=== PATIENT | female | born 1950 | race Caucasian/White ===

== ENCOUNTER → 2017-06-05 09:09 | Outpatient (CLI) | payer MEDICARE, SELFPAY ==
[2017-06-05 12:12] LABS: Absolute Lymphocyte Count 2.23 X10^3/ul (0.83-4.51); Absolute Neutrophil Count 5.3 X10^3/uL (2.0-7.7); Basophil# 0.11 X10^3/uL; Basophil% 1.2 % (0-1); Eosinophil# 0.23 X10^3/uL; Eosinophils% 2.6 % (0-5); Hematocrit 44.4 % (37-47); Hemoglobin 14.7 g/dl (12.0-15.0); Lymphocyte # 2.23 X10^3/ul (4.0); Lymphocyte % 25.1 % (19-41); Mean Corp Hgb Conc 33.1 g/gl (32-36); Mean Corpuscular Hgb 29.9 pg (27.0-32.0); Mean Corpuscular Volume 90.2 fL (81-99); Mean Platelet Vol. 10.7 fl (6.2-12.0); Monocyte# 1.03 X10^3/uL; Monocyte% 11.6 % (0-10); Neutrophil # 5.26 X10^3/uL (2.7-7.7); Neutrophil % 59.3 % (47-70); Platelet Count 255 K/mm3 (150-450); RBC Distribution Width CV 13.2 % (11.6-14.6); RBC Distribution Width SD 42.9 fl (35.1-43.9); Red Blood Count 4.92 M/mm3 (4.2-5.4); White Blood Count 8.9 K/mm3 (4.4-11.0)
[2017-06-05 12:13] LABS: POSITIVE COUNT NO; POSITIVE DIFFERENTIAL NO; POSITIVE MORPHOLOGY NO
[2017-06-05 12:19] LABS: Microalbumin,Random Urine 29.9 mg/L (NO RANGE EST.); Microalbumin:Creatinine Ratio 16.2 mg/g CRE (<30 mg/g CRE)
[2017-06-05 12:32] LABS: ALB/GLOB Ratio 0.9 RATIO (0.9-2.4); AST(SGOT) 40 U/L (15-37); Alanine Aminotransfer ALT/SGPT 49 U/L (13-56); Albumin, Serum 3.8 g/dL (3.2-5.0); Alkaline Phosphatase 53 U/L (45-117); Anion Gap 10 (5-15); BUN 18 mg/dL (7-18); BUN/Creat Ratio 21.9 RATIO (10-20); Calcium,Total 8.9 mg/dL (8.5-10.1); Chloride 100 mmol/L (98-107); Cholesterol 174 mg/dL (200); Creatinine, Serum 0.82 mg/dL (0.55-1.02); EST Glomerular Filtration Rate 73 mL/min (>60); Est Glom Filt Rate - Afr Amer 89 mL/min (>60); Globulin 4.2 g/dL (2.2-4.2); Glucose 205 mg/dL (74-106); High Density Lipoprotein 48 mg/dL; Potassium 3.8 mmol/L (3.5-5.1); Sodium Level 135 mmol/L (136-145); Thyroid Stim Hormone (TSH) 2.26 uIU/mL (0.358-3.74); Triglycerides 168 mg/dL; Very Low Density Lipoprotein 34 mg/dL (5-40)
[2017-06-05 12:35] LABS: Hemoglobin A1c 8.2 % (4.2-6.3)
== END ==
PROVIDERS: Family Provider Family Medicine; PCP Family Medicine; Visit Provider Family Medicine
DX: E11.9 Type 2 diabetes mellitus without complications (principal); I25.10 Atherosclerotic heart disease of native coronary artery without angina pectoris; I10 Essential (primary) hypertension; E03.9 Hypothyroidism, unspecified
CPT/HCPCS: 36415; 80053; 80061; 82043; 82570; 83036; 84443; 85025

== ENCOUNTER → 2017-11-08 06:46 | Outpatient (CLI) | payer MEDICARE, SELFPAY ==
--- NOTE | 2017-11-08 10:42 | STRESSREP ---
Stress Test Report Exercise myocardial perfusion stress test. 67-year-old lady with a history of coronary artery disease. Medications: Plavix Synthroid Zestril metoprolol Pepcid hydrochlorothiazide rosuvastatin. Stress protocol: Resting EKG demonstrates normal sinus rhythm with rate of 78 bpm normal intervals and noted resting blood pressure 730/78 mmHg. The patient exercised according to the regular [place] protocol for total duration of 4 minutes and 30 seconds. The maximum heart rate attained was 150 bpm which was 99% of maximum predicted heart rate the maximum workload was 6.4 metabolic equivalents. At rest there were no ST or T-wave changes noticed ischemia at peak exercise upsloping ST changes were noted we did not do note ischemia no clinical angina was noted the test was terminated due to shortness of breath and leg fatigue and occasional PVC was noted. The resting blood pressure is 130/78 peak blood pressure is 174/78. Rate pressure product was 25,500. Myocardial perfusion protocol. 12.0 mCi of technetium 99m sestamibi was injected at rest. The patient exercised according to regular Tunde protocol for 4-1/2 minutes. At peak exercise 34.4 mCi of technetium 99m sestamibi was injected stress images were obtained stress and rest images were reconstructed and compared in the short axis vertical long horizontal long axis. Gated images were also obtained pre- Perfusion SPECT analysis: Review of the stress images demonstrate normal uptake of tracer noted in all areas of the myocardium. The resting images similarly demonstrate normal uptake of tracer noted in all areas of myocardium. No areas of reversibility are noted suggest ischemia. Gated SPECT analysis: The gated ejection fraction is noted to be 77%. Conclusion: Normal exercise stress test at a moderate workload. Preserved ejection fraction.
== END ==
PROVIDERS: Family Provider Family Medicine; PCP Family Medicine; Visit Provider Internal Medicine Cardiovascular Disease
DX: I25.10 Atherosclerotic heart disease of native coronary artery without angina pectoris (principal)
CPT/HCPCS: 78452; 93017; A9500; A4216

== ENCOUNTER → 2018-05-28 08:42 | Outpatient (CLI) | payer MEDICARE, SELFPAY ==
[2017-10-17 11:06] VITALS: BMI 28.6
[2018-05-28 10:01] LABS: Absolute Lymphocyte Count 2.48 X10^3/ul (0.83-4.51); Absolute Neutrophil Count 5.2 X10^3/uL (2.0-7.7); Basophil# 0.06 X10^3/uL; Basophil% 0.7 % (0-1); Eosinophil# 0.23 X10^3/uL; Eosinophils% 2.5 % (0-5); Hemoglobin 14.1 g/dl (12.0-15.0); Lymphocyte # 2.48 X10^3/ul (4.0); Lymphocyte % 27.4 % (19-41); Mean Corp Hgb Conc 32.8 g/gl (32-36); Mean Corpuscular Hgb 29.7 pg (27.0-32.0); Mean Corpuscular Volume 90.7 fL (81-99); Mean Platelet Vol. 9.9 fl (6.2-12.0); Monocyte# 1.06 X10^3/uL; Monocyte% 11.7 % (0-10); Neutrophil # 5.21 X10^3/uL (2.7-7.7); Neutrophil % 57.6 % (47-70); Platelet Count 269 K/mm3 (150-450); RBC Distribution Width CV 13.3 % (11.6-14.6); RBC Distribution Width SD 43.8 fl (35.1-43.9); Red Blood Count 4.74 M/mm3 (4.2-5.4); White Blood Count 9.1 K/mm3 (4.4-11.0)
[2018-05-28 10:04] LABS: POSITIVE COUNT NO; POSITIVE DIFFERENTIAL NO; POSITIVE MORPHOLOGY NO
[2018-05-28 10:17] LABS: Microalbumin,Random Urine 41.3 mg/L (NO RANGE EST.)
[2018-05-28 10:36] LABS: ALB/GLOB Ratio 0.9 RATIO (0.9-2.4); AST(SGOT) 48 U/L (15-37); Alanine Aminotransfer ALT/SGPT 47 U/L (13-56); Albumin, Serum 3.9 g/dL (3.2-5.0); Alkaline Phosphatase 49 U/L (45-117); Anion Gap 11 (5-15); BUN 19 mg/dL (7-18); BUN/Creat Ratio 21.9 RATIO (10-20); Calcium,Total 9.4 mg/dL (8.5-10.1); Chloride 100 mmol/L (98-107); Cholesterol 180 mg/dL (200); Creatinine, Serum 0.87 mg/dL (0.55-1.02); EST Glomerular Filtration Rate 69 mL/min (>60); Est Glom Filt Rate - Afr Amer 83 mL/min (>60); Globulin 4.5 g/dL (2.2-4.2); Glucose 152 mg/dL (74-106); High Density Lipoprotein 55 mg/dL; Potassium 4.1 mmol/L (3.5-5.1); Protein, Total 8.4 g/dL (6.4-8.2); Sodium Level 136 mmol/L (136-145); T4 Free Direct 1.05 ng/dL (0.76-1.46); Triglycerides 164 mg/dL; Very Low Density Lipoprotein 33 mg/dL (5-40)
[2018-05-28 14:58] LABS: Hemoglobin A1c 6.9 % (4.2-6.3)
== END ==
PROVIDERS: Family Provider Family Medicine; PCP Family Medicine; Referring Provider Family Medicine; Visit Provider Family Medicine
DX: E11.9 Type 2 diabetes mellitus without complications (principal); I25.10 Atherosclerotic heart disease of native coronary artery without angina pectoris; I10 Essential (primary) hypertension; E03.9 Hypothyroidism, unspecified
CPT/HCPCS: 36415; 80053; 80061; 82043; 82570; 83036; 84439; 84443; 85025

== ENCOUNTER → 2019-02-05 11:18 | Outpatient (CLI) | payer MEDICARE, SELFPAY ==
[2018-10-23 10:16] VITALS: BMI 26.4
--- NOTE | 2019-02-05 11:25 | BI_ITS ---
MAMMOGRAPHY - BILATERAL SCREENING REASON FOR EXAM: Female, 68 years old. Routine annual screening examination. PERTINENT HISTORY: Non-contributory. TECHNIQUE: Digital bilateral breast ludy (3D mammographic acquisition) in the CC and MLO projections. 2-D mediolateral oblique (MLO) and craniocaudad (CC) views of both breasts were obtained. CAD: Full Field Digital Mammography with Computer Added Detection was performed. COMPARISON: Comparison is made with prior study dated February 08, 2016 and January 14, 2015. FINDINGS: Breast Composition: There are scattered areas of fibroglandular density. There are no dominant masses or suspicious calcifications. Stable small benign-appearing bilateral lymph nodes.. Stable scattered microcalcifications bilaterally. No focal cluster is seen. No other significant abnormalities are identified. There has been no significant change since the prior study. BI/SCREEN MAMM (CAD) W/LUDY BILAT IMPRESSION: Stable bilateral screening mammogram. Yearly follow-up mammogram recommended. (A) ASSESSMENT CATEGORY: BIRADS Category 2: Benign. A letter regarding these results will be sent to the patient by the facility within 30 days. Approximately 10% of breast cancers are not detected by mammography. A normal mammogram should not delay biopsy of a clinically suspicious abnormality. [id number] Electronically Signed: Jose Luis Schneider, at 12:53 EST , Service support ,
== END ==
PROVIDERS: Family Provider Family Medicine; PCP Family Medicine; Referring Provider Family Medicine; Visit Provider Family Medicine
DX: Z12.31 Encounter for screening mammogram for malignant neoplasm of breast (principal)
CPT/HCPCS: 77063; 77067

== ENCOUNTER → 2019-10-16 09:41 | Outpatient (CLI) | payer MEDICARE, SELFPAY ==
[2018-10-23 10:16] VITALS: BMI 26.4
[2019-10-16 11:25] LABS: Absolute Lymphocyte Count 2.23 X10^3/uL (0.83-4.51); Absolute Neutrophil Count 3.1 X10^3/uL (2.0-7.7); Basophil# 0.09 X10^3/uL; Basophil% 1.4 % (0-1); Eosinophil# 0.14 X10^3/uL; Eosinophils% 2.2 % (0-5); Hematocrit 41.6 % (37-47); Hemoglobin 13.7 g/dL (12.0-15.0); Lymphocyte # 2.23 X10^3/ul (4.0); Lymphocyte % 35.7 % (19-41); Mean Corp Hgb Conc 32.9 g/dL (32-36); Mean Corpuscular Hgb 30.4 pg (27.0-32.0); Mean Corpuscular Volume 92.2 fL (81-99); Mean Platelet Vol. 9.9 fl (6.2-12.0); Monocyte# 0.72 X10^3/uL; Monocyte% 11.5 % (0-10); NRBC Flagged by Analyzer 0 % (0-5); Neutrophil # 3.05 X10^3/uL (2.7-7.7); Neutrophil % 48.9 % (47-70); Platelet Count 225 K/mm3 (150-450); RBC Distribution Width CV 12.9 % (11.6-14.6); RBC Distribution Width SD 42.7 fl (35.1-43.9); Red Blood Count 4.51 M/mm3 (4.2-5.4); White Blood Count 6.3 K/mm3 (4.4-11.0)
[2019-10-16 11:44] LABS: ALB/GLOB Ratio 0.9 RATIO (0.9-2.4); AST(SGOT) 57 U/L (15-37); Alanine Aminotransfer ALT/SGPT 52 U/L (13-56); Albumin, Serum 3.7 g/dL (3.2-5.0); Alkaline Phosphatase 50 U/L (45-117); Anion Gap 9 (5-15); BUN 13 mg/dL (7-18); BUN/Creat Ratio 17.5 RATIO (10-20); Calcium,Total 8.9 mg/dL (8.5-10.1); Chloride 102 mmol/L (98-107); Creatinine, Serum 0.74 mg/dL (0.55-1.02); EST Glomerular Filtration Rate 82 mL/min (>60); Est Glom Filt Rate - Afr Amer 99 mL/min (>60); Globulin 4.2 g/dL (2.2-4.2); Glucose 145 mg/dL (74-106); Potassium 3.8 mmol/L (3.5-5.1); Protein, Total 7.9 g/dL (6.4-8.2); Sodium Level 133 mmol/L (136-145); T4 Free Direct 1.14 ng/dL (0.76-1.46); Thyroid Stim Hormone (TSH) 1.43 uIU/mL (0.358-3.74)
[2019-10-16 13:16] LABS: Hemoglobin A1c 6.5 % (3.8-5.6)
[2019-10-17 11:03] LABS: Carcinoembryonic Antigen 1.6 ng/mL (0.0-4.7)
== END ==
PROVIDERS: PCP Family Medicine; Visit Provider Colon & Rectal Surgery
DX: E11.9 Type 2 diabetes mellitus without complications (principal); E03.9 Hypothyroidism, unspecified; Z85.038 Personal history of other malignant neoplasm of large intestine
CPT/HCPCS: 36415; 80053; 82378; 83036; 84439; 84443; 85025

== ENCOUNTER → 2019-10-22 10:28 | Outpatient (CLI) | payer MEDICARE, SELFPAY ==
[2019-10-22 10:01] VITALS: BMI 27.6
[2019-10-22 11:31] LABS: Cholesterol 159 mg/dL (200); High Density Lipoprotein 54 mg/dL; Triglycerides 181 mg/dL; Very Low Density Lipoprotein 36 mg/dL (5-40)
== END ==
PROVIDERS: PCP Family Medicine; Referring Provider Internal Medicine Cardiovascular Disease; Visit Provider Internal Medicine Cardiovascular Disease
DX: I25.10 Atherosclerotic heart disease of native coronary artery without angina pectoris (principal)
CPT/HCPCS: 36415; 80061

== ENCOUNTER 2020-01-02 09:14 | Observation (INO) | payer MEDICARE, SELFPAY ==
[2019-10-22 10:01] VITALS: BMI 27.6
[2020-01-02] VITALS (20 sets, daily range): BP systolic 121–180; BP diastolic 60–81; PULSE 77–115; RESP 15–24; TEMP 36.2–36.6; O2SAT 94–99; BMI 29.1; BMI 29.0
--- NOTE | 2020-01-02 09:26 | ED.DCSUM_ITS ---
History of Present Illness Chief Complaint: Chest Pain Narrative: Patient presents with intermittent chest pain for about a week however it started in the middle the night and has been constant since. This feels like a prior IN however it does not feel as bad. She has no fever or chills or cough or congestion. She has no radiation of the pain. She has no back pain or tearing sensation. She has no pleuritic component. She has no lower extremity edema or calf pain. No DVT or PE risk factors. Past Medical History - Allergies and Home Meds Allergies/Adverse Reactions: Allergies atorvastatin calcium [From Lipitor] Allergy (Verified 10/23/18 10:16) Other MUSCLE SORENESS iodine Allergy (Verified 10/23/18 10:16) Rash Primary Care Physician: Hiram Osborne DO [Primary Care Provider] - Past Medical History: - - Hypertension hypercholesterolemia diabetes prior IN with 4 stents Smoking Status: Never smoker Review of Systems All systems negative except as indicated General: Denies: Fever Eyes: Denies: Visual changes - bilaterally ENT: Denies: Sore throat Cardiovascular: Reports: Chest pain. Denies: Palpitations, Heart racing Respiratory: Denies: Dyspnea, Cough Gastrointestinal: Denies: Abdominal pain, Nausea, Vomiting Genitourinary: Denies: Dysuria Musculoskeletal: Denies: Myalgias Skin: Denies: Rash Neurological: Denies: Headache, Weakness Endocrine: Denies: Polyuria Hematologic: Denies: Easy bruising, Easy bleeding Allergy: Denies: Swelling of the mouth Physical Exam Vital Signs/Narrative: Vital Signs Temp Pulse Resp BP Pulse Ox 01/02/20 09:15 97.1 F L 89 16 161/76 H 99 General: Well nourished, Well developed Head: Normocephalic, Atraumatic ENT: Moist mucous membranes, No rhinorrhea Cardiovascular: Regular rate, Regular rhythm, No murmurs Respiratory: No distress, CTA bilaterally Abdomen: Soft, Nontender, Nondistended Back: Nontender. Negative for: Normal Inspection Extremities: Nontender, No edema Skin: Normal color Neurological: Alert, Oriented x3, Normal Strength, Normal Sensation Psychological: Normal affect Diagnostic/Tx/Re-eval - Rhythm Strip Rhythm Strip: Sinus Rhythm Rate: 84 Ectopy: None - EKG Initial EKG Interpretation: - - Normal sinus rhythm with a rate of 84. Normal NM and QTc intervals. ST and T wave abnormalities in the inferior leads. No ST elevation. I do not have a prior EKG to compare with. Interpreted by emergency doctor - Medical Decision Making Patient has an unremarkable work-up however she has quite a few risk factors for her chest pain including prior PTCA. I will admit her for further cardiac work- up. ED Disposition - Plan for ED Patient: Disposition: Home or Assisted Living Diagnosis: Chest pain Referrals: Hiram Osborne DO [Primary Care Provider] -
--- NOTE | 2020-01-02 09:26 | EKG12_ITS ---
Test Reason : CP Blood Pressure : / mmHG Vent. Rate : 084 BPM Atrial Rate : 084 BPM P-R Int : 166 ms QRS Dur : 104 ms QT Int : 382 ms P-R-T Axes : 056 035 045 degrees QTc Int : 451 ms Normal sinus rhythm Nonspecific ST & T Wave Abnormality Abnormal ECG Confirmed by ANGEL LUIS SALTER, YANI ([id number]), recreation assistant CHU HUSAIN ([id number]) on 01/06/2020 2:25:56 PM Referred By: VALENTIN Confirmed By:YANI HEIN MD
[2020-01-02 09:41] LABS: Absolute Lymphocyte Count 2.21 X10^3/uL (0.83-4.51); Basophil% 1.4 % (0-1); Eosinophil# 0.21 X10^3/uL; Eosinophils% 2.9 % (0-5); Lymphocyte # 2.21 X10^3/ul (4.0); Mean Corp Hgb Conc 32.6 g/dL (32-36); Mean Corpuscular Volume 92.3 fL (81-99); Mean Platelet Vol. 9.7 fl (6.2-12.0); Monocyte# 0.81 X10^3/uL; NRBC Flagged by Analyzer 0 % (0-5); Neutrophil # 4.01 X10^3/uL (2.7-7.7); Neutrophil % 54.4 % (47-70); Platelet Count 267 K/mm3 (150-450); RBC Distribution Width CV 12.8 % (11.6-14.6); RBC Distribution Width SD 42.7 fl (35.1-43.9); Red Blood Count 4.66 M/mm3 (4.2-5.4); White Blood Count 7.4 K/mm3 (4.4-11.0)
[2020-01-02] MEDS: Aspirin 81 MG TAB.CHEW 324 MG PO (09:44)
--- NOTE | 2020-01-02 09:55 | RAD_ITS ---
STUDY: X-RAY CHEST REASON FOR EXAM: Female, 69 years old. CHEST PAIN X 1 WK, HX OF COLORECTAL CANCER, HX ID TECHNIQUE: Single AP portable view of the chest. COMPARISON: Comparison is made with prior study from 04/28/2014. FINDINGS: EKG electrodes are seen. The lungs are clear and expanded. There is no demonstrated pleural abnormality. Normal size heart. Normal mediastinum and yara. Normal visualized pulmonary arteries. Normal visualized aortic arch and descending thoracic aorta. Normal visualized thoracic spine. Normal visualized ribs, clavicles, and shoulders. There is no demonstrated abnormality of the visualized soft tissue structures of the upper abdomen. RAD/Chest 1 View (Portable) IMPRESSION: Normal x-ray examination of the chest. Electronically Signed: Jose Luis Schneider, at 10:45 EST , Service support ,
[2020-01-02 09:57] LABS: Anion Gap 7 (5-15); BUN 17 mg/dL (7-18); BUN/Creat Ratio 20.1 RATIO (10-20); Calcium,Total 9.6 mg/dL (8.5-10.1); Chloride 100 mmol/L (98-107); Creatinine, Serum 0.85 mg/dL (0.55-1.02); EST Glomerular Filtration Rate 70 mL/min (>60); Est Glom Filt Rate - Afr Amer 85 mL/min (>60); Estimated Creatinine Clearance 54.62 ml/min; Glucose 212 mg/dL (74-106); Potassium 3.7 mmol/L (3.5-5.1); Sodium Level 134 mmol/L (136-145)
--- NOTE | 2020-01-02 11:53 | CON.PCM_ITS ---
Reason for Consult Date of Consultation: 01/02/20 Reason for Consultation: Chest pain History of Present Illness: The patient is a 69 year old F who presented to the emergency room complaining of intermittent chest discomfort. She woke up in the middle of the night with this chest discomfort described as a heaviness. She was seen in the emergency room was evaluated by the ER physician EKG did not demonstrate any significant abnormality. Cardiac troponin enzymes were minimally abnormal I was called by the hospitalist to notify me of the admission and her ongoing chest pain. She does have a history of coronary artery disease status post angioplasty and stenting of the right coronary artery in 2009, subsequent stenting of her circumflex artery in 2010 and coronary intervention of the same circumflex artery in 2011. Since then she has done well was last seen in the office in September of this year without any problems other than occasional reflux for which she was on famotidine. At this time she says that she continues to have minimal chest discomfort. [] Past Medical History Allergies/Adverse Reactions: Allergies atorvastatin calcium [From Lipitor] Allergy (Verified 01/02/20 11:48) Other MUSCLE SORENESS iodine Allergy (Verified 01/02/20 11:48) Rash Home Medications: Ambulatory Orders Medication Instructions Recorded Levothyroxine [Synthroid] 75 mcg PO DAILY 05/18/13 metformin 500 mg tablet 500 mg PO BID 10/17/17 nitroglycerin 0.4 mg sublingual 0.4 mg SUBLINGUAL Q5M PRN #30 tab 10/17/17 tablet amlodipine 5 mg tablet 5 mg PO BID #180 tab 10/22/19 aspirin 81 mg tablet,delayed 81 mg PO DAILY 10/22/19 release clopidogrel 75 mg tablet 75 mg PO DAILY #90 tab 10/22/19 hydrochlorothiazide 25 mg tablet 25 mg PO QDAY #90 tab 10/22/19 lisinopril 20 mg tablet 20 mg PO BID #180 tab 10/22/19 metoprolol tartrate 50 mg tablet 50 mg PO BID #180 tab 10/22/19 pantoprazole 40 mg tablet,delayed 40 mg PO DAILY tab 10/22/19 release rosuvastatin 20 mg tablet 20 mg PO QDAY #90 tab 10/22/19 Famotidine [Acid-Pep] 20 mg PO DAILY 01/02/20 Glimepiride 4 mg PO DAILY 01/02/20 Past Medical History (Chronic Problems): Chronic Problems (Last Reviewed 10/22/19 @ 10:01 by Suzy Bach) Atherosclerotic heart disease of [place] coronary artery without angina pectoris (Chronic) Essential (primary) hypertension (Chronic) Hyperlipidemia (Chronic) Rectal cancer (Chronic) Smoking Status: Former smoker Alcohol: None Drugs: None Review of Systems - Review of Systems General: Denies: Fever, Night Sweats, Fatigue HEENT: Denies: Vision Change Cardiovascular: Reports: Chest Discomfort, Chest Discomfort at Rest. Denies: Shortness of Breath, Orthopnea, PND, Peripheral Edema, Palpitations, Lightheadedness, Dizziness, Near Syncope, Syncope Respiratory: Denies: Cough, Sputum Production, Hemoptysis Gastrointestinal: Reports: Indigestion. Denies: Hematemesis, Hematochezia, Melena Genitourinary: Denies: Dysuria, Hematuria Skin: Denies: Rash Neurological: Denies: Dizziness Psychiatric: Reports: Anxiety Subjectve: Pleasant lady appears to be mildly anxious Objective: Vital Signs Temp Pulse Resp BP Pulse Ox 97.2 F L 82 16 131/60 H 98 01/02/20 11:17 01/02/20 11:19 01/02/20 11:19 01/02/20 11:19 01/02/20 11:19 Oxygen Delivery Method Room Air Weight: 175 lb Body Mass Index (BMI) 29.1 General: Awake, Alert, Oriented x 3 HEENT: PERRL, EOMI, Sclera Non Icteric Neck: Supple, Good ROM, No Lymph Node Enlargement Lungs: Clear to auscultation Cardiovascular: Regular Rhythm, Normal S1, Normal S2, No Murmurs, No Rubs, No Gallops Vascular: No Carotid Bruits, Normal Femoral Pulses, Normal Radial Pulses, Normal Dorsalis Pedal Pulse, Normal Posterior Tibial Pulses Abdomen: Bowel Sounds Present, Soft, Non Tender, No HSM, No Organomegaly Extremities: No Cyanosis, No Clubbing, No edema Musculoskeletal: No Erythema Skin: No Rashes Lymphatic: No Lymph Node Enlargement Neurological: No Focal Motor or Sensory Deficit Psych/Mental Status: Appropriate 01/02/20 09:30: WBC 7.4, RBC 4.66, Hgb 14.0, Hct 43.0, MCV 92.3, MCH 30.0, MCHC 32.6, Plt Count 267, MPV 9.7, Immature Gran % (Auto) 0.300, Neut % (Auto) 54.4, Lymph % (Auto) 30.0, [place] % (Auto) 11.0 H, Eos % (Auto) 2.9, Baso % (Auto) 1.4 H , Absolute Neuts (auto) 4.0, Nucleated RBC % 0 01/02/20 09:30: Sodium 134 L, Potassium 3.7, Chloride 100, Carbon Dioxide 27.0, Anion Gap 7, BUN 17, Creatinine 0.85, Est GFR (MDRD) Af Amer 85, Est GFR (MDRD) Non-Af 70, BUN/Creatinine Ratio 20.1 H, Glucose 212 H, Calcium 9.6, Troponin I 0.018 Rhythm: EKG: Normal sinus rhythm with no acute changes ECHO: Stress Test: Cardiac Cath: PCI: CT Surgery: Holter monitor: EPS: PPM: CXR: Chest CT Scan: Assessment/Plan 1. Chest pain. Unstable angina. * Patient presents with chest discomfort which appears to be unrelenting and suggestive of an stable or new onset angina. She does not have any EKG changes but her cardiac enzymes are minimally abnormal. I would suggest that on the basis of her ongoing chest discomfort that we proceed with a cardiac catheterization. The risk benefits alternatives have been explained to her she understands and agrees to proceed. She did undergo a stress test 2 years ago and at that time no evidence of ischemia was noted. * 2. Hypertension * Her blood pressure appears to be under good control on the current medical therapy I would not recommend that we make any other changes. * * Thank you for allowing me to participate in the care of your patient. Please don't hesitate to call if any issues arise.
--- NOTE | 2020-01-02 12:39 | CL.D_ITS ---
Patient Name: CHARLA KOROMA Study Date: 01/02/2020 Performing: Pk Casey MD Ht: 64.96 inches 165 cm : 1950 Wt: 174.17 lbs 79 kg Age: 69 Gender: female BSA: 1.86 PROCEDURE(S) PERFORMED JS61-XEF/COR/LV CLINICAL PROFILE AND INDICATIONS Indications: ACS <= 24 hrs Heart Failure: None Stress/Imaging Stress/Image Study Performed: No CAD Presentations: Unstable angina. CONCLUSIONS Previously placed stent in the circumflex artery which is patent: Previously placed stent in the righ t coronary artery with high-grade 95% mid in-stent stenosis. AV groove branch with 60% ostial stenos is. Preserved left ventricular ejection fraction RECOMMENDATIONS Referred for immediate PCI DESCRIPTION OF PROCEDURE The patient arrived to the procedure lab. The risks and benefits of the procedure as well as a full d escription of our services here and current unavailability of surgical backup were fully explained to the patient and/or their significant other prior to the catheterization. The Timeout was completed, verifying the correct patient and procedure. The patient's procedural site was prepped and draped in the usual fashion. Local anesthetic was given subcutaneously to right radial region with Lidocaine 2% . Using a modified Seldinger technique, arterial access was obtained via the right radial artery, a 6 Fr sheath was inserted. Right Coronary Artery selective angiography was then performed in multiple v iews using a 5 Fr. 4.0 [place] catheter. Left Coronary Artery selective angiography was performed in mu ltiple views using a 5 Fr. 4.0 [place] catheter. Left Ventriculography was performed in ARMIJO projection using a 5 Fr. Pigtail catheter. LV to AO pullback pressures were then recorded. CORONARY ANGIOGRAPHY DOMINANCE: Right Dominant LEFT HEART ASSESSMENT Left Ventricular Ejection Fraction: by LV Gram 65 % Normal LV wall motion Normal Left Ventricular systolic function LEFT MAIN: Angiographically normal LEFT ANTERIOR DESCENDING ARTERY: Mild luminal irregularities CIRCUMFLEX ARTERY: MID CIRC: Previously placed stent is patent RIGHT CORONARY ARTERY: MID RCA: Previously placed stent has an instent 95 % restenosis COMPLICATIONS PROCEDURE MEDICATIONS Versed 1 mg IV Fentanyl 50 mcg IV Versed 1 mg IV Versed 1 mg IV Oxygen: 2 L/min via nasal cannula Benadryl 50 mg IV @ 01/02/2020 12:06:42 Heparin diluted in 23cc Heparinized saline. Patient given 10cc IA of this solution. 01/02/2020 12:14: 43 Heparin 6000 unit(s) IV 01/02/2020 12:37:09 Plavix 75 mg PO 01/02/2020 12:03:27 Solu-medrol 125 mg IV 01/02/2020 12:06:52 SUMMARY OF HEMODYNAMIC DATA Time AIR REST ECG 11:57:09 AO 130/67 (94) SA 12:20:55 LV 136/1, 5 12:26:35 LV 133/2, 8 12:26:46 LV 136/6, 13 12:27:17 LV 132/5, 13 12:27:24 LVp 131/8, 13 12:27:30 AOp 131/60 (90) 12:27:35 Signed By Pk Casey MD On 01/02/2020 12:38:33 Pk Casey MD
--- NOTE | 2020-01-02 14:00 | EKG12_ITS ---
Test Reason : CP Blood Pressure : / mmHG Vent. Rate : 080 BPM Atrial Rate : 080 BPM P-R Int : 168 ms QRS Dur : 098 ms QT Int : 398 ms P-R-T Axes : 055 008 037 degrees QTc Int : 459 ms Normal sinus rhythm Normal ECG Confirmed by ANGEL LUIS SALTER, YANI ([id number]), fashion editor CHU HUSAIN ([id number]) on 01/06/2020 2:35:42 PM Referred By: ALISA Confirmed By:YANI HEIN MD
--- NOTE | 2020-01-02 14:25 | CL.I_ITS ---
Patient Name: CHARLA KOROMA Study Date: 01/02/2020 Performing: Dustin Zuniga MD Ht: 65 inches 165 cm : 1950 Wt: 174.4 lbs 79 kg Age: 69 Gender: female BSA: 1.86 PROCEDURE(S) PERFORMED XV36-XEL W OR WO PTCA, SINGLE CORONARY ARTERY CLINICAL PROFILE AND CO-MORBIDITIES Indications: ACS <= 24 hrs Heart Failure: None Stress/Imaging Stress/Image Study Performed: No CAD Presentations: Unstable angina. CONCLUSIONS Successful PCI with LEVI to ostial and mid RCA with LEVI RECOMMENDATIONS ASA Indefinitley Plavix for at least 12 months Follow up with Dr. Casey DESCRIPTION OF PROCEDURE The patient arrived to the procedure lab. The risks and benefits of the procedure as well as a full d escription of our services here and current unavailability of surgical backup were fully explained to the patient and/or their significant other prior to the catheterization. The Timeout was completed, verifying the correct patient and procedure. The patient's procedural site was prepped and draped in the usual fashion. Local anesthetic was given subcutaneously to right radial region with Lidocaine 2% Using a modified Seldinger technique,arterial access was obtained via the right radial artery, a 6Fr sheath was inserted. Right Coronary Artery selective angiography was then performed in multiple view s using a 5 Fr. 4.0 Raymond catheter. Left Coronary Artery selective angiography was performed in multi ple views using a 5 Fr. 4.0 Raymond catheter. Left Ventriculography was performed in ARMIJO projection usi ng a 5 Fr. Pigtail catheter. LV to AO pullback pressures were then recorded.The images were reviewed and options discussed. A decision was then made to proceed with an Intervention, IVUS o r other adjunct procedure. JR4 Guide catheter was inserted and engaged into the RCA. HSI SH Guide catheter was inserted and engaged into the RCA. [employer] [place] Guide wire was advanced to the RCA. Emerge 2.[address] x [address] was inserted. Balloon catheter was advanced across lesion in the right coronary, mid. PTCA balloo n inflated at 6 atms for 7 secs. PTCA balloon inflated at 6 atms for 5 secs. PTCA balloon inflated at 10 atms for 12 secs. PTCA balloon inflated at 6 atms for 9 secs. Angiogram performed post balloon di latation. Synergy 3.0 x 28 Drug Eluting stent was inserted. Drug Eluting stent was advanced across th e lesion in the right coronary, mid. Angiogram performed pre stent deployment. Angiogram performed po st stent deployment. Synergy 3.0x 12 Drug Eluting stent was inserted. Drug Eluting stent was advanced across the lesion in the right coronary, ostial. Angiogram performed pre stent deployment. JR4 Guide catheter was inserted and engaged into the RCA. NC Emerge 3.25 x 12 Balloon catheter was inserted. Balloon catheter was advanced across lesion in the right coronary, ostial. [employer] [place] Gu tal wire was advanced to the RCA. Angiogram performed post balloon dilatation. The arterial sheath was pulled and a TR Band was applied for hemostasis INTERVENTION INFORMATION LESION SITE: RCA (Mid) Lesion Complexity: High/C, chronic total occlusion: No, lesion at bifurcation: No, thrombus present: No, lesion length: 27 mm, culprit lesion: Yes, Previously treated lesion: Yes, In-stent restenosis: Y es, Timeframe of previous treatment: >2 years, Previously treated with a stent: Yes Stent Type: with stent type unknown, In-stent Thrombosis: No Pre Stenosis: 95 % Pre intervention CASSY flow: 3 PROCEDURE: Drug Eluting Stent with pre dilatation. Post Stenosis: 0 % Post intervention CASSY flow: 3 Lesion Devices: Loving .014 [place] Straight 190cm Medtronic 6 Fr JR4.0 100cm Guide Catheter Medtronic 6 Fr HSI SH 100cm Guide Catheter Rivera Sci EMERGE MR 2.50x12 BALLOON Rivera Sci Synergy MR LEVI 3.00x28 LESION SITE: RCA (Ostial) Lesion Complexity: High/C, chronic total occlusion: No, lesion at bifurcation: No, thrombus present: No, lesion length: 4 mm, culprit lesion: Yes, Previously treated lesion: No Pre Stenosis: 60 % Pre intervention CASSY flow: 3 PROCEDURE: Drug Eluting Stent with post dilatation There was significant dampening of the arterial waveform with catheter engagement. We administered in tracoronary NTG and patient went into V fib. CPR was started and one 200J shock delivered which broug ht the patient back to NSR. Post Stenosis: 0 % Post intervention CASSY flow: 3 Lesion Devices: Loving .014 [place] Straight 190cm Medtronic 6 Fr HSI SH 100cm Guide Catheter Rivera Sci Synergy MR LEVI 3.00x12 Rivera Sci NC EMERGE MR 3.25x12 BALLOON COMPLICATIONS PROCEDURE MEDICATIONS Versed 1 mg IV Fentanyl 50 mcg IV Versed 1 mg IV Versed 1 mg IV Oxygen: 2 L/min via nasal cannula Benadryl 50 mg IV @ 01/02/2020 12:06:42 Heparin diluted in 23cc Heparinized saline. Patient given 10cc IA of this solution. 01/02/2020 12:14: 43 Heparin 6000 unit(s) IV 01/02/2020 12:37:09 Nitro 200 mcg IC 01/02/2020 12:40:34 Plavix 75 mg PO 01/02/2020 12:03:27 Solu-medrol 125 mg IV 01/02/2020 12:06:52 IV Bolus: .9 NaCl 250ml total 01/02/2020 12:54:47 SUMMARY OF HEMODYNAMIC DATA Time AIR REST ECG 11:57:09 AO 130/67 (94) SA 12:20:55 LV 136/1, 5 12:26:35 LV 133/2, 8 12:26:46 LV 136/6, 13 12:27:17 LV 132/5, 13 12:27:24 LVp 131/8, 13 12:27:30 AOp 131/60 (90) 12:27:35 Signed By Dustin Zuniga MD On 01/02/2020 14:24:06 Dustin Zuniga MD
[2020-01-02] MEDS: 0.9% Normal Saline 1,000 ML 100 ML IV (14:51)
--- NOTE | 2020-01-02 15:19 | PCM.HP.STD ---
Problem List (1) Chest pain Status: Acute (2) Atherosclerotic heart disease of [place] coronary artery without angina pectoris Status: Chronic (3) History of non-ST elevation myocardial infarction (NSTEMI) Status: Resolved (4) History of coronary artery stent placement Status: Chronic Comment: BIN-FLN-Biy-Distal RCA 12/04/2009; RWJ-ZLM-Clre-Mid LCx 12/15/2009; VLS-SXG-JCD-Mid LCx w/ 3.0 x 16 mm Promus Element Stent 02/12/11 (5) Essential (primary) hypertension Status: Chronic (6) Hyperlipidemia Status: Chronic Qualifiers: Hyperlipidemia type: pure hypercholesterolemia Qualified Code(s): E78.00 - Pure hypercholesterolemia, unspecified; E78.0 - Pure hypercholesterolemia (7) Rectal cancer Status: Chronic History of Present Illness Date of Admission: 01/02/20 Chief Complaint: Chest pain. The patient is a 69 year old F who presents to the emergency room due to chest pain. Patient states she has had intermittent chest pain for the past week. She states it is occurred both at rest and with exertion. Patient states chest pain woke her up from her sleep this morning and was a pressure in the center of her chest which radiated to her back. She states she took a nitro and went back to sleep. When she woke up, she states she did not feel right and the pressure was still there and at that time decided to come to the emergency room. She denies shortness of breath, diaphoresis, nausea or other associated symptoms. She has a past medical history of CAD with history of stents, hypertension, hyperlipidemia, type 2 diabetes mellitus, hypothyroidism, GERD. Past Medical History Past Medical History (Chronic Problems): Chronic Problems (Last Reviewed 10/22/19 @ 10:01 by Suzy Bach) Atherosclerotic heart disease of [place] coronary artery without angina pectoris (Chronic) History of coronary artery stent placement (Chronic 02/12/11) ZWX-PJY-Ijh-Distal RCA 12/04/2009; VLD-LFW-Bweg-Mid LCx 12/15/2009; YNF-EYL-YKB-Mid LCx w/ 3.0 x 16 mm Promus Element Stent 02/12/11 Essential (primary) hypertension (Chronic) Hyperlipidemia (Chronic) Rectal cancer (Chronic) Medical History: Medical History (Last Reviewed 10/22/19 @ 10:01 by Suzy Bach) Atherosclerotic heart disease of [place] coronary artery without angina pectoris (Chronic) I25.10 History of non-ST elevation myocardial infarction (NSTEMI) (Resolved) Onset Date: 02/12/11 I25.2 Essential (primary) hypertension (Chronic) I10 Hyperlipidemia (Chronic) E78.5 Rectal cancer (Chronic) C20 Hypothyroidism, iatrogenic E03.2 Type 2 diabetes mellitus E11.9 Allergies atorvastatin calcium [From Lipitor] Allergy (Verified 01/02/20 11:48) Other MUSCLE SORENESS iodine Allergy (Verified 01/02/20 11:48) Rash Home Medications: Ambulatory Orders Medication Instructions Recorded Levothyroxine [Synthroid] 75 mcg PO DAILY 05/18/13 metformin 500 mg tablet 500 mg PO BID 10/17/17 nitroglycerin 0.4 mg sublingual 0.4 mg SUBLINGUAL Q5M PRN #30 tab 10/17/17 tablet amlodipine 5 mg tablet 5 mg PO BID #180 tab 10/22/19 aspirin 81 mg tablet,delayed 81 mg PO DAILY 10/22/19 release clopidogrel 75 mg tablet 75 mg PO DAILY #90 tab 10/22/19 hydrochlorothiazide 25 mg tablet 25 mg PO QDAY #90 tab 10/22/19 lisinopril 20 mg tablet 20 mg PO BID #180 tab 10/22/19 metoprolol tartrate 50 mg tablet 50 mg PO BID #180 tab 10/22/19 pantoprazole 40 mg tablet,delayed 40 mg PO DAILY tab 10/22/19 release rosuvastatin 20 mg tablet 20 mg PO QDAY #90 tab 10/22/19 Famotidine [Acid-Pep] 20 mg PO DAILY 01/02/20 Glimepiride 4 mg PO DAILY 01/02/20 Surgical History: Surgical History (Last Reviewed 10/22/19 @ 10:01 by Suzy Bach) History of coronary artery stent placement (Chronic) Onset Date: 02/12/11 Z95.5 YQJ-ASO-Zul-Distal RCA 12/04/2009; UIE-ANQ-Augu-Mid LCx 12/15/2009; SSW-YNG-MRH-Mid LCx w/ 3.0 x 16 mm Promus Element Stent 02/12/11 H/O colectomy Onset Date: 09/2018 Z90.49 History of hysterectomy Onset Date: 09/2018 Z90.710 History of left heart catheterization Onset Date: 05/13/11 Z98.890 Surgical History: - - Partial colectomy, hysterectomy, cardiac stent placement, tonsillectomy. 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 Lives: Spouse/ Significant Other Smoking Status: Never smoker Alcohol: Occasional Drugs: None - *Family History Maternal Family History: Family History (Last Reviewed 10/22/19 @ 10:01 by Suzy Bach) Father Heart disease Myocardial infarction Mother CAD (coronary artery disease) CVA (cerebral vascular accident) HLD (hyperlipidemia) Hypertension Brother CAD (coronary artery disease) History Items: Heart Disease, - - Colon cancer, dementia Paternal Family History: Family History (Last Reviewed 10/22/19 @ 10:01 by Suzy Bach) Father Heart disease Myocardial infarction Mother CAD (coronary artery disease) CVA (cerebral vascular accident) HLD (hyperlipidemia) Hypertension Brother CAD (coronary artery disease) History Items: Heart Disease Review of Systems Constitutional: Denies: Chills, Fever, Weight Change HEENT: Denies: Head Aches, Sinus Congestion, Sinus Drainage Cardiovascular: Reports: Chest Pain, Heaviness. Denies: Light Headedness, Palpitations, Syncope Respiratory: Denies: Cough, Shortness of breath at rest, Sputum production Gastrointestinal: Denies: Abdominal Pain, Nausea, Vomiting Genitourinary: Denies: Dysuria Musculoskeletal: Denies: Joint Pain, Joint Tenderness Skin: Denies: Rash, Wounds Neurological: Denies: Numbness, Tingling, Focal weakness Psychiatric: Denies: Anxiety, Depression, Homicidal Ideations, Suicidal Ideations Hematologic/ Lymphatic: Denies: Easy Bruising, Easy Bleeding VTE Information - Inpt Only VTE Present on Admission: No VTE Mechan Device Prophylaxis: SCD's VTE Pharm Prophylaxis ordered?: No Reason prophylaxis not ordered:: Treatment Not Indicated Patient Problems: Active and Suspected Problems (Last Reviewed 10/22/19 @ 10:01 by Suzy Bach) Chest pain (Acute) - Physical Exam Vitals/I&O's: Vital Signs Temp Pulse Resp BP Pulse Ox 97.2 F L 82 16 131/60 H 98 01/02/20 11:17 01/02/20 11:19 01/02/20 11:19 01/02/20 11:19 01/02/20 11:19 Oxygen Delivery Method Room Air Weight: 174 lb 13.225 oz Body Mass Index (BMI) 29.0 General: Alert, Oriented x3, Cooperative HEENT: Atraumatic, PERRLA, EOMI, Normocephalic Neck: Supple, No JVD, Negative Carotid Bruits Lungs: Clear to auscultation, Normal air movement Cardiovascular: Regular rate, No murmurs Abdomen: Bowel Sounds Present, Soft, Non Tender, Non-Distended Extremities: No clubbing, No cyanosis, No edema, Capillary Refill Less than 3 Seconds Skin: No rashes, No breakdown Musculoskeletal: No Tenderness to Palpation of Joints or Extremities Neurological: Cranial nerves II-XII grossly intact, Neuro grossly intact Psych/Mental Status: Normal Affect, Appropriate Laboratory Results 01/02/20 09:30: WBC 7.4, RBC 4.66, Hgb 14.0, Hct 43.0, MCV 92.3, MCH 30.0, MCHC 32.6, RDW Std Deviation 42.7, RDW Coeff of [place] 12.8, Plt Count 267, MPV 9.7, Immature Gran % (Auto) 0.300, Neut % (Auto) 54.4, Lymph % (Auto) 30.0, [place] % (Auto) 11.0 H, Eos % (Auto) 2.9, Baso % (Auto) 1.4 H, Absolute Neuts (auto) 4.0, Absolute Lymphs (auto) 2.21, Nucleated RBC % 0 01/02/20 09:30: Sodium 134 L, Potassium 3.7, Chloride 100, Carbon Dioxide 27.0, Anion Gap 7, BUN 17, Creatinine 0.85, Estim Creat Clear Calc 54.62, Est GFR (MDRD) Af Amer 85, Est GFR (MDRD) Non-Af 70, BUN/Creatinine Ratio 20.1 H, Glucose 212 H, Calcium 9.6, Troponin I 0.018 01/02/20 10:04: COVID-19 (SIGIFREDO) Not Detected Current Medications Acetaminophen (Acetaminophen 325 Mg Tablet) 650 mg PO Q6H PRN PRN PRN Reason: Pain Score 1-10/Temp > 100.7 F Amlodipine Besylate (Amlodipine 5 Mg Tablet) 5 mg PO BID [facility] Aspirin (Aspirin E.C. 81 Mg Tablet) 81 mg PO DAILYCM [facility] Atropine Sulfate (Atropine Sulfate 1 Mg/10 Ml Syringe) 0.5 mg IV UD PRN PRN Reason: HR <50 bpm Clopidogrel Bisulfate (Clopidogrel Bisulfate 75 Mg Tablet) 75 mg PO DAILY [facility] Famotidine (Famotidine 20 Mg Tablet) 20 mg PO DAILY [facility] Glimepiride ([facility] 4 Mg Tablet) [facility] Heparin Sodium (Beef Lung) (Heparin Lock 500 Unit/5 Ml In 10 Ml Syringe) 500 unit IV UD PRN PRN Reason: HEPARIN FLUSH Hydrochlorothiazide (Hydrochlorothiazide 25 Mg Tablet) 25 mg PO DAILY [facility] Sodium Chloride () 1,000 mls @ 100 mls/hr IV .Q10H IZA Stop: 01/02/20 19:59 Last Admin: 01/02/20 14:51 Dose: 100 mls/hr Documented by: Labetalol HCl (Labetalol (Prefilled) 20 Mg/4 Ml) 5 mg IV X1 PRN PRN Reason: SBP >160 when pulling sheath Stop: 01/04/20 13:59 Levothyroxine Sodium (Levothyroxine 75 Mcg Tablet) 75 mcg PO DAILY@0600 [facility] Lisinopril (Lisinopril 20 Mg Tablet) 20 mg PO BID [facility] Metoprolol Tartrate (Metoprolol Tartrate 50 Mg Tablet) 50 mg PO BID [facility] Morphine Sulfate (Morphine 4 Mg/Ml Syringe) 4 mg IV Q3H PRN PRN PRN Reason: Pain Score 6-10 Nitroglycerin (Nitroglycerin (Inpatient Use) 0.4 Mg Tab.Subl) 0.4 mg SUBLINGUAL Q5M PRN PRN Reason: CHEST Ondansetron HCl (Ondansetron 4 Mg/2 Ml Vial) 4 mg IV Q8H PRN PRN PRN Reason: NAUSEA/VOMITING Pantoprazole Sodium (Pantoprazole Sodium 40 Mg Tablet) 40 mg PO DAILY [facility] Rosuvastatin Calcium (Rosuvastatin 20 Mg Tablet) 20 mg PO QHS [facility] Sodium Chloride (0.9% Normal Saline 500 Ml Iv.Soln.) 500 ml IV BOLUS PRN PRN Reason: VASO-VAGAL PROTOCOL Sodium Chloride (0.9% Saline Lock 10 Ml Syringe) 10 - 40 ml IV UD PRN PRN Reason: SALINE FLUSH Assessment/Plan All Active Problems (Last Reviewed 10/22/19 @ 10:01 by Suzy Be Chest pain (Acute) History of non-ST elevation myocardial infarction (NSTEMI) (Resolved 02/12/11) Family history of hyperlipidemia (Resolved) 1. Unstable angina, CAD status post PCI with LEVI to ostial and mid RCA 01/02/2020-cardiology following. Continue aspirin, Plavix, statin, metoprolol, lisinopril. 2. Hypertension-stable, continue HCTZ, lisinopril, metoprolol, amlodipine. 3. Hyperlipidemia-continue statin. 4. Hypothyroidism-continue Synthroid. 5. GERD-continue PPI. On famotidine as well? 6. Type 2 diabetes [id number] with sliding scale insulin. Continue home glimepiride regimen. DVT prophylaxis-SCDs This patient was seen by MODESTO Fry under the supervision of Dr. Storm.
[2020-01-02 16:18] LABS: Hemoglobin A1c 6.8 % (3.8-5.6)
[2020-01-02 16:40] LABS: Bedside Glucose 362 mg/dL (70-110)
[2020-01-02] MEDS: Insulin Lispro 100 UNIT/ML INSULN.PEN SC ×2 (16:45→21:15)
[2020-01-02] MEDS: amLODIPine 5 MG Tablet PO (21:14)
[2020-01-02] MEDS: Lisinopril 20 MG Tablet PO (21:14)
[2020-01-02] MEDS: Metoprolol Tartrate 50 MG Tablet PO (21:14)
[2020-01-02] MEDS: Rosuvastatin 20 MG Tablet PO (21:15)
[2020-01-02 21:25] LABS: Bedside Glucose 375 mg/dL (70-110)
[2020-01-03] VITALS (7 sets, daily range): BP systolic 123–142; BP diastolic 48–69; PULSE 74–90; RESP 14–16; TEMP 36.5–36.6; O2SAT 94–96
[2020-01-03] MEDS: Insulin Lispro 100 UNIT/ML INSULN.PEN SC (06:39)
[2020-01-03] MEDS: Levothyroxine 75 MCG Tablet PO (06:39)
[2020-01-03 06:45] LABS: Bedside Glucose 254 mg/dL (70-110)
[2020-01-03 06:52] LABS: Hematocrit 43.3 % (37-47); Hemoglobin 14.2 g/dL (12.0-15.0); Mean Corp Hgb Conc 32.8 g/dL (32-36); Mean Corpuscular Hgb 29.6 pg (27.0-32.0); Mean Corpuscular Volume 90.2 fL (81-99); Mean Platelet Vol. 9.9 fl (6.2-12.0); Platelet Count 321 K/mm3 (150-450); RBC Distribution Width CV 12.5 % (11.6-14.6); RBC Distribution Width SD 41.2 fl (35.1-43.9); White Blood Count 17.8 K/mm3 (4.4-11.0)
[2020-01-03 07:31] LABS: ALB/GLOB Ratio 0.9 RATIO (0.9-2.4); AST(SGOT) 26 U/L (15-37); Alanine Aminotransfer ALT/SGPT 42 U/L (13-56); Albumin, Serum 3.8 g/dL (3.2-5.0); Alkaline Phosphatase 52 U/L (45-117); Anion Gap 9 (5-15); BUN 22 mg/dL (7-18); BUN/Creat Ratio 24.9 RATIO (10-20); Calcium,Total 9.9 mg/dL (8.5-10.1); Chloride 101 mmol/L (98-107); Creatinine, Serum 0.88 mg/dL (0.55-1.02); EST Glomerular Filtration Rate 67 mL/min (>60); Est Glom Filt Rate - Afr Amer 81 mL/min (>60); Estimated Creatinine Clearance 52.76 ml/min; Globulin 4.3 g/dL (2.2-4.2); Glucose 233 mg/dL (74-106); Potassium 3.8 mmol/L (3.5-5.1); Protein, Total 8.1 g/dL (6.4-8.2); Sodium Level 132 mmol/L (136-145)
[2020-01-03] MEDS: Aspirin E.C. 81 MG Tablet PO (08:30)
[2020-01-03] MEDS: Glimepiride 4 MG Tablet PO (08:30)
--- NOTE | 2020-01-03 08:40 | PN.CARD_ITS ---
Subjectve: Patient seen and evaluated. Appears to be doing well. Objective: Vital Signs Temp Pulse Resp BP Pulse Ox 97.9 F 84 16 123/48 H 94 01/03/20 03:15 01/03/20 07:54 01/03/20 03:15 01/03/20 03:15 01/03/20 07:10 Oxygen Delivery Method Room Air Weight: 174 lb 13.225 oz Body Mass Index (BMI) 29.0 Intake and Output for Last 24 Hours 01/01/20 01/02/20 01/03/20 23:59 23:59 23:59 Intake Total 640 / 640 240 / 240 Balance 640 / 640 240 / 240 General: Awake, Alert, Oriented x 3 HEENT: PERRL, EOMI, Sclera Non Icteric Neck: Supple, Good ROM, No Lymph Node Enlargement Lungs: Clear to auscultation Cardiovascular: Regular Rhythm, Normal S1, Normal S2, No Murmurs, No Rubs, No Gallops 01/02/20 09:30: WBC 7.4, RBC 4.66, Hgb 14.0, Hct 43.0, MCV 92.3, MCH 30.0, MCHC 32.6, Plt Count 267, MPV 9.7, Immature Gran % (Auto) 0.300, Neut % (Auto) 54.4, Lymph % (Auto) 30.0, [place] % (Auto) 11.0 H, Eos % (Auto) 2.9, Baso % (Auto) 1.4 H , Absolute Neuts (auto) 4.0, Nucleated RBC % 0 01/02/20 09:30: Sodium 134 L, Potassium 3.7, Chloride 100, Carbon Dioxide 27.0, Anion Gap 7, BUN 17, Creatinine 0.85, Est GFR (MDRD) Af Amer 85, Est GFR (MDRD) Non-Af 70, BUN/Creatinine Ratio 20.1 H, Glucose 212 H, Calcium 9.6, Troponin I 0.018 01/02/20 09:30: Hemoglobin A1c 6.8 H 01/03/20 05:57: WBC 17.8 H, RBC 4.80, Hgb 14.2, Hct 43.3, MCV 90.2, MCH 29.6, MCHC 32.8, Plt Count 321, MPV 9.9 01/03/20 05:57: Sodium 132 L, Potassium 3.8, Chloride 101, Carbon Dioxide 22.0, Anion Gap 9, BUN 22 H, Creatinine 0.88, Est GFR (MDRD) Af Amer 81, Est GFR (MDRD) Non-Af 67, BUN/Creatinine Ratio 24.9 H, Glucose 233 H, Calcium 9.9, Total Bilirubin 0.30 Rhythm: EKG: ECHO: Stress Test: Cardiac Cath: PCI: CT Surgery: Holter monitor: EPS: PPM: CXR: Chest CT Scan: Medical Necessity - Tobacco Use Smoking Status: Never smoker Assessment/Plan 1. Chest pain. Unstable angina. * Patient presented with chest discomfort and underwent a cardiac catheterization which demonstrated a patent stent in the left circumflex artery and a high-grade stenosis in the right coronary artery. This was in the previously placed stent. She underwent angioplasty and stenting of this vessel and did well otherwise. * 2. Hypertension * Her blood pressure appears to be under good control on the current medical therapy I would not recommend that we make any other changes. * * Thank you for allowing me to participate in the care of your patient. Please don't hesitate to call if any issues arise.
--- NOTE | 2020-01-03 09:26 | CRPHASE1_ITS ---
Patient Communication Former Patient:: Phase I PHII Cardiac Rehab Discussed with Patient:: Yes Guide to Cardiac Rehab Given to Patient:: Yes Cardiac Rehab Facility Choice List Given to Patient:: Yes Choice Program [facility] PHII:: Communication Given to CR Igniter Capper:: Greg Zuniga Phase II Cardiac Rehab:: Yes Sessions:: 36 sessions - 3 days/wk, 12 weeks Risk Factors/Lifestyle Smoking Status: Never smoker Second-Hand Smoke:: No Hx Hypertension: Yes Hx Diabetes Mellitus Type 1: No Hx Diabetes Mellitus Type 2: Yes Hx Dyslipidemia: Yes Hx Obesity: No Post-Menopausal: Yes ETOH: No Caffeine: No Substance Abuse: No Risk Factor for Sedentary Lifestyle: Moderate Risk Family History: Family History (Last Reviewed 10/22/19 @ 10:01 by Suzy Bach) Father Heart disease Myocardial infarction Mother CAD (coronary artery disease) CVA (cerebral vascular accident) HLD (hyperlipidemia) Hypertension Brother CAD (coronary artery disease) Family History: Heart Disease, Hypertension Past Cardiac Illness: Coronary Artery Disease, Myocardial Infarction, Previous P CI w/Stent Laboratory Values: Cardiac Rehab Phase I Labs Hemoglobin A1c 6.8 % (3.8-5.6) H 01/02/20 09:30 Phase I Education Given On:: [place], Nutrition, Antiplatelet medication, CHF, Diabetes - Type II Issues Affecting Care:: None Knowledge of Condition:: Yes Learning Preferences: Verbal Cardiac Rehabilitation Info Cardiac Rehabilitation Program Information: Cardiac Rehabilitation is important for patients like you who are recovering from a heart problem. Cardiac rehabilitation programs are recognized as integral to the continued care of the patient with coronary heart disease. The cardiac rehabilitation program is designed to optimize a patient's physical, psychological, and social functioning. Health home care specialist work in cardiac rehabilitation programs and assist you with getting the tr eatments you need to get stronger and healthier - like exercise, healthy eating habits, and medications. Cardiac rehabilitation has been show to help people with heart problems live longer and have better life enjoyment than people who do not go to cardiac rehabilitation. Please contact the Cardiac Rehabilitation Program at [facility] at in two weeks if you have not heard from them.
--- NOTE | 2020-01-03 09:29 | CRPH1.INSTRU ---
General Education CAD and cardiac anatomy and function:: Patient communicates acknowledgment Explanation of diagnoses and procedures:: Patient communicates acknowledgment Sign/Symptoms of NH:: Patient communicates acknowledgment Antiplatelet therapy: Patient communicates acknowledgment Proper use of NTG-SL: Patient communicates acknowledgment Emergency procedures and activation of EMS: Patient communicates acknowledgment Compliance of all prescribed medications: Patient communicates acknowledgment Dyslipidemia Patient Dyslipidemia Risk Factors Are:: Total Cholesterol, Triglycerides, HDL, LDL Recommendations Include:: Lipid profile provided Dyslipidemia Response Code:: Patient communicates acknowledgment Overweight/Obesity Patient Overweight/Obesity Risk Factors Are:: BMI Normal [24-29 & > 65 years old] Recommendations Include:: Weight loss of 5-10%, Exercise 5-7 times/week Overweight/Obesity:: Patient communicates acknowledgment Hypertension Patient Hypertension Risk Factors Are:: No documented hx of HTN Recommendations Include:: Maintain BP <130/85, DASH dietary guidelines, Decrease/maintain normal body weight, Moderation of ETOH Hypertension:: Patient communicates acknowledgment Heart Disease Patient Heart Disease Risk Factors Are:: Family history of heart disease < 65 years old Recommendations Include:: Educated family members of their risk Heart Disease Response Code:: Patient communicates acknowledgment Diabetes Patient Diabetes Risk Factors Are:: Elevated blood sugars Recommendations Include:: Maintain fasting blood sugars 70-110 md/dL, Maintain HgbA1c of 6% or less, Monitor blood sugar as prescribed, Diabetic dietary guidelines, Decrease/maintain body weight Diabetes:: Patient communicates acknowledgment Sedentary Patient Sedentary Risk Factors Are:: Lack of regular exercise Recommendations Include:: Aerobic exercise 5-7 times/week for 20-30 minutes continuously, Benefits of regular exercise, Discussed home walking program, Monitored Outpatient Cardiac Rehab Sedentary Response Code:: Patient communicates acknowledgment
--- NOTE | 2020-01-03 10:00 | EKG12_ITS ---
Test Reason : AM EKG Blood Pressure : / mmHG Vent. Rate : 074 BPM Atrial Rate : 074 BPM P-R Int : 182 ms QRS Dur : 102 ms QT Int : 416 ms P-R-T Axes : 050 002 007 degrees QTc Int : 461 ms Normal sinus rhythm Normal ECG Confirmed by ANGEL LUIS SALTER, YANI ([id number]), digital editor CHU HUSAIN ([id number]) on 01/06/2020 2:44:47 PM Referred By: ALICE Confirmed By:YANI HEIN MD
--- NOTE | 2020-01-03 10:18 | PCM.DC ---
- Discharge Diagnoses Current Active Problems: Current Active and Chronic Problems (Last Reviewed 10/22/19 @ 10:01 by Suzy Bach) Chest pain (Acute) Atherosclerotic heart disease of [place] coronary artery without angina pectoris (Chronic) History of coronary artery stent placement (Chronic 02/12/11) OKE-HEL-Fdu-Distal RCA 12/04/2009; CJW-BKZ-Txur-Mid LCx 12/15/2009; BKT-VPJ-DEQ-Mid LCx w/ 3.0 x 16 mm Promus Element Stent 02/12/11 Essential (primary) hypertension (Chronic) Hyperlipidemia (Chronic) Rectal cancer (Chronic) You will use the following diet at home:: Cardiac Discharge Activity: Return to Normal Activity Call your doctor if you observe: Shortness of breath, Dizziness, Fainting spells, Chest pain Allergies/Adverse Reactions: Allergies atorvastatin calcium [From Lipitor] Allergy (Verified 01/02/20 11:48) Other MUSCLE SORENESS iodine Allergy (Verified 01/02/20 11:48) Rash Medications to take at Discharge Levothyroxine [Synthroid] 75 mcg PO DAILY 05/18/13 metformin 500 mg tablet 500 mg PO BID 10/17/17 nitroglycerin 0.4 mg sublingual tablet 0.4 mg SUBLINGUAL Q5M PRN #30 tab 10/17/17 amlodipine 5 mg tablet 5 mg PO BID #180 tab 10/22/19 aspirin 81 mg tablet,delayed release 81 mg PO DAILY 10/22/19 clopidogrel 75 mg tablet 75 mg PO DAILY #90 tab 10/22/19 hydrochlorothiazide 25 mg tablet 25 mg PO QDAY #90 tab 10/22/19 lisinopril 20 mg tablet 20 mg PO BID #180 tab 10/22/19 metoprolol tartrate 50 mg tablet 50 mg PO BID #180 tab 10/22/19 pantoprazole 40 mg tablet,delayed release 40 mg PO DAILY tab 10/22/19 rosuvastatin 20 mg tablet 20 mg PO QDAY #90 tab 10/22/19 Famotidine [Acid-Pep] 20 mg PO DAILY 01/02/20 Glimepiride 4 mg PO DAILY 01/02/20 Primary Care Physician: Hiram Osborne DO [Primary Care Provider] - Please follow up with your Primary Care Physician in: 1 Week Test Results: Test results from this visit will be discussed in further detail at your follow-up appointment, if applicable. Please Follow Up With: Ina Limon, PA When: 2 Weeks Proposed Discharge Date: 01/03/20
--- NOTE | 2020-01-03 10:22 | PCM.DC.SUM ---
Discharge Date and Diagnosis - Problem List Patient Problems: Active and Suspected Problems (Last Reviewed 10/22/19 @ 10:01 by Suzy Bach) Chest pain (Acute) Date of Admission: 01/02/20 Date of Discharge: 01/03/20 - Primary Discharge Diagnosis Acute Problems: Active Problems (Last Reviewed 10/22/19 @ 10:01 by Suzy Bach) 1. Unstable angina, CAD status post PCI with LEVI to ostial and mid RCA 01/02/2020 2. Hypertension 3. Hyperlipidemia 4. Hypothyroidism 5. GERD 6. Type 2 diabetes mellitus - Secondary Discharge Diagnosis Chronic Problems: Chronic Problems (Last Reviewed 10/22/19 @ 10:01 by Suzy Bach) Atherosclerotic heart disease of [place] coronary artery without angina pectoris (Chronic) History of coronary artery stent placement (Chronic 02/12/11) [id number]-[id number]-Distal RCA 12/04/2009; [id number]-PJE-Uqml-Mid LCx 12/15/2009; [id number]-[id number]-GWD-Mid LCx w/ 3.0 x 16 mm Promus Element Stent 02/12/11 Essential (primary) hypertension (Chronic) Hyperlipidemia (Chronic) Rectal cancer (Chronic) Hospital Course and Treatment Imaging Results: Diagnostic Data Chest X-Ray 01/02/20 09:55 IMPRESSION: Normal x-ray examination of the chest. Electronically Signed: Jose Luis Schneider, at 10:45 EST , Service support , Dr. Casey-Cardiology Operations: None Procedures: Cardiac catheterization Summary of Care Provided: The patient is a 69 year old F admitted 01/02/2020 due to chest pain. 1. Unstable angina, CAD status post PCI with LEVI to ostial and mid RCA 01/02/2020-cardiology consulted during admission. Continue aspirin, Plavix, statin, metoprolol, lisinopril. Follow-up with cardiology in 2 weeks. 2. Hypertension-stable, continue HCTZ, lisinopril, metoprolol, amlodipine. 3. Hyperlipidemia-continue statin. 4. Hypothyroidism-continue Synthroid. 5. GERD-continue PPI. On famotidine as well? 6. Type 2 diabetes mellitus-Continue home glimepiride regimen. Hemoglobin A1c 6.8%. General: Alert, Oriented x3, Cooperative HEENT: Atraumatic, PERRLA, EOMI, Normocephalic Neck: Supple, No JVD, Negative Carotid Bruits Lungs: Clear to auscultation, Normal air movement Cardiovascular: Regular rate, No murmurs Abdomen: Bowel Sounds Present, Soft, Non Tender, Non-Distended Extremities: No clubbing, No cyanosis, No edema, Capillary Refill Less than 3 Seconds Skin: No rashes, No breakdown Musculoskeletal: No Tenderness to Palpation of Joints or Extremities Neurological: Cranial nerves II-XII grossly intact, Neuro grossly intact Psych/Mental Status: Normal Affect, Appropriate Patient seen and examined prior to discharge. Physical assessment as noted above. Patient is stable for discharge with follow up recommendations as noted above. This patient was seen by MODESTO Fry under the supervision of Dr. Storm. Patient Problems: Active and Suspected Problems (Last Reviewed 10/22/19 @ 10:01 by Suzy Bach) Chest pain (Acute) - Physical Exam Vitals/I&O's: Vital Signs Temp Pulse Resp BP Pulse Ox 97.9 F 84 16 123/48 H 94 01/03/20 03:15 01/03/20 07:54 01/03/20 03:15 01/03/20 03:15 01/03/20 07:10 Oxygen Delivery Method Room Air Weight: 174 lb 13.225 oz Body Mass Index (BMI) 29.0 Intake and Output for Last 24 Hours 01/01/20 01/02/20 01/03/20 23:59 23:59 23:59 Intake Total 640 / 640 600 / 600 Balance 640 / 640 600 / 600 Laboratory Results 01/02/20 09:30: Hemoglobin A1c 6.8 H 01/02/20 10:04: COVID-19 (SIGIFREDO) Not Detected 01/02/20 16:38: POC Glucose 362 H 01/02/20 21:14: POC Glucose 375 H 01/03/20 05:57: WBC 17.8 H, RBC 4.80, Hgb 14.2, Hct 43.3, MCV 90.2, MCH 29.6, MCHC 32.8, RDW Std Deviation 41.2, RDW Coeff of [place] 12.5, Plt Count 321, MPV 9.9 01/03/20 05:57: Sodium 132 L, Potassium 3.8, Chloride 101, Carbon Dioxide 22.0, Anion Gap 9, BUN 22 H, Creatinine 0.88, Estim Creat Clear Calc 52.76, Est GFR (MDRD) Af Amer 81, Est GFR (MDRD) Non-Af 67, BUN/Creatinine Ratio 24.9 H, Glucose 233 H, Calcium 9.9, Total Bilirubin 0.30, AST 26, ALT 42, Alkaline Phosphatase 52, Total Protein 8.1, Albumin 3.8, Globulin 4.3 H, Albumin/Globulin Ratio 0.9 01/03/20 06:35: POC Glucose 254 H Current Medications Acetaminophen (Acetaminophen 325 Mg Tablet) 650 mg PO Q6H PRN PRN PRN Reason: Pain Score 1-10/Temp > 100.7 F Amlodipine Besylate (Amlodipine 5 Mg Tablet) 5 mg PO BID [facility] Last Admin: 01/02/20 21:14 Dose: 5 mg Documented by: Aspirin (Aspirin E.C. 81 Mg Tablet) [facility] Last Admin: 01/03/20 08:30 Dose: 81 mg Documented by: Atropine Sulfate (Atropine Sulfate 1 Mg/10 Ml Syringe) 0.5 mg IV UD PRN PRN Reason: HR <50 bpm Clopidogrel Bisulfate (Clopidogrel Bisulfate 75 Mg Tablet) 75 mg PO DAILY [facility] Famotidine (Famotidine 20 Mg Tablet) 20 mg PO DAILY [facility] Glimepiride (Glimepiride 4 Mg Tablet) [facility] Last Admin: 01/03/20 08:30 Dose: 4 mg Documented by: Heparin Sodium (Beef Lung) (Heparin Lock 500 Unit/5 Ml In 10 Ml Syringe) 500 unit IV UD PRN PRN Reason: HEPARIN FLUSH Hydrochlorothiazide (Hydrochlorothiazide 25 Mg Tablet) 25 mg PO DAILY [facility] Insulin Human Lispro (Insulin Lispro 100 Unit/Ml Insuln.Pen) 0 unit SC [facility]; Protocol Last Admin: 01/03/20 06:39 Dose: 2 u Documented by: Labetalol HCl (Labetalol (Prefilled) 20 Mg/4 Ml) 5 mg IV X1 PRN PRN Reason: SBP >160 when pulling sheath Stop: 01/04/20 13:59 Levothyroxine Sodium (Levothyroxine 75 Mcg Tablet) 75 mcg PO DAILY@0600 [facility] Last Admin: 01/03/20 06:39 Dose: 75 mcg Documented by: Lisinopril (Lisinopril 20 Mg Tablet) 20 mg PO BID [facility] Last Admin: 01/02/20 21:14 Dose: 20 mg Documented by: Metoprolol Tartrate (Metoprolol Tartrate 50 Mg Tablet) 50 mg PO BID [facility] Last Admin: 01/02/20 21:14 Dose: 50 mg Documented by: Morphine Sulfate (Morphine 4 Mg/Ml Syringe) 4 mg IV Q3H PRN PRN PRN Reason: Pain Score 6-10 Nitroglycerin (Nitroglycerin (Inpatient Use) 0.4 Mg Tab.Subl) 0.4 mg SUBLINGUAL Q5M PRN PRN Reason: CHEST Ondansetron HCl (Ondansetron 4 Mg/2 Ml Vial) 4 mg IV Q8H PRN PRN PRN Reason: NAUSEA/VOMITING Pantoprazole Sodium (Pantoprazole Sodium 40 Mg Tablet) 40 mg PO DAILY [facility] Rosuvastatin Calcium (Rosuvastatin 20 Mg Tablet) 20 mg PO QHS [facility] Last Admin: 01/02/20 21:15 Dose: 20 mg Documented by: Sodium Chloride (0.9% Normal Saline 500 Ml Iv.Soln.) 500 ml IV BOLUS PRN PRN Reason: VASO-VAGAL PROTOCOL Sodium Chloride (0.9% Saline Lock 10 Ml Syringe) 10 - 40 ml IV UD PRN PRN Reason: SALINE FLUSH Discharge Diet: Low fat/ Low Cholesterol Discharge Activity: Return to Normal Activity Call your doctor if you observe: Shortness of breath, Dizziness, Fainting spells, Chest pain Home Medications: Medications to take at Discharge Levothyroxine [Synthroid] 75 mcg PO DAILY 05/18/13 metformin 500 mg tablet 500 mg PO BID 10/17/17 nitroglycerin 0.4 mg sublingual tablet 0.4 mg SUBLINGUAL Q5M PRN #30 tab 10/17/17 amlodipine 5 mg tablet 5 mg PO BID #180 tab 10/22/19 aspirin 81 mg tablet,delayed release 81 mg PO DAILY 10/22/19 clopidogrel 75 mg tablet 75 mg PO DAILY #90 tab 10/22/19 hydrochlorothiazide 25 mg tablet 25 mg PO QDAY #90 tab 10/22/19 lisinopril 20 mg tablet 20 mg PO BID #180 tab 10/22/19 metoprolol tartrate 50 mg tablet 50 mg PO BID #180 tab 10/22/19 pantoprazole 40 mg tablet,delayed release 40 mg PO DAILY tab 10/22/19 rosuvastatin 20 mg tablet 20 mg PO QDAY #90 tab 10/22/19 Famotidine [Acid-Pep] 20 mg PO DAILY 01/02/20 Glimepiride 4 mg PO DAILY 01/02/20 Primary Care Physician: Hiram Osborne DO [Primary Care Provider] - Please follow up with your Primary Care Physician in: 1 Week Please Follow Up With: Ina Limon, PA When: 2 Weeks Disposition: Home Minutes spent on discharge:: 35 Patient Condition:: Stable Medical Necessity - Tobacco Use Smoking Status: Never smoker Meaningful Use Info Meaningful Use Diagnoses (Choose all that apply): None applicable
[2020-01-03] MEDS: amLODIPine 5 MG Tablet PO (10:39)
[2020-01-03] MEDS: Pantoprazole Sodium 40 MG Tablet PO (10:39)
[2020-01-03] MEDS: Clopidogrel Bisulfate 75 MG Tablet PO (10:39)
[2020-01-03] MEDS: Famotidine 20 MG Tablet PO (10:39)
[2020-01-03] MEDS: hydroCHLOROthiazide 25 MG Tablet PO (10:40)
[2020-01-03] MEDS: Lisinopril 20 MG Tablet PO (10:40)
[2020-01-03] MEDS: Metoprolol Tartrate 50 MG Tablet PO (10:40)
--- NOTE | 2020-01-03 14:06 | NURSING ---
Read and reviewed SN documentation
== END 2020-01-03 10:19 | disposition home or self-care (01) ==
LOC: ED 10:17 → PCU 11:35
PROVIDERS: Nurse Practitioner Family; Specialist; Admitting Provider Internal Medicine; Emergency Provider Emergency Medicine; PCP Family Medicine; Visit Provider Internal Medicine
DX: I25.110 Atherosclerotic heart disease of native coronary artery with unstable angina pectoris (principal); I25.2 Old myocardial infarction; I10 Essential (primary) hypertension; E11.9 Type 2 diabetes mellitus without complications; K21.9 Gastro-esophageal reflux disease without esophagitis; E78.5 Hyperlipidemia, unspecified; Z85.048 Personal history of other malignant neoplasm of rectum, rectosigmoid junction, and anus; Z95.5 Presence of coronary angioplasty implant and graft; Z79.899 Other long term (current) drug therapy; Z79.84 Long term (current) use of oral hypoglycemic drugs; Z79.02 Long term (current) use of antithrombotics/antiplatelets; Z79.82 Long term (current) use of aspirin; E03.9 Hypothyroidism, unspecified
CPT/HCPCS: 36415; 71045; 80048; 80053; 82962; 83036; 84484; 85025; 85027; 87635; 92928; 93005; 93458; 96360; 96361; 99152; 99153; 99218; 99285; J7030; J7040; Q9967; A4216; C1725; C1769; C1874; C1887; C1894; C9600; G0378; J2405; U0002

== ENCOUNTER → 2020-04-22 09:36 | Outpatient (CLI) | payer MEDICARE, SELFPAY ==
[2019-10-22 10:01] VITALS: BMI 27.6
[2020-01-21 08:48] VITALS: BMI 29.7
[2020-04-22 12:15] LABS: Hemoglobin 14.2 g/dL (12.0-15.0); Mean Corpuscular Hgb 30.1 pg (27.0-32.0); Mean Corpuscular Volume 91.3 fL (81-99); Mean Platelet Vol. 9.9 fl (6.2-12.0); Platelet Count 257 K/mm3 (150-450); RBC Distribution Width CV 12.6 % (11.6-14.6); RBC Distribution Width SD 41.8 fl (35.1-43.9); Red Blood Count 4.71 M/mm3 (4.2-5.4); White Blood Count 7.2 K/mm3 (4.4-11.0)
[2020-04-22 12:53] LABS: Hemoglobin A1c 6.7 % (3.8-5.6)
[2020-04-22 12:53] LABS: AST(SGOT) 43 U/L (15-37); Alanine Aminotransfer ALT/SGPT 40 U/L (13-56); Alkaline Phosphatase 51 U/L (45-117); Anion Gap 9 (5-15); BUN 15 mg/dL (7-18); BUN/Creat Ratio 19.6 RATIO (10-20); Bilirubin, Direct 0.13 mg/dL (0.00-0.30); Calcium,Total 9.6 mg/dL (8.5-10.1); Chloride 96 mmol/L (98-107); Cholesterol 166 mg/dL (200); Creatinine, Serum 0.77 mg/dL (0.55-1.02); EST Glomerular Filtration Rate 79 mL/min (>60); Est Glom Filt Rate - Afr Amer 95 mL/min (>60); Globulin 3.9 g/dL (2.2-4.2); Glucose 139 mg/dL (74-106); High Density Lipoprotein 51 mg/dL; Potassium 3.5 mmol/L (3.5-5.1); Protein, Total 7.9 g/dL (6.4-8.2); Sodium Level 131 mmol/L (136-145); Triglycerides 139 mg/dL; Very Low Density Lipoprotein 28 mg/dL (5-40)
[2020-04-23 08:21] LABS: Carcinoembryonic Antigen 1.4 ng/mL (0.0-4.7)
== END ==
PROVIDERS: Internal Medicine Cardiovascular Disease; PCP Family Medicine; Referring Provider Family Medicine; Visit Provider Family Medicine
DX: E11.9 Type 2 diabetes mellitus without complications (principal); E78.00 Pure hypercholesterolemia, unspecified; Z85.038 Personal history of other malignant neoplasm of large intestine
CPT/HCPCS: 36415; 80053; 80061; 82248; 82378; 83036; 85027

== ENCOUNTER → 2020-11-09 12:52 | Outpatient (CLI) | payer MEDICARE, SELFPAY ==
--- NOTE | 2020-11-09 12:57 | ECHOCS_ITS ---
Reason For Study: CAD/ASHD Procedure This was a 2D Doppler, Color Flow transthoracic echocardiogram. Contrast injection was performed. Exam performed in department. Left Ventricle Normal LV size. Left ventricular systolic function is normal. Stage 1 diastolic dysfunction. The estimated ejection fraction is 60 %. No regional wall motion abnormalities noted. Right Ventricle Normal RV size. Normal systolic function. Atria Normal left atrium. Normal right atrium. Mitral Valve Normal mitral valve. Tricuspid Valve Normal tricuspid valve. Mild (1+) tricuspid valve insufficiency. Pulmonary artery systolic pressure is 28 mmHg. Aortic Valve Trisinus/trileaflet aortic valve. Pulmonic Valve Normal pulmonic valve. Great Vessels Normal aortic root. The pulmonary artery is normal size. Normal inferior vena cava. Pericardium/Pleural No pericardial effusion. Medication Diluted definity 3ml given slow IV push to enhance endocardial definition. MMode/2D Measurements & Calculations LVIDd: 4.7 cm IVSd: 0.90 cm Ao root diam: 2.3 cm LVIDs: 3.3 cm LVPWd: 1.2 cm RVDd: 2.9 cm FS: 30.6 % LAV(MOD-bp): 35.6 ml LVAd ap4: 23.8 cm2 SV(MOD-sp4): 37.2 ml LAV(MOD-bp) Indexed: 19.1 ml/m2 LVLd ap4: 6.8 cm LAV(MOD-sp2): 36.3 ml EDV(MOD-sp4): 68.0 ml LAV(MOD-sp4): 33.8 ml EDV(sp4-el): 71.4 ml LVAs ap4: 14.7 cm2 LVLs ap4: 6.3 cm ESV(MOD-sp4): 30.8 ml ESV(sp4-el): 29.4 ml EF(MOD-sp4): 54.7 % EF(sp4-el): 58.8 % SV(sp4-el): 42.0 ml LA A4 area: 14.7 cm2 LA dimension(2D): 3.4 cm RA A4 area: 10.7 cm2 Doppler Measurements & Calculations MV E max romel: 87.6 cm/sec Lat Peak E' Romel: 7.2 cm/sec Med Peak E' Romel: 5.3 cm/sec MV A max romel: 104.9 cm/sec E/E' lat: 12.2 E/E' med: 16.5 MV E/A: 0.83 Ao V2 max: 132.1 cm/sec LV V1 max: 101.9 cm/sec PA V2 max: 88.0 cm/sec Ao max P.0 mmHg LV V1 max P.2 mmHg Ao V2 mean: 98.5 cm/sec Ao mean P.1 mmHg Ao V2 VTI: 29.7 cm TR max romel: 245.2 cm/sec TR max P.1 mmHg ECHO/Echo Complete W/ Contrast Interpretation Summary Normal LV size. Left ventricular systolic function is normal. Stage 1 diastolic dysfunction. The estimated ejection fraction is 60 %. Contrast injection was performed. Ordering Physician: Pk Casey Referring Physician: Hiram Osborne Performed By: Ros Reyna, RDJUAN, RVT
== END ==
PROVIDERS: PCP Family Medicine; Referring Provider Internal Medicine Cardiovascular Disease; Visit Provider Internal Medicine Cardiovascular Disease
DX: I25.10 Atherosclerotic heart disease of native coronary artery without angina pectoris (principal)
CPT/HCPCS: 93306; Q9957; A4216; C8929

== ENCOUNTER → 2020-12-15 08:20 | Outpatient (CLI) | payer MEDICARE, SELFPAY ==
[2020-12-15 09:56] LABS: Absolute Lymphocyte Count 2.35 X10^3/uL (0.83-4.51); Absolute Neutrophil Count 3.1 X10^3/uL (2.0-7.7); Basophil% 1.5 % (0-1); Eosinophil# 0.16 X10^3/uL; Eosinophils% 2.4 % (0-5); Hematocrit 42.3 % (37-47); Lymphocyte # 2.35 X10^3/ul (0.83-4.51); Lymphocyte % 35.8 % (19-41); Mean Corp Hgb Conc 33.1 g/dL (32-36); Mean Corpuscular Hgb 30.3 pg (27.0-32.0); Mean Corpuscular Volume 91.6 fL (81-99); Mean Platelet Vol. 10.1 fl (6.2-12.0); Monocyte# 0.86 X10^3/uL; Monocyte% 13.1 % (0-10); NRBC Flagged by Analyzer 0 % (0-5); Neutrophil # 3.08 X10^3/uL (2.7-7.7); Neutrophil % 46.9 % (47-70); Platelet Count 271 K/mm3 (150-450); RBC Distribution Width CV 12.5 % (11.6-14.6); RBC Distribution Width SD 41.5 fl (35.1-43.9); Red Blood Count 4.62 M/mm3 (4.2-5.4); White Blood Count 6.6 K/mm3 (4.4-11.0)
[2020-12-15 10:46] LABS: ALB/GLOB Ratio 0.8 RATIO (0.9-2.4); AST(SGOT) 50 U/L (15-37); Alanine Aminotransfer ALT/SGPT 46 U/L (13-56); Albumin, Serum 3.7 g/dL (3.2-5.0); Alkaline Phosphatase 51 U/L (45-117); Anion Gap 8 (5-15); BUN 14 mg/dL (7-18); BUN/Creat Ratio 19.2 RATIO (10-20); Calcium,Total 9.5 mg/dL (8.5-10.1); Chloride 95 mmol/L (98-107); Cholesterol 169 mg/dL (200); Creatinine, Serum 0.73 mg/dL (0.55-1.02); EST Glomerular Filtration Rate 83 mL/min (>60); Est Glom Filt Rate - Afr Amer 101 mL/min (>60); Globulin 4.6 g/dL (2.2-4.2); Glucose 153 mg/dL (74-106); High Density Lipoprotein 50 mg/dL; Potassium 3.8 mmol/L (3.5-5.1); Protein, Total 8.3 g/dL (6.4-8.2); Sodium Level 133 mmol/L (136-145); Thyroid Stim Hormone (TSH) 4.25 uIU/mL (0.358-3.74); Triglycerides 148 mg/dL; Very Low Density Lipoprotein 30 mg/dL (5-40)
[2020-12-15 10:54] LABS: Microalbumin,Random Urine 13.2 mg/L (NO RANGE EST.); Microalbumin:Creatinine Ratio 12.7 mg/g CRE (<30 mg/g CRE)
[2020-12-16 13:22] LABS: Carcinoembryonic Antigen 1.6 ng/mL (0.0-4.7)
== END ==
LOC: LAB 12-01 09:40 → MTLAB 08:23
PROVIDERS: PCP Family Medicine; Referring Provider Family Medicine; Visit Provider Family Medicine
DX: I25.10 Atherosclerotic heart disease of native coronary artery without angina pectoris (principal); I10 Essential (primary) hypertension; E11.9 Type 2 diabetes mellitus without complications; E03.9 Hypothyroidism, unspecified; Z85.038 Personal history of other malignant neoplasm of large intestine
CPT/HCPCS: 36415; 80053; 80061; 82043; 82378; 82570; 83036; 84443; 85025

== ENCOUNTER → 2021-10-26 | Outpatient (CLI) | payer MEDICARE, SELFPAY ==
--- NOTE | 2021-10-26 12:32 | BI_ITS ---
MAMMOGRAPHY - BILATERAL SCREENING REASON FOR EXAM: Female, 71 years old. Routine annual screening examination. PERTINENT HISTORY: Non-contributory. TECHNIQUE: Digital bilateral breast ludy (3D mammographic acquisition) in the CC and MLO projections. 2-D mediolateral oblique (MLO) and craniocaudad (CC) views of both breasts were obtained. CAD: Full Field Digital Mammography with Computer Added Detection was performed. COMPARISON: Comparison is made with prior study 02/05/2019 and 02/08/2016. FINDINGS: Breast Composition: There are scattered areas of fibroglandular density. There are no dominant masses or suspicious calcifications. Stable small benign-appearing bilateral axillary lymph nodes. No other significant abnormalities are identified. There has been no significant change since the prior study. BI/SCRN MAMM (CAD)W/LUDY BILAT IMPRESSION: Stable bilateral screening mammogram. Yearly follow-up mammogram recommended. (A) ASSESSMENT CATEGORY: BIRADS Category 2: Benign. A letter regarding these results will be sent to the patient by the facility within 30 days. Approximately 10% of breast cancers are not detected by mammography. A normal mammogram should not delay biopsy of a clinically suspicious abnormality. [id number] Electronically Signed: Jose Luis Schneider MD at 13:38 EDT ,
--- NOTE | 2021-10-26 12:37 | BD_ITS ---
STUDY: DUAL ENERGY X-RAY ABSORPTIOMETRY / DXA REASON FOR EXAM: Female, 71 years old. [id number]. The patient is postmenopausal. TECHNIQUE: Bone Mineral Density (BMD) measurements of lumbar spine and bilateral hips were obtained. COMPARISON: None. FINDINGS: Lumbar Spine (L1-L4): g/cm2 (1.065) / T-score (0.2) / Z-score (2.5) Findings are suggestive of normal bone density with a low fracture risk. Left Femur Total: g/cm2 (0.837) / T-score (-0.9) / Z-score (0.8) Left Femoral Neck: g/cm2 (0.694) / T-score (-1.4) / Z-score (0.6) Right Femur Total: g/cm2 (0.840) / T-score (-0.8) / Z-score (0.9) Right Femoral Neck: g/cm2 (0.680) / T-score (-1.5) / Z-score (0.5) BD/Dexa Bone Density Study IMPRESSION: The patient is considered osteopenic as outlined below according to World Jin Organization (WHO) criteria with a low fracture risk. Reference Information: The T-score is the number of standard deviations above or below the standard which is normal for young adults at their peak bone mineral density. The World Health Organization (WHO) interprets the T-scores as follows: Above -1 Normal bone density Between -1 and -2.5 Osteopenia Equal to / or below -2.5 Osteoporosis As a practical clinical guideline, osteopenia may be graded as follows: Mild -1 through -1.5 Moderate -1.6 through -2.0 Severe -2.1 through -2.4 The Z-score is the number of standard deviations above or below age-matched controls. A Z-score of less than -1.5 would be considered abnormal. References: 1. NIH Osteoporosis and Related Bone Diseases www osteo.org 2. International Society for Clinical Densitometry www iscd.org 3. National Osteoporosis Foundation www nof.org Electronically Signed: Jose Luis Schneider MD at 12:54 EDT ,
== END | disposition home or self-care (01) ==
LOC: OPBD 12:27
PROVIDERS: PCP Family Medicine; Referring Provider Family Medicine; Visit Provider Family Medicine
DX: Z12.31 Encounter for screening mammogram for malignant neoplasm of breast (principal); Z78.0 Asymptomatic menopausal state
CPT/HCPCS: 77063; 77067; 77080

== ENCOUNTER → 2021-11-17 | Outpatient (CLI) | payer MEDICARE, SELFPAY ==
--- NOTE | 2021-11-17 17:10 | STRESSREP_ITS ---
Stress Test Report His myocardial perfusion stress test. 71-year-old lady with a history of dyspnea on exertion. Stress protocol: Resting KG demonstrates normal sinus rhythm with a rate of 78 bpm normal intervals are noted resting blood pressure is 142/72 mmHg. The patient exercised according to the regular Tunde protocol for total duration of 4 minutes completing 1 minute into stage II of the Tunde protocol the maximum heart rate attained was 153 bpm which was 104% of max impacted heart rate the maximum workload was 7 metabolic equivalents. At rest there were no ST or T wave changes noted suggest ischemia. At peak exercise there was upsloping ST changes noted in the inferior leads. During recovery downsloping ST depression was noted in V3 which was not diagnostic of ischemia. Occasional premature ventricular complexes were noted. The peak blood pressure was 150/64 mmHg. Myocardial perfusion protocol. 11.6 mCi of technetium 99m sestamibi was injected at rest. The patient exercised according to regular Tunde protocol for 4 minutes and at peak exercise 33.3 mCi of technetium 99m sestamibi was injected stress images were obtained stress and rest images were reconstructed in comparing the short axis vertical long and horizontal long axis. Gated images were also obtained to Perfusion SPECT analysis: Review of the images demonstrate normal uptake of tracer noted in all areas of the myocardium. The resting images similar demonstrate normal uptake of tracer noted in all areas of the myocardium. No reversibility is noted suggest isc hemia no previous infarct is noted. Gated SPECT analysis: The gated ejection fraction is 60%. Conclusion: Normal exercise myocardial perfusion stress test at a moderate workload. Preserved ejection fraction.
== END | disposition home or self-care (01) ==
PROVIDERS: PCP Family Medicine; Referring Provider Nurse Practitioner Gerontology; Visit Provider Nurse Practitioner Gerontology
DX: I25.10 Atherosclerotic heart disease of native coronary artery without angina pectoris (principal); R06.09 Other forms of dyspnea; Z95.5 Presence of coronary angioplasty implant and graft
CPT/HCPCS: 78452; 93017; A9500; A4216

== ENCOUNTER → 2021-12-01 | Outpatient (CLI) | payer MEDICARE, SELFPAY ==
--- NOTE | 2021-12-01 08:58 | CDU_ITS ---
Reason For Study: DIZZINESS Rt. Velocities/BP Lt. Velocities/BP Prox CCA 60.2/8.3 cm/sec. Prox CCA 94.4/13.4 cm/sec. Mid CCA 67.7/12.7 cm/sec. Mid CCA 93.2/18.3 cm/sec. Dist CCA 62.5/10.1 cm/sec. Dist CCA 89.5/14.6 cm/sec. Prox ICA 101.4/20.1 cm/sec. Prox ICA 133.7/26.1 cm/sec. Mid ICA 88.6/13.8 cm/sec. Mid ICA 122.7/21.7 cm/sec. Dist ICA 78.7/19.3 cm/sec. Dist ICA 142.5/32.7 cm/sec. Rt. ICA/CCA = 101.4/67.7=1.50. Lt. ICA/CCA = 142.5/93.2=1.53. Prox ECA 72.9/4.9 cm/sec. Prox ECA 122.7/4.2 cm/sec. Rt. Vert. 47.9/10.4 cm/sec. Lt. Vert. 52.1/12.5 cm/sec. Right Extracranial There is intimal thickening but no significant atherosclerotic plaque noted in the right common carotid artery. There is heterogeneous, irregular atherosclerotic plaque noted in the right internal carotid artery. There is no significant atherosclerotic plaque noted in the right external carotid artery. Antegrade flow is noted in the right vertebral artery. Left Extracranial There is intimal thickening but no significant atherosclerotic plaque noted in the left common carotid artery. There is heterogeneous, irregular atherosclerotic plaque noted in the left internal carotid artery. The atherosclerotic plaque causes acoustic shadowing. The distal left internal carotid artery is not well visualized. There is no significant atherosclerotic plaque noted in the left external carotid artery. Antegrade flow is noted in the left vertebral artery. VL/Carotid Duplex Ultrasound Interpretation Summary Mild (<50%) stenosis right extracranial internal carotid. Moderate (50-69%) stenosis left extracranial internal carotid. Patent and antegrade vertebrals bilaterally. Ordering Physician: Trixie Champagne Referring Physician: Hiram Osborne Performed By: Chelly Saldana RDCS, RVT
== END | disposition home or self-care (01) ==
LOC: CVS 08:56
PROVIDERS: PCP Family Medicine; Referring Provider Nurse Practitioner Gerontology; Visit Provider Nurse Practitioner Gerontology
DX: R42 Dizziness and giddiness (principal); I25.10 Atherosclerotic heart disease of native coronary artery without angina pectoris
CPT/HCPCS: 93880

== ENCOUNTER → 2022-06-07 | Outpatient (CLI) | payer MEDICARE, SELFPAY ==
[2022-06-07 12:35] LABS: Absolute Lymphocyte Count 2.43 X10^3/uL (0.83-4.51); Absolute Neutrophil Count 4.2 X10^3/uL (2.0-7.7); Basophil# 0.12 X10^3/uL; Basophil% 1.5 % (0-1); Eosinophil# 0.22 X10^3/uL; Eosinophils% 2.8 % (0-5); Hematocrit 43.1 % (37-47); Hemoglobin 14.5 g/dL (12.0-15.0); Lymphocyte # 2.43 X10^3/ul (0.83-4.51); Lymphocyte % 30.7 % (19-41); Mean Corp Hgb Conc 33.6 g/dL (32-36); Mean Corpuscular Hgb 31.2 pg (27.0-32.0); Mean Corpuscular Volume 92.7 fL (81-99); Mean Platelet Vol. 10.3 fl (6.2-12.0); Monocyte# 0.96 X10^3/uL; Monocyte% 12.1 % (0-10); NRBC Flagged by Analyzer 0 % (0-5); Neutrophil # 4.16 X10^3/uL (2.7-7.7); Neutrophil % 52.5 % (47-70); Platelet Count 296 K/mm3 (150-450); RBC Distribution Width CV 12.7 % (11.6-14.6); RBC Distribution Width SD 43.4 fl (35.1-43.9); Red Blood Count 4.65 M/mm3 (4.2-5.4); White Blood Count 7.9 K/mm3 (4.4-11.0)
[2022-06-07 13:00] LABS: Microalbumin,Random Urine 41.8 mg/L (NO RANGE EST.); Microalbumin:Creatinine Ratio 22.5 mg/g CRE (<30 mg/g CRE)
[2022-06-07 13:27] LABS: AST(SGOT) 32 U/L (15-37); Alanine Aminotransfer ALT/SGPT 47 U/L (13-56); Alkaline Phosphatase 66 U/L (45-117); Anion Gap 8 (5-15); BUN 12 mg/dL (7-18); BUN/Creat Ratio 16.9 RATIO (10-20); Bilirubin, Direct 0.16 mg/dL (0.00-0.30); Calcium,Total 9.6 mg/dL (8.5-10.1); Chloride 100 mmol/L (98-107); Cholesterol 167 mg/dL (200); Creatinine, Serum 0.71 mg/dL (0.55-1.02); EST Glomerular Filtration Rate 86 mL/min (>60); Est Glom Filt Rate - Afr Amer 104 mL/min (>60); Globulin 4.1 g/dL (2.2-4.2); Glucose 167 mg/dL (74-106); High Density Lipoprotein 54 mg/dL; Potassium 3.9 mmol/L (3.5-5.1); Protein, Total 8.1 g/dL (6.4-8.2); Sodium Level 133 mmol/L (136-145); Thyroid Stim Hormone (TSH) 1.97 uIU/mL (0.358-3.74); Triglycerides 134 mg/dL; Very Low Density Lipoprotein 27 mg/dL (5-40)
[2022-06-07 13:59] LABS: Hemoglobin A1c 6.4 % (3.8-5.6)
[2022-06-08 11:18] LABS: Carcinoembryonic Antigen 1.8 ng/mL (0.0-4.7)
== END | disposition home or self-care (01) ==
LOC: MTLAB 09:36
PROVIDERS: PCP Family Medicine; Referring Provider Family Medicine; Visit Provider Family Medicine
DX: E78.00 Pure hypercholesterolemia, unspecified (principal); E11.9 Type 2 diabetes mellitus without complications; I10 Essential (primary) hypertension; E03.9 Hypothyroidism, unspecified; Z85.038 Personal history of other malignant neoplasm of large intestine
CPT/HCPCS: 36415; 80053; 80061; 82043; 82248; 82378; 82570; 83036; 84443; 85025

== ENCOUNTER → 2022-12-01 | Outpatient (CLI) | payer MEDICARE, SELFPAY ==
[2022-12-01 10:13] LABS: Absolute Lymphocyte Count 2.62 X10^3/uL (0.83-4.51); Absolute Neutrophil Count 3.9 X10^3/uL (2.0-7.7); Basophil# 0.13 X10^3/uL; Basophil% 1.6 % (0-1); Eosinophil# 0.29 X10^3/uL; Eosinophils% 3.6 % (0-5); Hematocrit 42.9 % (37-47); Hemoglobin 14.1 g/dL (12.0-15.0); Lymphocyte # 2.62 X10^3/ul (0.83-4.51); Mean Corp Hgb Conc 32.9 g/dL (32-36); Mean Corpuscular Hgb 30.1 pg (27.0-32.0); Mean Corpuscular Volume 91.5 fL (81-99); Mean Platelet Vol. 9.7 fl (6.2-12.0); Monocyte# 0.94 X10^3/uL; Monocyte% 11.8 % (0-10); NRBC Flagged by Analyzer 0 % (0-5); Neutrophil # 3.94 X10^3/uL (2.7-7.7); Neutrophil % 49.6 % (47-70); Platelet Count 320 K/mm3 (150-450); RBC Distribution Width CV 12.5 % (11.6-14.6); RBC Distribution Width SD 41.1 fl (35.1-43.9); Red Blood Count 4.69 M/mm3 (4.2-5.4)
[2022-12-01 10:33] LABS: Hemoglobin A1c 7.2 % (3.8-5.6)
[2022-12-01 10:43] LABS: ALB/GLOB Ratio 0.8 RATIO (0.9-2.4); AST(SGOT) 43 U/L (15-37); Alanine Aminotransfer ALT/SGPT 58 U/L (13-56); Albumin, Serum 3.7 g/dL (3.2-5.0); Alkaline Phosphatase 55 U/L (45-117); Anion Gap 9 (5-15); BUN 10 mg/dL (7-18); BUN/Creat Ratio 13.6 RATIO (10-20); Bilirubin, Direct 0.15 mg/dL (0.00-0.30); Calcium,Total 9.4 mg/dL (8.5-10.1); Chloride 99 mmol/L (98-107); Cholesterol 157 mg/dL (200); Creatinine, Serum 0.73 mg/dL (0.55-1.02); EST Glomerular Filtration Rate 82 mL/min (>60); Est Glom Filt Rate - Afr Amer 100 mL/min (>60); Globulin 4.4 g/dL (2.2-4.2); Glucose 202 mg/dL (74-106); High Density Lipoprotein 50 mg/dL; Potassium 3.5 mmol/L (3.5-5.1); Protein, Total 8.1 g/dL (6.4-8.2); Sodium Level 134 mmol/L (136-145); Triglycerides 143 mg/dL; Very Low Density Lipoprotein 29 mg/dL (5-40)
[2022-12-01 10:52] LABS: Microalbumin,Random Urine 21.8 mg/L (NO RANGE EST.); Microalbumin:Creatinine Ratio 24.1 mg/g CRE (<30 mg/g CRE)
[2022-12-02 05:07] LABS: Carcinoembryonic Antigen 1.4 ng/mL (0.0-4.7)
== END | disposition home or self-care (01) ==
LOC: LAB 09:44
PROVIDERS: Nurse Practitioner Gerontology; PCP Family Medicine; Referring Provider Family Medicine; Visit Provider Family Medicine
DX: E78.00 Pure hypercholesterolemia, unspecified (principal); E11.9 Type 2 diabetes mellitus without complications; Z85.038 Personal history of other malignant neoplasm of large intestine
CPT/HCPCS: 36415; 80053; 80061; 82043; 82248; 82378; 82570; 83036; 84443; 85025

== ENCOUNTER → 2023-06-13 | Outpatient (CLI) | payer MEDICARE, SELFPAY ==
[2023-06-13 10:26] LABS: Hemoglobin A1c 7.4 % (3.8-5.6)
[2023-06-13 10:38] LABS: AST(SGOT) 49 U/L (15-37); Alanine Aminotransfer ALT/SGPT 44 U/L (13-56); Albumin, Serum 3.8 g/dL (3.2-5.0); Alkaline Phosphatase 60 U/L (45-117); Bilirubin, Direct 0.15 mg/dL (0.00-0.30); Cholesterol 180 mg/dL (200); Globulin 4.3 g/dL (2.2-4.2); High Density Lipoprotein 53 mg/dL; Protein, Total 8.1 g/dL (6.4-8.2); Triglycerides 157 mg/dL; Very Low Density Lipoprotein 31 mg/dL (5-40)
[2023-06-15 12:10] LABS: Carcinoembryonic Antigen 1.5 ng/mL (0.0-4.7)
== END | disposition home or self-care (01) ==
LOC: MTLAB 08:52
PROVIDERS: Nurse Practitioner Gerontology; PCP Family Medicine; Referring Provider Family Medicine; Visit Provider Family Medicine
DX: I25.10 Atherosclerotic heart disease of native coronary artery without angina pectoris (principal); E11.65 Type 2 diabetes mellitus with hyperglycemia; E78.00 Pure hypercholesterolemia, unspecified; Z85.038 Personal history of other malignant neoplasm of large intestine
CPT/HCPCS: 36415; 80061; 80076; 82378; 83036

== ENCOUNTER → 2023-07-12 | Outpatient (CLI) | payer MEDICARE, SELFPAY ==
--- NOTE | 2023-07-12 13:25 | RAD_ITS ---
INDICATION: PAIN AND SWELLING/R/O ARTHRITIS AND FRACTURE EXAMINATION/TECHNIQUE: X-RAY - LEFT XR Hand Min 3 Views COMPARISON: None. FINDINGS: No acute fracture or malalignment. No blastic or lytic lesions. Minimal scattered degenerative changes. The soft tissues are unremarkable. RAD/Hand Min 3 Views IMPRESSION: No acute radiographic abnormalities. Minimal degenerative osteoarthritis. Electronically Signed: Nithin Bocanegra MD at 21:40 EDT ,
== END | disposition home or self-care (01) ==
LOC: MTRAD 13:24
PROVIDERS: PCP Family Medicine; Referring Provider Nurse Practitioner Family; Visit Provider Nurse Practitioner Family
DX: M79.642 Pain in left hand (principal); M79.89 Other specified soft tissue disorders
CPT/HCPCS: 73130

== ENCOUNTER → 2023-12-11 | Outpatient (CLI) | payer MEDICARE, SELFPAY ==
[2023-12-11 08:59] LABS: Absolute Lymphocyte Count 2.97 X10^3/uL (0.83-4.51); Absolute Neutrophil Count 4.2 X10^3/uL (2.0-7.7); Basophil# 0.12 X10^3/uL; Basophil% 1.4 % (0-1); Eosinophil# 0.22 X10^3/uL; Eosinophils% 2.6 % (0-5); Hematocrit 43.3 % (37-47); Hemoglobin 14.3 g/dL (12.0-15.0); Lymphocyte # 2.97 X10^3/ul (0.83-4.51); Lymphocyte % 34.7 % (19-41); Mean Corpuscular Hgb 29.9 pg (27.0-32.0); Mean Corpuscular Volume 90.4 fL (81-99); Mean Platelet Vol. 10.1 fl (6.2-12.0); Monocyte# 1.02 X10^3/uL; Monocyte% 11.9 % (0-10); NRBC Flagged by Analyzer 0 % (0-5); Neutrophil # 4.22 X10^3/uL (2.7-7.7); Neutrophil % 49.2 % (47-70); Platelet Count 293 K/mm3 (150-450); RBC Distribution Width CV 12.2 % (11.6-14.6); RBC Distribution Width SD 40.6 fl (35.1-43.9); Red Blood Count 4.79 M/mm3 (4.2-5.4); White Blood Count 8.6 K/mm3 (4.4-11.0)
[2023-12-11 10:05] LABS: ALB/GLOB Ratio 0.9 RATIO (0.9-2.4); AST(SGOT) 48 U/L (15-37); Alanine Aminotransfer ALT/SGPT 51 U/L (13-56); Albumin, Serum 3.8 g/dL (3.2-5.0); Alkaline Phosphatase 54 U/L (45-117); Anion Gap 10 (5-15); BUN 14 mg/dL (7-18); BUN/Creat Ratio 19.2 RATIO (10-20); Bilirubin, Direct 0.15 mg/dL (0.00-0.30); Chloride 94 mmol/L (98-107); Cholesterol 149 mg/dL (200); Creatinine, Serum 0.73 mg/dL (0.55-1.02); EST Glomerular Filtration Rate 82 mL/min (>60); Est Glom Filt Rate - Afr Amer 100 mL/min (>60); Globulin 4.3 g/dL (2.2-4.2); Glucose 200 mg/dL (74-106); High Density Lipoprotein 51 mg/dL; Potassium 4.1 mmol/L (3.5-5.1); Protein, Total 8.1 g/dL (6.4-8.2); Sodium Level 130 mmol/L (136-145); Triglycerides 156 mg/dL; Very Low Density Lipoprotein 31 mg/dL (5-40)
[2023-12-12 12:09] LABS: Carcinoembryonic Antigen 1.5 ng/mL (0.0-4.7)
== END | disposition home or self-care (01) ==
LOC: LAB 07:52
PROVIDERS: Nurse Practitioner Gerontology; PCP Family Medicine; Referring Provider Family Medicine; Visit Provider Family Medicine
DX: E11.9 Type 2 diabetes mellitus without complications (principal); I10 Essential (primary) hypertension; I25.10 Atherosclerotic heart disease of native coronary artery without angina pectoris; Z85.038 Personal history of other malignant neoplasm of large intestine
CPT/HCPCS: 36415; 80053; 80061; 82043; 82248; 82378; 82570; 83036; 85025

== ENCOUNTER 2024-05-18 11:14 | Emergency (ER) | payer MEDICARE, SELFPAY ==
[2024-05-18 11:14] VITALS: BP 143/76; PULSE 64; RESP 18; TEMP 37.2; O2SAT 98; BMI 28.8
[2024-05-18 11:25] VITALS: BP 140/89; PULSE 78; RESP 16; O2SAT 98
--- NOTE | 2024-05-18 11:33 | CT_ITS ---
PROCEDURE: ABDOMEN/PELVIS W IV CONT ONLY 05/18/2024 REASON FOR EXAM: 74-year-old female, abdominal pain, constipation, back pain. History of rectal cancer status post resection. TECHNIQUE: Abdomen CT without and with intravenous contrast. Coronal and Sagittal reconstruction series were provided. PATIENT PREPARATION: Per protocol ORAL CONTRAST TYPE: None. CONTRAST: Isovue-300 VOLUME: 100mL One or more dose reduction techniques were used (e.g., Automated exposure control, adjustment of the mA and/or kV according to patient size, use of iterative reconstruction technique. RADIATION DOSE SUMMARY: CTDlvol: 37 mGy DLP: 1070 mGycm COMPARISON: None. FINDINGS: Lung bases: The heart is normal in size with coronary artery calcifications. Bibasilar atelectasis/scarring. Liver: The liver is normal size without focal hepatic mass. The major portal veins are patent. No biliary ductal dilation. Gallbladder: No radiopaque stones within the gallbladder. Spleen: Unremarkable. Pancreas: Unremarkable. Adrenals: Unremarkable. Kidneys: No hydronephrosis or nephrolithiasis. Bladder: Distended and unremarkable. Reproductive Organs: Prior hysterectomy. Bowel: Prior LAR, compatible with reported history of rectal cancer. Small, hyperdensity within a central small bowel loop, measuring 0.8 x 0.8 cm (series 2, image 74). The bowel loops are normal in caliber. Moderate retained fecal material throughout the colon. No ascites or pneumoperitoneum. No inflammatory mass in the expected region of the appendix. Lymph nodes: Scattered retroperitoneal and central mesenteric lymphadenopathy. Vasculature: Marked calcific plaque of the aortoiliac vessels. Bones/soft tissues: Nodule along the posterior lower subcutaneous tissues, likely a sebaceous cyst. Thoracolumbar spondylosis. CT/Abdomen/Pelvis W IV Cont ONLY IMPRESSION: 1. No acute abdominopelvic finding. 2. Prior LAR, with scattered retroperitoneal and central mesenteric lymphadenop athy. Findings are nonspecific, however may represent infectious/inflammatory etiology or neoplastic process such as metast atic colon cancer or leukemia/lymphoma. Follow-up with oncology recommended for further evaluation. 3. Small hyperdensity within a central small bowel loop, indeterminate in etiol ogy. This can also be followed up with oncology for further evaluation. Reading Location: [facility]
--- NOTE | 2024-05-18 11:36 | EX.ED.DYSGE1 ---
HPI <CHRISTINA Wick - Last Filed: 05/18/24 15:41> History of Present Illness Chief Complaint: Back Narrative Narrative: 74-year-old female with PMH of HTN, HLD, DM2, CAD, hypothyroidism, rectal cancer s/p resection about 5 years ago presents with a few days of pain in her bilateral lower abdomen and bilateral low back. She was having small pellet-like BMs and has not had any bowel movement in 4-5 days. She thought the pain may be from constipation so she tried Dulcolax and a suppository with no relief but she states these medications are old and might be . She has occasional nausea but no vomiting. She reports mild abdominal distention. She is passing gas. She reports having her colon cancer resected and a hysterectomy at the same time 5 years ago at [facility] in [place] and at some point had follow-up testing which was normal. She never needed chemo or radiation. PFS <CHRISTINA Wick - Last Filed: 05/18/24 15:41> [facility] Medical History (Updated 05/18/24 @ 14:06 by CHRISTINA Wick) Rectal cancer Type 2 diabetes mellitus Essential (primary) hypertension History of non-ST elevation myocardial infarction (NSTEMI) (02/12/11) Hypothyroidism, iatrogenic Hyperlipidemia Atherosclerotic heart disease of alutiiq coronary artery without angina pectoris Home Medications ?Medication ?Instructions ?Recorded ?Last Taken ?Type levothyroxine 75 mcg tablet 75 mcg PO DAILY 05/18/13 04/27/14 History aspirin 81 mg tablet,delayed 81 mg PO DAILY 10/22/19 Unknown History release (Adult Low Dose Aspirin) glimepiride 4 mg tablet 4 mg PO DAILY 01/02/20 Unknown History meclizine 25 mg tablet 25 mg PO DAILY PRN 01/21/20 Unknown History rosuvastatin 20 mg tablet 20 mg PO QDAY #90 tabs 10/10/22 Unknown Rx famotidine 20 mg tablet 20 mg PO BID 11/15/22 Unknown History amlodipine 5 mg tablet See Rx Instructions .Route 10/02/23 Unknown Rx .COMPLEX #180 tabs lisinopril 20 mg tablet See Rx Instructions .Route 10/02/23 Unknown Rx .COMPLEX #180 tabs metoprolol tartrate 50 mg tablet See Rx Instructions .Route 08/05/24 Unknown Rx .COMPLEX #180 tabs hydrochlorothiazide 25 mg tablet 25 mg PO DAILY #90 TABLETS 10/04/23 Unknown Rx clopidogrel 75 mg tablet 75 mg PO DAILY #90 TABLETS 10/09/23 Unknown Rx metformin 500 mg tablet See Rx Instructions PO QPM 10/17/23 Unknown History Allergy/AdvReac Type Severity Reaction Status Date / Time atorvastatin calcium (From Allergy Other Verified 11/15/22 10:39 Lipitor) iodine Allergy Rash Verified 11/15/22 10:39 Family History Father Heart disease Myocardial infarction Mother CAD (coronary artery disease) CVA (cerebral vascular accident) HLD (hyperlipidemia) Hypertension Brother CAD (coronary artery disease) Surgical History History of left heart catheterization (05/13/11) H/O colectomy (09/2018) History of hysterectomy (09/2018) History of coronary artery stent placement (01/02/20) Social History (Updated 05/18/24 @ 11:40 by Mahsa Mays) household members: spouse housing: house Smoking Status: Never smoker alcohol intake: current alcohol intake frequency: a few times a week Alcohol type: beer and wine substance use type: does not use caffeine: Yes Type: coffee what type of physical activity do you participate in: walking and bicycling frequency: 3-4 times per week duration: < 15 minutes/day seatbelt use: always do you feel safe at home: Yes ROS <CHRISTINA Wick - Last Filed: 05/18/24 15:41> ROS ED ROS Narrative Constitutional: Negative for fever, chills, malaise. CVS: Negative for chest pain. Respiratory: Negative for shortness of breath. GI: Positive for abdominal pain, nausea, constipation. Negative for vomiting, diarrhea, melena, hematochezia. : Negative for dysuria, hematuria or frequency. EXAM <CHRISTINA Wick - Last Filed: 05/18/24 15:41> Physical Exam Narrative Exam Narrative: CONST: Patient sitting in no acute distress. EYES: Normal inspection. NECK: Normal inspection. RESP: No respiratory distress, CTAB. CVS: Regular rate and rhythm, no murmur, no gallop. ABD: Soft with mild distention and tenderness bilateral lower quadrants, no guarding or rebound. LIVE: Nonthrombosed nonbleeding external hemorrhoids, rectal vault empty. Back: Normal inspection, no flank or midline spinal tenderness. SKIN: Color normal, no rash, warm, dry, intact. EXTREMITIES: Normal appearance, no pedal edema. NEURO: Alert and answering questions appropriately. PSYCH: Normal affect. Const Vital Signs: 05/18/24 11:14 05/18/24 11:25 05/18/24 13:14 Temperature 98.9 F Temperature Source Oral Pulse Rate 64 78 89 Respiratory Rate 18 16 18 Blood Pressure 143/76 H 140/89 H 130/78 H Blood Pressure Mean 98 106 95 Pulse Ox 98 98 98 Oxygen Delivery Method Room Air <Dr. Kevin Garibay MD - Last Filed: 05/18/24 14:27> Physical Exam Const Vital Signs: 05/18/24 11:14 05/18/24 11:05/18/24 13:14 Temperature 98.9 F Temperature Source Oral Pulse Rate 64 78 89 Respiratory Rate 18 16 18 Blood Pressure 143/76 H 140/89 H 130/78 H Blood Pressure Mean 98 106 95 Pulse Ox 98 98 98 Oxygen Delivery Method Room Air MDM <CHRISTINA Wick - Last Filed: 05/18/24 15:41> [facility] MDM Narrative Medical decision making narrative: History gathered from: Patient and spouse 74-year-old female with PMH of rectal cancer s/p resection presents with several days of constipation and bilateral lower abdominal pain and bilateral low back pain. She appears well and nontoxic. Vital signs stable. She has mild tenderness to left lower quadrant. Rectum is empty. There is no reproducible back tenderness. Lower extremity MSPs are intact and she has no red flag signs concerning for cauda equina syndrome or epidural abscess. CBC WNL. BMP shows sodium of 128?it looks like her baseline is between 1 30-1 34. BUN 9, creatinine 0.61. Glucose 176. Urinalysis negative. CT scan shows moderate stool throughout the colon but no obstruction. There is a small hyperdensity in the central small bowel loop and mesenteric lymphadenopathy which is nonspecific but should be evaluated for underlying neoplastic process with her history. The patient was traveling to [place] in the past but did not want to go that far for testing and request someone local. I placed an [facility] fast pass consult and she should be contacted on the next business day. Regarding her constipation, she was ordered a soapsuds enema and was able to hold the fluids in but did not have a bowel movement. She is comfortable going home and taking MiraLAX as instructed and following up with her primary care doctor. She was given return precautions and discharged in stable condition Lab Data Attestation: I reviewed the patient's lab results. Labs: Laboratory Results - last 24 hr 05/18/24 05/18/24 11:38 12:39 WBC 10.5 RBC 4.64 Hgb 14.2 Hct 40.5 MCV 87.3 MCH 30.6 MCHC 35.1 RDW Std Deviation 38.9 RDW Coeff of [place] 12.3 Plt Count 318 MPV 9.5 Immature Gran % (Auto) 0.500 Neut % (Auto) 59.5 Lymph % (Auto) 25.4 [place] % (Auto) 12.0 H Eos % (Auto) 1.2 Baso % (Auto) 1.4 H Absolute Neuts (auto) 6.3 Absolute Lymphs (auto) 2.67 Nucleated RBC % 0 Sodium 128 L Potassium 3.9 Chloride 90 L Carbon Dioxide 21.2 Anion Gap 16 H BUN 9 Creatinine 0.61 L Estim Creat Clear Calc 61.94 Est GFR (MDRD) Non-Af 92 BUN/Creatinine Ratio 15.3 Glucose 176 H Calcium 9.8 Urine Color Yellow Urine Clarity Clear Urine pH 7.0 Ur Specific [place] 1.005 Urine Protein 15 H Urine Glucose (UA) Normal Urine Ketones Negative Urine Occult Blood Negative Urine Nitrite Negative Urine Bilirubin Negative Urine Urobilinogen Normal Ur Leukocyte Esterase 25 H Urine RBC 0-5 SEEN Urine WBC 5-10 SEEN Ur Squamous Epith Cells 0-5 SEEN Urine Bacteria 1+ Urine Mucus 0 SEEN Radiography Diagnostic Testing: Clinical Impression(s) from Imaging Studies Abdomen/Pelvis CT 05/18/24 11:33 IMPRESSION: 1. No acute abdominopelvic finding. 2. Prior LAR, with scattered retroperitoneal and central mesenteric lymphadenopathy. Findings are nonspecific, however may represent infectious/inflammatory etiology or neoplastic process such as metastatic colon cancer or leukemia/lymphoma. Follow-up with oncology recommended for further evaluation. 3. Small hyperdensity within a central small bowel loop, indeterminate in etiology. This can also be followed up with oncology for further evaluation. Reading Location: [facility] <Dr. Kevin Garibay MD - Last Filed: 05/18/24 14:27> [facility] Lab Data Labs: Laboratory Results - last 24 hr 05/18/24 05/18/24 11:38 12:39 WBC 10.5 RBC 4.64 Hgb 14.2 Hct 40.5 MCV 87.3 MCH 30.6 MCHC 35.1 RDW Std Deviation 38.9 RDW Coeff of [place] 12.3 Plt Count 318 MPV 9.5 Immature Gran % (Auto) 0.500 Neut % (Auto) 59.5 Lymph % (Auto) 25.4 [place] % (Auto) 12.0 H Eos % (Auto) 1.2 Baso % (Auto) 1.4 H Absolute Neuts (auto) 6.3 Absolute Lymphs (auto) 2.67 Nucleated RBC % 0 Sodium 128 L Potassium 3.9 Chloride 90 L Carbon Dioxide 21.2 Anion Gap 16 H BUN 9 Creatinine 0.61 L Estim Creat Clear Calc 61.94 Est GFR (MDRD) Non-Af 92 BUN/Creatinine Ratio 15.3 Glucose 176 H Calcium 9.8 Urine Color Yellow Urine Clarity Clear Urine pH 7.0 Ur Specific [place] 1.005 Urine Protein 15 H Urine Glucose (UA) Normal Urine Ketones Negative Urine Occult Blood Negative Urine Nitrite Negative Urine Bilirubin Negative Urine Urobilinogen Normal Ur Leukocyte Esterase 25 H Urine RBC 0-5 SEEN Urine WBC 5-10 SEEN Ur Squamous Epith Cells 0-5 SEEN Urine Bacteria 1+ Urine Mucus 0 SEEN Radiography Diagnostic Testing: Clinical Impression(s) from Imaging Studies Abdomen/Pelvis CT 05/18/24 11:33 IMPRESSION: 1. No acute abdominopelvic finding. 2. Prior LAR, with scattered retroperitoneal and central mesenteric lymphadenopathy. Findings are nonspecific, however may represent infectious/inflammatory etiology or neoplastic process such as metastatic colon cancer or leukemia/lymphoma. Follow-up with oncology recommended for further evaluation. 3. Small hyperdensity within a central small bowel loop, indeterminate in etiology. This can also be followed up with oncology for further evaluation. Reading Location: [facility] Treatment and Re-Evaluation Comments:: I have personally performed a face to face assessment of the patient and have reviewed the MONICA Note. I performed a substantive portion of the visit including all aspects of the following. My cotto findings include: History is low back pain for a week or 2, now lower abdominal pain for several days, has not had a bowel movement in maybe 5 or 6 days but does not feel the need to go. Some nausea in the last couple days but no vomiting. No fevers or chills. Urinating normally. History of a partial bowel resection Due to rectal cancer. Exam is NAD. Tender mostly in the left lower quadrant without guarding or rebound. Bowel sounds are present. A little distended but soft. Heart regular no tachycardia. Lungs clear to speak in full sentences. Medical Decison Making labs and a CT with IV contrast obtained, differential includes partial bowel obstruction, diverticulitis, AAA, other possible GI related etiologies. I reviewed the CT images and the report which I agree with, there is nothing acute but she does have quite a bit of stool retention in the colon, and there is a lot of lymphadenopathy, which is concerning. Patient okay following up locally with oncology given her history of cancer to have a follow-up exam and possibly further testing, which can be done as an outpatient. Will offer her an enema here if she wants to see if that helps her discomfort which may be related to the constipation. Other additions or changes: [None] Discharge Plan Triage Chief Complaint: Back ED Midlevel Provider: Karin Carvalho ED Provider: Kevin Garibay Dx/Rx/DC Orders Clinical Impression: Abdominal pain, Constipation, Mesenteric lymphadenopathy, History of rectal cancer Instructions: ED Constipation (Adult) Prescriptions: No Action aspirin [Adult Low Dose Aspirin] 81 mg tablet,delayed release (DR/EC) 81 mg PO DAILY meclizine 25 mg tablet 25 mg PO DAILY PRN famotidine 20 mg tablet 20 mg PO BID Patient Comments: TAKE 1 TABLET BY MOUTH TWICE A DAY metformin 500 mg tablet See Rx Instructions PO QPM Rx Instructions: orally every evening; 1000 AM, 500 PM levothyroxine 75 MCG tablet 75 mcg PO DAILY Patient Comments: thyroid glimepiride 4 MG tablet 4 mg PO DAILY rosuvastatin 20 mg tablet 20 mg PO QDAY Qty: 90 3RF lisinopril 20 mg tablet See Rx Instructions .ROUTE .COMPLEX Qty: 180 3RF Dose Instruction: TAKE 1 TABLET BY MOUTH TWICE A DAY Rx Instructions: TAKE 1 TABLET BY MOUTH TWICE A DAY amlodipine 5 mg tablet See Rx Instructions .ROUTE .COMPLEX Qty: 180 3RF Dose Instruction: TAKE 1 TABLET BY MOUTH TWICE A DAY Rx Instructions: TAKE 1 TABLET BY MOUTH TWICE A DAY metoprolol tartrate 50 mg tablet See Rx Instructions .ROUTE .COMPLEX Qty: 180 3RF Dose Instruction: TAKE 1 TABLET BY MOUTH TWICE A DAY Rx Instructions: TAKE 1 TABLET BY MOUTH TWICE A DAY hydrochlorothiazide 25 mg tablet 25 mg PO DAILY Qty: 90 3RF clopidogrel 75 mg tablet 75 mg PO DAILY Qty: 90 3RF Other Ambulatory Orders: Fast Pass: Oncology Referral [facility] (Routine) Facility: [facility] - Location: [facility] Ordered By: Karin Carvalho Primary Care Provider: Hiram Osborne Referrals: Hiram Osborne DO [Primary Care Provider] - Activity Restrictions/Additional Instructions: Take 1 cap of MiraLAX twice a day to treat constipation. Your CT scan showed enlarged lymph nodes in your abdomen which needs follow-up with an oncologist. I sent a oncology referral to [facility] which should contact you on the next business day. Print Language: Maori Disposition Disposition: Home, Self Care
[2024-05-18] MEDS: 0.9% Normal Saline (1000mL) 1,000 ML 999 ML IV (11:38)
[2024-05-18] MEDS: Ondansetron 4 MG/2 ML Vial IV (11:39)
[2024-05-18] MEDS: Morphine 4 MG/ML Syringe IV (11:39)
[2024-05-18 11:51] LABS: Absolute Lymphocyte Count 2.67 X10^3/uL (0.83-4.51); Absolute Neutrophil Count 6.3 X10^3/uL (2.0-7.7); Basophil# 0.15 X10^3/uL; Basophil% 1.4 % (0-1); Eosinophil# 0.13 X10^3/uL; Eosinophils% 1.2 % (0-5); Hematocrit 40.5 % (37-47); Hemoglobin 14.2 g/dL (12.0-15.0); Lymphocyte # 2.67 X10^3/ul (0.83-4.51); Lymphocyte % 25.4 % (19-41); Mean Corp Hgb Conc 35.1 g/dL (32-36); Mean Corpuscular Hgb 30.6 pg (27.0-32.0); Mean Corpuscular Volume 87.3 fL (81-99); Mean Platelet Vol. 9.5 fl (6.2-12.0); Monocyte# 1.26 X10^3/uL; NRBC Flagged by Analyzer 0 % (0-5); Neutrophil # 6.27 X10^3/uL (2.7-7.7); Neutrophil % 59.5 % (47-70); Platelet Count 318 K/mm3 (150-450); RBC Distribution Width CV 12.3 % (11.6-14.6); RBC Distribution Width SD 38.9 fl (35.1-43.9); Red Blood Count 4.64 M/mm3 (4.2-5.4); White Blood Count 10.5 K/mm3 (4.4-11.0)
[2024-05-18] MEDS: DiphenhydrAMINE 50 MG/ML Syringe IV (11:54)
[2024-05-18] MEDS: MethylPREDNISolone 125 MG/2 ML Vial 40 MG IV (11:55)
[2024-05-18 12:21] LABS: Anion Gap 16 (5-15); BUN 9 mg/dL (4-19); BUN/Creat Ratio 15.3 RATIO (10-20); Calcium,Total 9.8 mg/dL (7.6-11.0); Carbon Dioxide 21.2 mmol/L (21.0-32.0); Chloride 90 mmol/L (98-108); Creatinine, Serum 0.61 mg/dL (0.70-1.20); EST Glomerular Filtration Rate 92 (>60); Estimated Creatinine Clearance 61.94 ml/min (50-250); Glucose 176 mg/dL (70-99); Potassium 3.9 mmol/L (3.3-5.1); Sodium Level 128 mmol/L (133-145)
[2024-05-18 12:43] LABS: Mucous, Urine 0 SEEN /hpf (<or=2+)
[2024-05-18 12:45] LABS: Color, Urine Yellow (Yellow); Glucose, Dipstick Normal (Normal); Ketone-Dipstick Negative (Negative); Leukocyte Esterase-Dipstick 25 /ul (Negative); Nitrite-Dipstick Negative (Negative); Occult Blood-Urine Negative /ul (Negative); Protein-Dipstick 15 mg/dl (Negative); Specific Gravity, Urine 1.005 (1.002-1.030); Urine Bilirubin Dipstick Negative (Negative); Urine Clarity Clear (Clear); Urine Urobilinogen Normal (Normal)
[2024-05-18 13:02] LABS: Bacteria 1+ /hpf (None Seen); Red Blood Cells-Urine 0-5 SEEN /hpf (0-5); Squamous Epithelial Cells - UA 0-5 SEEN /hpf (5-10); White Blood Cells 5-10 SEEN /hpf (0-5)
[2024-05-18 13:14] VITALS: BP 130/78; PULSE 89; RESP 18; O2SAT 98
[2024-05-18 15:56] VITALS: BP 130/78; PULSE 89; RESP 18; TEMP 36.8; O2SAT 98
== END 2024-05-18 16:02 | disposition home or self-care (01) ==
PROVIDERS: Physician Assistant; Emergency Provider Emergency Medicine; PCP Family Medicine; Visit Provider Emergency Medicine
DX: R10.31 Right lower quadrant pain (principal); E11.9 Type 2 diabetes mellitus without complications; R10.32 Left lower quadrant pain; I25.10 Atherosclerotic heart disease of native coronary artery without angina pectoris; R59.0 Localized enlarged lymph nodes; I25.2 Old myocardial infarction; Z95.5 Presence of coronary angioplasty implant and graft
CPT/HCPCS: 74177; 80048; 81001; 85025; 96361; 96374; 96375; 96376; 99285; Q9967; J2405

== ENCOUNTER → 2024-05-21 | Outpatient (CLI) | payer MEDICARE, SELFPAY ==
[2024-05-21 15:54] LABS: Hemoglobin A1c 8.2 % (<=5.6)
[2024-05-22 11:08] LABS: Carcinoembryonic Antigen 1.4 ng/mL (0.0-4.7)
== END | disposition home or self-care (01) ==
LOC: BFHLAB 10:17
PROVIDERS: PCP Family Medicine; Visit Provider Family Medicine
DX: E03.9 Hypothyroidism, unspecified (principal); E11.9 Type 2 diabetes mellitus without complications; Z85.048 Personal history of other malignant neoplasm of rectum, rectosigmoid junction, and anus
CPT/HCPCS: 36415; 82378; 83036; 84443

== ENCOUNTER → 2024-12-17 | Outpatient (CLI) | payer MEDICARE, SELFPAY ==
--- NOTE | 2024-12-17 07:17 | ECHOCS_ITS ---
Reason For Study Reason For Study: CAD/ASHD Procedure This was a 2D Doppler, Color Flow transthoracic echocardiogram. The study was technically difficult. Contrast injection was performed. Exam performed in department. Left Ventricle Normal LV size. The left ventricular ejection fraction is 55 %. Stage 1 diastolic dysfunction. Segmental dysfunction with preserved ejection fraction (see wall motion). Basal inferoseptal: Severely Hypokinetic. Infero-Basal: Severely Hypokinetic. The rest of the wall segments are normal. Right Ventricle Normal RV size. Normal systolic function. Atria Normal left atrium. Normal right atrium. Mitral Valve There is mild mitral annular calcification. Tricuspid Valve Normal tricuspid valve. Mild (1+) tricuspid valve insufficiency. Pulmonary artery systolic pressure is 23 mmHg. Aortic Valve Normal aortic valve. Pulmonic Valve Normal pulmonic valve. Great Vessels Normal aortic root. The pulmonary artery is normal size. Inferior vena cava collapse with respiration. Pericardium/Pleural No pericardial effusion. Medication 22 gauge I.V. with prn adaptor inserted into right arm. Diluted definity 1.5ml given slow IV push to enhance endocardial definition. MMode/2D Measurements & Calculations LVIDd: 4.7 cm IVSd: 1.2 cm Ao root diam: 2.6 cm LVIDs: 3.6 cm LVPWd: 1.0 cm RVDd: 3.4 cm FS: 24.3 % LAV(MOD-bp): 41.1 ml LVAd ap4: 26.6 cm2 SV(MOD-sp4): 39.7 ml LAV(MOD-bp) Indexed: 22.0 ml/m2 LVLd ap4: 7.5 cm SI(MOD-sp4): 21.2 ml/m2 LAV(MOD-sp2): 35.1 ml EDV(MOD-sp4): 77.3 ml LAV(MOD-sp4): 45.5 ml EDV(sp4-el): 79.6 ml LVAs ap4: 16.5 cm2 LVLs ap4: 6.3 cm ESV(MOD-sp4): 37.6 ml ESV(sp4-el): 37.2 ml EF(MOD-sp4): 51.3 % EF(sp4-el): 53.3 % SV(sp4-el): 42.4 ml LA A4 area: 16.8 cm2 LA dimension(2D): 3.8 cm RA A4 area: 11.8 cm2 TAPSE: 2.2 cm Time Measurements MV dec time: 0.27 sec Doppler Measurements & Calculations MV E max romel: 69.8 cm/sec Lat Peak E' Romel: 8.7 cm/sec Med Peak E' Romel: 3.2 cm/sec MV A max romel: 110.2 cm/sec E/E' lat: 8.0 E/E' med: 21.6 MV E/A: 0.63 MV V2 max: 119.9 cm/sec MV P1/2t max romel: 80.2 cm/sec Ao V2 max: 129.7 cm/sec MV max P.8 mmHg MV P1/2t: 90.6 msec Ao max P.7 mmHg MV V2 mean: 60.7 cm/sec MV dec slope: 259.4 cm/sec2 Ao V2 mean: 96.1 cm/sec MV mean P.8 mmHg MVA(P1/2t): 2.4 cm2 Ao mean P.1 mmHg MV V2 VTI: 26.6 cm Ao V2 VTI: 28.2 cm AV (velocity ratio): 0.71 LV V1 max: 94.4 cm/sec PA V2 max: 94.7 cm/sec TR max romel: 220.4 cm/sec LV V1 max P.6 mmHg PA V2 mean: 68.0 cm/sec TR max P.4 mmHg LV V1 mean P.0 mmHg LV V1 mean: 66.3 cm/sec LV V1 VTI: 19.9 cm ECHO/Echo Complete W/ Contrast Interpretation Summary Normal LV size. The left ventricular ejection fraction is 55 %. Stage 1 diastolic dysfunction. Pulmonary artery systolic pressure is 23 mmHg. Segmental dysfunction with preserved ejection fraction (see wall motion). Contrast injection was performed. Ordering Physician: Pk Casey Referring Physician: Pk Casey Performed By: Enrrique Brush RCS
--- OUTSIDE RECORDS SUMMARY | 2024-12-17 07:29 | XMS RPT_ITS | CCD ---
Author Organization [facility] [employer] Care Team Providers Care [employer] Consultant Name Role Phone Valeria Rocha Unavailable Darlin CARRERA, Krisyt Sainz Unavailable Unavailable Magalys Doherty Unavailable Valeria Rocha Unavailable Unavailable Primary Care Provider Dr. Modesta Ellsworth Primary Care Provider [phone] Dr. 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 Pk Casey Attending Provider Dr. Rashard Love Attending Provider DR YONG MONROY MD Attending DR MODESTA Ellsworth DO Primary Care Unavailab le Unavailable Primary Care Provider Dr. Modesta Ellsworth DO Primary Care Provider [phone] Dr. Kevin Garibay MD Emergency Provider Dr. Kevin Garibay MD Attending Provider Dr. Modesta Osborne DO Attending Provider Barbie Henriquez Attending Provider Unavailable Dr. Modesta Osborne DO Primary Care Physician Dr. Modesta Osborne DO Referring Provider Dr. Pk Casey MD Attending Physician Modesta Osborne Primary Care Unavailable Barbie Henriquez Attending Unavailable Modesta Osborne Attending Unavailable Modesta Osborne Primary Care Unavailable Modesta Osborne Attending Unavailable Modesta Osborne Primary Care Unavailable JacintoAlex hopkinsril Attending Unavailable Jacinto, [place] Referring Unavailable Isaac Modesta Primary Care Unavailable Modesta Osborne Primary Care Unavailable Modesta Osborne Attending Unavailable Modesta Osborne Referring Unavailable Ihsan H[employer] SCHOOL SCIENCE TEACHER, [place] Consulting Unavailable Kevin Garibay Attending Unavailable Modesta Osborne Primary Care Unavailable Ismael Larose Attending Unavailable Modesta Osborne Referring Unavailable IsaacModesta gonzalez Primary Care Unavailable Jacinto, [place] Attending Unavailable Modesta Osborne Referring Unavailable Modesta Osborne Primary Care Unavailable Allergies Allergy Classification Reported Allergen(s) Allergy Type Date of Onset Reaction(s) Facility (4 sources) atorvastatin drug allergy 03-13-2013 Myalgias [place] [facility] Work Phone: (8 sources) clopidogrel drug allergy 10-01-2010 Severe rash [facility] Work Phone: (12 sources) iodine; Translations: [iodine] drug allergy 10-01-2010 [facility] Work Phone: (8 sources) atorvastatin; Translations: [atorvastatin calcium] Drug Allergy 10-14-2021 Other [facility] Comment on above: MUSCLE SORENESS Medications Current Medications Medication Drug Class(es) Dates Sig (Normalized) Sig (Original) amLODIPine 5 mg oral tablet (20 sources) Dihydropyridine Calcium Channel Deven Start: 05-09-2011 End: 10-02-2024 take 1 tablet by mouth twice daily Start: 2011 End: 2011 take 1 tablet by mouth once daily NORVASC 5 MG TABS one tablet by mouth a AMLODIPINE BESYLATE [id number] Hermes Brenner MD Start: 10-01-2010 End: 2011 take 1 tablet by mouth twice daily NORVASC 5 MG TABS One tablet by mouth twice daily AMLODIPINE BESYLATE [id number] Hermes Brenner MD aspirin 81 mg delayed release oral tablet (20 sources) Nonsteroidal Anti-inflammatory Drug Start: 10-22-2019 Start: 04-07-2017 End: 10-22-2019 Aspirin 325 MG tablet Discon tinued 162 mg PO DAILY April 07, 2017 12:28pm October 22, 2019 10:06am Start: 04-07-2017 End: 10-22-2019 take 162 mg by mouth once daily Aspirin Discontinued 1 62 MG PO DAILY April 07, 2017 12:28pm October 22, 2019 10:06am Start: 10-01-2010 End: 04-07-2017 take 1 tablet by mouth once daily Aspirin 325 MG tablet Discontinued 325 mg PO DAILY April 28, 2014 1:00am April 07, 2017 12:28pm Start: 10-01-2010 take 1 tablet by tylor th once daily ASPIRIN 81 MG TABS One tablet by mouth daily ASPIRIN [id number] Pk Casey MD Start: 10-01-2010 take 1 tablet by tylor th once daily ASPIRIN 81 MG TABS One tablet by mouth daily ASPIRIN [id number] Pk Casey MD clopidogrel 75 mg oral tablet (20 sources) P2Y12 Platelet Inhibitor Start: 10-01-2010 End: 10-02-2024 take 1 tablet by mouth once daily famotidine 20 mg oral tablet (20 sources) Histamine-2 Receptor Antagonist Start: 11-15-2022 take 1 tablet by mouth twice daily Start: 01-02-2020 End: 10-14-2021 take 1 tablet by mouth once daily Famotidine 20 MG tablet Discontinued 20 mg PO DAILY January 02, 2020 1:00am October 14, 2021 10:22am Start: 09-30-2014 take 1 tablet by tylor th twice daily PEPCID 20 MG TABS One tablet by mouth twice daily FAMOTIDINE [id number] Pk Casey MD Start: 04-28-2014 End: 10-22-2019 take 1 tablet by mouth twice daily Famotidine 10 MG tablet Discontinued 10 mg PO TWICE A DAY April 28, 2014 1:00am October 22, 2019 10:13am Start: 10-05-2012 End: 10-02-2014 take 1 tablet by mouth once daily PEPCID 20 MG TABS One tablet by mouth daily FAMOTIDINE [id number] Pk Casey MD glimepiride 4 mg oral tablet (20 sources) Sulfonylurea Start: 06-05-2024 take 1 tablet by tylor th twice daily Start: 01-02-2020 End: 06-05-2024 take 1 tablet by mouth once daily Glimepiride 4 MG tablet Discontinued 4 mg PO DAILY January 02, 2020 1:00am June 05, 2024 9:30am Start: 10-23-2018 End: 10-22-2019 take 1 tablet by mouth once daily Glimepiride 4 mg tablet Discontinued 4 mg PO DAILY 90 0 October 23, 2018 12:00am October 22, 2019 10:05am Start: 10-17-2017 End: 10-23-2018 take 4 mg by mouth once daily Glimepiride Discontinued 4 MG PO daily October 17, 2017 10:52am October 23, 2018 10:21am Start: 03-22-2017 End: 10-23-2018 take 2 tablets by mouth once daily Glimepiride 2 mg tablet Discontinued 4 mg PO daily October 17, 2017 10:52am October 23, 2018 10:21am Start: 10-02-2014 take 1 tablet by tylor once daily GLIMEPIRIDE 2 MG TABS One tablet by mouth daily GLIMEPIRIDE [id number] Pk Casey MD hydroCHLOROthiazide 25 mg or al tablet (20 sources) Thiazide Diuretic Start: 03-22-2017 End: 10-02-2024 take 1 tablet by mouth once daily Start: 10-05-2012 End: 09-30-2014 take 1 tablet by mouth once daily HYDROCHLOROTHIAZIDE 25 MG TABS One tablet by mouth daily HYDROCHLOROTHIAZIDE [id number] Pk Casey MD lisinopril 20 mg oral tablet (20 sources) Angiotensin Converting Enzyme Inhibitor Start: 2011 End: 10-02-2024 take 1 tablet by mouth twice daily Start: 10-01-2010 take 1 tablet by tylor th once daily LISINOPRIL 20 MG TABS One tablet by mouth daily LISINOPRIL [id number] Tatiana Mancilla loratadine 10 mg oral capsul e (2 sources) Start: 05-23-2024 take 1 capsule by [facility] once daily Start: 05-23-2024 take 1 capsule by [facility] once daily Loratadine (Allergy Relief (Loratadine)) 10 mg capsule Active 10 mg PO daily May 23, 2024 12:00am meclizine hydrochloride 25 m g oral tablet (20 sources) Antiemetic Start: 01-21-2020 take 1 tablet by tylor th once daily as needed Start: 03-22-2017 End: 04-07-2017 take 1 tablet by mouth three times daily as needed Meclizine 25 mg tablet Discontinued 25 mg PO THREE TIMES A DAY as needed March 22, 2017 1:00am April 07, 2017 12:28pm Start: 09-12-2013 take 1 tablet by tylor th three times daily as needed MECLIZINE HCL 25 MG TABS One tablet by mouth three times daily As needed MECLIZINE HCL [id number] Pk Casey MD Start: 05-18-2013 End: 03-22-2017 take 1 tablet by mouth four times daily as needed Meclizine 25 MG tablet Discontinued 25 mg PO 4 TIMES DAILY NEEDED as needed for Vertigo 25 0 May 18, 2013 12:00am March 22, 2017 11:33am metFORMIN hydrochloride 500 mg oral tablet (20 sources) Biguanide Start: 11-19-2024 take 1 tablet by tylor th twice daily Start: 06-05-2024 End: 11-19-2024 Metformin 500 mg tablet Disc ontinued 0 PO TWICE A DAY June 05, 2024 9:29am November 19, 2024 11:07am orally twice a day; 1000 AM, 500 PM Start: 10-17-2023 End: 06-05-2024 Metformin 500 mg tablet Disc ontinued 0 PO EVERY EVENING October 17, 2023 11:12am June 05, 2024 9:30am orally every evening; 1000 AM, 500 PM Start: 11-15-2022 End: 10-17-2023 take 2 tablets by mouth once daily in the morning Metformin 500 mg tablet Discontinued 1000 mg PO EVERY MORNING November 15, 2022 10:40am October 17, 2023 11:14am Start: 11-15-2022 take 1000 mg by mout h once daily in the morning Metformin Active 1000 MG PO EVERY MORNING November 15, 2022 10:40am Start: 11-15-2022 End: 10-17-2023 take 1 tablet by mouth once daily in the evening Metformin 500 mg tablet Discontinued 500 mg PO EVERY EVENING November 15, 2022 12:00am October 17, 2023 11:14am Start: 10-17-2017 End: 11-15-2022 take 1 tablet by mouth twice daily Metformin 500 mg tablet Discontinued 500 mg PO TWICE A DAY October 17, 2017 12:00am November 15, 2022 10:42am metoprolol tartrate 50 mg oral tablet (20 sources) beta-Adrenergic Deven Start: 06-13-2011 take 1 tablet by mouth twice daily METOPROLOL TARTRATE 100 MG TABS One tablet by mouth twice daily METOPROLOL TARTRATE [id number] Pk Casey MD Start: 05-09-2011 End: 10-02-2024 take 1 tablet by mouth twice daily Start: 10-01-2010 take 1 tablet by tylor th twice daily METOPROLOL TARTRATE 25 MG TABS One tablet by mouth twice daily METOPROLOL TARTRATE [id number] Tatiana Mancilla nitroglycerin 0.4 mg subling ual tablet (20 sources) Nitrate Vasodilator Start: 05-23-2024 Start: 05-18-2013 End: 11-15-2022 Nitroglycerin 0.4 mg tablet, sublingual Discontinued 0.4 mg SL Q5M as needed for Chest Pain 30 October 17, 2017 11:05am November 15, 2022 10:42am Start: 05-18-2013 End: 11-15-2022 Nitroglycerin Discontinued 0 .4 MG SL Q5M October 17, 2017 11:05am November 15, 2022 10:42am Start: 10-01-2010 NITROGLYCERIN 0.4 MG/HR PT24 1 tablet under tongue every 5 min up to 3 X NITROGLYCERIN [id number] Hermes Brenner MD Start: 10-01-2010 NITROGLYCERIN 0.4 MG SUBL 1 tablet under the tongue every 5 minutes times 3 as needed for chest pain. NITROGLYCERIN [id number] Pk Casey MD SITagliptin 100 mg oral tabl et (2 sources) Dipeptidyl Peptidase 4 Inhibitor Start: 11-19-2024 Start: 06-05-2024 End: 11-19-2024 take 1 tablet by mouth once daily Sitagliptin Phosphate (Januvia) 100 mg tablet Discontinued 100 mg PO daily June 05, 2024 12:00am November 19, 2024 11:07am levothyroxine sodium 0.075 m g oral tablet (17 sources) l-Thyroxine Start: 10-01-2010 take 1 tablet by tylor th once daily Start: 10-01-2010 take 0.5 tablet by m outh once daily SYNTHROID 150 MCG TABS 1/2 tablet by mouth daily LEVOTHYROXINE SODIUM [id number] Tatiana Mancilla Start: 10-01-2010 take 1 tablet by tylor th once daily SYNTHROID 75 MCG TABS One tablet by mouth daily LEVOTHYROXINE SODIUM [id number] Pk Casey MD Start: 10-01-2010 take 1 tablet by tylor th once daily SYNTHROID 75 MCG TABS One tablet by mouth daily LEVOTHYROXINE SODIUM [id number] Pk Casey MD Start: 10-01-2010 take 0.5 tablet by m outh once daily SYNTHROID 150 MCG TABS 1/2 tablet by mouth daily LEVOTHYROXINE SODIUM [id number] Tatiana Mancilla Completed/Discontinued Medications Medication Drug Class(es) Dates Sig (Normalized) Sig (Original) Antiarthritic Combination No.2 (4 sources) Start: 04-28-2014 End: 04-07-2017 take 900 mg by mouth once daily Antiarthritic Combination No.2 Discontinued 900 MG PO DAILY April 28, 2014 1:00am April 07, 2017 12:27pm Antiarthritic Combination No.2 900 MG tablet (3 sources) Start: 04-28-2014 End: 04-07-2017 take 1 tablet by mouth once daily Antiarthritic Combination No.2 900 MG tablet Discontinued 900 mg PO DAILY April 28, 2014 1:00am April 07, 2017 12:27pm GLUCOSAMINE-CHONDROI TIN CAPS (4 sources) Start: 09-30-2014 take 1 tablet by mouth once daily GLUCOSAMINE-CHONDRO ITIN CAPS One tablet by mouth daily GLUCOSAMINE-CHONDRO ITIN CAPS [id number] Suzy Bach RN glucosamine sulfate 500 mg oral tablet (11 sources) Start: 03-22-2017 End: 10-17-2017 take 1 tablet by mouth twice daily Glucosamine Sulfate (Glucosamine) 500 mg tablet Discontinued 500 mg PO TWICE A DAY March 22, 2017 1:00am October 17, 2017 10:52am Start: 09-30-2014 GLUCOSAMINE HC L TABS 1000mg daily GLUCOSAMINE HCL TABS Pk Casey MD isosorbide mononitrate 10 mg oral tablet (20 sources) Start: 04-09-2013 End: 09-12-2013 take 1 tablet by mouth twice daily ISOSORBIDE MONONITRATE 10 MG TABS One tablet by mouth twice daily ISOSORBIDE MONONITRATE [id number] Ina Limon PA-C Start: 2011 End: 10-05-2012 take 1 tablet by mouth twice daily ISOSORBIDE MONONITRATE 20 MG TABS One tablet by mouth twice daily ISOSORBIDE MONONITRATE [id number] Pk Casey MD isosorbide dinitrate 20 mg oral tablet (8 sources) Nitrate Vasodilator Start: 10-01-2010 End: 2011 ISOSORBIDE DINITRATE 20 MG TABS (ISMO) 1 tablet 2 X daily ISOSORBIDE DINITRATE [id number] Hermes Brenner MD magnesium oxide 500 mg oral tablet (11 sources) Start: 03-22-2017 End: 04-07-2017 take 1 tablet by mouth once daily Magnesium Oxide 500 mg tablet Discontinued 500 mg PO daily March 22, 2017 1:00am April 07, 2017 12:28pm Start: 10-02-2014 take 1 tablet by tylor th once daily MAGNESIUM OXIDE 500 MG TABS One tablet by mouth daily MAGNESIUM OXIDE [id number] Ina Limon PA-C MULTIPLE VITAMIN (8 sources) Start: 09-30-2014 take 1 tablet by mouth once daily MULTIVITAMINS TABS One half tablet by mouth daily MULTIPLE VITAMIN Pk Casey MD Start: 09-30-2014 take 1 tablet by tylor th once daily MULTIVITAMINS TABS One tablet by mouth daily MULTIPLE VITAMIN Suzy Bach RN Multivitamin tablet (2 sources) Start: 05-23-2024 End: 11-19-2024 Multivitamin tablet Disconti nued 1 {tbl} PO EVERY MORNING May 23, 2024 12:00am November 19, 2024 11:06am Start: 05-23-2024 Multivitamin t ablet Active 1 {tbl} PO EVERY MORNING May 23, 2024 12:00am Multivitamin,Jz-Jxaw-Stipxnr s (4 sources) Start: 04-28-2014 End: 04-07-2017 take 1 tablet by mouth once daily Multivitamin,Uz-Aoxe-Xuileyhf Discontinued 1 TABLET PO DAILY April 28, 2014 1:00am April 07, 2017 12:28pm Multivitamin,Hg-Neoz-Fomrcmf s 1 TABLET tablet (3 sources) Start: 04-28-2014 End: 04-07-2017 take 1 tablet by mouth once daily Multivitamin,Mi-Kals-Lepairkr 1 TABLET tablet Discontinued 1 {tbl} PO DAILY April 28, 2014 1:00am April 07, 2017 12:28pm [place]-3 Fatty Acids (4 sources) Start: 04-28-2014 End: 10-17-2017 take 300 mg by mouth once daily [place]-3 Fatty Acids Discontinued 300 MG PO DAILY April 28, 2014 1:00am October 17, 2017 10:53am [place]-3 Fatty Acids 300 MG capsule (3 sources) Start: 04-28-2014 End: 10-17-2017 take 1 capsule by mouth once daily [place]-3 Fatty Acids 300 MG capsule Discontinued 300 mg PO DAILY April 28, 2014 1:00am October 17, 2017 10:53am OME[place]-3 FATTY ACIDS CPDR (3 sources) Start: 09-30-2014 OMEGA 3 CPDR 300mg daily OMEGA-3 FATTY ACIDS CPDR [id number] Suzy Bach RN OMEGA-3 FATTY ACIDS CPDR (1 source) Start: 09-30-2014 OMEGA 3 CPDR 300mg daily [place]MEGA-3 FATTY ACIDS CPDR [id number] Suzy Bach RN pantoprazole 40 mg delayed release oral tablet (7 sources) Proton Pump Inhibi tor Start: 10-22-2019 End: 11-15-2022 take 1 tablet by mouth once daily Pantoprazole 40 mg tablet,delayed release (DR/EC) Discontinued 40 mg PO DAILY October 22, 2019 12:00am November 15, 2022 10:42am potassium gluconate 2.5 meq oral tablet (4 sources) Start: 10-02-2014 take 1 tablet by mouth once daily POTASSIUM GLUCONATE 595 (99 K) MG TABS One tablet by mouth daily POTASSIUM GLUCONATE [id number] Pk Casey MD pravastatin sodium 40 mg ora l tablet (20 sources) HMG-Co A Reduct ase Inhibi tor Start: 03-13-2013 End: 04-17-2013 take 1 tablet by mouth at bedtime PRAVASTATIN SODIUM 40 MG TABS One tablet by mouth at bedtime. PRAVASTATIN SODIUM [id number] Pk Casey MD Start: 02-03-2011 End: 04-15-2011 take 1 tablet by mouth once daily PRAVACHOL 80 MG TABS One tablet by mouth daily PRAVASTATIN SODIUM [id number] Kristy Saeed RN rosuvastatin calcium 20 mg oral tablet (20 sources) HMG-CoA Reductase Inhibitor Start: 04-07-2017 End: 10-10-2022 take 1 tablet by mouth once daily Rosuvastatin 20 mg tablet Discontinued 20 mg PO daily 90 3 October 15, 2021 8:33am October 10, 2022 10:41am Start: 04-07-2017 End: 04-07-2017 Rosuvastatin 20 mg tablet Discontinued PO 30 30 0 April 07, 2017 1:00am April 07, 2017 12:31pm Start: 04-17-2013 End: 04-07-2017 take 1 tablet by mouth at bedtime Rosuvastatin 10 MG tablet Discontinued 10 mg PO AT BEDTIME April 28, 2014 1:00am April 07, 2017 12:24pm Start: 04-17-2013 take 1 tablet by tylor th once daily CRESTOR 20 MG TABS One tablet by mouth daily ROSUVASTATIN CALCIUM [id number] Pancho Reyna NP Start: 04-15-2011 take 1 tablet by tylor th once daily CRESTOR 40 MG TABS One tablet by mouth daily ROSUVASTATIN CALCIUM [id number] Hermes Brenner MD Problems Active Problems Problem Classification Problem Date Documented Da te Episodic/Chronic Abdominal pain (3 sources) Abdominal pain; Translations: [Unspecified abdominal pain] 05-18-2024 Episodic Cancer of rectum and anus (7 sources) Malignant tumor of rectum; Translations: [Malignant neoplasm of rectum] 01-02-2020 Chronic Cancer of rectum and anus (3 sources) History of malignant neoplasm of rectum; Translations: [Personal history of other malignant neoplasm of rectum, rectosigmoid junction, and anus] 05-18-2024 Episodic Comment on above: CEA on 05/21/2024 was 1.4 Conditions associated with dizziness or vertigo (10 sources) Dizziness; Translations: [Dizziness and giddiness] Episodic Coronary atherosclerosis and other heart disease (20 sources) Coronary arteriosclerosis; Translations: [Atherosclerotic heart disease of [place] coronary artery without angina pectoris] Onset: 10-01-2010 10-01-2010 Chronic Coronary atherosclerosis and other heart disease (8 sources) Coronary angioplasty status; Translations: [Presence of coronary angioplasty implant and graft] Onset: 10-01-2010 10-01-2010 Episodic Diabetes mellitus without complication (8 sources) Diabetes mellitus; Translations: [Type 2 diabetes mellitus] Onset: 10-02-2014 10-02-2014 Chronic Disorders of lipid metabolism (15 sources) Hyperlipidemia; Translations: [Hyperlipidemia, unspecified] Onset: 10-01-2010 10-01-2010 Chronic Essential hypertension (15 sources) Hypertensive disorder; Translations: [Essential hypertension] Onset: 10-01-2010 10-01-2010 Chronic Lymphadenitis (4 sources) Mesenteric lymphadenopathy; Translations: [Localized enlarged lymph nodes] 05-18-2024 Episodic Comment on above: Small retroperitonea l lymph nodes, have been present since 2018. Patient has declined further workup since 2021. CEA was 1.4 on 05/21/2024. Nonspecific chest pain (20 sources) Precordial pain; Translations: [Chest pain, unspecified] Onset: 10-01-2010 Resolved: 09-30-2014 09-30-2014 Episodic Other gastrointestinal disorders (3 sources) Constipation; Translations: [Constipation, unspecified] 05-18-2024 Episodic Other lower respiratory disease (7 sources) Dyspnea on exertion; Translations: [Other forms of dyspnea] 10-14-2021 Episodic Other lower respiratory disease (3 sources) Other forms of dyspnea; Translations: [Other respiratory abnormalities] Episodic Residual codes; unclassified (7 sources) Family history of hyperlipidemia; Translations: [Family history of other disorder of lipoprotein metabolism and other lipidemia] 11-08-2017 Episodic Thyroid disorders (5 sources) Iatrogenic hypothyroidism; Translations: [Hypothyroidism, unspecified] Onset: 10-01-2010 10-01-2010 Chronic Unclassified (5 sources) Placement of stent in coronary artery ; Translations: [Presence of coronary angioplasty implant and graft] Onset: 10-01-2010 10-01-2015 Unclassified (1 source) Long-term drug therapy; Translations: [Other mcfp (current) drug therapy] Onset: 10-01-2010 10-01-2010 Unclassified (1 source) Low back pain, unspecified; Translations: [Low back pain, unspecified] Onset: 05-23-2024 Past or Other Problems Problem Classification Problem Date Documented Date Episodic/Chronic Other aftercare (3 sources) Other mcfp (current) drug therapy; Translations: [Other m[facility]p (current) drug therapy] Onset: 10-01-2010 10-01-2010 Episodic Other circulatory disease (8 sources) Abnormal result of cardiovascular function study, unspecified; Translations: [Abnormal result of cardiovascular function study, unspecified] Onset: 10-01-2010 Resolved: 09-30-2014 10-01-2010 Episodic Other nutritional; endocrine; and metabolic disorders (7 sources) Body mass index (BMI) 29.0-29.9, adult; Translations: [Body mass index (BMI) 28.0-28.9, adult] Onset: 04-04-2014 03-31-2015 Episodic Other nutritional; endocrine; and metabolic disorders (1 source) Body mass index (BMI) 28.0-28.9, adult; Translations: [Body mass index (BMI) 28.0-28.9, adult] Onset: 04-04-2014 04-04-2014 Episodic Residual codes; unclassified (1 source) FH: Raised blood lipids; Translations: [Family history of other endocrine, nutritional and metabolic diseases] 04-04-2014 Episodic Residual codes; unclassified (1 source) FH: Hypertension; Translations: [Family history of ischemic heart disease and other diseases of the circulatory system] 04-04-2014 Episodic Residual codes; unclassified (1 source) Family history of stroke; Translations: [Family history of stroke] 04-04-2014 Episodic Residual codes; unclassified (1 source) Family history of ischemic heart disease and other diseases of the circulatory system; Translations: [Family history of ischemic heart disease and other diseases of the circulatory system] 09-12-2013 Episodic Unclassified (20 sources) Family history of ischemic heart disease; Translations: [Family history of stroke] Onset: 10-01-2010 Resolved: 09-30-2014 10-01-2010 Episodic Results Test Name Value Interpretation Reference Range Facility Cardiology Visit Reporton Cardiology Visit Report [facility] [address] [place] [address] OFFICE VISIT Date of Service: 11/19/24 MR#: [id number] Acct: [id number] Name: CHARLA KOROMA Rep #: [id number] : 1950 Provider: Dr. Pk Casey MD Age/Sex: 74/F Location: [email or web address] Status: Signed HPI HPI History of Present Illness Details: CHARLA KOROMA, is a 74 F who presents to the office today for a cardiovascular follow up. She has a history of coronary artery disease status post angioplasty and stenting of the right coronary artery in 2009 and subsequently of her circumflex artery in 2010. She did develop restenosis requiring intervention of the circumflex artery in 2011. She presented in December 2019 with unstable angina underwent a cardiac catheterization and it demonstrated significant stenosis of the right coronary artery for which she required a drug-eluting stent. Her circumflex artery stent was patent and her left anterior descending artery had mild luminal irregularities. She also has a past medical history of hypertension and hyperlipidemia. She denies chest, arm, jaw, or neck discomfort. She denies palpitations. She denies bilateral lower extremity edema. She denies claudication. She states shortness of breath with activity such as walking long distance. She feels this is expected for the activity. She denies shortness of breath at rest, orthopnea, or PND. She denies chronic cough. She denies significant, sudden weight gain. She denies lightheadedness, dizziness, near-syncope, or syncope. She denies blood in urine, blood in stool, or epistaxis. He denies fever with chills. She denies myalgia. She denies fatigue. Her exercise level has remained stable. She states blood pressure at home is 120s-130s systolic consistently. 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 by: Self Is patient in pain?: No Allergies atorvastatin calcium (From Lipitor) Allergy (Verified 11/19/24 11:05) Other iodine Allergy (Verified 11/19/24 11:05) Rash Medications ???Medication ???Instructions ???Recorded ???Confirmed ???Type levothyroxine 75 mcg tablet 75 mcg PO DAILY 05/18/13 11/19/24 History aspirin 81 mg tablet,delayed 81 mg PO DAILY 10/22/19 11/19/24 H istory release (Adult Low Dose Aspirin) meclizine 25 mg tablet 25 mg PO DAILY PRN 01/21/20 History rosuvastatin 20 mg tablet 20 mg PO QDAY #90 tabs 10/10/22 Rx famotidine 20 mg tablet 20 mg PO BID 11/15/22 11/19/24 His tory loratadine 10 mg capsule (Allergy 10 mg PO QDAY 05/23/24 11/19/24 H istory Relief (loratadine)) nitroglycerin 0.4 mg sublingual 0.4 mg sublingual Q5M PRN 05/23/24 11/19/24 History tablet glimepiride 4 mg tablet 4 mg PO BID 06/05/24 11/19/24 Hist ory amlodipine 5 mg tablet See Rx Instructions .Route 5 11/19/24 Rx .COMPLEX #180 tabs clopidogrel 75 mg tablet 75 mg PO DAILY #90 TABLETS 5 11/19/24 Rx hydrochlorothiazide 25 mg tablet 25 mg PO DAILY #90 TABLETS 5 11/19/24 Rx lisinopril 20 mg tablet See Rx Instructions .Route 5 11/19/24 Rx .COMPLEX #180 tabs metoprolol tartrate 50 mg tablet See Rx Instructions .Route 5 11/19/24 Rx .COMPLEX #180 tabs metformin 500 mg tablet 500 mg PO BID 11/19/24 11/19/24 Hi story sitagliptin phosphate 100 mg 50 mg PO QDAY 11/19/24 11/19/24 Hi story tablet (Januvia) Ejection fraction %: 60 Have you fallen in the past year?: No PFSH Medical History Rectal cancer Type 2 diabetes mellitus Essential (primary) hypertension History of non-ST elevation myocardial infarction (NSTEMI) (02/12/11) Hypothyroidism, iatrogenic Hyperlipidemia Atherosclerotic heart disease of [place] coronary artery without angina pectoris Surgical History Hx of tonsillectomy History of left heart catheterization (05/13/11) H/O colectomy (09/2018) History of hysterectomy (09/2018) History of coronary artery stent placement (01/02/20) Family History Father Heart disease Myocardial infarction Mother CAD (coronary artery disease) CVA (cerebral vascular accident) HLD (hyperlipidemia) Hypertension Colon cancer Brother CAD (coronary artery disease) Prostate cancer Social History household members: spouse housing: house Smoking Status: Ne (more content not included)... Normal [facility] Oncology Visit Reporton Oncology Visit Report [facility] [address] [place] [address] OFFICE VISIT Date of Service: 06/05/24927 MR#: [id number] Acct: [id number] Name: CHARLA KOROMA Rep #: [id number] : 1950 From: Ismael Larose MD Age/Sex: 74/F Location: [facility] Status: Signed HPI Subjective Date of Service 06/05/24 Chief Complaint Referred for retroperitoneal/mesenteric nodes. History of Present Illness 74-year-old woman was diagnosed with rectal cancer. Colonoscopy showed large sessile polyp at 10 cm from the anal verge which was removed in 3 pieces, rectal biopsy on 09/03/2018 at [facility] showed moderately differentiated adenocarcinoma with invasion into the submucosa margins positive. Pathology was pT1, pNx. CT of the abdomen/pelvis on 09/21/2018 showed small upper abdominal lymph nodes. She underwent low anterior resection on 10/04/2018. Pathology showed colonic segment with no malignancy, 14 lymph nodes negative. She has been on observation, last CT scan at [facility] on 07/05/2021 showed postsurgical changes with no evidence of local recurrence, several borderline enlarged periportal and retroperitoneal lymph nodes. She declined to do PET CT scan. She presented to the [facility] ER with back and abdominal pain on 05/18/2024, CT scan of the abdomen and pelvis showed small scattered retroperitoneal and central mesenteric lymphadenopathy. She is now referred for further evaluation and management. [facility] Medical History Rectal cancer Type 2 diabetes mellitus Essential (primary) hypertension History of non-ST elevation myocardial infarction (NSTEMI) (02/12/11) Hypothyroidism, iatrogenic Hyperlipidemia Atherosclerotic heart disease of [place] coronary artery without angina pectoris Surgical History Hx of tonsillectomy History of left heart catheterization (05/13/11) H/O colectomy (09/2018) History of hysterectomy (09/2018) History of coronary artery stent placement (01/02/20) Family History Father Heart disease Myocardial infarction Mother CAD (coronary artery disease) CVA (cerebral vascular accident) HLD (hyperlipidemia) Hypertension Colon cancer Brother CAD (coronary artery disease) Prostate cancer Social History household members: spouse housing: house Smoking Status: Never smoker alcohol intake: current alcohol intake frequency: a few times a week Alcohol type: beer and wine substance use type: does not use caffeine: Yes Type: coffee what type of physical activity do you participate in: walking and bicycling frequency: 3-4 times per week duration: < 15 minutes/day seatbelt use: always do you feel safe at home: Yes ROS Constitutional Constitutional: Reports systems reviewed and no addt'l complaints, except as documented Eyes Eyes: Reports systems reviewed and no addt'l complaints, except as documented ENT HEENT: Reports systems reviewed and no addt'l complaints, except as documented Cardiovascular Cardiovascular: Reports systems reviewed and no addt'l complaints, except as documented Respiratory/Chest Respiratory/Chest: Reports systems reviewed and no addt'l complaints, except as documented Gastrointestinal Gastrointestinal: Reports systems reviewed and no addt'l complaints, except as documented Genitourinary Genitourinary: Reports systems reviewed and no addt'l complaints, except as documented Musculoskeletal Musculoskeletal: Reports systems reviewed and no addt'l complaints, except as documented Integumentary Integumentary: Reports systems reviewed and no addt'l complaints, except as documented Neurologic Neurologic: Reports systems reviewed and no addt'l complaints, except as documented Psychiatric Psychiatric: Reports systems reviewed and no addt'l complaints, except as documented Endocrine Endocrinology: Reports systems reviewed and no addt'l complaints, except as documented Hematologic/Lymphatic Hematologic/Lymphatic: Reports systems reviewed and no addt'l complaints, except as documented Allergic/Immunologic Allergic/Immunologic: Reports systems reviewed and no addt'l complaints, except as documented Intake Vital Signs 05/18/24 11:14 06/05/24 09:31 06/05/24 09:36 Height 5 ft 5 in 5 ft 5 in 5 ft 5 in Weight: 80.456 kg 80.456 kg BMI 29.5 29.5 BP 141/68 H Blood Pressure Location Lt brachial Position Sitting Respiration 18 Pulse 66 Pulse Source Monitor Temp 98 F Temperature Source Temporal Artery Pulse Oximetry (%) 97 Oxygen Delivery Method room air Intake Is patient in pain?: No Allergies atorvastatin calcium (From Lipitor) Allergy (Verified 06/05/24 09:28) (more content not included)... Normal [facility] Carcinoembryonic Antigenon 0 05-22-2024 CEA 1.4 ng/mL Normal 0.0-4.7 [facility] Comment on above: Result Comment: Nons mokers <3.9 Smokers <5.6 [facility] Electrochemiluminescence Immunoassay (ECLIA) Values obtained with different assay methods or kits cannot be used interchangeably. Results cannot be interpreted as absolute evidence of the presence or absence of malignant disease. Performed at: - [facility] [id number] [employer] Apprentice: Yong Fischer PhD, Phone: [phone] Performed By: #### L 3100.2300, L501.9985, L501.9520 #### [facility] [address] [place], [place], [id number] Hemoglobin A1con 05-21-2024 HbA1c (Bld) [Mass fraction] 8.2 % Normal <=5.6 [facility] Comment on above: Performed By: #### L 3100.2300, L501.9985, L501.9520 #### [facility] [address] [facility] [address] [place], [place], [id number] Hemoglobin A1c percentageOrd ered By: Modesta Osborne on 05-21-2024 HbA1c (Bld) [Mass fraction] 8.2 % >5.7 [facility] TSH DL <= 0.005 mIU/L QnOrde red By: Modesta Osborne on 05-21-2024 Thyroid Stimulating Hormone (TSH) 3.500 uIU/mL 0.300-4.20 0 [facility] Thyroid Stim Hormone (TSH)on 05-21-2024 TSH 3.500 uIU/mL Normal 0.300-4.20 0 [facility] Comment on above: Performed By: #### L 3100.2300, L501.9985, L501.9520 #### [facility] [address] [address] [facility] [address] [place], [place], [id number] 36on 05-18-2024 36 S: [facility] of [facility] B: Persistent abdominal pain for the past two days, no bowel movement for at least a week A: Called with complaint of persistent abdominal pain, mild bloating , slight nausea and no bowel movement for one week R: She will go to [facility] for evaluation Patient instructed to call back with worsening symptoms, concerns or questions. [id number] Reason for Disposition [1] Constant abdominal pain AND [2] present > 2 hours Protocols used: [id number] Normal [facility] Abdomen/Pelvis W IV Cont ONL Yon 05-18-2024 Abdomen/Pelvis W IV Cont ONLY [facility] Imaging Services [address] [place] [address] Abdomen/Pelvis W IV Cont ONLY MR#: [id number] Acct: [id number] Name: CHARLA KOROMA Rep #: [id number] : 1950 F 74 From: Valeria Davis nd, MD PCP: Dr. Modesta Osborne, DO Status: REG ER Study: Abdomen/Pelvis W IV Cont ONLY Date of Exam: Exam# [id number] Ordering Dr: Karin Carvalho PROCEDURE: ABDOMEN/PELVIS W IV CONT ONLY 05/18/2024 REASON FOR EXAM: 74-year-old female, abdominal pain, constipation, back pain. History of rectal cancer status post resection. TECHNIQUE: Abdomen CT without and with intravenous contrast. Coronal and Sagittal reconstruction series were provided. PATIENT PREPARATION: Per protocol ORAL CONTRAST TYPE: None. CONTRAST: Isovue-300 VOLUME: 100mL One or more dose reduction techniques were used (e.g., Automated exposure control, adjustment of the mA and/or kV according to patient size, use of iterative reconstruction technique. RADIATION DOSE SUMMARY: CTDlvol: 37 mGy DLP: 1070 mGycm COMPARISON: None. FINDINGS: Lung bases: The heart is normal in size with coronary artery calcifications. Bibasilar atelectasis/scarring. Liver: The liver is normal size without focal hepatic mass. The major portal veins are patent. No biliary ductal dilation. Gallbladder: No radiopaque stones within the gallbladder. Spleen: Unremarkable. Pancreas: Unremarkable. Adrenals: Unremarkable. Kidneys: No hydronephrosis or nephrolithiasis. Bladder: Distended and unremarkable. Reproductive Organs: Prior hysterectomy. Bowel: Prior LAR, compatible with reported history of rectal cancer. Small, hyperdensity within a central small bowel loop, measuring 0.8 x 0.8 cm (series 2, image 74). The bowel loops are normal in caliber. Moderate retained fecal material throughout the colon. No ascites or pneumoperitoneum. No inflammatory mass in the expected region of the appendix. Lymph nodes: Scattered retroperitoneal and central mesenteric lymphadenopathy. Vasculature: Marked calcific plaque of the aortoiliac vessels. Bones/soft tissues: Nodule along the posterior lower subcutaneous tissues, likely a sebaceous cyst. Thoracolumbar spondylosis. CT/Abdomen/Pelvis W IV Cont ONLY IMPRESSION: 1. No acute abdominopelvic finding. 2. Prior LAR, with scattered retroperitoneal and central mesenteric lymphadenopathy. Findings are nonspecific, however may represent infectious/inflammatory etiology or neoplastic process such as metastatic colon cancer or leukemia/lymphoma. Follow-up with oncology recommended for further evaluation. 3. Small hyperdensity within a central small bowel loop, indeterminate in etiology. This can also be followed up with oncology for further evaluation. Reading Location: [id number] CC: Dr. Modesta Osborne DO; CHRISTINA Wick Hygiene Teacher: Signed Normal [facility] Absolute neutrophil countOrd ered By: Karin Carvalho on 05-18-2024 Neutrophils (Bld) [#/Vol] 6.3 10*3/uL 2.0-7.7 [facility] Anion gap in Serum or Plasma Ordered By: Karin Carvalho on 05-18-2024 Anion gap [Moles/Vol] 16 mmol/L High 5-15 [facility] BUN/creatinine ratioOrdered By: Karin Carvalho on 05-18-2024 Urea nitrogen/Creatinine [Mass ratio] 15.3 mg/mg - [facility] Basic Metabolic Profile (BMP )on 05-18-2024 BUN/CRE 15.3 RATIO Normal - [facility] Comment on above: Performed By: #### L 100.0100, L500.2500 #### [facility] [address] [place], [address] Calcium [Mass/Vol] 9.8 mg/dL Normal 7.6-11.0 [facility] Comment on above: Performed By: #### L 100.0100, L500.2500 #### [facility] [address] [place], [address] Chloride [Moles/Vol] 90 mmol/L Low 98-108 [facility] Comment on above: Performed By: #### L 100.0100, L500.2500 #### [facility] [address] [place], [address] CO2 [Moles/Vol] 21.2 mmol/L Normal 21.0-32.0 [facility] Comment on above: Performed By: #### L 100.0100, L500.2500 #### [facility] [address] [place], [address] Creatinine [Mass/Vol] 0.61 mg/dL Low 0.70-1.20 [facility] Comment on above: Performed By: #### L 100.0100, L500.2500 #### [facility] [address] [place], [address] ECRCL 61.94 ml/min Normal 50-250 [facility] Comment on above: Performed By: #### L 100.0100, L500.2500 #### [facility] [address] [place], [address] GAP 16 High 5-15 [facility] Comment on above: Performed By: #### L 100.0100, L500.2500 #### [facility] [address] [place], [address] GFR/1.73 sq M.predicted among non-blacks MDRD (S/P/Bld) [Vol rate/Area] 92 mL/min/{1.73_m2} Normal >60 [facility] Comment on above: Result Comment: mL/m in/1.73m2 CKD-EPI Creatinine Equation (2020) Performed By: #### L 100.0100, L500.2500 #### [facility] [address] [place], [address] Glucose [Mass/Vol] 176 mg/dL High 70-99 [facility] Comment on above: Performed By: #### L 100.0100, L500.2500 #### [facility] [address] [place], [address] Potassium [Moles/Vol] 3.9 mmol/L Normal 3.3-5.1 [facility] Comment on above: Performed By: #### L 100.0100, L500.2500 #### [facility] [address] [place], [address] Sodium [Moles/Vol] 128 mmol/L Low 133-145 [facility] Comment on above: Performed By: #### L 100.0100, L500.2500 #### [facility] [address] [place], [address] Urea nitrogen [Mass/Vol] 9 mg/dL Normal 4-19 [facility] Comment on above: Performed By: #### L 100.0100, L500.2500 #### [facility] [address] [place], [address] Basophil percentageOrdered B y: Karinmadelin Carvalho on 05-18-2024 Basophils/100 WBC (Bld) 1.4 % High 0-1 [facility] Bilirubin Test strip Ql (U)O rdered By: Karin Maia on 05-18-2024 Bilirubin Ql (U) Negative Negative [facility] CBC W/Diff, Automatedon 04-28 Absolute Lymph 2.67 X10 3/uL Normal 0.83-4.51 [facility] Comment on above: Performed By: #### L 100.0100, L500.2500 #### [facility] [address] [place], [address] Absolute Neut 6.3 X10 3/uL Normal 2.0-7.7 [facility] Comment on above: Performed By: #### L 100.0100, L500.2500 #### [facility] [address] [place], [address] Basophils/100 WBC (Bld) 1.4 % High 0-1 [facility] Comment on above: Performed By: #### L 100.0100, L500.2500 #### [facility] [address] [place], [address] Eosinophils/100 WBC (Bld) 1.2 % Normal 0-5 [facility] Comment on above: Performed By: #### L 100.0100, L500.2500 #### [facility] [address] [place], [address] Erythrocyte distribution width (RBC) [Ratio] 12.3 % Normal 11.6-14.6 [facility] Comment on above: Performed By: #### L 100.0100, L500.2500 #### [facility] [address] [place], [address] Hematocrit (Bld) [Volume fraction] 40.5 % Normal 37-47 [facility] Comment on above: Performed By: #### L 100.0100, L500.2500 #### [facility] [address] [place], [address] Hemoglobin (Bld) [Mass/Vol] 14.2 g/dL Normal 12.0-15.0 [facility] Comment on above: Performed By: #### L 100.0100, L500.2500 #### [facility] [address] [place], [address] IG% 0.500 Normal 0.0-0.9 [facility] Comment on above: Result Comment: IG% - Immature Granulocytes (promyelocytes, myelocytes and metamyelocytes) > 1% indicates that a LEFT SHIFT is Present. Performed By: #### L 100.0100, L500.2500 #### [facility] [address] [place], [address] Lymphocytes/100 WBC (Bld) 25.4 % Normal 19-41 [facility] Comment on above: Performed By: #### L 100.0100, L500.2500 #### [facility] [address] [place], [address] MCH (RBC) [Entitic mass] 30.6 pg Normal 27.0-32.0 [facility] Comment on above: Performed By: #### L 100.0100, L500.2500 #### [facility] [address] [place], [address] MCHC (RBC) [Mass/Vol] 35.1 g/dL Normal 32-36 [facility] Comment on above: Performed By: #### L 100.0100, L500.2500 #### [facility] [address] [place], [address] MCV (RBC) [Entitic vol] 87.3 fL Normal 81-99 [facility] Comment on above: Performed By: #### L 100.0100, L500.2500 #### [facility] [address] [place], [address] Monocytes/100 WBC (Bld) 12.0 % High 0-10 [facility] Comment on above: Performed By: #### L 100.0100, L500.2500 #### [facility] [address] [place], [address] Neutrophils/100 WBC (Bld) 59.5 % Normal 47-70 [facility] Comment on above: Performed By: #### L 100.0100, L500.2500 #### [facility] [address] [place], [address] Nucleated RBC (Bld) [#/Vol] 0 10*3/uL Normal 0-5 [facility] Comment on above: Performed By: #### L 100.0100, L500.2500 #### [facility] [address] [place], [address] Platelet mean volume (Bld) [Entitic vol] 9.5 fL Normal 6.2-12.0 [facility] Comment on above: Performed By: #### L 100.0100, L500.2500 #### [facility] [address] [place], [address] Platelets (Bld) [#/Vol] 318 10*3/uL Normal 150-450 [facility] Comment on above: Performed By: #### L 100.0100, L500.2500 #### [facility] [address] [place], [address] RBC (Bld) [#/Vol] 4.64 10*6/uL Normal 4.2-5.4 [facility] Comment on above: Performed By: #### L 100.0100, L500.2500 #### [facility] [address] [place], [address] RDW SD 38.9 fl Normal 35.1-43.9 [facility] Comment on above: Performed By: #### L 100.0100, L500.2500 #### [facility] [address] [place], [address] WBC (Bld) [#/Vol] 10.5 10*3/uL Normal 4.4-11.0 [facility] Comment on above: Performed By: #### L 100.0100, L500.2500 #### [facility] [address] [place], [address] Carbon dioxide, total [Moles /volume] in Central venous bloodOrdered By: Karin Carvalho on 05-18-2024 CO2 [Moles/Vol] 21.2 mmol/L 21.0-32.0 [facility] Chloride assayOrdered By: Tammy Carvalho on 05-18-2024 Chloride [Moles/Vol] 90 mmol/L Low 98-108 [facility] Emergency Department Summary on 05-18-2024 Emergency Department Summary [facility] Medical Records Department [address] [place] [address] Emergency Department Summary 05/18/24 MR#: [id number] Acct: [id number] Name: CHARLA KOROMA Rep #: [id number] : 1950 74 From: Karin VASQUEZ PCP: Dr. Modesta Osborne, DO Status:REG ER Location: ED HPI History of Present Illness Chief Complaint: Back Narrative Narrative: 74-year-old female with PMH of HTN, HLD, DM2, CAD, hypothyroidism, rectal cancer s/p resection about 5 years ago presents with a few days of pain in her bilateral lower abdomen and bilateral low back. She was having small pellet-like BMs and has not had any bowel movement in 4-5 days. She thought the pain may be from constipation so she tried Dulcolax and a suppository with no relief but she states these medications are old and might be . She has occasional nausea but no vomiting. She reports mild abdominal distention. She is passing gas. She reports having her colon cancer resected and a hysterectomy at the same time 5 years ago at [facility] in [place] and at some point had follow-up testing which was normal. She never needed chemo or radiation. [facility] Medical History (Updated 05/18/24 @ 14:06 by CHRISTINA Wick) Rectal cancer Type 2 diabetes mellitus Essential (primary) hypertension History of non-ST elevation myocardial infarction (NSTEMI) (02/12/11) Hypothyroidism, iatrogenic Hyperlipidemia Atherosclerotic heart disease of [place] coronary artery without angina pectoris Home Medications ???Medication ???Instructions ???Recorded ???Last Taken ???Type levothyroxine 75 mcg tablet 75 mcg PO DAILY 05/18/13 04/27/14 History aspirin 81 mg tablet,delayed 81 mg PO DAILY 10/22/19 Unknown Hi story release (Adult Low Dose Aspirin) glimepiride 4 mg tablet 4 mg PO DAILY 01/02/20 Unknown His tory meclizine 25 mg tablet 25 mg PO DAILY PRN 01/21/20 Unknow n History rosuvastatin 20 mg tablet 20 mg PO QDAY #90 tabs 10/10/22 Un known Rx famotidine 20 mg tablet 20 mg PO BID 11/15/22 Unknown Hist ory amlodipine 5 mg tablet See Rx Instructions .Route 4 Unknown Rx .COMPLEX #180 tabs lisinopril 20 mg tablet See Rx Instructions .Route 4 Unknown Rx .COMPLEX #180 tabs metoprolol tartrate 50 mg tablet See Rx Instructions .Route 4 Unknown Rx .COMPLEX #180 tabs hydrochlorothiazide 25 mg tablet 25 mg PO DAILY #90 TABLETS 4 Unknown Rx clopidogrel 75 mg tablet 75 mg PO DAILY #90 TABLETS 4 Unknown Rx metformin 500 mg tablet See Rx Instructions PO QPM 4 Unknown History Allergy/AdvReac Type Severity Reaction Status Date / Time atorvastatin calcium (From Allergy Other Verified 11/15/22 10:39 Lipitor) iodine Allergy Rash Verified 11/15/22 10:39 Family History Father Heart disease Myocardial infarction Mother CAD (coronary artery disease) CVA (cerebral vascular accident) HLD (hyperlipidemia) Hypertension Brother CAD (coronary artery disease) Surgical History History of left heart catheterization (05/13/11) H/O colectomy (09/2018) History of hysterectomy (09/2018) History of coronary artery stent placement (01/02/20) Social History (Updated 05/18/24 @ 11:40 by Mahsa Mays) household members: spouse housing: house Smoking Status: Never smoker alcohol intake: current alcohol intake frequency: a few times a week Alcohol type: beer and wine substance use type: does not use caffeine: Yes Type: coffee what type of physical activity do you participate in: walking and bicycling frequency: 3-4 times per week duration: < 15 minutes/day seatbelt use: always do you feel safe at home: Yes ROS ROS ED ROS Narrative Constitutional: Negative for fever, chills, malaise. CVS: Negative for chest pain. Respiratory: Negative for shortness of breath. GI: Positive for abdominal pain, nausea, constipation. Negative for vomiting, diarrhea, melena, hematochezia. : Negative for dysuria, hematuria or frequency. EXAM Physical Exam Narrative Exam Narrative: CONST: Patient sitting in no acute distress. EYES: Normal inspection. NECK: Normal inspection. RESP: No respiratory distress, CTAB. CVS: Regular rate and rhythm, no murmur, no gallop. ABD: Soft with mild distention and tenderness bilateral lower quadrants, no guarding or rebound. LIVE: Nonthrombosed nonbleeding external hemorrhoids, rectal vault empty. Back: Normal inspection, no flank or midline spinal tenderness. SKIN: Color normal, no rash, warm, dry, intact. EXTREMITIES: Normal appearance, no pedal edema. NEURO: Alert and answering questions appropriately. PSYCH: Normal affect. Const Vital Signs: 05/18/24 11:14 05/18/24 11:25 (more content not included)... Normal [facility] Eosinophil percentageOrdered By: Karin Carvalho on 05-18-2024 Eosinophils/100 WBC (Bld) 1.2 % 0-5 [facility] Epithelial cells.squamous LM Ql (Urine sed)Ordered By: Karin Carvalho on 05-18-2024 Epithelial cells.squamous LM.HPF (Urine sed) [#/Area] 0 /[HPF] 5-10 [facility] Erythrocyte distribution wid th ratioOrdered By: Karin Carvalho on 05-18-2024 Erythrocyte distribution width (RBC) [Ratio] 12.3 % 11.6-14.6 [facility] Erythrocyte distribution wid th standard deviationOrdered By: Karin Carvalho on 05-18-2024 Erythrocyte distribution width (RBC) [Entitic vol] 38.9 fL 35.1-43.9 [facility] Estimation of creatinine jacinta aranceOrdered By: Karin Carvalho on 05-18-2024 Estimated Creatinine Clearance Calc 61.94 ml/min 50-250 [facility] GFR/1.73 sq M.predicted jil g non-blacks MDRD (S/P/Bld) [Vol rate/Area]Ordered By: Karin Carvalho on 05-18-2024 Estimated GFR (MDRD) Non-Af Amer 92 >60 [facility] Comment on above: mL/min/1.73m2 CKD-EP I Creatinine Equation (2020) Glucose Ql (U)Ordered By: Tammy Carvalho on 05-18-2024 Urine Glucose (UA) Normal mg/dl Normal [facility] Hematocrit Auto (Bld) [Volum e fraction]Ordered By: Karin Carvalho on 05-18-2024 Hematocrit (Bld) [Volume fraction] 40.5 % 37-47 [facility] Hemoglobin measurementOrdere d By: Karin Carvalho on 05-18-2024 Hemoglobin (Bld) [Mass/Vol] 14.2 g/dL 12.0-15.0 [facility] Immature granulocytes/100 WB C Auto (Bld)Ordered By: Karin Carvalho on 05-18-2024 Immature granulocytes/100 WBC (Bld) 0.500 % 0.0-0.9 [facility] Comment on above: IG% - Immature Granu locytes (promyelocytes, myelocytes and metamyelocytes) > 1% indicates that a LEFT SHIFT is Present. Ketones Test strip Ql (U)Ord ered By: Karin Carvalho on 05-18-2024 Ketones Ql (U) Negative Negative [facility] Lymphocytes Auto (Unsp spec) [#/Vol]Ordered By: Karin Carvalho on 05-18-2024 Lymphocytes (Bld) [#/Vol] 2.67 10*3/uL 0.83-4.51 [facility] Lymphocytes/100 WBC Auto (Un sp spec)Ordered By: Karin Carvalho on 05-18-2024 Lymphocytes/100 WBC (Bld) 25.4 % 19-41 [facility] MCV (mean corpuscular volume ) determinationOrdered By: Karin Carvalho on 05-18-2024 MCV (RBC) [Entitic vol] 87.3 fL 81-99 [facility] Mean corpuscular hemoglobin (MCH) determinationOrdered By: Karin Carvalho on 05-18-2024 MCH (RBC) [Entitic mass] 30.6 pg 27.0-32.0 [facility] Mean corpuscular hemoglobin concentration (MCHC) determinationOrdered By: Karin Carvalho on 05-18-2024 MCHC (RBC) [Mass/Vol] 35.1 g/dL 32-36 [facility] Mean platelet volume determi nationOrdered By: Karin Carvalho on 05-18-2024 Platelet mean volume (Bld) [Entitic vol] 9.5 fL 6.2-12.0 [facility] Microscopic analysis of urin e for red blood cells (RBC)Ordered By: Karin Carvalho on 05-18-2024 Urine RBC 0-5 SEEN /hpf 0-5 [facility] Monocyte percentageOrdered B y: Karin Carvalho on 05-18-2024 Monocytes/100 WBC (Bld) 12.0 % High 0-10 [facility] Mucus LM Ql (Urine sed)Order ed By: Karin Carvalho on 05-18-2024 Mucus Ql (Urine sed) 0 SEEN /hpf [facility] Neutrophil percentageOrdered By: Karin Carvalho on 05-18-2024 Neutrophils/100 WBC (Bld) 59.5 % 47-70 [facility] Nitrite Test strip Ql (U)Ord ered By: Karin Carvalho on 05-18-2024 Nitrite Ql (U) Negative Negative [facility] Nucleated red blood cell per centageOrdered By: Karin Carvalho on 05-18-2024 Nucleated RBC/100 WBC (Bld) [Ratio] 0 % 0-5 [facility] Platelet countOrdered By: Tammy Carvalho on 05-18-2024 Platelets (Bld) [#/Vol] 318 10*3/uL 150-450 [facility] Potassium (Unsp spec) [Mass/ Vol]Ordered By: Karin Carvalho on 05-18-2024 Potassium [Moles/Vol] 3.9 mmol/L 3.3-5.1 [facility] Protein Test strip Ql (U)Ord ered By: Karin Carvalho on 05-18-2024 Protein Ql (U) 15 mg/dl High Negative [facility] RBC Auto (Bld) [#/Vol]Ordere d By: Karin Carvalho on 05-18-2024 RBC (Bld) [#/Vol] 4.64 10*6/uL 4.2-5.4 [facility] Serum creatinine measurement (mass/volume)Ordered By: Karin Carvalho on 05-18-2024 Creatinine [Mass/Vol] 0.61 mg/dL Low 0.70-1.20 [facility] Serum glucose measurement (m ass/volume)Ordered By: Karin Carvalho on 05-18-2024 Glucose [Mass/Vol] 176 mg/dL High 70-99 [facility] Serum or plasma calcium marni urement (mass/volume)Ordered By: Karin Carvalho on 05-18-2024 Calcium [Mass/Vol] 9.8 mg/dL 7.6-11.0 [facility] Serum or plasma urea nitroge n measurement (mass/volume)Ordered By: Karin Carvalho on 05-18-2024 Urea nitrogen [Mass/Vol] 9 mg/dL 4-19 [facility] Sodium levelOrdered By: Karin Carvalho on 05-18-2024 Sodium [Moles/Vol] 128 mmol/L Low 133-145 [facility] Urinalysis, Completeon 05-18 BACTERIA 1+ /hpf Normal None Seen [facility] Comment on above: Order Comment: CLEAN CATCH Performed By: #### L 400.0001 #### [facility] [address] [place], [address] EPI,SQUAMOUS 0-5 SEEN Normal 5-10 [facility] Comment on above: Order Comment: CLEAN CATCH Performed By: #### L 400.0001 #### [facility] [address] [place], [address] RBC 0-5 SEEN Normal 0-5 [facility] Comment on above: Order Comment: CLEAN CATCH Performed By: #### L 400.0001 #### [facility] [address] [place], [address] WBC 5-10 SEEN Normal 0-5 [facility] Comment on above: Order Comment: CLEAN CATCH Performed By: #### L 400.0001 #### [facility] [address] [place], [address] Mucus Ql (Urine sed) 0 SEEN Normal [facility] Comment on above: Order Comment: CLEAN CATCH Performed By: #### L 400.0001 #### [facility] [address] [place], [address] Urine blood detectionOrdered By: Karin Carvalho on 05-18-2024 Urine Occult Blood Negative Negative [facility] Urine clarityOrdered By: Elisabet madelin Carvalho on 05-18-2024 Clarity (U) Clear Clear [facility] Urine color determinationOrd ered By: Karinmadelin Carvalho on 05-18-2024 Color (U) Yellow Yellow [facility] Urine leukocyte esterase det ection by dipstickOrdered By: Karin Carvalho on 05-18-2024 Leukocyte esterase Test strip Ql (U) 25 /ul High Negative [facility] Urine pHOrdered By: Karin christie on 05-18-2024 pH (U) 7.0 [pH] 5.0 - 8.0 [facility] Urine sediment bacteria coun t by microscopy (number/high power field)Ordered By: Karin Carvalho on 05-18-2024 Bacteria LM.HPF (Urine sed) [#/Area] 1 /[HPF] None Seen [facility] Urine specific gravity measu rementOrdered By: Karin Carvalho on 05-18-2024 Specific gravity (U) [Rel density] 1.005 1.002-1.03 0 [facility] Urobilinogen Ql (U)Ordered B y: Karin Carvalho on 05-18-2024 Urine Urobilinogen Normal mg/dl Normal [facility] White blood cell (WBC) count Ordered By: Karin Carvalho on 05-18-2024 WBC (Bld) [#/Vol] 10.5 10*3/uL 4.4-11.0 [facility] White blood cell countOrdere d By: Karin Carvalho on 05-18-2024 Urine WBC 5-10 SEEN /hpf 0-5 [facility] Carcinoembryonic Antigenon 1 0- CEA 1.5 ng/mL Normal 0.0-4.7 [facility] Comment on above: Order Comment: LIVER COULDN'T BE ORDERED-TESTS OVERLAP-ORDERED DBILLIPID DUPLICATE W/ BOTH DRSLIVER LIPID-ROBERTSOTHER TESTS-ISAAC Result Comment: Nons mokers <3.9 Smokers <5.6 [facility] Electrochemiluminescence Immunoassay (ECLIA) Values obtained with different assay methods or kits cannot be used interchangeably. Results cannot be interpreted as absolute evidence of the presence or absence of malignant disease. Performed at: - [facility] [id number] [employer] Apprentice: Yong Fischer PhD, Phone: [phone] Performed By: #### L 100.0100, L3100.2300, L501.4700, L500.4050, L500.4100, L501.9985, L502.0250 ####[facility] [address] [place], [place], [phone] Bilirubin, Directon 12-11-19 24 Bilirubin.direct [Mass/Vol] 0.15 mg/dL Normal 0.00-0.30 [facility] Comment on above: Order Comment: LIVER COULDN'T BE ORDERED-TESTS OVERLAP-ORDERED DBILLIPID DUPLICATE W/ BOTH DRSLIVER LIPID-ROBERTSOTHER TESTS-ISAAC Performed By: #### L 100.0100, L3100.2300, L501.4700, L500.4050, L500.4100, L501.9985, L502.0250 ####[facility] [address] [place], [place], [id number] CBC W/Diff, Automatedon - Absolute Lymph 2.97 X10 3/uL Normal 0.83-4.51 [facility] Comment on above: Order Comment: LIVER COULDN'T BE ORDERED-TESTS OVERLAP-ORDERED DBILLIPID DUPLICATE W/ BOTH DRSLIVER LIPID-ROBERTSOTHER TESTS-ISAAC Performed By: #### L 100.0100, L3100.2300, L501.4700, L500.4050, L500.4100, L501.9985, L502.0250 ####[facility] [address] [place], [place], [phone] Absolute Neut 4.2 X10 3/uL Normal 2.0-7.7 [facility] Comment on above: Order Comment: LIVER COULDN'T BE ORDERED-TESTS OVERLAP-ORDERED DBILLIPID DUPLICATE W/ BOTH DRSLIVER LIPID-ROBERTSOTHER TESTS-ISAAC Performed By: #### L 100.0100, L3100.2300, L501.4700, L500.4050, L500.4100, L501.9985, L502.0250 ####[facility] [address] [place], [address] Basophils/100 WBC (Bld) 1.4 % High 0-1 [facility] Comment on above: Order Comment: LIVER COULDN'T BE ORDERED-TESTS OVERLAP-ORDERED DBILLIPID DUPLICATE W/ BOTH DRSLIVER LIPID-ROBERTSOTHER TESTS-ISAAC Performed By: #### L 100.0100, L3100.2300, L501.4700, L500.4050, L500.4100, L501.9985, L502.0250 ####[facility] [address] [place], [address] Eosinophils/100 WBC (Bld) 2.6 % Normal 0-5 [facility] Comment on above: Order Comment: LIVER COULDN'T BE ORDERED-TESTS OVERLAP-ORDERED DBILLIPID DUPLICATE W/ BOTH DRSLIVER LIPID-ROBERTSOTHER TESTS-ISAAC Performed By: #### L 100.0100, L3100.2300, L501.4700, L500.4050, L500.4100, L501.9985, L502.0250 ####[facility] [address] [place], [address] Erythrocyte distribution width (RBC) [Ratio] 12.2 % Normal 11.6-14.6 [facility] Comment on above: Order Comment: LIVER COULDN'T BE ORDERED-TESTS OVERLAP-ORDERED DBILLIPID DUPLICATE W/ BOTH DRSLIVER LIPID-ROBERTSOTHER TESTS-ISAAC Performed By: #### L 100.0100, L3100.2300, L501.4700, L500.4050, L500.4100, L501.9985, L502.0250 ####[facility] [address] [place], [address] Hematocrit (Bld) [Volume fraction] 43.3 % Normal 37-47 [facility] Comment on above: Order Comment: LIVER COULDN'T BE ORDERED-TESTS OVERLAP-ORDERED DBILLIPID DUPLICATE W/ BOTH DRSLIVER LIPID-ROBERTSOTHER TESTS-ISAAC Performed By: #### L 100.0100, L3100.2300, L501.4700, L500.4050, L500.4100, L501.9985, L502.0250 ####[facility] [address] [place], [address] Hemoglobin (Bld) [Mass/Vol] 14.3 g/dL Normal 12.0-15.0 [facility] Comment on above: Order Comment: LIVER COULDN'T BE ORDERED-TESTS OVERLAP-ORDERED DBILLIPID DUPLICATE W/ BOTH DRSLIVER LIPID-ROBERTSOTHER TESTS-ISAAC Performed By: #### L 100.0100, L3100.2300, L501.4700, L500.4050, L500.4100, L501.9985, L502.0250 ####[facility] [address] [place], [place], [phone] IG% 0.200 Normal 0.0-0.9 [facility] Comment on above: Order Comment: LIVER COULDN'T BE ORDERED-TESTS OVERLAP-ORDERED DBILLIPID DUPLICATE W/ BOTH DRSLIVER LIPID-ROBERTSOTHER TESTS-ISAAC Result Comment: IG% - Immature Granulocytes (promyelocytes, myelocytes and metamyelocytes) > 1% indicates that a LEFT SHIFT is Present. Performed By: #### L 100.0100, L3100.2300, L501.4700, L500.4050, L500.4100, L501.9985, L502.0250 ####[facility] [address] [place], [place], [phone] Lymphocytes/100 WBC (Bld) 34.7 % Normal 19-41 [facility] Comment on above: Order Comment: LIVER COULDN'T BE ORDERED-TESTS OVERLAP-ORDERED DBILLIPID DUPLICATE W/ BOTH DRSLIVER LIPID-ROBERTSOTHER TESTS-ISAAC Performed By: #### L 100.0100, L3100.2300, L501.4700, L500.4050, L500.4100, L501.9985, L502.0250 ####[facility] [address] [place], [address] MCH (RBC) [Entitic mass] 29.9 pg Normal 27.0-32.0 [facility] Comment on above: Order Comment: LIVER COULDN'T BE ORDERED-TESTS OVERLAP-ORDERED DBILLIPID DUPLICATE W/ BOTH DRSLIVER LIPID-ROBERTSOTHER TESTS-ISAAC Performed By: #### L 100.0100, L3100.2300, L501.4700, L500.4050, L500.4100, L501.9985, L502.0250 ####[facility] [address] [place], [address] MCHC (RBC) [Mass/Vol] 33.0 g/dL Normal 32-36 [facility] Comment on above: Order Comment: LIVER COULDN'T BE ORDERED-TESTS OVERLAP-ORDERED DBILLIPID DUPLICATE W/ BOTH DRSLIVER LIPID-ROBERTSOTHER TESTS-ISAAC Performed By: #### L 100.0100, L3100.2300, L501.4700, L500.4050, L500.4100, L501.9985, L502.0250 ####[facility] [address] [place], [address] MCV (RBC) [Entitic vol] 90.4 fL Normal 81-99 [facility] Comment on above: Order Comment: LIVER COULDN'T BE ORDERED-TESTS OVERLAP-ORDERED DBILLIPID DUPLICATE W/ BOTH DRSLIVER LIPID-ROBERTSOTHER TESTS-ISAAC Performed By: #### L 100.0100, L3100.2300, L501.4700, L500.4050, L500.4100, L501.9985, L502.0250 ####[facility] [address] [place], [address] Monocytes/100 WBC (Bld) 11.9 % High 0-10 [facility] Comment on above: Order Comment: LIVER COULDN'T BE ORDERED-TESTS OVERLAP-ORDERED DBILLIPID DUPLICATE W/ BOTH DRSLIVER LIPID-ROBERTSOTHER TESTS-ISAAC Performed By: #### L 100.0100, L3100.2300, L501.4700, L500.4050, L500.4100, L501.9985, L502.0250 ####[facility] [address] [place], [address] Neutrophils/100 WBC (Bld) 49.2 % Normal 47-70 [facility] Comment on above: Order Comment: LIVER COULDN'T BE ORDERED-TESTS OVERLAP-ORDERED DBILLIPID DUPLICATE W/ BOTH DRSLIVER LIPID-ROBERTSOTHER TESTS-ISAAC Performed By: #### L 100.0100, L3100.2300, L501.4700, L500.4050, L500.4100, L501.9985, L502.0250 ####[facility] [address] [place], [address] Nucleated RBC (Bld) [#/Vol] 0 10*3/uL Normal 0-5 [facility] Comment on above: Order Comment: LIVER COULDN'T BE ORDERED-TESTS OVERLAP-ORDERED DBILLIPID DUPLICATE W/ BOTH DRSLIVER LIPID-ROBERTSOTHER TESTS-ISAAC Performed By: #### L 100.0100, L3100.2300, L501.4700, L500.4050, L500.4100, L501.9985, L502.0250 ####[facility] [address] [place], [address] Platelet mean volume (Bld) [Entitic vol] 10.1 fL Normal 6.2-12.0 [facility] Comment on above: Order Comment: LIVER COULDN'T BE ORDERED-TESTS OVERLAP-ORDERED DBILLIPID DUPLICATE W/ BOTH DRSLIVER LIPID-ROBERTSOTHER TESTS-ISAAC Performed By: #### L 100.0100, L3100.2300, L501.4700, L500.4050, L500.4100, L501.9985, L502.0250 ####[facility] [address] [place], [address] Platelets (Bld) [#/Vol] 293 10*3/uL Normal 150-450 [facility] Comment on above: Order Comment: LIVER COULDN'T BE ORDERED-TESTS OVERLAP-ORDERED DBILLIPID DUPLICATE W/ BOTH DRSLIVER LIPID-ROBERTSOTHER TESTS-ISAAC Performed By: #### L 100.0100, L3100.2300, L501.4700, L500.4050, L500.4100, L501.9985, L502.0250 ####[facility] [address] [place], [place], [phone] RBC (Bld) [#/Vol] 4.79 10*6/uL Normal 4.2-5.4 [facility] Comment on above: Order Comment: LIVER COULDN'T BE ORDERED-TESTS OVERLAP-ORDERED DBILLIPID DUPLICATE W/ BOTH DRSLIVER LIPID-ROBERTSOTHER TESTS-ISAAC Performed By: #### L 100.0100, L3100.2300, L501.4700, L500.4050, L500.4100, L501.9985, L502.0250 ####[facility] [address] [place], [place], [phone] RDW SD 40.6 fl Normal 35.1-43.9 [facility] Comment on above: Order Comment: LIVER COULDN'T BE ORDERED-TESTS OVERLAP-ORDERED DBILLIPID DUPLICATE W/ BOTH DRSLIVER LIPID-ROBERTSOTHER TESTS-ISAAC Performed By: #### L 100.0100, L3100.2300, L501.4700, L500.4050, L500.4100, L501.9985, L502.0250 ####[facility] [address] [place], [place], [phone] WBC (Bld) [#/Vol] 8.6 10*3/uL Normal 4.4-11.0 [facility] Comment on above: Order Comment: LIVER COULDN'T BE ORDERED-TESTS OVERLAP-ORDERED DBILLIPID DUPLICATE W/ BOTH DRSLIVER LIPID-ROBERTSOTHER TESTS-ISAAC Performed By: #### L 100.0100, L3100.2300, L501.4700, L500.4050, L500.4100, L501.9985, L502.0250 ####[facility] [address] [place], [address] Comprehensive Metabolic Prof ilon 12-11-2023 Albumin [Mass/Vol] 3.8 g/dL Normal 3.2-5.0 [facility] Comment on above: Order Comment: LIVER COULDN'T BE ORDERED-TESTS OVERLAP-ORDERED DBILLIPID DUPLICATE W/ BOTH DRSLIVER LIPID-ROBERTSOTHER TESTS-ISAAC Performed By: #### L 100.0100, L3100.2300, L501.4700, L500.4050, L500.4100, L501.9985, L502.0250 ####[facility] [address] [place], [place], [phone] Albumin/Globulin [Mass ratio] 0.9 {ratio} Normal 0.9-2.4 [facility] Comment on above: Order Comment: LIVER COULDN'T BE ORDERED-TESTS OVERLAP-ORDERED DBILLIPID DUPLICATE W/ BOTH DRSLIVER LIPID-ROBERTSOTHER TESTS-ISAAC Performed By: #### L 100.0100, L3100.2300, L501.4700, L500.4050, L500.4100, L501.9985, L502.0250 ####[facility] [address] [place], [address] ALK P 54 U/L Normal 45-117 [facility] Comment on above: Order Comment: LIVER COULDN'T BE ORDERED-TESTS OVERLAP-ORDERED DBILLIPID DUPLICATE W/ BOTH DRSLIVER LIPID-ROBERTSOTHER TESTS-ISAAC Performed By: #### L 100.0100, L3100.2300, L501.4700, L500.4050, L500.4100, L501.9985, L502.0250 ####[facility] [address] [place], [address] ALT [Catalytic activity/Vol] 51 U/L Normal 13-56 [facility] Comment on above: Order Comment: LIVER COULDN'T BE ORDERED-TESTS OVERLAP-ORDERED DBILLIPID DUPLICATE W/ BOTH DRSLIVER LIPID-ROBERTSOTHER TESTS-ISAAC Performed By: #### L 100.0100, L3100.2300, L501.4700, L500.4050, L500.4100, L501.9985, L502.0250 ####[facility] [address] [place], [place], [phone] AST [Catalytic activity/Vol] 48 U/L High 15-37 [facility] Comment on above: Order Comment: LIVER COULDN'T BE ORDERED-TESTS OVERLAP-ORDERED DBILLIPID DUPLICATE W/ BOTH DRSLIVER LIPID-ROBERTSOTHER TESTS-ISAAC Performed By: #### L 100.0100, L3100.2300, L501.4700, L500.4050, L500.4100, L501.9985, L502.0250 ####[facility] [address] [place], [place], [phone] Bilirubin [Mass/Vol] 0.50 mg/dL Normal 0.20-1.00 [facility] Comment on above: Order Comment: LIVER COULDN'T BE ORDERED-TESTS OVERLAP-ORDERED DBILLIPID DUPLICATE W/ BOTH DRSLIVER LIPID-ROBERTSOTHER TESTS-ISAAC Result Comment: For patients on eltrombopag therapy, use of Dimension [place] TBIL is not recommended. Performed By: #### L 100.0100, L3100.2300, L501.4700, L500.4050, L500.4100, L501.9985, L502.0250 ####[facility] [address] [place], [address] BUN/CRE 19.2 RATIO Normal 10-20 [facility] Comment on above: Order Comment: LIVER COULDN'T BE ORDERED-TESTS OVERLAP-ORDERED DBILLIPID DUPLICATE W/ BOTH DRSLIVER LIPID-ROBERTSOTHER TESTS-ISAAC Performed By: #### L 100.0100, L3100.2300, L501.4700, L500.4050, L500.4100, L501.9985, L502.0250 ####[facility] [address] [place], [address] CA,Total 10.0 mg/dL Normal 8.5-10.1 [facility] Comment on above: Order Comment: LIVER COULDN'T BE ORDERED-TESTS OVERLAP-ORDERED DBILLIPID DUPLICATE W/ BOTH DRSLIVER LIPID-ROBERTSOTHER TESTS-ISAAC Performed By: #### L 100.0100, L3100.2300, L501.4700, L500.4050, L500.4100, L501.9985, L502.0250 ####[facility] [address] [place], [address] Chloride [Moles/Vol] 94 mmol/L Low 98-107 [facility] Comment on above: Order Comment: LIVER COULDN'T BE ORDERED-TESTS OVERLAP-ORDERED DBILLIPID DUPLICATE W/ BOTH DRSLIVER LIPID-ROBERTSOTHER TESTS-ISAAC Performed By: #### L 100.0100, L3100.2300, L501.4700, L500.4050, L500.4100, L501.9985, L502.0250 ####[facility] [address] [place], [address] CO2 [Moles/Vol] 26.0 mmol/L Normal 21.0-32.0 [facility] Comment on above: Order Comment: LIVER COULDN'T BE ORDERED-TESTS OVERLAP-ORDERED DBILLIPID DUPLICATE W/ BOTH DRSLIVER LIPID-ROBERTSOTHER TESTS-ISAAC Performed By: #### L 100.0100, L3100.2300, L501.4700, L500.4050, L500.4100, L501.9985, L502.0250 ####[facility] [address] [place], [place], [phone] Creatinine [Mass/Vol] 0.73 mg/dL Normal 0.55-1.02 [facility] Comment on above: Order Comment: LIVER COULDN'T BE ORDERED-TESTS OVERLAP-ORDERED DBILLIPID DUPLICATE W/ BOTH DRSLIVER LIPID-ROBERTSOTHER TESTS-ISAAC Result Comment: The validity of the calculated GFR GFRAA in patients over 70 years has not been determined. Clinical correlation is essential. Performed By: #### L 100.0100, L3100.2300, L501.4700, L500.4050, L500.4100, L501.9985, L502.0250 ####[facility] [address] [place], [address] EST GFR - AA 100 mL/min Normal >60 [facility] Comment on above: Order Comment: LIVER COULDN'T BE ORDERED-TESTS OVERLAP-ORDERED DBILLIPID DUPLICATE W/ BOTH DRSLIVER LIPID-ROBERTSOTHER TESTS-ISAAC Result Comment: Afri can Malian GFR Calc Performed By: #### L 100.0100, L3100.2300, L501.4700, L500.4050, L500.4100, L501.9985, L502.0250 ####[facility] [address] [place], [place], [phone] GAP 10 Normal 5-15 [facility] Comment on above: Order Comment: LIVER COULDN'T BE ORDERED-TESTS OVERLAP-ORDERED DBILLIPID DUPLICATE W/ BOTH DRSLIVER LIPID-ROBERTSOTHER TESTS-ISAAC Performed By: #### L 100.0100, L3100.2300, L501.4700, L500.4050, L500.4100, L501.9985, L502.0250 ####[facility] [id number] [place], [address] GFR/1.73 sq M.predicted among non-blacks MDRD (S/P/Bld) [Vol rate/Area] 82 mL/min/{1.73_m2} Normal >60 [facility] Comment on above: Order Comment: LIVER COULDN'T BE ORDERED-TESTS OVERLAP-ORDERED DBILLIPID DUPLICATE W/ BOTH DRSLIVER LIPID-ROBERTSOTHER TESTS-ISAAC Result Comment: Non- GFR Calc Performed By: #### L 100.0100, L3100.2300, L501.4700, L500.4050, L500.4100, L501.9985, L502.0250 ####[facility] [address] [place], [address]([phone]) Globulin (S) [Mass/Vol] 4.3 g/dL High 2.2-4.2 [facility] Comment on above: Order Comment: LIVER COULDN'T BE ORDERED-TESTS OVERLAP-ORDERED DBILLIPID DUPLICATE W/ BOTH DRSLIVER LIPID-ROBERTSOTHER TESTS-ISAAC Performed By: #### L 100.0100, L3100.2300, L501.4700, L500.4050, L500.4100, L501.9985, L502.0250 ####[facility] [address] [place], [place], [phone]) Glucose [Mass/Vol] 200 mg/dL High 74-106 [facility] Comment on above: Order Comment: LIVER COULDN'T BE ORDERED-TESTS OVERLAP-ORDERED DBILLIPID DUPLICATE W/ BOTH DRSLIVER LIPID-ROBERTSOTHER TESTS-ISAAC Result Comment: Gluc ose result greater than or equal to 200 mg/dL suggests DIABETES MELLITUS per A.D.A. criteria. Performed By: #### L 100.0100, L3100.2300, L501.4700, L500.4050, L500.4100, L501.9985, L502.0250 ####[facility] [address] [place], [address] Potassium [Moles/Vol] 4.1 mmol/L Normal 3.5-5.1 [facility] Comment on above: Order Comment: LIVER COULDN'T BE ORDERED-TESTS OVERLAP-ORDERED DBILLIPID DUPLICATE W/ BOTH DRSLIVER LIPID-ROBERTSOTHER TESTS-ISAAC Performed By: #### L 100.0100, L3100.2300, L501.4700, L500.4050, L500.4100, L501.9985, L502.0250 ####[facility] [address] [place], [address] Sodium [Moles/Vol] 130 mmol/L Low 136-145 [facility] Comment on above: Order Comment: LIVER COULDN'T BE ORDERED-TESTS OVERLAP-ORDERED DBILLIPID DUPLICATE W/ BOTH DRSLIVER LIPID-ROBERTSOTHER TESTS-ISAAC Performed By: #### L 100.0100, L3100.2300, L501.4700, L500.4050, L500.4100, L501.9985, L502.0250 ####[facility] [address] [place], [place], [phone] T PROT 8.1 g/dL Normal 6.4-8.2 [facility] Comment on above: Order Comment: LIVER COULDN'T BE ORDERED-TESTS OVERLAP-ORDERED DBILLIPID DUPLICATE W/ BOTH DRSLIVER LIPID-ROBERTSOTHER TESTS-ISAAC Performed By: #### L 100.0100, L3100.2300, L501.4700, L500.4050, L500.4100, L501.9985, L502.0250 ####[facility] [address] [place], [place], [phone] Urea nitrogen [Mass/Vol] 14 mg/dL Normal 7-18 [facility] Comment on above: Order Comment: LIVER COULDN'T BE ORDERED-TESTS OVERLAP-ORDERED DBILLIPID DUPLICATE W/ BOTH DRSLIVER LIPID-ROBERTSOTHER TESTS-ISAAC Performed By: #### L 100.0100, L3100.2300, L501.4700, L500.4050, L500.4100, L501.9985, L502.0250 ####[facility] [address] [place], [place], [phone] Hemoglobin A1con 12-11-2023 HbA1c (Bld) [Mass fraction] 8.0 % High 3.8-5.6 [facility] Comment on above: Order Comment: LIVER COULDN'T BE ORDERED-TESTS OVERLAP-ORDERED DBILLIPID DUPLICATE W/ BOTH DRSLIVER LIPID-ROBERTSOTHER TESTS-ISAAC Result Comment: Norm al < 5.7 % Prediabetic 5.7 - 6.4 % Diabetic >or= 6.5 % Please note range changes. Performed By: #### L 100.0100, L3100.2300, L501.4700, L500.4050, L500.4100, L501.9985, L502.0250 ####[facility] [address] [place], [place], [phone] Lipid Profileon 12-11-2023 Cholesterol [Mass/Vol] 149 mg/dL Normal 200 [facility] Comment on above: Order Comment: LIVER COULDN'T BE ORDERED-TESTS OVERLAP-ORDERED DBILLIPID DUPLICATE W/ BOTH DRSVER LIPID-ROBERTSOTHER TESTS-ISAAC Result Comment: <200 mg/dL Desirable 200-240 mg/dL Borderline >240 mg/dL High Risk Performed By: #### L 100.0100, L3100.2300, L501.4700, L500.4050, L500.4100, L501.9985, L502.0250 ####[facility] [address] [place], [place], [phone] Cholesterol in HDL [Mass/Vol] 51 mg/dL Normal [facility] Comment on above: Order Comment: LIVER COULDN'T BE ORDERED-TESTS OVERLAP-ORDERED DBILLIPID DUPLICATE W/ BOTH DRSLIVER LIPID-ROBERTSOTHER TESTS-ISAAC Result Comment: The drugs N-Acetylcysteine and Metamizole may falsely depress this assay. Reference Range HDL <40 mg/dL Low HDL Cholesterol HDL >or= 60 mg/dL High HDL Cholesterol Performed By: #### L 100.0100, L3100.2300, L501.4700, L500.4050, L500.4100, L501.9985, L502.0250 ####[facility] [address] [place], [address] Cholesterol in LDL [Mass/Vol] 67 mg/dL Normal 0-130 [facility] Comment on above: Order Comment: LIVER COULDN'T BE ORDERED-TESTS OVERLAP-ORDERED DBILLIPID DUPLICATE W/ BOTH DRSLIVER LIPID-ROBERTSOTHER TESTS-ISAAC Performed By: #### L 100.0100, L3100.2300, L501.4700, L500.4050, L500.4100, L501.9985, L502.0250 ####[facility] [address] [place], [address] Cholesterol in VLDL [Mass/Vol] 31 mg/dL Normal 5-40 [facility] Comment on above: Order Comment: LIVER COULDN'T BE ORDERED-TESTS OVERLAP-ORDERED DBILLIPID DUPLICATE W/ BOTH DRSLIVER LIPID-ROBERTSOTHER TESTS-ISAAC Performed By: #### L 100.0100, L3100.2300, L501.4700, L500.4050, L500.4100, L501.9985, L502.0250 ####[facility] [address] [place], [address] Triglyceride [Mass/Vol] 156 mg/dL Normal [facility] Comment on above: Order Comment: LIVER COULDN'T BE ORDERED-TESTS OVERLAP-ORDERED DBILLIPID DUPLICATE W/ BOTH DRSLIVER LIPID-ROBERTSOTHER TESTS-ISAAC Result Comment: The drugs N-Acetylcysteine and Metamizole may falsely depress this assay. Serum Triglycerides Reference Interval Normal <150 mg/dL Borderline high 150 - 199 mg/dL High 200 - 499 mg/dL Very High > or = 500 mg/dL Performed By: #### L 100.0100, L3100.2300, L501.4700, L500.4050, L500.4100, L501.9985, L502.0250 ####[facility] [address] [place], [place], [phone] Microalb:Creat Ratio,Random URon 12-11-2023 Creatinine [Mass/Vol] 100.00 mg/dL Normal NO RAN GE EST. [facility] Comment on above: Order Comment: LIVER COULDN'T BE ORDERED-TESTS OVERLAP-ORDERED DBILLIPID DUPLICATE W/ BOTH DRSLIVER LIPID-ROBERTSOTHER TESTS-ISAAC Performed By: #### L 100.0100, L3100.2300, L501.4700, L500.4050, L500.4100, L501.9985, L502.0250 ####[facility] [address] [place], [place], [phone] MALB:CRE 29.0 mg/g CRE Normal <30 mg/g CRE [facility] Comment on above: Order Comment: LIVER COULDN'T BE ORDERED-TESTS OVERLAP-ORDERED DBILLIPID DUPLICATE W/ BOTH DRSLIVER LIPID-ROBERTSOTHER TESTS-ISAAC Performed By: #### L 100.0100, L3100.2300, L501.4700, L500.4050, L500.4100, L501.9985, L502.0250 ####[facility] [address] [place], [place], [phone] MICROALBUMIN,UR 29.0 mg/L Normal NO RANGE EST. [facility] Comment on above: Order Comment: LIVER COULDN'T BE ORDERED-TESTS OVERLAP-ORDERED DBILLIPID DUPLICATE W/ BOTH DRSLIVER LIPID-ROBERTSOTHER TESTS-ISAAC Performed By: #### L 100.0100, L3100.2300, L501.4700, L500.4050, L500.4100, L501.9985, L502.0250 ####[facility] [address] [place], [place], [phone] Basophil percentageOrdered B y: Wale Champagne on 06-13-2023 Bilirubin [Mass/Vol] 0.60 mg/dL 0.20-1.00 [facility] Comment on above: For patients on eltr ombopag therapy, use of Dimension [place] TBIL is not recommended. Cholesterol [Mass/Vol] 180 mg/dL <200 [facility] Comment on above: <200 mg/dL Desirable 200-240 mg/dL Borderline >240 mg/dL High Risk Protein [Mass/Vol] 8.1 g/dL 6.4-8.2 [facility] Triglyceride [Mass/Vol] 157 mg/dL <199 [facility] Comment on above: The drugs N-Acetylcy steine and Metamizole may falsely depress this assay.Serum Triglycerides Reference Interval Normal <150 mg/dL Borderline high 150 - 199 mg/dL High 200 - 499 mg/dL Very High > or = 500 mg/dL Direct bilirubinOrdered By: Wale Champagne on 06-13-2023 Bilirubin.direct [Mass/Vol] 0.15 mg/dL 0.00-0.30 [facility] - Chemistry and C hemistry - challengeOrdered By: Wale Champagne on 06-13-2023 ALP [Catalytic activity/Vol] 60 U/L 45-117 [facility] ALT [Catalytic activity/Vol] 44 U/L 13-56 [facility] Cholesterol in HDL [Mass/Vol] 53 mg/dL >40 [facility] Comment on above: The drugs N-Acetylcy steine and Metamizole may falsely depress this assay. Reference Range HDL <40 mg/dL Low HDL Cholesterol HDL >or= 60 mg/dL High HDL Cholesterol Cholesterol in LDL [Mass/Vol] 96 mg/dL 0-130 [facility] Globulin (S) [Mass/Vol] 4.3 g/dL 2.2-4.2 [facility] No Panel InformationOrdered By: Wale Champagne on 06-13-2023 VLDL Cholesterol 31 mg/dL 5-40 [facility] Serum or plasma carcinoembry onic antigen measurement (mass/volume)Ordered By: Wale Champagne on 06-13-2023 Carcinoembryonic Ag [Mass/Vol] 1.5 ng/mL 0.0-4.7 [facility] Comment on above: Nonsmokers <3.9 Smok ers <5.6[employer] Electrochemiluminescence Immunoassay(ECLIA)Values obtained with different assay methods or kitscannot be used interchangeably. Results cannot beinterpreted as absolute evidence of the presence orabsence of malignant disease.Performed at: [email or web address] [id number] Director: Yong Fischer PhD, Phone: [phone] Thin prep Papanicolaou smear with manual screeningOrdered By: Wale Champagne on 06-13-2023 Thin prep Papanicolaou smear with manual screening 3.8 g/dL 3.2-5.0 [facility] Thin prep Papanicolaou smear with manual screening 49 U/L 1537 [facility] Whole blood hemoglobin A1c/t otal hemoglobin ratio (mass fraction)Ordered By: Wale Champagne on 06-13-2023 HbA1c (Bld) [Mass fraction] 7.4 % 3.8-5.6 [facility] Comment on above: Normal < 5.7 % Predi abetic 5.7 - 6.4 % Diabetic >or= 6.5 % Please note range changes. CHEST PA/AP AND LATERALon CHEST PA/AP AND LATERAL CHEST PA/AP LATERAL Ordering Physician: Darrel Zepeda MD CHEST PA AND LATERAL Clinical Statement: Rectal cancer. Cough. No comparison FINDINGS: Cardiac and mediastinal contours are normal. Vascularity is normal. Lungs are clear. No pleural effusion. Coronary stents are noted. No acute osseous abnormality. IMPRESSION: No active disease in the chest. This report was electronically signed by Josselin Faust MD 07/05/2021 1:23 PM Reported By: JOSSELIN FAUST M.D. Signed By: JOSSELIN FAUST M.D. Normal [facility] CREATININE W.B.on 07-05-2021 Creatinine [Mass/Vol] 0.6 mg/dL [facility] [facility] 07-[facility] CT ABD/PELV W ORALANDIV CONTRAST CT ABDOMEN AND PELVIS WITH IV AND ENTERIC CONTRAST Clinical Statement: Malignant neoplasm rectum Comparison: None TECHNIQUE: Contiguous axial images were obtained through the abdomen and pelvis following the uneventful administration of 100 cc Visipaque 270 and oral contrast. Note is made that the patient was premedicated utilizing the standard 13 hour protocol with a total 150 mg prednisone and 10 mg Claritin. FINDINGS: Images obtained through the lung bases are unremarkable. There is diffuse fatty infiltration of the liver. No intrahepatic or extrahepatic biliary duct dilatation. The gallbladder is unremarkable. The spleen, pancreas and adrenal glands are unremarkable. The kidneys are symmetric in size and enhancement without hydronephrosis. The ureters are normal in course and caliber. The urinary bladder is unremarkable. The patient is status post hysterectomy. The adnexa are unremarkable. Extensive atherosclerotic calcifications are present within the aorta and iliac arteries. The stomach, small bowel and colon are normal in course and caliber. The appendix is not definitively identified. Gas and fecal material are present throughout the colon. Anastomotic sutures are present within the rectum without discrete nodularity. There are several scattered borderline enlarged retroperitoneal lymph nodes measuring up to 10 mm in short axis in the aortocaval region. Enlarged periportal lymph nodes are present measuring up to 1.7 cm in short axis There is no intraperitoneal free air or focal fluid collection. There are no suspicious osseous lesions. IMPRESSION: 1. Postsurgical changes with anastomotic sutures in the rectum. No evidence of local recurrence. 2. Several borderline and enlarged periportal and retroperitoneal lymph nodes. Correlation with any prior examinations recommended, otherwise correlation with PET/CT recommended. 3. Hepatic steatosis. This report was electronically signed by Gracia Figueroa MD 07/06/2021 9:15 AM Reported By: GRACIA FIGUEROA M.D. Signed By: GRACIA FIGUEROA M.D. Normal [facility] CEAon 06-16-2021 CEA 0.8 NG/ML Normal 0-2.5 [facility] Comment on above: Result Comment: NOTE NEW NORMAL RANGE DUE TO REAGENT CHANGE This is a new methodology for this marker. Tumor markers obtained from different assay methods cannot be used interchangeably. Expect results of this assay to run lower than the previous assay. It is recommended to re-baseline patients when changing to a new methodology. Performed By: #### L 500.59619 #### [facility] [address]# [phone] .Auto Diffon 2019 Ammonia (P) [Mass/Vol] 1.20 10 3/mcL High 0.15-1.00 [facility] ([place]) Comment on above: Performed By: #### C BC, ADIFF, ANEU #### [place] [address] #### CMP, GFR, CEA #### [address] [address] Basophils (Bld) [#/Vol] 0.10 10 3/mcL Normal 0.00-0.19 [facility] ([place]) Comment on above: Performed By: #### C BC, ADIFF, ANEU #### [place] [address] #### CMP, GFR, CEA #### [address] [address] Basophils/100 WBC (Bld) 1.4 % Normal 0.0-2.5 [facility] ([place]) Comment on above: Performed By: #### C BC, ADIFF, ANEU #### [place] [address] #### CMP, GFR, CEA #### [address] [address] Eosinophils (Bld) [#/Vol] 0.30 10 3/mcL Normal 0.00-0.40 [facility] ([place]) Comment on above: Performed By: #### C BC, ADIFF, ANEU #### [place] [address] #### CMP, GFR, CEA #### [address] [address] Eosinophils/100 WBC (Bld) 2.6 % Normal 0.0-7.0 [facility] ([place]) Comment on above: Performed By: #### C BC, ADIFF, ANEU #### [place] [address] #### CMP, GFR, CEA #### [address] [address] Lymphocytes (Bld) [#/Vol] 3.10 10 3/mcL Normal 0.77-3.85 [facility] ([place]) Comment on above: Performed By: #### C BC, ADIFF, ANEU #### [address] [address] #### CMP, GFR, CEA #### [address] [address] Lymphocytes/100 WBC (Bld) 30.4 % Normal 10.0-50.0 [facility] ([place]) Comment on above: Performed By: #### C BC, ADIFF, ANEU #### [address] [address] #### CMP, GFR, CEA #### [address] [address] Monocytes/100 WBC (Bld) 11.3 % Normal 1.7-13.0 [facility] ([place]) Comment on above: Performed By: #### C BC, ADIFF, ANEU #### [address] [address] #### CMP, GFR, CEA #### [address] [address] Neutrophils/100 WBC (Bld) 54.3 % Normal 37.0-80.0 [facility] ([place]) Comment on above: Performed By: #### C BC, ADIFF, ANEU #### [address] [address] #### CMP, GFR, CEA #### [address] [address] .GFRon 2019 GFR Non- 72 ml/min/1.73sqm Normal [facility] ([place]) Comment on above: Result Comment: GFR Population mean for , Non- Americans Ages 20-29 = 116 mL/min/1.73 sq.m. Ages 30-39 = 107 mL/min/1.73 sq.m. Ages 40-49 = 99 mL/min/1.73 sq.m. Ages 50-59 = 93 mL/min/1.73 sq.m. Ages 60-69 = 85 mL/min/1.73 sq.m. Ages 70+ = 75 mL/min/1.73 sq.m. Chronic Kidney Disease: Less than 60 mL/min/1.73 square meters End Stage Renal Disease: Less than 15 mL/min/1.73 square meters Performed By: #### C BCELSY, ANEU #### [address] [address] #### CMP, GFR, CEA #### [address] [address] GFR 87 ml/min/1.73sqm Normal [facility] ([place]) Comment on above: Result Comment: GFR Population mean for , Non- Americans Ages 20-29 = 116 mL/min/1.73 sq.m. Ages 30-39 = 107 mL/min/1.73 sq.m. Ages 40-49 = 99 mL/min/1.73 sq.m. Ages 50-59 = 93 mL/min/1.73 sq.m. Ages 60-69 = 85 mL/min/1.73 sq.m. Ages 70+ = 75 mL/min/1.73 sq.m. Chronic Kidney Disease: Less than 60 mL/min/1.73 square meters End Stage Renal Disease: Less than 15 mL/min/1.73 square meters Performed By: #### C ELSY FERGUSON, ANEU #### [address] [address] #### CMP, GFR, CEA #### [address] [address] .NEUABSon 2019 Neutrophils (Bld) [#/Vol] 5.60 10 3/mcL Normal 2.85-6.16 [facility] ([place]) Comment on above: Performed By: #### C ELSY FERGUSON, ANEU #### [address] [address] #### CMP, GFR, CEA #### [address] [address] A1Con 2019 HbA1c (Bld) [Mass fraction] 6.2 % Normal 4.5-6.2 [facility] ([place]) Comment on above: Performed By: #### C BC, ADIFF, ANEU #### [address] [address] #### CMP, GFR, CEA #### [address] [address] CBCon 2019 Erythrocyte distribution width (RBC) [Ratio] 14.8 % High 11.5-14.5 [facility] ([place]) Comment on above: Performed By: #### C BC, ADIFF, ANEU #### [place] [address] #### CMP, GFR, CEA #### [place] [address] Hematocrit (Bld) [Volume fraction] 40.3 % Normal 37.0-47.0 [facility] ([place]) Comment on above: Performed By: #### C BC, ADIFF, ANEU #### [place] [address] #### CMP, GFR, CEA #### [place] [address] Hemoglobin (Bld) [Mass/Vol] 13.7 G/dL Normal 12.0-16.0 [facility] ([place]) Comment on above: Performed By: #### C BC, ADIFF, ANEU #### [place] [address] #### CMP, GFR, CEA #### [place] [address] MCH (RBC) [Entitic mass] 29.4 pg Normal 27.0-31.2 [facility] ([place]) Comment on above: Performed By: #### C BC, ADIFF, ANEU #### [place] [address] #### CMP, GFR, CEA #### [place] [id number] MCHC (RBC) [Mass/Vol] 34.0 G/dL Normal 33.0-37.0 [facility] ([place]) Comment on above: Performed By: #### C BC, ADIFF, ANEU #### [address] [address] #### CMP, GFR, CEA #### [address] [address] MCV (RBC) [Entitic vol] 86.5 fL Normal 80.0-94.0 [facility] ([place]) Comment on above: Performed By: #### C BC, ADIFF, ANEU #### [address] [address] #### CMP, GFR, CEA #### [address] [address] Platelet mean volume (Bld) [Entitic vol] 8.0 fL Normal 7.4-10.4 [facility] ([place]) Comment on above: Performed By: #### C BC, ADIFF, ANEU #### [address] [address] #### CMP, GFR, CEA #### [address] [address] Platelets (Bld) [#/Vol] 282 10 3/mcL Normal 130-400 [facility] ([place]) Comment on above: Performed By: #### C BC, ADIFF, ANEU #### [address] [address] #### CMP, GFR, CEA #### [address] [address] RBC (Bld) [#/Vol] 4.66 10 6/mcL Normal 4.20-5.40 [facility] ([place]) Comment on above: Performed By: #### C BC, ADIFF, ANEU #### [address] [address] #### CMP, GFR, CEA #### [address] [address] WBC (Bld) [#/Vol] 10.30 10 3/mcL Normal 4.60-10.80 [facility] ([place]) Comment on above: Performed By: #### C BC, ADIFF, ANEU #### [place] [id number] #### CMP, GFR, CEA #### [address] [address] CEAon 2019 CEA 1.2 ng/mL Normal 0.0-3.0 [facility] ([place]) Comment on above: Result Comment: CEA Reference Range for SMOKERS: 0.0 - 5.0 ng/mL. Performed By: #### C BC, ADIFF, ANEU #### [place] [address] #### CMP, GFR, CEA #### [place] [address] CMPon 2019 Albumin [Mass/Vol] 4.0 G/dL Normal 3.4-4.8 [facility] ([place]) Comment on above: Performed By: #### C BC, ADIFF, ANEU #### [place] [address] #### CMP, GFR, CEA #### [place] [address] Albumin/Globulin [Mass ratio] 1.0 {ratio} Low 1.1-2.5 [facility] ([place]) Comment on above: Performed By: #### C BC, ADIFF, ANEU #### [place] [address] #### CMP, GFR, CEA #### [place] [address] ALP [Catalytic activity/Vol] 65 U/L Normal 40-135 [facility] ([place]) Comment on above: Performed By: #### C BC, ADIFF, ANEU #### [place] [address] #### CMP, GFR, CEA #### [place] [id number] ALT [Catalytic activity/Vol] 34 U/L Normal 10-35 [facility] ([place]) Comment on above: Performed By: #### C BC, ADIFF, ANEU #### [address] [address] #### CMP, GFR, CEA #### [address] [address] AST [Catalytic activity/Vol] 28 U/L Normal 10-40 [facility] ([place]) Comment on above: Performed By: #### C BC, ADIFF, ANEU #### [place] [address] #### CMP, GFR, CEA #### [address] [address] Bili Total 0.4 mg/dL Normal 0.2-1.0 [facility] ([place]) Comment on above: Performed By: #### C BC, ADIFF, ANEU #### [place] [address] #### CMP, GFR, CEA #### [address] [address] Calcium [Mass/Vol] 10.0 mg/dL Normal 8.4-10.2 [facility] ([place]) Comment on above: Performed By: #### C BC, ADIFF, ANEU #### [place] [address] #### CMP, GFR, CEA #### [address] [address] Chloride [Moles/Vol] 97 mmol/L Low 98-107 [facility] ([place]) Comment on above: Performed By: #### C BC, ADIFF, ANEU #### [place] [address] #### CMP, GFR, CEA #### [address] [address] CO2 [Moles/Vol] 28 mmol/L Normal 23-31 [facility] ([place]) Comment on above: Performed By: #### C BC, ADIFF, ANEU #### [place] [id number] #### CMP, GFR, CEA #### [address] [address] Creatinine [Mass/Vol] 0.79 mg/dL Normal 0.55-1.02 [facility] ([place]) Comment on above: Performed By: #### C BC, ADIFF, ANEU #### [address] [address] #### CMP, GFR, CEA #### [address] [address] Electrolyte Balance 11.0 mEq/L Normal [facility] ([place]) Comment on above: Performed By: #### C BC, ADIFF, ANEU #### [address] [address] #### CMP, GFR, CEA #### [address] [address] Globulin (S) [Mass/Vol] 3.9 G/dL Normal [facility] ([place]) Comment on above: Performed By: #### C BC, ADIFF, ANEU #### [place] [address] #### CMP, GFR, CEA #### [address] [address] Glucose [Mass/Vol] 134 mg/dL High 83-110 [facility] ([place]) Comment on above: Performed By: #### C BC, ADIFF, ANEU #### [address] [address] #### CMP, GFR, CEA #### [address] [address] Potassium [Moles/Vol] 4.4 mmol/L Normal 3.5-5.1 [facility] ([place]) Comment on above: Performed By: #### C BC, ADIFF, ANEU #### [address] [address] #### CMP, GFR, CEA #### [address] [address] Protein [Mass/Vol] 7.9 G/dL Normal 6.4-8.2 [facility] ([place]) Comment on above: Performed By: #### C BC, ADIFF, ANEU #### [address] [address] #### CMP, GFR, CEA #### [address] [address] Sodium [Moles/Vol] 136 mmol/L Normal 136-145 [facility] ([place]) Comment on above: Performed By: #### C BC, ADIFF, ANEU #### [address] [address] #### CMP, GFR, CEA #### [address] [address] Urea nitrogen [Mass/Vol] 14 mg/dL Normal 7-18 [facility] ([place]) Comment on above: Performed By: #### C BC, ADIFF, ANEU #### [address] [address] #### CMP, GFR, CEA #### [address] [address] Urea nitrogen/Creatinine [Mass ratio] 18 ratio Normal 09-22 [facility] ([place]) Comment on above: Performed By: #### C BC, ADIFF, ANEU #### [address] [address] #### CMP, GFR, CEA #### [address] [address] FT4on 2019 Free T4 [Mass/Vol] 1.05 ng/dL Normal 0.76-1.46 [facility] ([place]) Comment on above: Performed By: #### C BC, ADIFF, ANEU #### [address] [address] #### CMP, GFR, CEA #### [address] [address] LIPIDon 2019 Cholesterol [Mass/Vol] 157 mg/dL Normal 0-200 [facility] ([place]) Comment on above: Result Comment: Chol esterol Reference Interval: Less than 200 Desirable 200-239 Borderline high risk 240 and above High risk Performed By: #### C BC, ADIFF, ANEU #### [address] [address] #### CMP, GFR, CEA #### [address] [address] Cholesterol in HDL [Mass/Vol] 61 mg/dL High 40-60 [facility] ([place]) Comment on above: Performed By: #### C BC, ADIFF, ANEU #### [address] [address] #### CMP, GFR, CEA #### [address] [address] Cholesterol in LDL [Mass/Vol] 73 mg/dL Normal 0-130 [facility] ([place]) Comment on above: Performed By: #### C BC, ADIFF, ANEU #### [address] [address] #### CMP, GFR, CEA #### [address] [address] Triglyceride [Mass/Vol] 115 mg/dL Normal 0-150 [facility] ([place]) Comment on above: Result Comment: Trig lyceride Reference Interval: Less than 150 Normal 150-199 Borderline high risk 200-499 High risk 500 or higher Very high risk Performed By: #### C BC ADIFF, ANEU #### [address] [address] #### CMP, GFR, CEA #### [address] [address] MALBRon 2019 U Microalb 2535 mcg/dL Normal [facility] ([place]) Comment on above: Performed By: #### C BC, ADIFF, ANEU #### [address] [address] #### CMP, GFR, CEA #### [address] [address] U Ratio Alb/Cre 11.0 mcg/mg Normal 0.0-24.9 [facility] ([place]) Comment on above: Performed By: #### C BC, ADIFF, ANEU #### [address] [place] [address] #### CMP, GFR, CEA #### [address] [address] U Creatinine 231.0 mg/dL Normal [facility] ([place]) Comment on above: Performed By: #### C BC, ADIFF, ANEU #### [address] [address] #### CMP, GFR, CEA #### [address] [address] TSHon 2019 TSH Qn 3.04 mcIU/mL Normal 0.36-3.74 [facility] ([place]) Comment on above: Performed By: #### C BC, ADIFF, ANEU #### [address] [address] #### CMP, GFR, CEA #### [address] [address] US RENALon 11-05-2018 US RENAL ORIGINAL US RENAL CLINICAL INDICATION: GROSS HEMATURIA COMPARISON: None FINDINGS: RIGHT: 10.9 x 5.1 x 5.1 cm LEFT: 10.8 x 5.0 x 4.8 cm RIGHT CORTEX Thickness: Unremarkable Echogenicity: Unremarkable Mass: No discrete mass Cyst: None Calculi: No shadowing stone Hydronephrosis: None LEFT CORTEX Thickness: Unremarkable Echogenicity: Unremarkable Mass: No discrete mass Cyst: None Calculi: No shadowing stone Hydronephrosis: None URINARY BLADDER: Under distended but otherwise unremarkable. Incidental moderate hepatic steatosis is noted. IMPRESSION: 1. No acute finding. 2. Incidental moderate hepatic steatosis. Interpreted By: Jensen Jules MD Preliminary Report By: Jensen Jules MD Electronically Signed By: Jensen Jules MD Dictated Date: 11/05/2018 6:14:00 PM Prelim Date: 11/05/2018 6:14:00 PM Sign Date: 11/05/2018 6:16:19 PM Normal [facility] ([place]) Final Surgical Pathology Rep garrett 10-08-2018 Final Surgical Pathology Report . Pathology Reports Accession: Collected Date/Time: Received Date/Time: Pathologist: [id number] 10/04/2018 09:43 EDT 10/05/2018 07:04 ROBLES TRIPATHI MD Final Surgical Pathology Report DIAGNOSIS: A) UTERUS, CERVIX -- SQUAMOUS METAPLASIA AND NABOTHIAN CYST FORMATION. UTERUS, ENDOMETRIUM -- INACTIVE. UTERUS, MYOMETRIUM -- ADENOMYOSIS IDENTIFIED. LEIOMYOMAS IDENTIFIED. OVARIES -- NO SIGNIFICANT PATHOLOGY. FALLOPIAN TUBES -- NO SIGNIFICANT PATHOLOGY. B) COLON- COLONIC SEGMENT WITH MUCOSAL ULCERATION AND REACTIVE CHANGES. NEGATIVE FOR MALIGNANCY. MULTIPLE (FOURTEEN) REGIONAL LYMPH NODES ARE NEGATIVE. CLINICAL INFORMATION: Procedure: LOW ANTERIOR RESECTION, ABDOMINAL PERINEAL RESECTION Preoperative diagnosis: RECTAL CANCER Postoperative diagnosis: RECTAL CANCER SPECIMEN: A UTERUS, OVARIES, FALLOPIAN TUBES, CERVIX B MASS - RECTAL GROSS DESCRIPTION: A. Received in formalin labeled uterus, ovaries and fallopian tubes, is a 408 g, 10.5 x 10 x 8 cm grossly distorted uterus with attached cervix and bilateral adnexa. Serosa is pink-red and smooth. The cervix is 3.2 cm in greatest diameter with a 0.4 cm patent os. No ectocervical mucosa is identified. The endocervix is cortes, glistening and flattened to mildly trabeculated. The transformation zone appears unremarkable. The endometrium is cortes-red, smooth, glistening and averages 0.1 cm in thickness. Underlying myometrium is cortes-pink, soft and where not distorted measures up to 2 cm in thickness. There is focal ill-defined whorling grossly consistent with possible adenomyosis (3). There are a couple well-circumscribed nodules, 0.8 and 10 cm in greatest dimension. Both display grossly unremarkable cut surfaces. The ovaries average 2.3 cm. Both display cortes-yellow smooth and cerebriform outer surfaces. Sectioning shows grossly unremarkable cut surfaces. The fallopian tubes average 4 cm in length, each with a fimbriated end and a pinpoint lumen. Both tubes are blunted proximally. RS -8 1 -2 cervix and endomyometrium, anterior and posterior alonso respectively 3 possible adenomyosis 4 -6 random from 2 intramural nodules 7 -8 bilateral adnexa, right and left respectively B. Received in formalin labeled rectal mass is a 12 cm in length segment of colon with a moderate amount of attached pericolonic fat. This serosa is pink-red and smooth throughout. Peritoneal reflection comes to within 1.5 cm of distal margin. Specimen has been previously partially opened to show a 0.9 x 0.7 cm mucosal umbilication comes to within 2 cm of distal margin, 9.5 cm of proximal margin, and 3.2 cm of a closest fatty radial margin base of the umbilication is red. Sectioning shows no grossly identifiable tumor or invasion. Remaining mucosa is cortes and glistening with usual intestinal folds. The attached fat is fixed in Grossing Aid for lymph node enhancement. Multiple nodes are identified. RS -10 Pathology Reports Accession: Collected Date/Time: Received Date/Time: Pathologist: [id number] 10/04/2018 09:43 EDT 10/05/2018 07:04 EDT ROBLES COTTO MD GROSS DESCRIPTION: 1 proximal (en face) and distal (inked perpendicular) margins 2 closest fatty radial margin 3 -5 entire biopsy site and adjacent sections 6 random unremarkable mucosa 7 -10 multiple lymph nodes Dictated by Serena VASQUEZ ([facility]) MICROSCOPIC DESCRIPTION: A&B) Slides reviewed. Electronically Signed by Pathology Report verified by [facility] Electronically signed by ROBLES COTTO Sign out Date: 10/08/2018 14:12 Performing Lab: [address] Normal [facility] ([place]) Comment on above: Performed By: #### C ELSY FERGUSON ANEU #### [place] [address] #### CMP, GFR, CEA #### [place] [address] .Auto Diffon 10-06-2018 Ammonia (P) [Mass/Vol] 1.20 10 3/mcL Normal 0.09-1.40 [facility] ([place]) Comment on above: Performed By: #### C BCELSY ANEU #### [place] [address] #### CMP, GFR, CEA #### [place] [address] Basophils (Bld) [#/Vol] 0.10 10 3/mcL Normal 0.00-0.27 [facility] ([place]) Comment on above: Performed By: #### C BCELSY ANEU #### [address] [address] #### CMP, GFR, CEA #### [address] [address] Basophils/100 WBC (Bld) 0.6 % Normal 0.0-2.5 [facility] ([place]) Comment on above: Performed By: #### C BC, ADIFF, ANEU #### [place] [address] #### CMP, GFR, CEA #### [address] [address] Eosinophils (Bld) [#/Vol] 0.10 10 3/mcL Normal 0.00-0.65 [facility] ([place]) Comment on above: Performed By: #### C BC, ADIFF, ANEU #### [place] [address] #### CMP, GFR, CEA #### [address] [address] Eosinophils/100 WBC (Bld) 0.4 % Normal 0.0-6.0 [facility] ([place]) Comment on above: Performed By: #### C BC, ADIFF, ANEU #### [place] [address] #### CMP, GFR, CEA #### [address] [address] Lymphocytes (Bld) [#/Vol] 3.00 10 3/mcL Normal 0.90-4.32 [facility] ([place]) Comment on above: Performed By: #### C BC, ADIFF, ANEU #### [place] [address] #### CMP, GFR, CEA #### [address] [address] Lymphocytes/100 WBC (Bld) 23.8 % Normal 20.0-40.0 [facility] ([place]) Comment on above: Performed By: #### C BC, ADIFF, ANEU #### [place] [address] #### CMP, GFR, CEA #### [address] [address] Monocytes/100 WBC (Bld) 9.6 % Normal 2.0-13.0 [facility] ([place]) Comment on above: Performed By: #### C BC, ADIFF, ANEU #### [address] [address] #### CMP, GFR, CEA #### [address] [address] Neutrophils/100 WBC (Bld) 65.6 % Normal 50.0-75.0 [facility] ([place]) Comment on above: Performed By: #### C BC, ADIFF, ANEU #### [address] [address] #### CMP, GFR, CEA #### [address] [address] .GFRon 10-06-2018 GFR Non- >60 Normal [facility] ([place]) Comment on above: Result Comment: GFR Population mean for , Non- Americans Ages 20-29 = 116 mL/min/1.73 sq.m. Ages 30-39 = 107 mL/min/1.73 sq.m. Ages 40-49 = 99 mL/min/1.73 sq.m. Ages 50-59 = 93 mL/min/1.73 sq.m. Ages 60-69 = 85 mL/min/1.73 sq.m. Ages 70+ = 75 mL/min/1.73 sq.m. Chronic Kidney Disease: Less than 60 mL/min/1.73 square meters End Stage Renal Disease: Less than 15 mL/min/1.73 square meters Performed By: #### C BC, ADIFF, ANEU #### [address] [address] #### CMP, GFR, CEA #### [address] [address] GFR >60 Normal [facility] ([place]) Comment on above: Result Comment: GFR Population mean for , Non- Americans Ages 20-29 = 116 mL/min/1.73 sq.m. Ages 30-39 = 107 mL/min/1.73 sq.m. Ages 40-49 = 99 mL/min/1.73 sq.m. Ages 50-59 = 93 mL/min/1.73 sq.m. Ages 60-69 = 85 mL/min/1.73 sq.m. Ages 70+ = 75 mL/min/1.73 sq.m. Chronic Kidney Disease: Less than 60 mL/min/1.73 square meters End Stage Renal Disease: Less than 15 mL/min/1.73 square meters Performed By: #### C ELSY FERGUSON ANEU #### [place] [address] #### CMP, GFR, CEA #### [place] [address] .NEUABSon 10-06-2018 Neutrophils (Bld) [#/Vol] 8.30 10 3/mcL High 2.25-8.10 [facility] ([place]) Comment on above: Performed By: #### C ELSY FERGUSON ANEU #### [place] [address] #### CMP, GFR, CEA #### [place] [address] BMPon 10-06-2018 Creatinine [Mass/Vol] 0.56 mg/dL Normal 0.50-1.20 [facility] ([place]) Comment on above: Performed By: #### ELSY JAY ANEU #### [place] [address] #### CMP, GFR, CEA #### [place] [address] Urea nitrogen/Creatinine [Mass ratio] 12.5 ratio Normal 10.0-22.0 [facility] ([place]) Comment on above: Performed By: #### ELSY JAY, ANEU #### [place] [address] #### CMP, GFR, CEA #### [place] [address] Calcium [Mass/Vol] 8.4 mg/dL Normal 8.4-10.1 [facility] ([place]) Comment on above: Performed By: #### C BC, ADIFF, ANEU #### [address] [address] #### CMP, GFR, CEA #### [address] [address] Chloride [Moles/Vol] 103 mmol/L Normal 98-110 [facility] ([place]) Comment on above: Performed By: #### C BC, ADIFF, ANEU #### [address] [address] #### CMP, GFR, CEA #### [address] [address] CO2 [Moles/Vol] 25 mmol/L Normal 22-32 [facility] ([place]) Comment on above: Performed By: #### C BC, ADIFF, ANEU #### [address] [address] #### CMP, GFR, CEA #### [address] [address] Electrolyte Balance 6.0 mEq/L Normal 4.0-15.0 [facility] ([place]) Comment on above: Performed By: #### C BC, ADIFF, ANEU #### [address] [address] #### CMP, GFR, CEA #### [address] [address] Glucose [Mass/Vol] 179 mg/dL High 82-115 [facility] ([place]) Comment on above: Performed By: #### C BC, ADIFF, ANEU #### [address] [address] #### CMP, GFR, CEA #### [address] [address] Potassium [Moles/Vol] 4.6 mmol/L Normal 3.5-5.0 [facility] ([place]) Comment on above: Performed By: #### C BC, ADIFF, ANEU #### [address] [address] #### CMP, GFR, CEA #### [address] [address] Sodium [Moles/Vol] 134 mmol/L Low 136-145 [facility] ([place]) Comment on above: Performed By: #### C BC, ADIFF, ANEU #### [address] [address] #### CMP, GFR, CEA #### [address] [address] Urea nitrogen [Mass/Vol] 7.0 mg/dL Low 8.0-22.0 [facility] ([place]) Comment on above: Performed By: #### C BC, ADIFF, ANEU #### [place] [address] #### CMP, GFR, CEA #### [address] [address] CBCon 10-06-2018 Erythrocyte distribution width (RBC) [Ratio] 13.4 % Normal 11.5-15.5 [facility] ([place]) Comment on above: Performed By: #### C BC, ADIFF, ANEU #### [place] [address] #### CMP, GFR, CEA #### [address] [address] Hematocrit (Bld) [Volume fraction] 31.1 % Low 34.0-46.0 [facility] ([place]) Comment on above: Performed By: #### C BC, ADIFF, ANEU #### [address] [address] #### CMP, GFR, CEA #### [address] [address] Hemoglobin (Bld) [Mass/Vol] 10.7 G/dL Low 12.0-16.0 [facility] ([place]) Comment on above: Performed By: #### C BC, ADIFF, ANEU #### [place] [address] #### CMP, GFR, CEA #### [address] [address] MCH (RBC) [Entitic mass] 30.5 pg Normal 27.0-33.0 [facility] ([place]) Comment on above: Performed By: #### C BC, ADIFF, ANEU #### [address] [address] #### CMP, GFR, CEA #### [address] [address] MCHC (RBC) [Mass/Vol] 34.5 G/dL Normal 32.0-36.0 [facility] ([place]) Comment on above: Performed By: #### C BC, ADIFF, ANEU #### [place] [address] #### CMP, GFR, CEA #### [address] [address] MCV (RBC) [Entitic vol] 88.2 fL Normal 80.0-99.0 [facility] ([place]) Comment on above: Performed By: #### C BC, ADIFF, ANEU #### [place] [address] #### CMP, GFR, CEA #### [address] [address] Platelet mean volume (Bld) [Entitic vol] 8.1 fL Normal 6.6-10.5 [facility] ([place]) Comment on above: Performed By: #### C BC, ADIFF, ANEU #### [address] [address] #### CMP, GFR, CEA #### [address] [address] Platelets (Bld) [#/Vol] 208 10 3/mcL Normal 150-450 [facility] ([place]) Comment on above: Performed By: #### C BC, ADIFF, ANEU #### [address] [address] #### CMP, GFR, CEA #### [address] [address] RBC (Bld) [#/Vol] 3.53 10 6/mcL Low 4.10-5.30 [facility] ([place]) Comment on above: Performed By: #### C BC, ADIFF, ANEU #### [address] [address] #### CMP, GFR, CEA #### [address] [address] WBC (Bld) [#/Vol] 12.60 10 3/mcL High 4.50-10.80 [facility] ([place]) Comment on above: Performed By: #### C BC, ADIFF, ANEU #### [address] [address] #### CMP, GFR, CEA #### [place] [address] CURon 10-06-2018 CUR . MICRO - Microbiology PROCEDURE: Urine Culture [O1 *1] SOURCE: Urine, Gutierrez Catheter BODY SITE: COLLECTED DATE/TIME: 10/04/2018 11:27 EDT RECEIVED DATE/TIME: 10/04/2018 11:50 EDT START DATE/TIME: 10/04/2018 11:50 EDT FREE TEXT SOURCE: FINAL REPORTS Final Report [] Verified Date/Time/Personnel: 10/06/2018 07:39 EDT No growth at 48 hours. PRELIMINARY REPORTS Preliminary Report [] Verified Date/Time/Personnel: 10/05/2018 08:37 EDT No growth to date Order Comments O1: Urine Culture SEND FROM PACU Performing Locations *1: This test was performed at: [address], [address] [place] [address] ([place]) Comment on above: Performed By: #### C BC, ADIFF, ANEU #### [address] [address] #### CMP, GFR, CEA #### [place] [address] .Auto Diffon 08-09-2019 Ammonia (P) [Mass/Vol] 1.50 10 3/mcL High 0.09-1.40 [facility] ([place]) Comment on above: Performed By: #### C BC, ADIFF, ANEU, BMP, GFR #### [address] [address] Basophils (Bld) [#/Vol] 0.00 10 3/mcL Normal 0.00-0.27 [facility] ([place]) Comment on above: Performed By: #### C BC, ADIFF, ANEU, BMP, GFR #### [address] [address] Basophils/100 WBC (Bld) 0.2 % Normal 0.0-2.5 [facility] ([place]) Comment on above: Performed By: #### C BC, ADIFF, ANEU, BMP, GFR #### [address] [address] Eosinophils (Bld) [#/Vol] 0.00 10 3/mcL Normal 0.00-0.65 [facility] ([place]) Comment on above: Performed By: #### C BC, ADIFF, ANEU, BMP, GFR #### [address] [address] Eosinophils/100 WBC (Bld) 0.0 % Normal 0.0-6.0 [facility] ([place]) Comment on above: Performed By: #### C BC, ADIFF, ANEU, BMP, GFR #### [address] [address] Lymphocytes (Bld) [#/Vol] 1.70 10 3/mcL Normal 0.90-4.32 [facility] ([place]) Comment on above: Performed By: #### C BC, ADIFF, ANEU, BMP, GFR #### [address] [address] Lymphocytes/100 WBC (Bld) 9.9 % Low 20.0-40.0 [facility] ([place]) Comment on above: Performed By: #### C BC, ADIFF, ANEU, BMP, GFR #### [address] [address] Monocytes/100 WBC (Bld) 9.2 % Normal 2.0-13.0 [facility] ([place]) Comment on above: Performed By: #### C BC, ADIFF, ANEU, BMP, GFR #### [address] [address] Neutrophils/100 WBC (Bld) 80.7 % High 50.0-75.0 [facility] ([place]) Comment on above: Performed By: #### C BC, ADIFF, ANEU, BMP, GFR #### [address] [address] .GFRon 10-05-2018 GFR >60 Normal [facility] ([place]) Comment on above: Result Comment: GFR Population mean for , Non- Americans Ages 20-29 = 116 mL/min/1.73 sq.m. Ages 30-39 = 107 mL/min/1.73 sq.m. Ages 40-49 = 99 mL/min/1.73 sq.m. Ages 50-59 = 93 mL/min/1.73 sq.m. Ages 60-69 = 85 mL/min/1.73 sq.m. Ages 70+ = 75 mL/min/1.73 sq.m. Chronic Kidney Disease: Less than 60 mL/min/1.73 square meters End Stage Renal Disease: Less than 15 mL/min/1.73 square meters Performed By: #### C BC, ADIFF, ANEU #### [address] [address] #### CMP, GFR, CEA #### [address] [address] GFR Non- >60 Normal [facility] ([place]) Comment on above: Result Comment: GFR Population mean for , Non- Americans Ages 20-29 = 116 mL/min/1.73 sq.m. Ages 30-39 = 107 mL/min/1.73 sq.m. Ages 40-49 = 99 mL/min/1.73 sq.m. Ages 50-59 = 93 mL/min/1.73 sq.m. Ages 60-69 = 85 mL/min/1.73 sq.m. Ages 70+ = 75 mL/min/1.73 sq.m. Chronic Kidney Disease: Less than 60 mL/min/1.73 square meters End Stage Renal Disease: Less than 15 mL/min/1.73 square meters Performed By: #### ELSY JAY ANEU #### [place] [address] #### CMP, GFR, CEA #### [place] [address] .NEUABSon 10-05-2018 Neutrophils (Bld) [#/Vol] 13.60 10 3/mcL High 2.25-8.10 [facility] ([place]) Comment on above: Performed By: #### ELSY JAY ANEU #### [place] [address] #### CMP, GFR, CEA #### [place] [address] BMPon 10-05-2018 Chloride [Moles/Vol] 98 mmol/L Normal 98-110 [facility] ([place]) Comment on above: Performed By: #### C ELSY FERGUSON, ANEU #### [place] [address] #### CMP, GFR, CEA #### [place] [address] Creatinine [Mass/Vol] 0.58 mg/dL Normal 0.50-1.20 [facility] ([place] Comment on above: Performed By: #### ELSY JAY, ANEU #### [place] [address] #### CMP, GFR, CEA #### [place] [address] Electrolyte Balance 11.0 mEq/L Normal 4.0-15.0 [facility] ([place]) Comment on above: Performed By: #### ELSY JAY, ANEU #### [place] [address] #### CMP, GFR, CEA #### [place] [address] Glucose [Mass/Vol] 177 mg/dL High 82-115 [facility] ([place]) Comment on above: Performed By: #### C BC, ADIFF, ANEU #### [address] [address] #### CMP, GFR, CEA #### [address] [address] Potassium [Moles/Vol] 4.7 mmol/L Normal 3.5-5.0 [facility] ([place]) Comment on above: Performed By: #### C BC, ADIFF, ANEU #### [address] [address] #### CMP, GFR, CEA #### [address] [address] Sodium [Moles/Vol] 132 mmol/L Low 136-145 [facility] ([place]) Comment on above: Performed By: #### C BC ADIFF, ANEU #### [place] [address] #### CMP, GFR, CEA #### [address] [address] Urea nitrogen/Creatinine [Mass ratio] 8.6 ratio Low 10.0-22.0 [facility] ([place]) Comment on above: Performed By: #### C BC, ADIFF, ANEU #### [address] [address] #### CMP, GFR, CEA #### [address] [address] Calcium [Mass/Vol] 8.9 mg/dL Normal 8.4-10.1 [facility] ([place]) Comment on above: Performed By: #### C BC, ADIFF, ANEU #### [address] [address] #### CMP, GFR, CEA #### [address] [address] CO2 [Moles/Vol] 23 mmol/L Normal 22-32 [facility] ([place]) Comment on above: Performed By: #### C BC, ADIFF, ANEU #### [address] [address] #### CMP, GFR, CEA #### [place] [address] Urea nitrogen [Mass/Vol] 5.0 mg/dL Low 8.0-22.0 [facility] ([place]) Comment on above: Performed By: #### C BC, ADIFF, ANEU #### [place] [address] #### CMP, GFR, CEA #### [address] [address] CBCon 10-05-2018 Erythrocyte distribution width (RBC) [Ratio] 12.6 % Normal 11.5-15.5 [facility] ([place]) Comment on above: Performed By: #### C BC, ADIFF, ANEU, BMP, GFR #### [place] [address] Hematocrit (Bld) [Volume fraction] 35.5 % Normal 34.0-46.0 [facility] ([place]) Comment on above: Performed By: #### C BC, ADIFF, ANEU, BMP, GFR #### [place] [address] Hemoglobin (Bld) [Mass/Vol] 12.0 G/dL Normal 12.0-16.0 [facility] ([place]) Comment on above: Performed By: #### C BC, ADIFF, ANEU, BMP, GFR #### [place] [id number] MCH (RBC) [Entitic mass] 30.2 pg Normal 27.0-33.0 [facility] ([place]) Comment on above: Performed By: #### C BC, ADIFF, ANEU, BMP, GFR #### [place] [id number] MCHC (RBC) [Mass/Vol] 33.8 G/dL Normal 32.0-36.0 [facility] ([place] Comment on above: Performed By: #### C BC, ADIFF, ANEU, BMP, GFR #### [address] [address] MCV (RBC) [Entitic vol] 89.2 fL Normal 80.0-99.0 [facility] ([place]) Comment on above: Performed By: #### C BC, ADIFF, ANEU, BMP, GFR #### [address] [address] Platelet mean volume (Bld) [Entitic vol] 8.2 fL Normal 6.6-10.5 [facility] ([place]) Comment on above: Performed By: #### C BC, ADIFF, ANEU, BMP, GFR #### [address] [address] Platelets (Bld) [#/Vol] 246 10 3/mcL Normal 150-450 [facility] ([place]) Comment on above: Performed By: #### C BC, ADIFF, ANEU, BMP, GFR #### [address] [address] RBC (Bld) [#/Vol] 3.98 10 6/mcL Low 4.10-5.30 [facility] ([place]) Comment on above: Performed By: #### C BC, ADIFF, ANEU, BMP, GFR #### [address] [address] WBC (Bld) [#/Vol] 16.80 10 3/mcL High 4.50-10.80 [facility] ([place]) Comment on above: Performed By: #### C BC, ADIFF, ANEU, BMP, GFR #### [address] [address] [address] ABDOMEN/PELVIS W/CONTRAST on 09-21-2018 CT ABDOMEN/PELVIS W/CONTRAST ORIGINAL CT ABDOMEN/PELVIS W/CONTRAST TECHNIQUE: Images were obtained after the administration of IV and enteric contrast. This exam was performed according to our departmental dose optimization program, and includes the following measures where applicable: automated exposure control, adjustment of the mAs and/or kVp according to patient size and/or exam, and an iterative reconstruction algorithm. CLINICAL STATEMENT: RECTAL CANCER. COMPARISON: None FINDINGS: Recist 1.1: POTENTIAL TARGET TUMOR LESIONS (maximum 5 lesions, maximum 2 per organ, longest dimension in axial plane reported, >10 mm, reproducible lesions): None. POTENTIAL TARGET LYMPH NODES (>15 mm short axis, maximum 2): None. NONTARGET LESIONS (Definite tumor lesions, lymph nodes 10-14 mm short axis, immeasurable lesions such as lymphangitic involvement, ascites, pleural effusions, etc.):? None There are minor degenerative changes in the spine, greatest inferiorly. Mild hip joint degenerative changes are also seen. The lung bases are unremarkable. There is mild diffuse fatty infiltration of the liver. No focal liver lesion seen. The spleen, adrenal glands and pancreas are normal. There is no renal finding. There are small upper abdominal lymph nodes present. These are not pathologically enlarged. No enlarged lymph node is visible. There is very prominent heterogeneous enlargement of the uterus with central hypodensity. This is of uncertain significance on this exam. No GI tract abnormality is identified. The perirectal space and ischio rectal fossa appears normal bilaterally. IMPRESSION: 1. No definite evidence for metastatic disease on this exam. 2. Abnormal enlarged uterus. Whether this represents endometrial pathology versus a fibroid is uncertain. Pelvic ultrasound including endovaginal scanning is recommended for further assessment when feasible. IMPORTANT. PHYSICIAN INPUT NECESSARY CELIA. Interpreted By: Darrel Jones MD Preliminary Report By: Darrel Jones MD Electronically Signed By: Darrel Jones MD Dictated Date: 09/21/2018 3:20:44 PM Prelim Date: 09/21/2018 3:20:44 PM Sign Date: 09/21/2018 3:23:30 PM Normal [facility] ([place]) CEAon 09-19-2018 CEA 1.0 ng/mL Normal 0.0-3.0 [facility] ([place]) Comment on above: Result Comment: CEA Reference Range for SMOKERS: 0.0 - 5.0 ng/mL. Performed By: #### C BC, ADIFF, ANEU #### [address] [address] #### CMP, GFR, CEA #### [address] [address] .Auto Diffon 09-18-2018 Ammonia (P) [Mass/Vol] 0.90 10 3/mcL Normal 0.15-1.00 [facility] ([place]) Comment on above: Performed By: #### C BC, ADIFF, ANEU #### [address] [address] #### CMP, GFR, CEA #### [address] [address] Basophils (Bld) [#/Vol] 0.20 10 3/mcL High 0.00-0.19 [facility] ([place]) Comment on above: Performed By: #### C BC, ADIFF, ANEU #### [place] [address] #### CMP, GFR, CEA #### [address] [address] Basophils/100 WBC (Bld) 2.4 % Normal 0.0-2.5 [facility] ([place]) Comment on above: Performed By: #### C BC, ADIFF, ANEU #### [place] [address] #### CMP, GFR, CEA #### [address] [address] Eosinophils (Bld) [#/Vol] 0.20 10 3/mcL Normal 0.00-0.40 [facility] ([place]) Comment on above: Performed By: #### C BC, ADIFF, ANEU #### [place] [address] #### CMP, GFR, CEA #### [address] [address] Eosinophils/100 WBC (Bld) 1.8 % Normal 0.0-7.0 [facility] ([place]) Comment on above: Performed By: #### C BC, ADIFF, ANEU #### [place] [address] #### CMP, GFR, CEA #### [address] [address] Lymphocytes (Bld) [#/Vol] 2.50 10 3/mcL Normal 0.77-3.85 [facility] ([place]) Comment on above: Performed By: #### C BC, ADIFF, ANEU #### [address] [address] #### CMP, GFR, CEA #### [address] [address] Lymphocytes/100 WBC (Bld) 27.8 % Normal 10.0-50.0 [facility] ([place]) Comment on above: Performed By: #### C BC, ADIFF, ANEU #### [address] [address] #### CMP, GFR, CEA #### [address] [address] Monocytes/100 WBC (Bld) 9.7 % Normal 1.7-13.0 [facility] ([place]) Comment on above: Performed By: #### C BC, ADIFF, ANEU #### [address] [address] #### CMP, GFR, CEA #### [address] [address] Neutrophils/100 WBC (Bld) 58.3 % Normal 37.0-80.0 [facility] ([place]) Comment on above: Performed By: #### C BC, ADIFF, ANEU #### [address] [address] #### CMP, GFR, CEA #### [address] [address] .GFRon 09-18-2018 GFR 78 ml/min/1.73sqm Normal [facility] ([place]) Comment on above: Result Comment: GFR Population mean for , Non- Americans Ages 20-29 = 116 mL/min/1.73 sq.m. Ages 30-39 = 107 mL/min/1.73 sq.m. Ages 40-49 = 99 mL/min/1.73 sq.m. Ages 50-59 = 93 mL/min/1.73 sq.m. Ages 60-69 = 85 mL/min/1.73 sq.m. Ages 70+ = 75 mL/min/1.73 sq.m. Chronic Kidney Disease: Less than 60 mL/min/1.73 square meters End Stage Renal Disease: Less than 15 mL/min/1.73 square meters Performed By: #### C BC, ADIFF, ANEU #### [address] [address] #### CMP, GFR, CEA #### [address] [address] GFR Non- 64 ml/min/1.73sqm Normal [facility] ([place]) Comment on above: Result Comment: GFR Population mean for , Non- Americans Ages 20-29 = 116 mL/min/1.73 sq.m. Ages 30-39 = 107 mL/min/1.73 sq.m. Ages 40-49 = 99 mL/min/1.73 sq.m. Ages 50-59 = 93 mL/min/1.73 sq.m. Ages 60-69 = 85 mL/min/1.73 sq.m. Ages 70+ = 75 mL/min/1.73 sq.m. Chronic Kidney Disease: Less than 60 mL/min/1.73 square meters End Stage Renal Disease: Less than 15 mL/min/1.73 square meters Performed By: #### C BCELSY, ANEU #### [address] [address] #### CMP, GFR, CEA #### [address] [address] .NEUABSon 09-18-2018 Neutrophils (Bld) [#/Vol] 5.20 10 3/mcL Normal 2.85-6.16 [facility] ([place]) Comment on above: Performed By: #### C BCSUZYIFF, ANEU #### [address] [address] #### CMP, GFR, CEA #### [address] [address] CBCon 09-18-2018 Erythrocyte distribution width (RBC) [Ratio] 13.2 % Normal 11.5-14.5 [facility] ([place]) Comment on above: Performed By: #### C BCELSY, ANEU #### [address] [address] #### CMP, GFR, CEA #### [address] [address] Hematocrit (Bld) [Volume fraction] 43.7 % Normal 37.0-47.0 [facility] ([place]) Comment on above: Performed By: #### C BC, ADIFF, ANEU #### [place] [address] #### CMP, GFR, CEA #### [place] [address] Hemoglobin (Bld) [Mass/Vol] 14.5 G/dL Normal 12.0-16.0 [facility] ([place]) Comment on above: Performed By: #### C BC, ADIFF, ANEU #### [place] [address] #### CMP, GFR, CEA #### [place] [address] MCH (RBC) [Entitic mass] 29.4 pg Normal 27.0-31.2 [facility] ([place]) Comment on above: Performed By: #### C BC, ADIFF, ANEU #### [place] [address] #### CMP, GFR, CEA #### [place] [address] MCHC (RBC) [Mass/Vol] 33.2 G/dL Normal 33.0-37.0 [facility] ([place]) Comment on above: Performed By: #### C BC, ADIFF, ANEU #### [place] [address] #### CMP, GFR, CEA #### [place] [id number] MCV (RBC) [Entitic vol] 88.8 fL Normal 80.0-94.0 [facility] ([place]) Comment on above: Performed By: #### C BC, ADIFF, ANEU #### [place] [address] #### CMP, GFR, CEA #### [address] [address] Platelet mean volume (Bld) [Entitic vol] 8.6 fL Normal 7.4-10.4 [facility] ([place]) Comment on above: Performed By: #### C BC, ADIFF, ANEU #### [place] [address] #### CMP, GFR, CEA #### [address] [address] Platelets (Bld) [#/Vol] 307 10 3/mcL Normal 130-400 [facility] ([place]) Comment on above: Performed By: #### C BC, ADIFF, ANEU #### [place] [address] #### CMP, GFR, CEA #### [place] [address] RBC (Bld) [#/Vol] 4.92 10 6/mcL Normal 4.20-5.40 [facility] ([place]) Comment on above: Performed By: #### C BC, ADIFF, ANEU #### [place] [address] #### CMP, GFR, CEA #### [address] [address] WBC (Bld) [#/Vol] 8.90 10 3/mcL Normal 4.60-10.80 [facility] ([place]) Comment on above: Performed By: #### C BC, ADIFF, ANEU #### [place] [address] #### CMP, GFR, CEA #### [address] [address] CMPon 09-18-2018 Albumin [Mass/Vol] 4.0 G/dL Normal 3.4-4.8 [facility] ([place]) Comment on above: Performed By: #### C BC, ADIFF, ANEU #### [place] [address] #### CMP, GFR, CEA #### [address] [address] Albumin/Globulin [Mass ratio] 1.1 {ratio} Normal 1.1-2.5 [facility] ([place]) Comment on above: Performed By: #### C BC, ADIFF, ANEU #### [address] [address] #### CMP, GFR, CEA #### [address] [address] ALP [Catalytic activity/Vol] 49 U/L Normal 40-135 [facility] ([place]) Comment on above: Performed By: #### C BC, ADIFF, ANEU #### [address] [address] #### CMP, GFR, CEA #### [address] [address] ALT [Catalytic activity/Vol] 41 U/L High 10-35 [facility] ([place]) Comment on above: Performed By: #### C BC, ADIFF, ANEU #### [address] [address] #### CMP, GFR, CEA #### [address] [address] AST [Catalytic activity/Vol] 51 U/L High 10-40 [facility] ([place]) Comment on above: Performed By: #### C BC, ADIFF, ANEU #### [address] [address] #### CMP, GFR, CEA #### [address] [address] Bili Total 0.4 mg/dL Normal 0.2-1.0 [facility] ([place]) Comment on above: Performed By: #### C BC, ADIFF, ANEU #### [address] [address] #### CMP, GFR, CEA #### [address] [address] Calcium [Mass/Vol] 10.2 mg/dL Normal 8.4-10.2 [facility] ([place]) Comment on above: Performed By: #### C BC, ADIFF, ANEU #### [address] [address] #### CMP, GFR, CEA #### [address] [address] Chloride [Moles/Vol] 97 mmol/L Low 98-107 [facility] ([place]) Comment on above: Performed By: #### C BC, ADIFF, ANEU #### [address] [address] #### CMP, GFR, CEA #### [address] [address] CO2 [Moles/Vol] 28 mmol/L Normal 23-31 [facility] ([place]) Comment on above: Performed By: #### C BC, ADIFF, ANEU #### [address] [address] #### CMP, GFR, CEA #### [address] [address] Creatinine [Mass/Vol] 0.87 mg/dL Normal 0.55-1.02 [facility] ([place]) Comment on above: Performed By: #### C BC, ADIFF, ANEU #### [address] [address] #### CMP, GFR, CEA #### [address] [address] Electrolyte Balance 9.0 mEq/L Normal [facility] ([place]) Comment on above: Performed By: #### C BC, ADIFF, ANEU #### [address] [address] #### CMP, GFR, CEA #### [address] [address] Globulin (S) [Mass/Vol] 3.7 G/dL Normal [facility] ([place]) Comment on above: Performed By: #### C BC, ADIFF, ANEU #### [address] [address] #### CMP, GFR, CEA #### [address] [address] Glucose [Mass/Vol] 203 mg/dL High 83-110 [facility] ([place]) Comment on above: Performed By: #### C BC, ADIFF, ANEU #### [address] [address] #### CMP, GFR, CEA #### [address] [address] Potassium [Moles/Vol] 4.1 mmol/L Normal 3.5-5.1 [facility] ([place]) Comment on above: Performed By: #### C BC, ADIFF, ANEU #### [address] [address] #### CMP, GFR, CEA #### [address] [address] Protein [Mass/Vol] 7.7 G/dL Normal 6.4-8.2 [facility] ([place]) Comment on above: Performed By: #### C BC, ADIFF, ANEU #### [address] [address] #### CMP, GFR, CEA #### [address] [address] Sodium [Moles/Vol] 134 mmol/L Low 136-145 [facility] ([place]) Comment on above: Performed By: #### C BC, ADIFF, ANEU #### [address] [address] #### CMP, GFR, CEA #### [address] [address] Urea nitrogen [Mass/Vol] 15 mg/dL Normal 7-18 [facility] ([place]) Comment on above: Performed By: #### C BC, ADIFF, ANEU #### [address] [address] #### CMP, GFR, CEA #### [address] [address] Urea nitrogen/Creatinine [Mass ratio] 17 ratio Normal 7-27 [facility] ([place]) Comment on above: Performed By: #### C BC, ADIFF, ANEU #### [place] [address] [place], [place] [address] #### CMP, GFR, CEA #### [address] [address] Final [facility] 09-05-2018 Final Surgical Pathology Report . Pathology Reports Accession: Collected Date/Time: Received Date/Time: Pathologist: [id number] 09/03/2018 09:16 EDT 09/04/2018 08:29 EDT MD BERNIE FRANCISCO Final Surgical Pathology Report DIAGNOSIS: A) RIGHT COLON, BIOPSY: TUBULAR ADENOMA. B) RECTUM, BIOPSY: FRAGMENTS OF MODERATELY DIFFERENTIATED ADENOCARCINOMA, COLONIC TYPE. INVASION INTO AT LEAST THE SUBMUCOSA IS IDENTIFIED. ADENOCARCINOMA IS IDENTIFIED AT THE INKED AND CAUTERIZED EDGE OF MULTIPLE FRAGMENTS ALTHOUGH THE TRUE MARGINS CANNOT BE CONFIDENTLY IDENTIFIED. [place] CLASSIFICATION pT=at least 1 pN=X COMMENT: [facility]# [id number] CLINICAL INFORMATION: Procedure: COLONOSCOPY WITH POLYP BIOPSY, POLYPECTOMY, INJECTION OF EPI, ARGON PLASMA COAGULATION Preoperative diagnosis: SCREENING, FAMILY HISTORY COLON CANCER Postoperative diagnosis: SAME SPECIMEN: A RIGHT COLON POLYPS - BIOPSY B RECTAL MASS / POLYP GROSS DESCRIPTION: A) Received in formalin and consists of a pale-cortes fragment of mucosa measuring 0.3 cm. Totally embedded in a single cassette. B) Received in formalin and consists of multiple irregular polypoid fragments of cortes mucosa ranging in size from 1 to 1.9 cm in greatest dimension. Totally embedded in two cassettes. Dictated by BERNIE FRANCISCO MD MICROSCOPIC DESCRIPTION: A&B) Slides reviewed. Electronically Signed by Pathology Report verified by [facility] Electronically signed by BERNIE FRANCISCO MD Sign out Date: 09/05/2018 12:01 Performing Lab: [facility], [address] [place] [address] [facility] ([place]) Comment on above: Performed By: #### S PFR #### [address] [address] Office Visiton 10-04-2016 Documentation of current medications (procedure) Done Invalid Interpretation Code [facility] Work Phone: Fall risk assessment No [facility] Work Phone: [phone] Protein mass conc Done [facility] Work Phone: [phone] 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: Prelo chairman & ceo 09-28-2016 Left ventricular Ejection fraction 50 % [facility] Work Phone: Chart Maintenanceon 07-29-19 17 HbA1c 7.6 % [place] [facility] Work Phone: Office Visit: [facility] 03-29-19 17 Dietary management education, guidance, and counseling (procedure) yes Invalid Interpretation Code [employer] [facility] Work Phone: Documentation of current medications (procedure) Done Invalid Interpretation Code [employer] [facility] Work Phone: 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: Pre chairman & ceo 03-23-2016 Left ventricular Ejection fraction 50 % Invalid Interpretation Code [employer] Work Phone: Office Visiton 10-01-2015 Tobacco smoking status NHIS Never smoker [facility] Work Phone: Tobacco use [facility] Never smoker Invalid Interpretation Code [employer] [facility] Work Phone: 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: Pre chairman & ceo 07-10-2015 Thyroid stimulating hormone (TSH) 2.23 u[iU]/mL [place] [facility] Work Phone: Thyroxine (T4) free 0.98 ng/dL [facility] Work Phone: 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: Pre chairman & ceo 07-09-2015 Alanine aminotransferase (ALT) 83 U/L High [facility] Work Phone: Albumin 4.2 g/dL [place] [facility] Work Phone: [phone] Albumin/Globulin Ratio 1.0. Bl [facility] Work Phone: Alkaline phosphatase (ALP) 51 U/L Invalid Interpretation Code [place] [facility] Work Phone: ALP enzyme act/vol (Bld) 51 U/L [facility] Work Phone: [phone] Anion gap 7 mmol/L Invalid Interpretation Code [place] [facility] Work Phone: [phone] Anion gap molar conc 7 mmol/L [facility] Work Phone: [phone] Aspartate aminotransferase (AST) 68 U/L High [facility] Work Phone: [phone] Bilirubin (total) 0.70 mg/dL [facility] Work Phone: [phone] BUN/Creatinine Ratio 20.9 mg/mg High [facility] Work Phone: [phone] Calcium 9.3 mg/dL [facility] Work Phone: [phone] Chloride 102 mmol/L [facility] Work Phone: [phone] Cholesterol 219 mg/dL High [facility] Work Phone: [phone] CO2 27.0 mmol/L Invalid Interpretation Code [facility] Work Phone: [phone] CO2 ppres (BldV) 27.0 mmol/L [facility] Work Phone: [phone] Creatinine 0.76 mg/dL [facility] Work Phone: [phone] eGFR (non-black) 97 mL/min/{1.73_m2} Invalid Interpretation Code [facility] Work Phone: [phone] eGFR (non-black) 80 mL/min/{1.73_m2} [facility] Work Phone: [phone] Erythrocyte distribution width Ratio (RBC) 13.2 % [facility] Work Phone: [phone] Erythrocytes (RBC) 5.01 10*6/uL Invalid Interpretation Code [facility] Work Phone: [phone] Globulin 4.3 g/dL High [facility] Work Phone: [phone] Globulin mass conc (S) 4.3 g/dL High [facility] Work Phone: [phone] Glomerular Filtration Rate 97 mL/min/1.73m2 [facility] Work Phone: [phone] Glucose 134 mg/dL High [facility] Work Phone: [phone] Glucose mass conc 134 mg/dL High [facility] Work Phone: [phone] HDL Cholesterol 58 mg/dL [facility] Work Phone: [phone] Hematocrit (HCT) 45.2 % Invalid Interpretation Code [facility] Work Phone: [phone] Hematocrit Volume Fraction (Bld) 45.2 % [facility] Work Phone: [phone] Hemoglobin (HGB) 15.2 g/dL High [facility] Work Phone: [phone] LDL Cholesterol 123 mg/dL [facility] Work Phone: [phone] MCH 30.3 pg Invalid Interpretation Code [facility] Work Phone: [phone] Entitic mass (RBC) 30.3 pg [facility] Work Phone: [phone] MCHC 33.6 g/dL Invalid Interpretation Code [place] [facility] Work Phone: [phone] MCHC mass conc (RBC) 33.6 g/dL [facility] Work Phone: [phone] MCV 90.2 fL Invalid Interpretation Code [place] [facility] Work Phone: [phone] MCV Entitic volume (RBC) 90.2 fL [facility] Work Phone: [phone] Platelet mean volume Entitic volume (Bld) 10.5 fL [facility] Work Phone: [phone] Platelets 248 10*3/mm3 Invalid Interpretation Code [place] [facility] Work Phone: [phone] Platelets #/vol (Bld) 248 10*3/mm3 [facility] Work Phone: [phone] PMV by Peggy 10.5 fL Invalid Interpretation Code [place] [facility] Work Phone: [phone] Potassium 3.7 mmol/L [facility] Work Phone: [phone] Protein 8.5 g/dL High [facility] Work Phone: [phone] RBC #/vol (Bld) 5.01 10*6/uL [employer] Work Phone: [phone] RDW-CA 13.2 % Invalid Interpretation Code [place] [facility] Work Phone: [phone] Sodium 136 mmol/L [place] [facility] Work Phone: [phone] Triglyceride 192 mg/dL [place] [facility] Work Phone: [phone] Urea nitrogen 16 mg/dL [place] [facility] Work Phone: [phone] very low density lipoproteins 38 mg/dL [facility] Work Phone: [phone] WBC #/vol (Bld) 8.4 10*3/uL [employer] Work Phone: [phone] WBC (Leukocytes) 8.4 10*3/uL Invalid Interpretation Code [place] [facility] Work Phone: [phone] Lab Report: Basic Metabolic Profile (BMP)on 07-23-2014 eGFR (non-black) 76 mL/min/{1.73_m2} >60 [place] [facility] Work Phone: [phone] eGFR (non-black) 92 mL/min/{1.73_m2} Invalid Interpretation Code >60 [place] [facility] Work Phone: [phone] GFR - AA 92 mL/min >60 [employer] Work Phone: [phone] Lab Report: Liver Profileon 07-23-2014 Bilirubin (direct) 0.10 mg/dL 0.00-0.30 [facility] Work Phone: [phone] Globulin 3.8 g/dL Invalid Interpretation Code 2.7-4.2 [place] [facility] Work Phone: [phone] Globulin mass conc (S) 3.8 g/dL 2.7-4.2 [facility] Work Phone: [phone] External Other: Preferred Me thod of Contacton 04-15-2014 methcontact phone [employer] Work Phone: [phone] Patient's prefered method of contact phone Invalid Interpretation Code [place] [facility] Work Phone: Office Visit: [facility] 04-04-19 15 cardiac risk group [facility] [employer] Work Phone: General cardiovascular disease 10Y risk [#] [place] N/A [facility] [employer] Work Phone: Tobacco smoking status NHIS Never [employer] Work Phone: Lab Report: LIVERon 01-05-20 14 ALK 53 U/L Normal 50-136 [employer] Work Phone: [phone] GE use only - for [employer] import when terms are not otherwise specified 53 U/L Normal 50-136 [employer] Work Phone: Replaced Document: Yancy Vigilon 04-09-2013 EKG QRS axis 28 deg [facility] [employer] [facility] Work Phone: [phone] electrocardiogram interpretation Sinus Bradycardia WITHIN NORMAL LIMITS Invalid Interpretation Code [employer] Work Phone: Interpretation Sinus Bradycardia WI THIN NORMAL LIMITS [employer] Work Phone: [phone] P [place] 20 deg [employer] Work Phone: [phone] P wave axis, electrocardiogram 20 deg Invalid Interpretation Code [employer] Work Phone: NC Interval 148 ms [employer] Work Phone: [phone] NC interval, electrocardiogram 148 ms Invalid Interpretation Code [employer] Work Phone: Pulse (Heart Rate) 401 ms Invalid Interpretation Code [employer] Work Phone: Pulse (Heart Rate) 59 /min Invalid Interpretation Code [employer] Work Phone: [phone] QRS axis, electrocardiogram 28 deg Invalid Interpretation Code [employer] Work Phone: [phone] QRS Duration 104 ms [employer] Work Phone: [phone] QRS duration, electrocardiogram 104 ms Invalid Interpretation Code [employer] Work Phone: [phone] QT Interval new path ms [facility] [employer] [facility] Work Phone: [phone] QT interval, electrocardiogram new path ms Invalid Interpretation Code [place] [facility] Work Phone: T [place] 38 deg [facility] Work Phone: [phone] T wave axis, electrocardiogram 38 deg Invalid Interpretation Code [employer] [facility] Work Phone: Lab Report: MGon 05-13-2011 Magnesium 2.4 mg/dL High 1.5-2.2 [place] [facility] Work Phone: Lab Report: PTon 05-13-2011 INR Coag RelTime (PPP) 1.0 {INR} Normal [facility] Work Phone: [phone] INR in blood by coagulation 1.0 {INR} Normal [place] [facility] Work Phone: [phone] prothrombin time, actual/normal, ratio 12.8 SECONDS Normal 11.9-14.4 [place] [facility] Work Phone: PTP 12.8 SECONDS Normal 11.9-14.4 [facility] Work Phone: [phone] Lab Report: PTTon 05-13-2011 aPTT 26.9 s Normal 24.1-36.2 [facility] [employer] [facility] Work Phone: Lab Report: TROPon 2 Troponin I ng/mL Normal <0.06 [facility] Work Phone: Office Visiton 2011 Alcoholism counseling (procedure) no Invalid Interpretation Code [employer] [facility] Work Phone: [phone] Protein mass conc no [facility] Work Phone: [phone] 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: Prelo chairman & ceo 02-14-2011 [facility] 34 % Invalid Interpretation Code [employer] [facility] Work Phone: [phone] MCHC mass conc (RBC) 34 % [facility] Work Phone: [phone] Vital Signs Date Time Vital Sign Value Performing Clinician Facility 11-19-2024 11:03-0400 Body height 165.[address] Modesta Osborne DO Work Phone: [facility] 11-19-2024 11:03-0400 Body mass index (BMI) [Ratio] 29.1 kg/m2 Dr. Modesta Osborne DO Work Phone: [facility] 11-19-2024 11:03-0400 Body weight 79.[address] Modesta Osborne DO Work Phone: [facility] 11-19-2024 11:03-0400 Diastolic blood pressure 77 mm[Hg] Dr. Modesta Osborne DO Work Phone: [facility] 11-19-2024 11:03-0400 Heart rate 65 /min Dr. Modesta Osborne DO Work Phone: [facility] 11-19-2024 11:03-0400 Respiratory rate 16 /min Dr. Modesta Osborne DO Work Phone: [facility] 11-19-2024 11:03-0400 Systolic blood pressure 150 mm[Hg] Dr. Modesta Osborne DO Work Phone: [facility] 05-18-2024 15:56-0400 Body temperature 98.3 [degF] Dr. Modesta Osborne DO Work Phone: [facility] 05-18-2024 15:56-0400 Diastolic blood pressure 78 mm[Hg] Dr. Modesta Osborne DO Work Phone: [facility] 05-18-2024 15:56-0400 Heart rate 89 /min Dr. Modesta Osborne DO Work Phone: [facility] 05-18-2024 15:56-0400 Respiratory rate 18 /min Dr. Modesta Osborne DO Work Phone: [facility] 05-18-2024 15:56-0400 SaO2% (BldA) [Mass fraction] 98 % Dr. Modesta Osborne DO Work Phone: [facility] 05-18-2024 15:56-0400 Systolic blood pressure 130 mm[Hg] Dr. Modesta Osborne DO Work Phone: [facility] 05-18-2024 11:14-0400 Body height 165.[address] Modesta Osborne DO Work Phone: [facility] 05-18-2024 11:14-0400 Body mass index (BMI) [Ratio] 28.8 kg/m2 Dr. Modesta Osborne DO Work Phone: [facility] 05-18-2024 11:14-0400 Body weight 78.[address] Modesta Osborne DO Work Phone: [facility] 10-14-2021 10:19-0400 Body height 165.[address] Modesta Osborne Work Phone: [facility] Work Phone: 10-14-2021 10:19-0400 Diastolic blood pressure 60 mm[Hg] Dr. Modesta Osborne Work Phone: [facility] Work Phone: 10-14-2021 10:19-0400 Systolic blood pressure 124 mm[Hg] Dr. Modesta Osborne Work Phone: [facility] Work Phone: 10-14-2021 10:19-0400 Body mass index (BMI) [Ratio] 28.9 kg/m2 Dr. Modesta Osborne Work Phone: [facility] Work Phone: 10-14-2021 10:19-0400 Body weight 78.[address] Modesta Osborne Work Phone: [facility] Work Phone: 10-14-2021 10:19-0400 Heart rate 69 /min Dr. Modesta Osborne Work Phone: [facility] Work Phone: 10-14-2021 10:19-0400 Respiratory rate 18 /min Dr. Modesta Osborne Work Phone: [facility] Work Phone: 10-14-2021 10:19-0400 SaO2% (BldA) [Mass fraction] 96 % Dr. Modesta Osborne Work Phone: [facility] Work Phone: 10-04-2016 11:07-0400 BMI (Body Mass Index) 28.71 kg/m2 [facility] Work Phone: 10-04-2016 11:07-0400 BP Diastolic 60 mm[Hg] [facility] Work Phone: 10-04-2016 11:07-0400 BP Systolic 120 mm[Hg] [facility] Work Phone: 10-04-2016 11:07-0400 Height 170.18 cm [facility] Work Phone: 10-04-2016 11:07-0400 Pulse (Heart Rate) 68 /min [facility] Work Phone: 10-04-2016 11:07-0400 Respiratory Rate 20 /min [facility] Work Phone: 10-04-2016 11:07-0400 Weight 83.14 kg [facility] Work Phone: 03-29-2016 13:04-0500 BMI (Body Mass Index) 29.1 kg/m2 [facility] [employer] [facility] Work Phone: 03-29-2016 13:04-0500 BP Diastolic 62 mm[Hg] [facility] [employer] [facility] Work Phone: 03-29-2016 13:04-0500 BP Systolic 140 mm[Hg] [facility] [employer] [facility] Work Phone: 03-29-2016 13:04-0500 BSA (Body Surface Area) 1.96 m2 [facility] [employer] [facility] Work Phone: 03-29-2016 13:04-0500 Pulse (Heart Rate) 64 /min [facility] [address] [employer] [facility] Work Phone: 03-29-2016 13:04-0500 Respiratory Rate 20 /min Mag[facility] Do[facility] [address] [employer] [facility] Work Phone: 03-29-2016 13:04-0500 Weight 84.28 kg Magalys Do[facility] [place] [employer] [facility] Work Phone: 10-01-2015 11:42-0400 Height 170.18 cm Magalys Do[facility] [place] [employer] [facility] Work Phone: 04-09-2013 10:35-0500 Heart rate 59 /min [facility] Work Phone: 04-09-2013 10:35-0500 Heart rate 401 ms [facility] Work Phone: Encounters Encounter Date Encounter Type Care Provider Facility Start: 12-17-2024 ambulatory Pk Casey Facility:[facility] Start: 11-19-2024 End: 11-19-[address] Pk Casey MD -[facility] Work Phone: Start: 11-19-2024 End: 11-19-[address] Modesta [facility]borne [facility] Start: 11-12-2024 ambulatory Modesta Osborne Facility: [facility] Start: 06-05-2024 End: 06-05-2024 ambulatory [facility] Facility:[facility] Start: 05-23-2024 Non-patient / Non-visit Barbie Mcmillan -[facility] Work Phone: Start: 05-23-2024 ambulatory Modesta Osborne Facility: [facility] Start: 05-21-2024 End: 05-21-[address] Modesta Osborne DO Work Phone: [facility] Work Phone: Start: 05-21-2024 End: 05-21-[address] [facility] Start: 05-21-2024 End: 05-21-2024 ambulatory Modesta Osborne Facility:[facility] Start: 05-18-2024 End: 05-22-2024 ambulatory Stacey Helton RN [facility] Start: 05-18-2024 End: 05-22-2024 Patient encounter procedure Stacey Helton RN [facility] Start: 05-18-2024 End: 05-18-2024 Emergency department patient visit Dr. Modesta Osborne DO Work Phone: -Emergency Department Work Phone: Start: 01-15-[address] YONG MORRELL MD Facility:[facility] Start: 12-11-2023 End: 12-11-2023 ambulatory [facility] Facility:[facility] Start: 06-13-2023 End: 06-13-2023 ambulatory [facility] Work Phone: Start: 06-13-2023 End: 06-13-2023 Patient encounter procedure [facility] Work Phone: Start: 12-01-2021 Non-patient / Non-visit Dr. Hugo Osborne Work Phone: [facility] Start: 12-01-2021 End: 12-01-[address] Modesta Osborne Work Phone: [facility] Work Phone: Start: 12-01-2021 End: 12-01-[address] Modesta Osborne Work Phone: [facility]-Cardiovascular Services Start: 11-17-2021 Non-patient / Non-visit Dr. Hugo Osborne Work Phone: [facility] Start: 11-17-2021 End: 11-17-[address] Modesta Osborne Work Phone: [facility] Work Phone: Start: 11-17-2021 End: 11-17-[address] Modesta Osborne Work Phone: [facility]-Cardi[facility] Services Start: 10-26-2021 End: 10-26-[address] Modesta Osborne Work Phone: [facility] Work Phone: Start: 10-26-2021 End: 10-26-[address] Modesta Osborne Work Phone: [facility]-Outpatient Bone Densitometry Start: 10-14-2021 End: 10-14-[address] Modesta Osborne Work Phone: [facility] Start: 07-05-2021 End: 07-05-2021 Subsequent hospital visit by physician Darrel Zepeda MD Work Phone: [facility] Comment on above: C20, Start: 06-16-2021 End: 06-16-2021 Subsequent hospital visit by physician Darrel Zepeda MD Work Phone: [facility] Comment on above: CONTINUATION OF CARE C20 Procedures Date Procedure Procedure Detail Performing Clinician Start: 05-21-[address] Modesta Hicks DO Work Phone: Comment on above: Nonsmokers <3.9 Smokers <5.6[employer] Electrochemiluminescence Immunoassay(ECLIA)Values obtained with different assay methods or kitscannot be used interchangeably. Results cannot beinterpreted as absolute evidence of the presence orabsence of malignant disease.Performed at: [address] [id number] Director: Yong Fischer PhD, Phone: [phone] Start: 05-18-2024 Computed tomography of abdomen and pelvis with intravenous contrast Dr. Modesta Osborne DO Work Phone: Start: 11-17-2021 Radionuclide imaging of perfusion of myocardium under exercise stress Dr. Modesta Osborne Work Phone: Start: 10-26-2021 Dual energy X-ray absorptiometry Dr. Cathleen Osborne Work Phone: Start: 10-26-[address] Modesta Osborne Work Phone: Start: 01-02-2020 History of placement of stent for coronary artery disease History of coronary artery stent placement Dr. Pk Casey MD Comment on above: FVL-KAP-Sas-Distal RCA 12/04/2009; PCI-DE S-Prox-Mid LCx 12/15/2009; IAB-JKD-YKF-Mid LCx w/ 3.0 x 16 mm Promus Element Stent 02/12/11; PCI-LEVI to ostial RCA w/ 3.0 x 12 mm Synergy Stent and Mid RCA w/ 3.0 x 8 mm Synergy Stent 01/02/2020 Start: 10-04-2016 End: 10-04-2016 Follow Up Appt 6 months Temi Torres Start: 10-04-2016 End: 10-04-2016 MAC Casey MD Start: 03-29-2016 End: 03-29-2016 Dietary management education, guidance, and counseling Valeria Rocha Start: 03-29-2016 End: 03-29-2016 DAIJA Limon PA-C Work Phone: Start: 03-29-2016 End: 03-29-2016 Follow Up Appt 6 months Ina Limon PA-C Work Phone: Start: 10-01-2015 End: 10-01-2015 Follow Up Appt 6 months Temi Torres Start: 10-01-2015 End: 10-01-2015 MAC Casey MD Start: 03-31-2015 End: 03-31-2015 DAIJA Limon PA-C Work Phone: Start: 03-31-2015 End: 03-31-2015 Follow Up Appt 6 months Ina Limon PA-C Work Phone: Start: 01-23-2015 End: 03-21-2016 *Hepatic Function Panel Ina Limon PA-C Work Phone: Start: 01-23-2015 End: 03-21-2016 Lipid panel [AGGREGATE] Ina Limon PA-C Work Phone: Start: 10-02-2014 End: 10-03-2014 Documentation of current medications Pk Casey MD Start: 10-02-2014 End: 10-02-2014 Follow Up Appt 6 months Temi Torres Start: 10-02-2014 End: 10-02-2014 MMM Pk Casey MD Start: 10-02-2014 End: 10-03-2014 Pedal pulse taking Pk Casey MD Start: 07-23-2014 End: 07-23-2014 *Hepatic Function Panel Ina Limon PA-C Work Phone: Start: 07-23-2014 End: 07-23-2014 Lipid panel [AGGREGATE] Ina Limon PA-C Work Phone: Start: 04-04-2014 End: 04-04-2014 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 Ina Limon PA-C Work Phone: Start: 04-04-2014 End: 04-05-2014 Documentation of current medications Ina Limon PA-C Work Phone: Start: 04-04-2014 End: 04-04-2014 Follow Up Appt 6 months Ina Limon PA-C Work Phone: Start: 12-28-2013 End: 01-07-2014 *Hepatic Function Panel Temi Torres Start: 12-28-2013 End: 01-07-2014 Lipid panel [AGGREGATE] Temi Torres Start: 09-12-2013 End: 09-12-2013 Follow Up Appt 6 months Temi Torres Start: 09-12-2013 End: 09-12-2013 MMTemi Casey MD Start: 06-27-2013 End: 07-26-2013 *Hepatic Function Panel Temi Torres Start: 06-27-2013 End: 07-26-2013 Lipid panel [AGGREGATE] Temi Torres Start: 04-09-2013 End: 04-09-2013 Follow Up Appt 6 weeks Ina Limon PA-C Work Phone: Start: 04-09-2013 End: 04-09-2013 Lipid panel [AGGREGATE] Ina Limon PA-C Work Phone: Start: 04-09-2013 End: 04-09-2013 MM Ina Limon PA-C Work Phone: Start: 11-27-2012 End: 04-19-2013 *Hepatic Function Panel Temi Torres Start: 11-27-2012 End: 04-19-2013 Lipid panel [AGGREGATE] Temi Torres Start: 10-24-2012 End: 03-29-2013 *Hepatic Function Panel Hermes Brenner MD Start: 10-24-2012 End: 03-29-2013 Lipid panel [AGGREGATE] Hermes Brenner MD Start: 10-05-2012 End: 10-05-2012 Follow Up Appt 6 months Temi Torres Start: 10-05-2012 End: 10-05-2012 MMM Pk Casey MD Start: 05-28-2012 End: 06-19-2012 *Hepatic Function Panel Hermes Brenner MD Start: 05-28-2012 End: 06-19-2012 Lipid panel [AGGREGATE] Hermes Brenner MD Start: 04-05-2012 End: 04-05-2012 Follow Up Appt 6 months Hermes Brenner MD Start: 11-30-2011 End: 12-09-2011 *Hepatic Function Panel Hermes Brenner MD Start: 11-30-2011 End: 12-09-2011 Lipid panel [AGGREGATE] Hermes Brenner MD Start: 09-26-2011 End: 09-26-2011 Follow Up Appt 6 months Hermes Brenner MD Start: 06-13-2011 End: 06-13-2011 Follow Up Appt 3 months Magalys Doherty Start: 05-13-2011 End: 05-13-2011 *Hepatic Function Panel Hermes Brenner MD Start: 05-13-2011 End: 05-13-2011 Lipid panel [AGGREGATE] Hermes Brenner MD Start: 05-09-2011 End: 05-09-2011 Follow Up Appt 6 weeks Hermes Brenner MD Start: 05-09-2011 End: 05-13-2011 Nuclear stress test -adenosine El Brenner MD Start: 2011 End: 04-11-2011 *Hepatic Function Panel Hermes Brenner MD Start: 2011 End: 06-17-2011 Cardiac Rehab Hermes Brenner MD Start: 2011 End: 04-11-2011 Cardiovascular stress test using treadmill Hermes Brenner MD Start: 2011 End: 04-11-2011 Echocardiography Hermes Brenner MD Start: 2011 End: 2011 Follow Up Appt 6 weeks Hermes Brenner MD Start: 2011 End: 04-11-2011 Lipid panel [AGGREGATE] Hermes Brenner MD Start: 10-01-2010 Placement of stent in coronary artery Mutilple coronary stents Valeria Rocha Plan of Treatment Date Care Activity Detail Author Start: 11-19-2024 Radionuclide imaging of perfusion of myocardium under exercise stress [facility] Start: 05-18-2024 Referral to oncologist [facility] Start: 04-07-2017 End: 04-07-2017 Appointment [facility] Work Phone: Start: 10-04-2016 End: 10-04-2016 Appointment Appointment [employer] Work Phone: Start: 10-04-2016 End: 10-04-2016 Follow Up Appt 6 months Follow Up Appt 6 months [facility] Work Phone: Start: 10-04-2016 End: 10-04-2016 MMM [employer] [facility] Work Phone: Start: 03-29-2016 End: 03-29-2016 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 Work Phone: Start: 03-29-2016 End: 03-29-2016 Follow Up Appt 6 months Follow Up Appt 6 months [employer] Work Phone: Start: 10-01-2015 End: 10-01-2015 Follow Up Appt 6 months Follow Up Appt 6 months [employer] Work Phone: Start: 10-01-2015 End: 10-01-2015 MMM [employer] Work Phone: Start: 03-31-2015 End: 03-31-2015 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 [facility] [employer] Work Phone: Start: 03-31-2015 End: 03-31-2015 Follow Up Appt 6 months Follow Up Appt 6 months [employer] Work Phone: Start: 01-23-2015 End: 03-21-2016 *Hepatic Function Panel *Hepatic Function Panel [employer] [facility] Work Phone: Start: 01-23-2015 End: 03-21-2016 Lipid panel [AGGREGATE] *Lipid Profile CC PCP [facility] [employer] Work Phone: Start: 10-02-2014 End: 10-02-2014 Follow Up Appt 6 months Follow Up Appt 6 months [employer] Work Phone: Start: 10-02-2014 End: 10-02-2014 MMM [facility] [employer] Work Phone: Start: 07-26-2014 End: 07-23-2014 *Hepatic Function Panel *Hepatic Function Panel [employer] Work Phone: Start: 07-26-2014 End: 07-23-2014 Lipid panel [AGGREGATE] *Lipid Profile CC PCP [facility] [employer] Work Phone: Start: 04-04-2014 End: 04-04-2014 [facility] [employer] Work Phone: Start: 04-04-2014 End: 04-04-2014 Follow Up Appt 6 months Follow Up Appt 6 months [employer] Work Phone: Start: 12-28-2013 End: 01-07-2014 *Hepatic Function Panel *Hepatic Function Panel [employer] Work Phone: Start: 12-28-2013 End: 01-07-2014 Lipid panel [AGGREGATE] *Lipid Profile CC PCP [facility] [employer] Work Phone: Start: 09-12-2013 End: 09-12-2013 Follow Up Appt 6 months Follow Up Appt 6 months [employer] [facility] Work Phone: Start: 09-12-2013 End: 09-12-2013 [facility] [employer] Work Phone: Start: 06-27-2013 End: 07-26-2013 *Hepatic Function Panel *Hepatic Function Panel [place] [employer] [facility] Work Phone: Start: 06-27-2013 End: 07-26-2013 Lipid panel [AGGREGATE] *Lipid Profile CC PCP [facility] [employer] Work Phone: Start: 04-09-2013 End: 04-09-2013 Electrocardiogram, complete EKG (In office) [employer] [facility] Work Phone: Start: 04-09-2013 End: 04-09-2013 Follow Up Appt 6 weeks Follow Up Appt 6 weeks [facility] [employer] [facility] Work Phone: Start: 04-09-2013 End: 04-09-2013 [facility] [employer] Work Phone: Start: 11-27-2012 End: 04-19-2013 *Hepatic Function Panel *Hepatic Function Panel [employer] [facility] Work Phone: Start: 11-27-2012 End: 04-19-2013 Lipid panel [AGGREGATE] *Lipid Profile [employer] [facility] Work Phone: Start: 10-24-2012 End: 03-29-2013 *Hepatic Function Panel *Hepatic Function Panel [employer] [facility] Work Phone: Start: 10-24-2012 End: 03-29-2013 Lipid panel [AGGREGATE] *Lipid Profile [employer] Work Phone: Start: 10-05-2012 End: 10-05-2012 Follow Up Appt 6 months Follow Up Appt 6 months [employer] Work Phone: Start: 10-05-2012 End: 10-05-2012 [facility] [employer] [facility] Work Phone: Start: 05-28-2012 End: 06-19-2012 *Hepatic Function Panel *Hepatic Function Panel [employer] Work Phone: Start: 05-28-2012 End: 06-19-2012 Lipid panel [AGGREGATE] *Lipid Profile [employer] Work Phone: Start: 04-05-2012 End: 04-05-2012 Follow Up Appt 6 months Follow Up Appt 6 months [employer] Work Phone: Start: 11-30-2011 End: 12-09-2011 *Hepatic Function Panel *Hepatic Function Panel [employer] Work Phone: Start: 11-30-2011 End: 12-09-2011 Lipid panel [AGGREGATE] *Lipid Profile [employer] Work Phone: Start: 09-26-2011 End: 09-26-2011 Follow Up Appt 6 months Follow Up Appt 6 months [employer] [facility] Work Phone: Start: 07-25-2011 End: 05-13-2011 *Hepatic Function Panel *Hepatic Function Panel [employer] Work Phone: Start: 07-25-2011 End: 05-13-2011 Lipid panel [AGGREGATE] *Lipid Profile [employer] Work Phone: Start: 06-13-2011 End: 06-13-2011 Follow Up Appt 3 months Follow Up Appt 3 months [employer] [facility] Work Phone: Start: 05-09-2011 End: 05-09-2011 Follow Up Appt 6 weeks Follow Up Appt 6 weeks [facility] [address] [employer] [facility] Work Phone: Start: 05-09-2011 End: 05-09-2011 Nuclear stress test -adenosine Nuclear stress test -adenosine [employer] [facility] Work Phone: Start: 2011 End: 04-11-2011 *Hepatic Function Panel *Hepatic Function Panel [employer] Work Phone: Start: 2011 End: 2011 Card[facility]hab [facility] Work Phone: Start: 2011 End: 2011 Cardiovascular stress test using treadmill Treadmill stress test (no imaging) [facility] Work Phone: Start: 2011 End: 2011 Echocardiography Echocardiogram (complete) [facility] Work Phone: Start: 2011 End: 2011 Follow Up Appt 6 weeks [facility] Work Phone: Start: 2011 End: 04-11-2011 Lipid panel [AGGREGATE] *Lipid Profile [facility] Work Phone: Lipid 1996 panel - S kamryn or Plasma [facility] Work Phone: Patient Education [facility] Work Phone: Patient referral [facility] Work Phone: Radionuclide imaging of perfusion of myocardium under exercise stress [facility] Work Phone: US Carotid arteries [facility] Work Phone: US Heart [facility] Payers Date Payer Category Payer Medicare [id number] [id number] 2023 Self-pay [id number] 1950 Unknown [id number] [id number] Unknown [id number] 2.16.8 [id number] Unknown [id number] 2.16.8 [id number] Unknown [id number] 2.16.8 [id number] Unknown [id number] 2.16.8 [id number] Unknown [id number] 2.16.8 [id number] Unknown [id number] 2.16.8 [id number] Unknown [id number] 2.16.8 [id number] Unknown [id number] 2.16.8 [id number] Social History Date Type Detail Facility Start: 10-14-2021 End: 11-15-2022 Tobacco smoking status NHIS Tobacco smoking consumption unknown [facility] Start: 1950 Sex Assigned At Not on file [facility] Start: 01-02-2020 Occasional [facility] Start: 01-02-2020 None [facility] Start: 01-02-2020 Spouse/ Signif icant Other [facility] Start: 1950 Sex Assigned At Female [facility] Start: 09-27-2021 End: 05-27-2024 Sex Female (finding) [facility] Gender identity Not on file [facility] Start: 05-18-2024 Tobacco smoking status NHIS Never smoked tobacco (finding) [facility] Clinical Notes 01-02-2020 to 11-19-2024 Note Date & Type Note Facility 11-19-2024 Progress note [facility] 05-18-2024 Discharge summary [facility] 05-18-2024 Discharge summary Note Date/Time May 18, 2024 3:55pm [facility] Medical Records Department [address] [place] [address] Emergency Department Summary 05/18/24 MR#: [id number] Acct: [id number] Name: CHARLA KOROMA Rep #:[id number] : [id number] 74 From: Karin VASQUEZ PCP: Dr. Modesta Osborne, DO Status:REG ER Location: ED HPI <CHRISTINA Wick - Last Filed: 05/18/24 15:41> History of Present Illness Chief Complaint: Back Narrative Narrative: 74-year-old female with PMH of HTN, HLD, DM2, CAD, hypothyroidism, rectal cancers/p resection about 5 years ago presents with a few days of pain in her bilateral lower abdomen and bilateral low back. She was having small pellet-like BMs and has not had any bowel movement in 4-5 days. She thought the pain may be from constipation so she tried Dulcolax and a suppository with no relief but she states these medications are old and might be . She has occasional nausea but no vomiting. She reports mild abdominal distention. She is passing gas. She reports having her colon cancer resected and a hysterectomyat the same time 5 years ago at [facility] in [place] and at some point had follow-up testing which was normal. She never needed chemo or radiation. [facility] <CHRISTINA Wick - Last Filed: 05/18/24 15:41> [facility] Medical History (Updated 05/18/24 @ 14:06 by CHRISTINA Wick) Rectal cancer Type 2 diabetes mellitus Essential (primary) hypertension History of non-ST elevation myocardial infarction (NSTEMI) (02/12/11) Hypothyroidism, iatrogenic Hyperlipidemia Atherosclerotic heart disease of [place] coronary artery without angina pectoris Home Medications ?Medication ?Instructions ?Recorded ?Last Taken ?Type levothyroxine 75 mcg tablet 75 mcg PO DAILY 05/18/13 0 04/27/14 History aspirin 81 mg tablet,delayed 81 mg PO DAILY 10/22/19 U nknown History release (Adult Low Dose Aspirin) glimepiride 4 mg tablet 4 mg PO DAILY 01/02/20 Unkno wn History meclizine 25 mg tablet 25 mg PO DAILY PRN 01/21/20 Unknown History rosuvastatin 20 mg tablet 20 mg PO QDAY #90 tabs 10/10 Unknown Rx famotidine 20 mg tablet 20 mg PO BID 11/15/22 Unknow n History amlodipine 5 mg tablet See Rx Instructions .Route 0 10/02/23 Unknown Rx .COMPLEX #180 tabs lisinopril 20 mg tablet See Rx Instructions .Route 0 10/02/23 Unknown Rx .COMPLEX #180 tabs metoprolol tartrate 50 mg tablet See Rx Instructions . Route 10/02/23 Unknown Rx .COMPLEX #180 tabs hydrochlorothiazide 25 mg tablet 25 mg PO DAILY #90 TA BLETS 10/04/23 Unknown Rx clopidogrel 75 mg tablet 75 mg PO DAILY #90 TABLETS 0 10/09/23 Unknown Rx metformin 500 mg tablet See Rx Instructions PO QPM 0 10/17/23 Unknown History Allergy/AdvReac Type Severity Reaction Status Date / Time atorvastatin calcium (From Allergy Other Verified 11/15/22 10:39 Lipitor) iodine Allergy Rash Verified 11/15/22 10:39 Family History Father Heart disease Myocardial infarction Mother CAD (coronary artery disease) CVA (cerebral vascular accident) HLD (hyperlipidemia) Hypertension Brother CAD (coronary artery disease) Surgical History History of left heart catheterization (05/13/11) H/O colectomy (09/2018) History of hysterectomy (09/2018) History of coronary artery stent placement (01/02/20) Social History (Updated 05/18/24 @ 11:40 by Mahsa Mays) household members: spouse housing: house Smoking Status: Never smoker alcohol intake: current alcohol intake frequency: a few times a week Alcohol type: beer and wine substance use type: does not use caffeine: Yes Type: coffee what type of physical activity do you participate in: walking and bicycling frequency: 3-4 times per week duration: < 15 minutes/day seatbelt use: always do you feel safe at home: Yes ROS <CHRISTINA Wick - Last Filed: 05/18/24 15:41> ROS ED ROS Narrative Constitutional: Negative for fever, chills, malaise. CVS: Negative for chest pain. Respiratory: Negative for shortness of breath. GI: Positive for abdominal pain, nausea, constipation. Negative for vomiting, diarrhea, melena, hematochezia. : Negative for dysuria, hematuria or frequency. EXAM <CHRISTINA Wick - Last Filed: 05/18/24 15:41> Physical Exam Narrative Exam Narrative: CONST: Patient sitting in no acute distress. EYES: Normal inspection. NECK: Normal inspection. RESP: No respiratory distress, CTAB. CVS: Regular rate and rhythm, no murmur, no gallop. ABD: Soft with mild distention and tenderness bilateral lower quadrants, no guarding or rebound. LIVE: Nonthrombosed nonbleeding external hemorrhoids, rectal vault empty. Back: Normal inspection, no flank or midline spinal tenderness. SKIN: Color normal, no rash, warm, dry, intact. EXTREMITIES: Normal appearance, no pedal edema. NEURO: Alert and answering questions appropriately. PSYCH: Normal affect. Const Vital Signs: 05/18/24 11:14 05/18/24 11:25 05/18/24 13:14 Temperature 98.9 F Temperature Source Oral Pulse Rate 64 78 89 Respiratory Rate 18 16 18 Blood Pressure 143/76 H 140/89 H 130/78 H Blood Pressure Mean 98 106 95 Pulse Ox 98 98 98 Oxygen Delivery Method Room Air <Dr. Kevin Garibay MD - Last Filed: 05/18/24 14:27> Physical Exam Const Vital Signs: 05/18/24 11:14 05/18/24 11:25 05/18/24 13:14 Temperature 98.9 F Temperature Source Oral Pulse Rate 64 78 89 Respiratory Rate 18 16 18 Blood Pressure 143/76 H 140/89 H 130/78 H Blood Pressure Mean 98 106 95 Pulse Ox 98 98 98 Oxygen Delivery Method Room Air MDM <CHRISTINA Wick - Last Filed: 05/18/24 15:41> [facility] Narrative Medical decision making narrative: History gathered from: Patient and spouse 74-year-old female with PMH of rectal cancer s/p resection presents with severaldays of constipation and bilateral lower abdominal pain and bilateral low back pain. She appears well and nontoxic. Vital signs stable. She has mild tenderness to left lower quadrant. Rectum is empty. There is no reproducible back tenderness. Lower extremity MSPs are intact and she has no red flag signs concerning for cauda equina syndrome or epidural abscess. CBC WNL. BMP shows sodium of 128?it looks like her baseline is between 1 30-1 34. BUN 9, creatinine 0.61. Glucose 176. Urinalysis negative. CT scan shows moderate stool throughout the colon but no obstruction. There is a small hyperdensity inthe central small bowel loop and mesenteric lymphadenopathy which is nonspecificbut should be evaluated for underlying neoplastic process with her history. Thepatient was traveling to [place] in the past but did not want to go that far for testing and request someone local. I placed an [facility] fast pass consult and she should be contacted on the next business day. Regarding her constipation, she was ordered a soapsuds enema and was able to hold the fluids in but did not havea bowel movement. She is comfortable going home and taking MiraLAX as instructed and following up with her primary care doctor. She was given return precautions and discharged in stable condition Lab Data Attestation: I reviewed the patient's lab results. Labs: Laboratory Results - last 24 hr 05/18/24 05/18/24 11:38 12:39 WBC 10.5 RBC 4.64 Hgb 14.2 Hct 40.5 MCV 87.3 MCH 30.6 MCHC 35.1 RDW Std Deviation 38.9 RDW Coeff of [place] 12.3 Plt Count 318 MPV 9.5 Immature Gran % (Auto) 0.500 Neut % (Auto) 59.5 Lymph % (Auto) 25.4 [place] % (Auto) 12.0 H Eos % (Auto) 1.2 Baso % (Auto) 1.4 H Absolute Neuts (auto) 6.3 Absolute Lymphs (auto) 2.67 Nucleated RBC % 0 Sodium 128 L Potassium 3.9 Chloride 90 L Carbon Dioxide 21.2 Anion Gap 16 H BUN 9 Creatinine 0.61 L Estim Creat Clear Calc 61.94 Est GFR (MDRD) Non-Af 92 BUN/Creatinine Ratio 15.3 Glucose 176 H Calcium 9.8 Urine Color Yellow Urine Clarity Clear Urine pH 7.0 Ur Specific [place] 1.005 Urine Protein 15 H Urine Glucose (UA) Normal Urine Ketones Negative Urine Occult Blood Negative Urine Nitrite Negative Urine Bilirubin Negative Urine Urobilinogen Normal Ur Leukocyte Esterase 25 H Urine RBC 0-5 SEEN Urine WBC 5-10 SEEN Ur Squamous Epith Cells 0-5 SEEN Urine Bacteria 1+ Urine Mucus 0 SEEN Radiography Diagnostic Testing: Clinical Impression(s) from Imaging Studies Abdomen/Pelvis CT 05/18/24 11:33 IMPRESSION: 1. No acute abdominopelvic finding. 2. Prior LAR, with scattered retroperitoneal and central mesenteric lymphadenopathy. Findings are nonspecific, however may represent infectious/inflammatory etiology or neoplastic process such as metastatic colon cancer or leukemia/lymphoma. Follow-up with oncology recommended for further evaluation. 3. Small hyperdensity within a central small bowel loop, indeterminate in etiology. This can also be followed up with oncology for further evaluation. Reading Location: [facility] <Dr. Kevin Garibay MD - Last Filed: 05/18/24 14:27> [facility] Lab Data Labs: Laboratory Results - last 24 hr 05/18/24 05/18/24 11:38 12:39 WBC 10.5 RBC 4.64 Hgb 14.2 Hct 40.5 MCV 87.3 MCH 30.6 MCHC 35.1 RDW Std Deviation 38.9 RDW Coeff of [place] 12.3 Plt Count 318 MPV 9.5 Immature Gran % (Auto) 0.500 Neut % (Auto) 59.5 Lymph % (Auto) 25.4 [place] % (Auto) 12.0 H Eos % (Auto) 1.2 Baso % (Auto) 1.4 H Absolute Neuts (auto) 6.3 Absolute Lymphs (auto) 2.67 Nucleated RBC % 0 Sodium 128 L Potassium 3.9 Chloride 90 L Carbon Dioxide 21.2 Anion Gap 16 H BUN 9 Creatinine 0.61 L Estim Creat Clear Calc 61.94 Est GFR (MDRD) Non-Af 92 BUN/Creatinine Ratio 15.3 Glucose 176 H Calcium 9.8 Urine Color Yellow Urine Clarity Clear Urine pH 7.0 Ur Specific [place] 1.005 Urine Protein 15 H Urine Glucose (UA) Normal Urine Ketones Negative Urine Occult Blood Negative Urine Nitrite Negative Urine Bilirubin Negative Urine Urobilinogen Normal Ur Leukocyte Esterase 25 H Urine RBC 0-5 SEEN Urine WBC 5-10 SEEN Ur Squamous Epith Cells 0-5 SEEN Urine Bacteria 1+ Urine Mucus 0 SEEN Radiography Diagnostic Testing: Clinical Impression(s) from Imaging Studies Abdomen/Pelvis CT 05/18/24 11:33 IMPRESSION: 1. No acute abdominopelvic finding. 2. Prior LAR, with scattered retroperitoneal and central mesenteric lymphadenopathy. Findings are nonspecific, however may represent infectious/inflammatory etiology or neoplastic process such as metastatic colon cancer or leukemia/lymphoma. Follow-up with oncology recommended for further evaluation. 3. Small hyperdensity within a central small bowel loop, indeterminate in etiology. This can also be followed up with oncology for further evaluation. Reading Location: [facility] Treatment and Re-Evaluation Comments:: I have personally performed a face to face assessment of the patient and have reviewed the MONICA Note. I performed a substantive portion of the visit including all aspects of the following. My cotto findings include: History is low back pain for a week or 2, now lower abdominal pain for several days, has not had a bowel movement in maybe 5 or 6 days but does not feel the need to go. Some nausea in the last couple days but no vomiting. No fevers or chills. Urinating normally. History of a partial bowel resection Due to rectal cancer. Exam is NAD. Tender mostly in the left lower quadrant without guarding or rebound. Bowel sounds are present. A little distended but soft. Heart regularno tachycardia. Lungs clear to speak in full sentences. Medical Decison Making labs and a CT with IV contrast obtained, differential includes partial bowel obstruction, diverticulitis, AAA, other possible GI related etiologies. I reviewed the CT images and the report which I agree with,there is nothing acute but she does have quite a bit of stool retention in the colon, and there is a lot of lymphadenopathy, which is concerning. Patient okayfollowing up locally with oncology given her history of cancer to have a follow-up exam and possibly further testing, which can be done as an outpatient. Will offer her an enema here if she wants to see if that helps her discomfort which may be related to the constipation. Other additions or changes: [None] Discharge Plan Triage Chief Complaint: Back ED Midlevel Provider: Karin Carvalho ED Provider: Kevin Garibay Dx/Rx/DC Orders Clinical Impression: Abdominal pain, Constipation, Mesenteric lymphadenopathy, History of rectal cancer Instructions: ED Constipation (Adult) Prescriptions: No Action aspirin [Adult Low Dose Aspirin] 81 mg tablet,delayed release (DR/EC) 81 mg PO DAILY meclizine 25 mg tablet 25 mg PO DAILY PRN famotidine 20 mg tablet 20 mg PO BID Patient Comments: TAKE 1 TABLET BY MOUTH TWICE A DAY metformin 500 mg tablet See Rx Instructions PO QPM Rx Instructions: orally every evening; 1000 AM, 500 PM levothyroxine 75 MCG tablet 75 mcg PO DAILY Patient Comments: thyroid glimepiride 4 MG tablet 4 mg PO DAILY rosuvastatin 20 mg tablet 20 mg PO QDAY Qty: 90 3RF lisinopril 20 mg tablet See Rx Instructions .ROUTE .COMPLEX Qty: 180 3RF Dose Instruction: TAKE 1 TABLET BY MOUTH TWICE A DAY Rx Instructions: TAKE 1 TABLET BY MOUTH TWICE A DAY amlodipine 5 mg tablet See Rx Instructions .ROUTE .COMPLEX Qty: 180 3RF Dose Instruction: TAKE 1 TABLET BY MOUTH TWICE A DAY Rx Instructions: TAKE 1 TABLET BY MOUTH TWICE A DAY metoprolol tartrate 50 mg tablet See Rx Instructions .ROUTE .COMPLEX Qty: 180 3RF Dose Instruction: TAKE 1 TABLET BY MOUTH TWICE A DAY Rx Instructions: TAKE 1 TABLET BY MOUTH TWICE A DAY hydrochlorothiazide 25 mg tablet 25 mg PO DAILY Qty: 90 3RF clopidogrel 75 mg tablet 75 mg PO DAILY Qty: 90 3RF Other Ambulatory Orders: Fast Pass: Oncology Referral [facility] (Routine) Facility: [facility] - Location: [facility] Ordered By: Karin Carvalho Primary Care Provider: Modesta Osborne Referrals: Modesta Osborne DO [Primary Care Provider] - Activity Restrictions/Additional Instructions: Take 1 cap of MiraLAX twice a day to treat constipation. Your CT scan showed enlarged lymph nodes in your abdomen which needs follow-up with an oncologist. I sent a oncology referral to [facility] which should contact you on the next business day. Print Language: Citizen [place] Disposition Disposition: Home, Self Care What to do if you have Problems For any increased pain, shortness of breath, bleeding, nausea or vomiting, chestpain, or any unexpected problems, contact your Primary Care Provider. Call [facility] ([phone]) or report to the closest Emergency Room. Call 911 if necessary. 05/18/24 1541 <Electronically signed by Karin VASQUEZ> Cosigner Signature (if applicable): 05/18/24 1555 <Electronically signed by Kevin Garibay MD> CC: Dr. Modesta Osborne, ~ Signed [facility] Work Phone: 1(161) 718-340603-22-2025 Radiology Diagnostic study note [facility] Imaging Services [address] [place], [place] [address] Abdomen/Pelvis W IV Cont ONLY MR#: [id number] Acct: [id number] Name: CHARLA KOROMA Rep #: [id number] : 1950 F 74 From: Ami Marr MD PCP: Dr. Modesta Osborne DO Status: REG ER Study:Abdomen/Pelvis W IV Cont ONLY Date of E xam: 05/18/24 Exam# [id number] Ordering Dr: Karin Wilson PROCEDURE: ABDOMEN/PELVIS W IV CONT ONLY 05/18/2024 REASON FOR EXAM: 74-year-old female, abdominal pain, constipation, back pain. History of rectal cancer status post resection. TECHNIQUE: Abdomen CT without and with intravenous contrast. Coronal and Sagittal reconstruction series were provided. PATIENT PREPARATION: Per protocol ORAL CONTRAST TYPE: None. CONTRAST: Isovue-300 VOLUME: 100mL One or more dose reduction techniques were used (e.g., Automated exposure control, adjustment of the mA and/or kV according to patient size, use of iterative reconstruction technique. RADIATION DOSE SUMMARY: CTDlvol: 37 mGy DLP: 1070 mGycm COMPARISON: None. FINDINGS: Lung bases: The heart is normal in size with coronary artery calcifications. Bibasilar atelectasis/scarring. Liver: The liver is normal size without focal hepatic mass. The major portal veins are patent. No biliary ductal dilation. Gallbladder: No radiopaque stones within the gallbladder. Spleen: Unremarkable. Pancreas: Unremarkable. Adrenals: Unremarkable. Kidneys: No hydronephrosis or nephrolithiasis. Bladder: Distended and unremarkable. Reproductive Organs: Prior hysterectomy. Bowel: Prior LAR, compatible with reported history of rectal cancer. Small, hyperdensity within a central small bowel loop, measuring 0.8 x 0.8 cm (series 2, image 74). The bowel loops are normal in caliber. Moderate retained fecal material throughout the colon. No ascites or pneumoperitoneum. No inflammatory mass in the expected region of the appendix. Lymph nodes: Scattered retroperitoneal and central mesenteric lymphadenopathy. Vasculature: Marked calcific plaque of the aortoiliac vessels. Bones/soft tissues: Nodule along the posterior lower subcutaneous tissues, likely a sebaceous cyst.Thoracolumbar spondylosis. CT/Abdomen/Pelvis W IV Cont ONLY IMPRESSION: 1. No acute abdominopelvic finding. 2. Prior LAR, with scattered retroperitoneal and central mesenteric lymphadenopathy. Findings are nonspecific, however may represent infectious/inflammatory etiology or neoplastic process such as metastatic colon cancer orleukemia/lymphoma. Follow-up with oncology recommended for further evaluation. 3. Small hyperdensity within a central small bowel loop, indeterminate in etiology. This can also be followed up with oncology for further evaluation. Reading Location: [id number] CC: Dr. Modesta Osborne, ; CHRISTINA Wick ~ Hygiene Teacher: Signed [facility]03-22-2025 Telephone encounter Note* Telephone Encounter - Stacey Helton RN - 05/18/2024 10:40 AM EDT S: Patient called the [facility] Nurse Advice line with complaint of persistent abdominal pain B: Persistent abdominal pain for the past two days, no bowel movement for at least a week A: Called with complaint of persistent abdominal pain, mild bloating , slight nausea and no bowel movement for one week R: She will go to [facility] for evaluation Patient instructed to call back with worsening symptoms, concerns or questions. [facility] ID: [id number] Reason for Disposition [1] Constant abdominal pain AND [2] present > 2 hours Protocols used: Tbluucmdyqko-JGLWL-DS [id number] Miscellaneous Notes* Telephone Encounter - Stacey Helton RN - 05/18/2024 10:40 AM EDT S: Patient called the [facility] Nurse Advice line with complaint of persistent abdominal pain B: Persistent abdominal pain for the past two days, no bowel movement for at least a week A: Called with complaint of persistent abdominal pain, mild bloating , slight nausea and no bowel movement for one week R: She will go to [facility] for evaluation Patient instructed to call back with worsening symptoms, concerns or questions. [facility] ID: [id number] Reason for Disposition [1] Constant abdominal pain AND [2] present > 2 hours Protocols used: [id number]-TO documented in this [facility]11-05-2020 Evaluation note* Diagnosis Onset Date Resolution Status Dizziness acute BONILLA (dyspnea on exertion) ac dawna Essential (primary) hypertension chronic History of coronary artery stent placement December chronic Hyperlipidemia chronic [facility] Work Phone: 1(128) 997-318011-05-2020 Evaluation note* Diagnosis Onset Date Resolution Status Admit Date Essential (primary) hypertension chronic November 19, 2024 11:01am History of coronary artery stent placement January 02, 2020 chronic October d, 2024 11:01am Hyperlipidemia chronic November 19, 2024 11:01am [facility] Work Phone: Evaluation noteNo assessment information available [facility] Work Phone: Hospital Discharge instructions Additional Instructions Take 1 cap of MiraLAX twice a day to treat constipation. Your CT scan showed enlarged lymph nodes in your abdomen which needs follow-up with an oncologist. I sent a oncology referral to [facility] which should contact you on the next business day.[facility] Work Phone: Progress note Author Pk Casey [facility] Note Date/Time November 19, 2024 11:17am [facility] [address] [place] [address] OFFICE VISIT Date of Service: 11/19/24 MR#: [id number] Acct: [id number] Name: CHARLA KOROMA Rep #: [id number] : 1950 Provider: Dr. Francois Casey MD Age/Sex: 74/F Location: [facility] Status: Signed HPI HPI History of Present Illness Details: CHARLA KOROMA, is a 74 F who presents to the office today for a cardiovascular follow up. She has a history of coronary artery disease status post angioplastyand stenting of the right coronary artery in 2009 and subsequently of her circumflex artery in 2010. She did develop restenosis requiring intervention ofthe circumflex artery in 2011. She presented in December 2019 with unstable angina underwent a cardiac catheterization and it demonstrated significant stenosis of the right coronary artery for which she required a drug-eluting stent. Her circumflex artery stent was patent and her left anterior descending artery had mild luminal irregularities. She also has a past medical history of hypertension and hyperlipidemia. She denies chest, arm, jaw, or neck discomfort. She denies palpitations. She denies bilateral lower extremity edema. She denies claudication. She states shortness of breath with activity such as walking long distance. She feels this is expected for the activity. She denies shortness of breath at rest, orthopnea,or PND. She denies chronic cough. She denies significant, sudden weight gain. She denies lightheadedness, dizziness, near-syncope, or syncope. She denies blood in urine, blood in stool, or epistaxis. He denies fever with chills. Shedenies myalgia. She denies fatigue. Her exercise level has remained stable. She states blood pressure at home is 120s-130s systolic consistently. 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 by: Self Is patient in pain?: No Allergies atorvastatin calcium (From Lipitor) Allergy (Verified 11/19/24 11:05) Other iodine Allergy (Verified 11/19/24 11:05) Rash Medications ?Medication ?Instructions ?Recorded ?Confirmed ?Type levothyroxine 75 mcg tablet 75 mcg PO DAILY 05/18/13 0 11/19/24 History aspirin 81 mg tablet,delayed 81 mg PO DAILY 10/22/19 0 11/19/24 History release (Adult Low Dose Aspirin) meclizine 25 mg tablet 25 mg PO DAILY PRN 01/21/20 11/19/24 History rosuvastatin 20 mg tablet 20 mg PO QDAY #90 tabs 10/1011/19/24 Rx famotidine 20 mg tablet 20 mg PO BID 11/15/22 History loratadine 10 mg capsule (Allergy 10 mg PO QDAY 11/19/24 History Relief (loratadine)) nitroglycerin 0.4 mg sublingual 0.4 mg sublingual Q5M PRN 05/23/24 11/19/24 History tablet glimepiride 4 mg tablet 4 mg PO BID 06/05/24 5 History amlodipine 5 mg tablet See Rx Instructions .Route 0 10/02/24 11/19/24 Rx .COMPLEX #180 tabs clopidogrel 75 mg tablet 75 mg PO DAILY #90 TABLETS 0 10/02/24 11/19/24 Rx hydrochlorothiazide 25 mg tablet 25 mg PO DAILY #90 TA BLETS 10/02/24 11/19/24 Rx lisinopril 20 mg tablet See Rx Instructions .Route 0 10/02/24 11/19/24 Rx .COMPLEX #180 tabs metoprolol tartrate 50 mg tablet See Rx Instructions . Route 10/02/24 11/19/24 Rx .COMPLEX #180 tabs metformin 500 mg tablet 500 mg PO BID 11/19/2411/19 History sitagliptin phosphate 100 mg 50 mg PO QDAY 11/19/24 History tablet (Januvia) Ejection fraction %: 60 Have you fallen in the past year?: No PFSH Medical History Rectal cancer Type 2 diabetes mellitus Essential (primary) hypertension History of non-ST elevation myocardial infarction (NSTEMI) (02/12/11) Hypothyroidism, iatrogenic Hyperlipidemia Atherosclerotic heart disease of [place] coronary artery without angina pectoris Surgical History Hx of tonsillectomy History of left heart catheterization (05/13/11) H/O colectomy (09/2018) History of hysterectomy (09/2018) History of coronary artery stent placement (01/02/20) Family History Father Heart disease Myocardial infarction Mother CAD (coronary artery disease) CVA (cerebral vascular accident) HLD (hyperlipidemia) Hypertension Colon cancer Brother CAD (coronary artery disease) Prostate cancer Social History household members: spouse housing: house Smoking Status: Never smoker alcohol intake: current alcohol intake frequency: a few times a week Alcohol type: beer and wine substance use type: does not use caffeine: Yes Type: coffee what type of physical activity do you participate in: walking and bicycling frequency: 3-4 times per week duration: < 15 minutes/day seatbelt use: always do you feel safe at home: Yes ROS Const Const: Negative for fatigue, weakness, daytime sleepiness or difficulty sleeping ENT ENT: Positive for dizziness (uses meclizine prn); Negative for Nosebleed/epistaxis Cardio Chest Pain: No Palpitations: No Edema: Bilateral (BLE trace at times ) Resp Respiratory: Negative for SOB with activity, SOB at rest, SOB orthopnea\SOB lying down or Cough GI GI: Negative nausea, vomiting or heartburn Neuro Neuro: Positive for dizziness (uses meclizine prn); Negative for lightheadedness, near syncope or weakness Endo Endo: Negative for fatigue Cardiology Exam Const Appearance: cooperative, healthy appearing, comfortable and no acute distress Nutritional Appearance: well nourished and overweight Orientation: alert, awake and oriented x3 Head Head: normal to inspection Ears: hearing grossly normal bilaterally Nose: external nose normal Face and Sinus: face symmetric Mouth: moist mucous membranes Eyes General: appearance normal, both eyes and all related structures Eyelids: eyelids normal EOM: EOM intact bilaterally Neck Neck: normal visual inspection and no JVD Carotids: normal carotid upstroke Chest Chest inspection: normal inspection of the chest, symmetric chest movement and normal respiratory effort; Negative cough Auscultation: Bilateral: Clear to Auscultation Cardio Rate: regular rate Rhythm: regular rhythm Heart sounds: S1 normal and S2 normal; Negative rub, gallop or murmur GI GI: normal to inspection Neuro General: patient alert, patient awake, patient oriented x3 and CN's II-XI intactbilaterally Skin Skin: no rashes or lesions noted Extremities Pulses: Normal: Right Posterior Tibial Pulse, Left Posterior Tibial Pulse, RightRadial Pulse and Left Radial Pulse Lower Extremity Edema: None: Bilateral Psych Psychological: normal affect Supplemental Info Supplemental Information Echocardiogram 11/09/2020: Interpretation Summary Normal LV size. Left ventricular systolic function is normal. Stage 1 diastolic dysfunction. The estimated ejection fraction is 60 %. Contrast injection was performed. Stress Test 11/17/21: Conclusion: Normal exercise myocardial perfusion stress test at a moderate workload. Preserved ejection fraction. Cardiac Catheterization 01/02/2020: CONCLUSIONS Previously placed stent in the circumflex artery which is patent: Previously placed stent in the right coronary artery with high-grade 95% mid in-stent stenosis. AV groove branch with 60% ostial stenosis. Preserved left ventricular ejection fraction CORONARY ANGIOGRAPHY DOMINANCE: Right Dominant LEFT HEART ASSESSMENT Left Ventricular Ejection Fraction: by LV Gram 65 % Normal LV wall motion Normal Left Ventricular systolic function LEFT MAIN: Angiographically normal LEFT ANTERIOR DESCENDING ARTERY: Mild luminal irregularities CIRCUMFLEX ARTERY: MID CIRC: Previously placed stent is patent RIGHT CORONARY ARTERY: MID RCA: Previously placed stent has an instent 95 % restenosis Labs: LDL Cholesterol, (0-130) 67 mg/dL HDL Cholesterol, (40-) 51 mg/dL Cholesterol, (200) 149 mg/dL Triglycerides, (-199) 156 mg/dL Diagnostics: Electrocardiogram Echocardiogram Stress Test Stress Test Nuclear Medicine Stress Echocardiogram Cardiac Catheterization Cardiac Intervention Chest X-Ray Abdomen/Pelvis CT Carotid Duplex Past Visits: Cardiology Visit Today Assessment and Plan Assessment and Plan (1) History of coronary artery stent placement: Status: Chronic Comment: NBZ-DOQ-Ofg-Distal RCA 12/04/2009; NIW-COY-Gtmb-Mid LCx 12/15/2009; SMF-FLP-OHL-Mid LCx w/ 3.0 x 16 mm Promus Element Stent 02/12/11; PCI-LEVI to ostial RCA w/ 3.0 x 12 mm Synergy Stent and Mid RCA w/ 3.0 x 8 mm Synergy Stent 01/02/2020 Plan: Patient has a history of coronary artery disease with stent placement in 2009, 2010, and 2019. Her last stress test in October 2021 demonstrated no evidenceof ischemia at a moderate workload. Preserved ejection fraction was noted. Shewill continue current medical therapy and we will continue to monitor. As she isgreater than 1 year stenting, we discussed discontinuation of 1 antiplatelet therapy. She opted to continue Plavix and Aspirin. Will consider stress test (2) Essential (primary) hypertension: Status: Chronic Plan: Her ejection fraction from 2020 was noted to be normal. Her reading is elevated in office. Her blood pressure is better controlled at home. We will continue tomonitor. We will not make any medication regimen changes. Will recommend that we obtain an echocardiogram to assess her ventricular function. (3) Hyperlipidemia: Status: Chronic Qualifiers: Hyperlipidemia type: pure hypercholesterolemia Qualified Code(s): E78.00 - Pure hypercholesterolemia, unspecified; E78.0 - Pure hypercholesterolemia Plan: Lipid panel from November 2023 demonstrates a total cholesterol 149, HDL of 51 LDL of 67. No major changes will be made at this particular time. Orders: Orders Echo Complete Today Z95.5 - Presence of coronary angioplasty implant and graft Nuclear Stress Test - Treadmil Today Z95.5 - Presence of coronary angioplasty implant and graft Plan Details Additional Comments: Thank you for allowing us to participate in the patients plan of care, if you have any questions please do not hesitate to call. This note was generated using a voice recognition system and there may be incorrect words, spelling or punctuation that were not noted when reviewing the office note prior to saving. Portions of this documentation were copied and pasted from previous office visitnotes to provide a cohesive continuity of the history. The note has been reviewed, edited, and updated, as necessary. Follow Up: 1 Year (jhr) Coding Level of Care Code Off vis,est,level 4 Diagnoses History of coronary artery stent placement Z95.5 Essential (primary) hypertension I10 Pure hypercholesterolemia E78.00; E78.0 Hyperlipidemia type: pure hypercholesterolemia Coding Level of Care Code Off vis,est,level 4 Diagnoses History of coronary artery stent placement Z95.5 Essential (primary) hypertension I10 Pure hypercholesterolemia E78.00; E78.0 Hyperlipidemia type: pure hypercholesterolemia Clinical Quality Measures Falls Risk Screening/Assistive Devices Have you fallen in the past year?: No Cardiac Ejection fraction %: 60 11/19/24 1122 <Electronically signed by Pk St> Date _ Pk Casey MD Cosigndomingo Signature: Date (if applicable) CC: Dr. Modesta Osborne, DO ~ [facility] Work Phone: Reason for referral (narrative)No reason for referral information availableWSt. Vincent Hospital Work Phone: Summary Purpose Family History No Family History Records Found Relationship Condition Age at Onset Recorded Date/T anali father Cardiac disease Unknown Myocardial infarction Unknown mother Coronary artery disease Unknown Cerebrovascular accident (CVA) Unknown Hyperlipidemia Unknown Hypertension Unknown brother Coronary artery disease Unknown Relationship Condition Age at Onset Recorded Date/T anali father Cardiac disease Unknown Myocardial infarction Unknown mother Coronary artery disease Unknown Cerebrovascular accident (CVA) Unknown Hyperlipidemia Unknown Hypertension Unknown Malignant neoplasm of colon Unknown brother Coronary artery disease Unknown Relationship Condition Age at Onset Recorded Date/T anali father Cardiac disease Unknown Myocardial infarction Unknown mother Coronary artery disease Unknown Cerebrovascular accident (CVA) Unknown Hyperlipidemia Unknown Hypertension Unknown Malignant neoplasm of colon Unknown brother Coronary artery disease Unknown Malignant neoplasm of prostate Unknown Advance Directives No Advanced Directives Records Found Advance Directive Response Recorded Date/ Time Advance Directives No April 28 9:06am Living Will No January 01 3:28pm Power of Automobile Appraiser No January 02, 2020 3:28pm Advance Directive Response Recorded Date/ Time Living Will No May 18, 2024 11:39am Do you have a Healthcare Power of Automobile Appraiser? No May 18, 2024 11:39am Advance Directives No April 28 9:06am Advance Directive Response Recorded Date/ Time Advance Directives No April 28 9:06am Chief Complaint and Reason for Visit Chief Complaint 1 Y FU SCREENING Reason for Visit Dizziness BONILLA (dyspnea on exertion) Essential (primary) hypertension History of coronary artery stent placement Hyperlipidemia Chief Complaint 1 Y FU SCREENING DYSPNEA DYSPNEA Reason for Visit Dizziness BONILLA (dyspnea on exertion) Essential (primary) hypertension History of coronary artery stent placement Hyperlipidemia Chief Complaint 1 Y FU SCREENING DYSPNEA DYSPNEA DIZZINESS Reason for Visit Dizziness BONILLA (dyspnea on exertion) Essential (primary) hypertension History of coronary artery stent placement Hyperlipidemia Chief Complaint ISAAC AND WALE KENNEY EORDER Chief Complaint Admit Date BACK PAIN May 18, 2024 11: 14am Chief Complaint Admit Date BACK PAIN May 18, 2024 11: 14am Amb Documentation May 23, 2024 7:5 7am Chief Complaint Admit Date 1 Y FU November 19, 2024 11:01am Reason for Visit Admit Date Essential (primary) hypertension Septemb er 2024 11:01am History of coronary artery stent placeme nt November 19, 2024 11:01am Hyperlipidemia November 19, 2024 11:01am Additional Source Comments INFORMATION SOURCE (unrecogn ized section and content) DATE CREATED AUTHOR 2019 [facility] ([place]) DATE CREATED AUTHOR AUTHOR'S ORGANIZ ATION 07/31/2021 [facility] DATE CREATED AUTHOR AUTHOR'S ORGANIZ ATION 01/16/2024 [facility] DATE CREATED AUTHOR AUTHOR'S ORGANIZ ATION 05/19/2024 [facility] DATE CREATED AUTHOR AUTHOR'S ORGANIZ ATION 12/04/2024 [facility] Source Comments (unrecognize d section and content) In the event this informatio n is protected by the Federal Confidentiality of Alcohol and Drug Abuse Patient Records regulations: The Federal rules restrict any use of the information to criminally investigate or prosecute any alcohol or drug abuse patient.[facility] the event this information is protected by the Federal Confidentiality of Alcohol and Drug Abuse Patient Records regulations: The Federal rules restrict any use of the information to criminally investigate or prosecute any alcohol or drug abuse patient.[facility] the event this information is protected by the Federal Confidentiality of Alcohol and Drug Abuse Patient Records regulations: The Federal rules restrict any use of the information to criminally investigate or prosecute any alcohol or drug abuse patient.[facility] Goals (unrecognized section and content) Goals may be documented in a n alternate sectionGoals may be documented in an alternate sectionGoals may be documented in an alternate sectionGoals may be documented in an alternate sectionGoals may be documented in an alternate sectionGoals may be documented in an alternate sectionGoals may be documented in an alternate section Care Teams (unrecognized sec tion and content) Team Status: Active Member Role Status Dates Dr. Modesta Osborne DO Family Provider Active Dr. Modesta Osborne DO Primary Care Provider Active Team Status: Inactive Member Role Status Dates Dr. 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 Modesta Osborne DO Primary Care Provider Active Team Status: Inactive Member Role Status Dates Dr. Modesta Osborne DO Primary Care Provider Active Start: May 18, 2024 End: May 18, 2024 Dr. Kevin Garibay MD Emergency Provider Active Start: May 18, 2024 End: May 18, 2024 Team Status: Inactive Member Role Status Dates Dr. Modesta Osborne DO Primary Care Provider Active Start: May 18, 2024 End: May 18, 2024 Dr. Kevin Garibay MD Attending Provider Active Start: May 18, 2024 End: May 18, 2024 Dr. Kevin Garibay MD Emergency Provider Active Start: May 18, 2024 End: May 18, 2024 Team Status: Inactive Member Role Status Dates Dr. Modesta Osborne DO Primary Care Provider Active Start: May 21, 2024 End: May 21, 2024 Dr. Modesta Osborne DO Attending Provider Active Start: May 21, 2024 End: May 21, 2024 Team Status: Active Member Role Status Dates Dr. Modesta Osborne DO Primary Care Provider Active Start: May 23, 2024 Barbie Henriquez Attending Provider Active Start: May 23, 2024 Team Status: Active Member Role/Relationship Status Dates Dr. Modesta Osborne DO Primary care physician Active Team Status: Inactive Member Role/Relationship Status Dates Dr. Modesta Osborne DO Primary care physician Active Start: November 19, 2024 End: November 19, 2024 Dr. Modesta Osborne DO Referring Provider Active Start: November 19, 2024 End: November 19, 2024 Dr. Pk Casey MD Attending physician Active Start: November 19, 2024 End: November 19, 2024 Reason for Visit (unrecogniz ed section and content) Reason Onset Date Comments Abdominal Pain 05/18/2024 FOR RECORDS PERTAINING TO PATIENTS WHO ARE OR HAVE BEEN ENROLLED IN A CHEMICAL DEPENDENCY/SUBSTANCEABUSE PROGRAM, SOME INFORMATION MAY BE OMITTED. This clinical summary was aggregated from multiple sources. Caution should be exercised in using it in the provision of clinical care. This summary normalizes information from multiple sources, and as a consequence, information in this document may materially change the coding, format and clinical context of patient data. In addition, data may be omitted in some cases. CLINICAL DECISIONS SHOULD BE BASED ON THE PRIMARY CLINICAL RECORDS. [facility]. provides no warranty or guarantee of the accuracy or completeness of information in this document.
--- OUTSIDE RECORDS SUMMARY | 2024-12-17 07:29 | XMS RPT_ITS | CCD ---
Author Organization [facility] Care Team Providers Care Catalytic Converter Operator Helper Name Role Phone Valeria Rocha Unavailable Darlin CARRERA, Kristy Sainz Unavailable Unavailable Magalys Doherty Unavailable Valeria Rocha Unavailable Unavailable Primary Care Provider Dr. Modesta Ellsworth Primary Care Provider [phone] Dr. Modesta Osborne Referring Provider [phone] Ihsan ARC FURNACE OPERATOR, ARC FURNACE OPERATOR-C Wale Attending Provider Ihsan ARC FURNACE OPERATOR, ARC FURNACE OPERATOR-C Wale Referring Provider Ihsan ARC FURNACE OPERATOR, ARC FURNACE OPERATOR-C Wale Other Provider Dr. Pk Casey Attending Provider Dr. Rashard Love Attending Provider DR YONG MONROY MD Attending DR MODESTA Ellsworth DO Primary Care Unavailab le Unavailable Primary Care Provider Dr. Modesta Ellsworth DO Primary Care Provider [phone] Dr. Kevin Garibay MD Emergency Provider Dr. [...] Care Unavailable JacintoAlex hopkinsril Attending Unavailable Jacinto, [place] Referring Unavailable Isaac Modesta Primary Care Unavailable Modesta Osborne Primary Care Unavailable Modesta Osborne Attending Unavailable Modesta Osborne Referring Unavailable Ihsan ARC FURNACE OPERATOR, [place] Consulting Unavailable Kevin Garibay Attending Unavailable Modesta Osborne Primary Care Unavailable Ismael Larose Attending Unavailable Modesta Osborne Referring Unavailable IsaacModesta gonzalez Primary Care Unavailable Jacinto, [place] Attending Unavailable Modesta Osborne Referring Unavailable Modesta Osborne Primary Care Unavailable Allergies Allergy Classification Reported Allergen(s) Allergy Type Date of Onset Reaction(s) Facility (4 sources) atorvastatin drug allergy 03-13-2013 [facility] Work Phone: (8 sources) clopidogrel drug allergy 10-01-2010 Severe rash [facility] Work Phone: (12 sources) iodine; Translations: [iodine] drug allergy 10-01-2010 [facility] Work Phone: (8 sources) atorvastatin; Translations: [atorvastatin calcium] Drug Allergy 10-14-2021 Other [facility] Comment on above: MUSCLE SORENESS Medications Current Medications Medication Drug Class(es) Dates Sig (Normalized) Sig (Original) amLODIPine 5 mg oral tablet (20 sources) Dihydropyridine Calcium Channel Deven Start: 05-09-2011 End: 10-02-2024 take 1 tablet by mouth twice daily Start: 2011 End: 2011 take 1 tablet by mouth once daily NORVASC 5 MG TABS one tablet by mouth a AMLODIPINE BESYLATE [id number] Hermes Brenner MD Start: 10-01-2010 End: 2011 take 1 tablet by mouth twice daily NORVASC 5 MG TABS One tablet by mouth twice daily AMLODIPINE BESYLATE [id number] Hermes Brenner MD aspirin 81 mg delayed [...] TABS One tablet by mouth daily ASPIRIN [id number] Pk Casey MD Start: 10-01-2010 take 1 tablet by tylor th once daily ASPIRIN 81 MG TABS One tablet by mouth daily ASPIRIN [id number] Pk Casey MD clopidogrel 75 mg oral [...] One tablet by mouth twice daily FAMOTIDINE [id number] Pk Casey MD Start: 04-28-2014 End: 10-22-2019 take 1 tablet by mouth twice daily Famotidine 10 MG tablet Discontinued 10 mg PO TWICE A DAY April 28, 2014 1:00am October 22, 2019 10:13am Start: 10-05-2012 End: 10-02-2014 take 1 tablet by mouth once daily PEPCID 20 MG TABS One tablet by mouth daily FAMOTIDINE [id number] Pk Casey MD glimepiride 4 mg oral [...] TABS One tablet by mouth daily GLIMEPIRIDE [id number] Pk Casey MD hydroCHLOROthiazide 25 mg or al tablet (20 sources) Thiazide Diuretic Start: 03-22-2017 End: 10-02-2024 take 1 tablet by mouth once daily Start: 10-05-2012 End: 09-30-2014 take 1 tablet by mouth once daily HYDROCHLOROTHIAZIDE 25 MG TABS One tablet by mouth daily HYDROCHLOROTHIAZIDE [id number] Pk Casey MD lisinopril 20 mg oral tablet (20 sources) Angiotensin Converting Enzyme Inhibitor Start: 2011 End: 10-02-2024 take 1 tablet by mouth twice daily Start: 10-01-2010 take 1 tablet by tylor th once daily LISINOPRIL 20 MG TABS One tablet by mouth daily LISINOPRIL [id number] Tatiana Mancilla loratadine 10 mg oral capsul e (2 sources) Start: 05-23-2024 take 1 capsule by [facility] once daily Start: 05-23-2024 take 1 capsule by [facility] once daily Loratadine (Allergy Relief (Loratadine)) 10 [...] three times daily As needed MECLIZINE HCL [id number] Pk Casey MD Start: 05-18-2013 End: 03-22-2017 [...] tablet by mouth twice daily METOPROLOL TARTRATE [id number] Pk Casey MD Start: 05-09-2011 End: 10-02-2024 take 1 tablet by mouth twice daily Start: 10-01-2010 take 1 tablet by tylor th twice daily METOPROLOL TARTRATE 25 MG TABS One tablet by mouth twice daily METOPROLOL TARTRATE 12192906925 Tatiana Mancilla nitroglycerin 0.4 mg subling ual [...] 5 min up to 3 X NITROGLYCERIN [id number] Hermes Brenner MD Start: 10-01-2010 NITROGLYCERIN 0.4 MG SUBL 1 tablet under the tongue every 5 minutes times 3 as needed for chest pain. NITROGLYCERIN [id number] Pk Casey MD SITagliptin 100 mg oral [...] 1/2 tablet by mouth daily LEVOTHYROXINE SODIUM 37272916863 Tatiana Mancilla Start: 10-01-2010 take 1 tablet by tylor th once daily SYNTHROID 75 MCG TABS One tablet by mouth daily LEVOTHYROXINE SODIUM 20655498369 Pk Casey MD Start: 10-01-2010 take 1 tablet by tylor th once daily SYNTHROID 75 MCG TABS One tablet by mouth daily LEVOTHYROXINE SODIUM [id number] Pk Casey MD Start: 10-01-2010 take 0.5 tablet by m outh once daily SYNTHROID 150 MCG TABS 1/2 tablet by mouth daily LEVOTHYROXINE SODIUM 86079141838 Tatiana Mancilla Completed/Discontinued Medications Medication Drug Class(es) [...] tablet by mouth daily GLUCOSAMINE-CHONDRO ITIN CAPS [id number] Suzy Bach RN glucosamine sulfate 500 mg [...] tablet by mouth twice daily ISOSORBIDE MONONITRATE [id number] Ina Limon PA-C Start: 2011 End: 10-05-2012 take 1 tablet by mouth twice daily ISOSORBIDE MONONITRATE 20 MG TABS One tablet by mouth twice daily ISOSORBIDE MONONITRATE [id number] Pk Casey MD isosorbide dinitrate 20 mg oral tablet (8 sources) Nitrate Vasodilator Start: 10-01-2010 End: 2011 ISOSORBIDE DINITRATE 20 MG TABS (ISMO) 1 tablet 2 X daily ISOSORBIDE DINITRATE [id number] Hermes Brenner MD magnesium oxide 500 mg oral tablet (11 sources) Start: 03-22-2017 End: 04-07-2017 take 1 tablet by mouth once daily Magnesium Oxide 500 mg tablet Discontinued 500 mg PO daily March 22, 2017 1:00am April 07, 2017 12:28pm Start: 10-02-2014 take 1 tablet by tylor th once daily MAGNESIUM OXIDE 500 MG TABS One tablet by mouth daily MAGNESIUM OXIDE 04848814314 Ina Limon PA-C MULTIPLE VITAMIN (8 sources) [...] PO EVERY MORNING May 23, 2024 12:00am Multivitamin,Nm-Zaao-Nrjalih s (4 sources) Start: 04-28-2014 End: 04-07-2017 take 1 tablet by mouth once daily Multivitamin,Xa-Hsls-Txnpzqee Discontinued 1 TABLET PO DAILY April 28, 2014 1:00am April 07, 2017 12:28pm Multivitamin,Vp-Qvdt-Rrmnaly s 1 TABLET tablet (3 sources) Start: 04-28-2014 End: 04-07-2017 take 1 tablet by mouth once daily Multivitamin,Jh-Ifsg-Fvbonafw 1 TABLET tablet Discontinued 1 {tbl} PO DAILY April 28, 2014 1:00am April 07, 2017 12:28pm [place]-3 Fatty Acids (4 sources) Start: 04-28-2014 End: 10-17-2017 take 300 mg by mouth once daily [place]-3 Fatty Acids Discontinued 300 MG PO DAILY April 28, 2014 1:00am October 17, 2017 10:53am [place]-3 Fatty Acids 300 MG capsule (3 sources) Start: 04-28-2014 End: 10-17-2017 take 1 capsule by mouth once daily [place]-3 Fatty Acids 300 MG capsule Discontinued 300 mg PO DAILY April 28, 2014 1:00am October 17, 2017 10:53am OMEGA-3 FATTY ACIDS CPDR (3 sources) Start: 09-30-2014 OMEGA 3 CPDR 300mg daily OMEGA-3 FATTY ACIDS CPDR [id number] Suzy Bach RN OMEGA-3 FATTY ACIDS CPDR (1 source) Start: 09-30-2014 OMEGA 3 CPDR 300mg daily OMEGA-3 FATTY ACIDS CPDR [id number] Suzy Bach RN pantoprazole 40 mg delayed [...] One tablet by mouth daily POTASSIUM GLUCONATE [id number] Pk Casey MD pravastatin sodium 40 mg ora l tablet (20 sources) HMG-Co A Reduct ase Inhibi tor Start: 03-13-2013 End: 04-17-2013 take 1 tablet by mouth at bedtime PRAVASTATIN SODIUM 40 MG TABS One tablet by mouth at bedtime. 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] Onset: 10-01-2010 [...] (1 source) Long-term drug therapy; Translations: [Other nursing home (current) drug therapy] Onset: 10-01-2010 10-01-2010 Unclassified (1 source) Low back pain, unspecified; Translations: [Low back pain, unspecified] Onset: 05-23-2024 Past or Other Problems Problem Classification Problem Date Documented Date Episodic/Chronic Other aftercare (3 sources) Other nursing home (current) drug therapy; Translations: [Other nursing home (current) drug therapy] Onset: 10-01-2010 10-01-2010 Episodic [...] Facility Cardiology Visit Reporton Cardiology Visit Report [facility] [address] [place] [address] OFFICE VISIT Date of Service: 11/19/24 MR#: [id number] Acct: [id number] Name: CHARLA KOROMA Rep #: [id number] : 1950 Provider: Dr. 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 Normal [facility] Oncology Visit Reporton Oncology Visit Report [facility] [address] [place] [address] OFFICE VISIT Date of Service: 06/05/24927 MR#: [id number] Acct: [id number] Name: CHARLA KOROMA Rep #: [id number] : 1950 From: Ismael Larose MD Age/Sex: 74/F Location: [facility] [place] Status: Signed HPI Subjective Date of Service 06/05/24 Chief Complaint Referred for retroperitoneal/mesenteric nodes. History of Present Illness 74-year-old woman was diagnosed with rectal cancer. Colonoscopy showed large sessile polyp at 10 cm from the anal verge which was removed in 3 pieces, rectal biopsy on 09/03/2018 at [facility] showed moderately differentiated adenocarcinoma with invasion into the submucosa margins positive. Pathology was pT1, pNx. CT of the abdomen/pelvis on 09/21/2018 showed small upper abdominal lymph nodes. She underwent low anterior resection on 10/04/2018. Pathology showed colonic segment with no malignancy, 14 lymph nodes negative. She has been on observation, last CT scan at [facility] on 07/05/2021 showed postsurgical changes with no evidence of local recurrence, several borderline enlarged periportal and retroperitoneal lymph nodes. She declined to do PET CT scan. She presented to the [facility] ER with back and abdominal pain on 05/18/2024, CT scan of the abdomen and pelvis showed small scattered retroperitoneal and central mesenteric lymphadenopathy. She is now referred for further evaluation and management. 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 Normal [facility] Carcinoembryonic Antigenon 0 05-22-2024 CEA 1.4 ng/mL Normal 0.0-4.7 [facility] Comment on above: Result Comment: Nons mokers <3.9 Smokers <5.6 [facility] Electrochemiluminescence Immunoassay (ECLIA) Values obtained with different assay methods or kits cannot be used interchangeably. Results cannot be interpreted as absolute evidence of the presence or absence of malignant disease. Performed at: - [facility] [id number] Machine Straw Hat Presser: Yong Fischer PhD, Phone: [phone] Performed By: #### L 3100.2300, L501.9985, L501.9520 #### [facility] [address] [place], [place], [id number] Hemoglobin A1con 05-21-2024 HbA1c (Bld) [Mass fraction] 8.2 % Normal <=5.6 [facility] Comment on above: Performed By: #### L 3100.2300, L501.9985, L501.9520 #### [facility] [address] [facility] [place], [place], [id number] Hemoglobin A1c percentageOrd ered By: Modesta Osborne on 05-21-2024 HbA1c (Bld) [Mass fraction] 8.2 % >5.7 [facility] TSH DL <= 0.005 mIU/L QnOrde red By: Modesta Osborne on 05-21-2024 Thyroid Stimulating Hormone (TSH) 3.500 uIU/mL 0.300-4.20 0 [facility] Thyroid Stim Hormone (TSH)on 05-21-2024 TSH 3.500 uIU/mL Normal 0.300-4.20 0 [facility] Comment on above: Performed By: #### L 3100.2300, L501.9985, L501.9520 #### [facility] [address] [facility] [address] [facility] [place], [place], [id number] 36on 05-18-2024 36 S: [facility] of [facility] B: Persistent abdominal pain for the past two days, no bowel movement for at least a week A: Called with complaint of persistent abdominal pain, mild bloating , slight nausea and no bowel movement for one week R: She will go to [facility] for evaluation Patient instructed to call back with worsening symptoms, concerns or questions. [id number] Reason for Disposition [1] Constant abdominal pain AND [2] present > 2 hours Protocols used: [id number] Normal [facility] Abdomen/Pelvis W IV Cont ONL Yon 05-18-2024 Abdomen/Pelvis W IV Cont ONLY [facility] Services [address] [place] [address] Abdomen/Pelvis W IV Cont ONLY MR#: [id number] Acct: [id number] Name: CHARLA KOROMA Rep #: [id number] : 1950 F 74 From: Valeria Davis nd, MD PCP: Dr. Modesta Osborne, DO Status: REG ER Study: Abdomen/Pelvis W IV Cont ONLY Date of Exam: Exam# [id number] Ordering Dr: Karin Carvalho PROCEDURE: ABDOMEN/PELVIS W [...] with oncology for further evaluation. Reading Location: [id number] CC: Dr. Modesta Osborne DO; CHRISTINA Wick Screw Machine Set Up Operator: Signed Normal [facility] Absolute neutrophil countOrd ered By: Karin Carvalho on 05-18-2024 Neutrophils (Bld) [#/Vol] 6.3 10*3/uL 2.0-7.7 [facility] Anion gap in Serum or Plasma Ordered By: Karni Carvalho on 05-18-2024 Anion gap [Moles/Vol] 16 mmol/L High 5-15 [facility] BUN/creatinine ratioOrdered By: Karin Carvalho on 05-18-2024 Urea nitrogen/Creatinine [Mass ratio] 15.3 mg/mg - [facility] Basic Metabolic Profile (BMP )on 05-18-2024 BUN/CRE 15.3 RATIO Normal - [facility] Comment on above: Performed By: #### L 100.0100, L500.2500 #### [facility] [address] [place], [address] Calcium [Mass/Vol] 9.8 mg/dL Normal 7.6-11.0 [facility] Comment on above: Performed By: #### L 100.0100, L500.2500 #### [facility] [address] [place], [address] Chloride [Moles/Vol] 90 mmol/L Low 98-108 [facility] Comment on above: Performed By: #### L 100.0100, L500.2500 #### [facility] [address] [place], [address] CO2 [Moles/Vol] 21.2 mmol/L Normal 21.0-32.0 [facility] Comment on above: Performed By: #### L 100.0100, L500.2500 #### [facility] [address] [place], [address] Creatinine [Mass/Vol] 0.61 mg/dL Low 0.70-1.20 [facility] Comment on above: Performed By: #### L 100.0100, L500.2500 #### [facility] [address] [place], [address] ECRCL 61.94 ml/min Normal 50-250 [facility] Comment on above: Performed By: #### L 100.0100, L500.2500 #### [facility] [address] [place], [address] GAP 16 High 5-15 [facility] Comment on above: Performed By: #### L 100.0100, L500.2500 #### [facility] [address] [place], [address] GFR/1.73 sq M.predicted among non-blacks MDRD (S/P/Bld) [Vol rate/Area] 92 mL/min/{1.73_m2} Normal >60 [facility] Comment on above: Result Comment: mL/m in/1.73m2 CKD-EPI Creatinine Equation (2020) Performed By: #### L 100.0100, L500.2500 #### [facility] [address] [place], [address] Glucose [Mass/Vol] 176 mg/dL High 70-99 [facility] Comment on above: Performed By: #### L 100.0100, L500.2500 #### [facility] [address] [place], [address] Potassium [Moles/Vol] 3.9 mmol/L Normal 3.3-5.1 [facility] Comment on above: Performed By: #### L 100.0100, L500.2500 #### [facility] [address] [place], [address] Sodium [Moles/Vol] 128 mmol/L Low 133-145 [facility] Comment on above: Performed By: #### L 100.0100, L500.2500 #### [facility] [address] [place], [address] Urea nitrogen [Mass/Vol] 9 mg/dL Normal 4-19 [facility] Comment on above: Performed By: #### L 100.0100, L500.2500 #### [facility] [address] [place], [address] Basophil percentageOrdered B y: Karinmadelin Carvalho on 05-18-2024 Basophils/100 WBC (Bld) 1.4 % High 0-1 [facility] Bilirubin Test strip Ql (U)O rdered By: Karin Maia on 05-18-2024 Bilirubin Ql (U) Negative Negative [facility] CBC W/Diff, Automatedon 04-28 Absolute Lymph 2.67 X10 3/uL Normal 0.83-4.51 [facility] Comment on above: Performed By: #### L 100.0100, L500.2500 #### [facility] [address] [place], [address] Absolute Neut 6.3 X10 3/uL Normal 2.0-7.7 [facility] Comment on above: Performed By: #### L 100.0100, L500.2500 #### [facility] [address] [place], [address] Basophils/100 WBC (Bld) 1.4 % High 0-1 [facility] Comment on above: Performed By: #### L 100.0100, L500.2500 #### [facility] [address] [place], [address] Eosinophils/100 WBC (Bld) 1.2 % Normal 0-5 [facility] Comment on above: Performed By: #### L 100.0100, L500.2500 #### [facility] [address] [place], [address] Erythrocyte distribution width (RBC) [Ratio] 12.3 % Normal 11.6-14.6 [facility] Comment on above: Performed By: #### L 100.0100, L500.2500 #### [facility] [address] [place], [address] Hematocrit (Bld) [Volume fraction] 40.5 % Normal 37-47 [facility] Comment on above: Performed By: #### L 100.0100, L500.2500 #### [facility] [address] [place], [address] Hemoglobin (Bld) [Mass/Vol] 14.2 g/dL Normal 12.0-15.0 [facility] Comment on above: Performed By: #### L 100.0100, L500.2500 #### [facility] [address] [place], [address] IG% 0.500 Normal 0.0-0.9 [facility] Comment on above: Result Comment: IG% - Immature Granulocytes (promyelocytes, myelocytes and metamyelocytes) > 1% indicates that a LEFT SHIFT is Present. Performed By: #### L 100.0100, L500.2500 #### [facility] [address] [place], [address] Lymphocytes/100 WBC (Bld) 25.4 % Normal 19-41 [facility] Comment on above: Performed By: #### L 100.0100, L500.2500 #### [facility] [address] [place], [address] MCH (RBC) [Entitic mass] 30.6 pg Normal 27.0-32.0 [facility] Comment on above: Performed By: #### L 100.0100, L500.2500 #### [facility] [address] [place], [address] MCHC (RBC) [Mass/Vol] 35.1 g/dL Normal 32-36 [facility] Comment on above: Performed By: #### L 100.0100, L500.2500 #### [facility] [address] [place], [address] MCV (RBC) [Entitic vol] 87.3 fL Normal 81-99 [facility] Comment on above: Performed By: #### L 100.0100, L500.2500 #### [facility] [address] [place], [address] Monocytes/100 WBC (Bld) 12.0 % High 0-10 [facility] Comment on above: Performed By: #### L 100.0100, L500.2500 #### [facility] [address] [place], [address] Neutrophils/100 WBC (Bld) 59.5 % Normal 47-70 [facility] Comment on above: Performed By: #### L 100.0100, L500.2500 #### [facility] [address] [place], [address] Nucleated RBC (Bld) [#/Vol] 0 10*3/uL Normal 0-5 [facility] Comment on above: Performed By: #### L 100.0100, L500.2500 #### [facility] [address] [place], [address] Platelet mean volume (Bld) [Entitic vol] 9.5 fL Normal 6.2-12.0 [facility] Comment on above: Performed By: #### L 100.0100, L500.2500 #### [facility] [address] [place], [address] Platelets (Bld) [#/Vol] 318 10*3/uL Normal 150-450 [facility] Comment on above: Performed By: #### L 100.0100, L500.2500 #### [facility] [address] [place], [address] RBC (Bld) [#/Vol] 4.64 10*6/uL Normal 4.2-5.4 [facility] Comment on above: Performed By: #### L 100.0100, L500.2500 #### [facility] [address] [place], [address] RDW SD 38.9 fl Normal 35.1-43.9 [facility] Comment on above: Performed By: #### L 100.0100, L500.2500 #### [facility] [address] [place], [address] WBC (Bld) [#/Vol] 10.5 10*3/uL Normal 4.4-11.0 [facility] Comment on above: Performed By: #### L 100.0100, L500.2500 #### [facility] [address] [place], [address] Carbon dioxide, total [Moles /volume] in Central venous bloodOrdered By: Karin Carvalho on 05-18-2024 CO2 [Moles/Vol] 21.2 mmol/L 21.0-32.0 [facility] Chloride assayOrdered By: Tammy Carvalho on 05-18-2024 Chloride [Moles/Vol] 90 mmol/L Low 98-108 [facility] Emergency Department Summary on 05-18-2024 Emergency Department Summary [facility] Medical Records Department [address] [place] [address] Emergency Department Summary 05/18/24 MR#: [id number] Acct: [id number] Name: CHARLA KOROMA Rep #: [id number] : 1950 74 From: Karin VASQUEZ PCP: [...] the same time 5 years ago at [facility] in [place] and at some point had follow-up testing which was normal. She never needed chemo or radiation. 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 Normal [facility] Eosinophil percentageOrdered By: Karin Carvalho on 05-18-2024 Eosinophils/100 WBC (Bld) 1.2 % 0-5 [facility] Epithelial cells.squamous LM Ql (Urine sed)Ordered By: Karin Carvalho on 05-18-2024 Epithelial cells.squamous LM.HPF (Urine sed) [#/Area] 0 /[HPF] 5-10 [facility] Erythrocyte distribution wid th ratioOrdered By: Karin Carvalho on 05-18-2024 Erythrocyte distribution width (RBC) [Ratio] 12.3 % 11.6-14.6 [facility] Erythrocyte distribution wid th standard deviationOrdered By: Karin Carvalho on 05-18-2024 Erythrocyte distribution width (RBC) [Entitic vol] 38.9 fL 35.1-43.9 [facility] Estimation of creatinine jacinta aranceOrdered By: Karin Carvalho on 05-18-2024 Estimated Creatinine Clearance Calc 61.94 ml/min 50-250 [facility] GFR/1.73 sq M.predicted jil g non-blacks MDRD (S/P/Bld) [Vol rate/Area]Ordered By: Karin Carvalho on 05-18-2024 Estimated GFR (MDRD) Non-Af Amer 92 >60 [facility] Comment on above: mL/min/1.73m2 CKD-EP I Creatinine Equation (2020) Glucose Ql (U)Ordered By: Tammy Carvalho on 05-18-2024 Urine Glucose (UA) Normal mg/dl Normal [facility] Hematocrit Auto (Bld) [Volum e fraction]Ordered By: Karin Carvalho on 05-18-2024 Hematocrit (Bld) [Volume fraction] 40.5 % 37-47 [facility] Hemoglobin measurementOrdere d By: Karin Carvalho on 05-18-2024 Hemoglobin (Bld) [Mass/Vol] 14.2 g/dL 12.0-15.0 [facility] Immature granulocytes/100 WB C Auto (Bld)Ordered By: Karin Carvalho on 05-18-2024 Immature granulocytes/100 WBC (Bld) 0.500 % 0.0-0.9 [facility] Comment on above: IG% - Immature Granu locytes (promyelocytes, myelocytes and metamyelocytes) > 1% indicates that a LEFT SHIFT is Present. Ketones Test strip Ql (U)Ord ered By: Karin Carvalho on 05-18-2024 Ketones Ql (U) Negative Negative [facility] Lymphocytes Auto (Unsp spec) [#/Vol]Ordered By: Karin Carvalho on 05-18-2024 Lymphocytes (Bld) [#/Vol] 2.67 10*3/uL 0.83-4.51 [facility] Lymphocytes/100 WBC Auto (Un sp spec)Ordered By: Karin Carvalho on 05-18-2024 Lymphocytes/100 WBC (Bld) 25.4 % 19-41 [facility] MCV (mean corpuscular volume ) determinationOrdered By: Karin Carvalho on 05-18-2024 MCV (RBC) [Entitic vol] 87.3 fL 81-99 [facility] Mean corpuscular hemoglobin (MCH) determinationOrdered By: Krain Carvalho on 05-18-2024 MCH (RBC) [Entitic mass] 30.6 pg 27.0-32.0 [facility] Mean corpuscular hemoglobin concentration (MCHC) determinationOrdered By: Karin Carvalho on 05-18-2024 MCHC (RBC) [Mass/Vol] 35.1 g/dL 32-36 [facility] Mean platelet volume determi nationOrdered By: Karin Carvalho on 05-18-2024 Platelet mean volume (Bld) [Entitic vol] 9.5 fL 6.2-12.0 [facility] Microscopic analysis of urin e for red blood cells (RBC)Ordered By: Karin Carvalho on 05-18-2024 Urine RBC 0-5 SEEN /hpf 0-5 [facility] Monocyte percentageOrdered B y: Karin Carvalho on 05-18-2024 Monocytes/100 WBC (Bld) 12.0 % High 0-10 [facility] Mucus LM Ql (Urine sed)Order ed By: Karin Carvalho on 05-18-2024 Mucus Ql (Urine sed) 0 SEEN /hpf [facility] Neutrophil percentageOrdered By: Karin Carvalho on 05-18-2024 Neutrophils/100 WBC (Bld) 59.5 % 47-70 [facility] Nitrite Test strip Ql (U)Ord ered By: Karin Carvalho on 05-18-2024 Nitrite Ql (U) Negative Negative [facility] Nucleated red blood cell per centageOrdered By: Karin Carvalho on 05-18-2024 Nucleated RBC/100 WBC (Bld) [Ratio] 0 % 0-5 [facility] Platelet countOrdered By: Tammy Carvalho on 05-18-2024 Platelets (Bld) [#/Vol] 318 10*3/uL 150-450 [facility] Potassium (Unsp spec) [Mass/ Vol]Ordered By: Karin Carvalho on 05-18-2024 Potassium [Moles/Vol] 3.9 mmol/L 3.3-5.1 [facility] Protein Test strip Ql (U)Ord ered By: Karin Carvalho on 05-18-2024 Protein Ql (U) 15 mg/dl High Negative [facility] RBC Auto (Bld) [#/Vol]Ordere d By: Karin Carvalho on 05-18-2024 RBC (Bld) [#/Vol] 4.64 10*6/uL 4.2-5.4 [facility] Serum creatinine measurement (mass/volume)Ordered By: Karin Carvalho on 05-18-2024 Creatinine [Mass/Vol] 0.61 mg/dL Low 0.70-1.20 [facility] Serum glucose measurement (m ass/volume)Ordered By: Karin Carvalho on 05-18-2024 Glucose [Mass/Vol] 176 mg/dL High 70-99 [facility] Serum or plasma calcium marni urement (mass/volume)Ordered By: Karin Carvalho on 05-18-2024 Calcium [Mass/Vol] 9.8 mg/dL 7.6-11.0 [facility] Serum or plasma urea nitroge n measurement (mass/volume)Ordered By: Karin Carvalho on 05-18-2024 Urea nitrogen [Mass/Vol] 9 mg/dL 4-19 [facility] Sodium levelOrdered By: Karin Carvalho on 05-18-2024 Sodium [Moles/Vol] 128 mmol/L Low 133-145 [facility] Urinalysis, Completeon 05-18 BACTERIA 1+ /hpf Normal None Seen [facility] Comment on above: Order Comment: CLEAN CATCH Performed By: #### L 400.0001 #### [facility] [address] [place], [address] EPI,SQUAMOUS 0-5 SEEN Normal 5-10 [facility] Comment on above: Order Comment: CLEAN CATCH Performed By: #### L 400.0001 #### [facility] [address] [place], [address] RBC 0-5 SEEN Normal 0-5 [facility] Comment on above: Order Comment: CLEAN CATCH Performed By: #### L 400.0001 #### [facility] [address] [place], [address] WBC 5-10 SEEN Normal 0-5 [facility] Comment on above: Order Comment: CLEAN CATCH Performed By: #### L 400.0001 #### [facility] [address] [place], [address] Mucus Ql (Urine sed) 0 SEEN Normal [facility] Comment on above: Order Comment: CLEAN CATCH Performed By: #### L 400.0001 #### [facility] [address] [place], [address] Urine blood detectionOrdered By: Karin Carvalho on 05-18-2024 Urine Occult Blood Negative Negative [facility] Urine clarityOrdered By: Elisabet madelin Carvalho on 05-18-2024 Clarity (U) Clear Clear [facility] Urine color determinationOrd ered By: Karinmadelin Carvalho on 05-18-2024 Color (U) Yellow Yellow [facility] Urine leukocyte esterase det ection by dipstickOrdered By: Karin Carvalho on 05-18-2024 Leukocyte esterase Test strip Ql (U) 25 /ul High Negative [facility] Urine pHOrdered By: Karin christie on 05-18-2024 pH (U) 7.0 [pH] 5.0 - 8.0 [facility] Urine sediment bacteria coun t by microscopy (number/high power field)Ordered By: Karin Carvalho on 05-18-2024 Bacteria LM.HPF (Urine sed) [#/Area] 1 /[HPF] None Seen [facility] Urine specific gravity measu rementOrdered By: Karin Carvalho on 05-18-2024 Specific gravity (U) [Rel density] 1.005 1.002-1.03 0 [facility] Urobilinogen Ql (U)Ordered B y: Karin Carvalho on 05-18-2024 Urine Urobilinogen Normal mg/dl Normal [facility] White blood cell (WBC) count Ordered By: Karin Carvalho on 05-18-2024 WBC (Bld) [#/Vol] 10.5 10*3/uL 4.4-11.0 [facility] White blood cell countOrdere d By: Karin Carvalho on 05-18-2024 Urine WBC 5-10 SEEN /hpf 0-5 [facility] Carcinoembryonic Antigenon 1 0- CEA 1.5 ng/mL Normal 0.0-4.7 [facility] Comment on above: Order Comment: LIVER COULDN'T BE ORDERED-TESTS OVERLAP-ORDERED DBILLIPID DUPLICATE W/ BOTH DRSLIVER LIPID-ROBERTSOTHER TESTS-ISAAC Result Comment: Nons mokers <3.9 Smokers <5.6 [facility] Electrochemiluminescence Immunoassay (ECLIA) Values obtained with different assay methods or kits cannot be used interchangeably. Results cannot be interpreted as absolute evidence of the presence or absence of malignant disease. Performed at: - [facility] [id number] [employer]: Yong Fischer PhD, Phone: [phone] Performed By: #### L 100.0100, L3100.2300, L501.4700, L500.4050, L500.4100, L501.9985, L502.0250 ####[facility] [address] [place], [place], [phone] Bilirubin, Directon 12-11-19 24 Bilirubin.direct [Mass/Vol] 0.15 mg/dL Normal 0.00-0.30 [facility] Comment on above: Order Comment: LIVER COULDN'T BE ORDERED-TESTS OVERLAP-ORDERED DBILLIPID DUPLICATE W/ BOTH DRSLIVER LIPID-ROBERTSOTHER TESTS-ISAAC Performed By: #### L 100.0100, L3100.2300, L501.4700, L500.4050, L500.4100, L501.9985, L502.0250 ####[facility] [address] [place], [place], [id number] CBC W/Diff, Automatedon - Absolute Lymph 2.97 X10 3/uL Normal 0.83-4.51 [facility] Comment on above: Order Comment: LIVER COULDN'T BE ORDERED-TESTS OVERLAP-ORDERED DBILLIPID DUPLICATE W/ BOTH DRSLIVER LIPID-ROBERTSOTHER TESTS-ISAAC Performed By: #### L 100.0100, L3100.2300, L501.4700, L500.4050, L500.4100, L501.9985, L502.0250 ####[facility] [address] [place], [place], [phone] Absolute Neut 4.2 X10 3/uL Normal 2.0-7.7 [facility] Comment on above: Order Comment: LIVER COULDN'T BE ORDERED-TESTS OVERLAP-ORDERED DBILLIPID DUPLICATE W/ BOTH DRSLIVER LIPID-ROBERTSOTHER TESTS-ISAAC Performed By: #### L 100.0100, L3100.2300, L501.4700, L500.4050, L500.4100, L501.9985, L502.0250 ####[facility] [address] [place], [address] Basophils/100 WBC (Bld) 1.4 % High 0-1 [facility] Comment on above: Order Comment: LIVER COULDN'T BE ORDERED-TESTS OVERLAP-ORDERED DBILLIPID DUPLICATE W/ BOTH DRSLIVER LIPID-ROBERTSOTHER TESTS-ISAAC Performed By: #### L 100.0100, L3100.2300, L501.4700, L500.4050, L500.4100, L501.9985, L502.0250 ####[facility] [address] [place], [address] Eosinophils/100 WBC (Bld) 2.6 % Normal 0-5 [facility] Comment on above: Order Comment: LIVER COULDN'T BE ORDERED-TESTS OVERLAP-ORDERED DBILLIPID DUPLICATE W/ BOTH DRSLIVER LIPID-ROBERTSOTHER TESTS-ISAAC Performed By: #### L 100.0100, L3100.2300, L501.4700, L500.4050, L500.4100, L501.9985, L502.0250 ####[facility] [address] [place], [address] Erythrocyte distribution width (RBC) [Ratio] 12.2 % Normal 11.6-14.6 [facility] Comment on above: Order Comment: LIVER COULDN'T BE ORDERED-TESTS OVERLAP-ORDERED DBILLIPID DUPLICATE W/ BOTH DRSLIVER LIPID-ROBERTSOTHER TESTS-ISAAC Performed By: #### L 100.0100, L3100.2300, L501.4700, L500.4050, L500.4100, L501.9985, L502.0250 ####[facility] [address] [place], [address] Hematocrit (Bld) [Volume fraction] 43.3 % Normal 37-47 [facility] Comment on above: Order Comment: LIVER COULDN'T BE ORDERED-TESTS OVERLAP-ORDERED DBILLIPID DUPLICATE W/ BOTH DRSLIVER LIPID-ROBERTSOTHER TESTS-ISAAC Performed By: #### L 100.0100, L3100.2300, L501.4700, L500.4050, L500.4100, L501.9985, L502.0250 ####[facility] [address] [place], [address] Hemoglobin (Bld) [Mass/Vol] 14.3 g/dL Normal 12.0-15.0 [facility] Comment on above: Order Comment: LIVER COULDN'T BE ORDERED-TESTS OVERLAP-ORDERED DBILLIPID DUPLICATE W/ BOTH DRSLIVER LIPID-ROBERTSOTHER TESTS-ISAAC Performed By: #### L 100.0100, L3100.2300, L501.4700, L500.4050, L500.4100, L501.9985, L502.0250 ####[facility] [address] [place], [place], [phone] IG% 0.200 Normal 0.0-0.9 [facility] Comment on above: Order Comment: LIVER COULDN'T BE ORDERED-TESTS OVERLAP-ORDERED DBILLIPID DUPLICATE W/ BOTH DRSLIVER LIPID-ROBERTSOTHER TESTS-ISAAC Result Comment: IG% - Immature Granulocytes (promyelocytes, myelocytes and metamyelocytes) > 1% indicates that a LEFT SHIFT is Present. Performed By: #### L 100.0100, L3100.2300, L501.4700, L500.4050, L500.4100, L501.9985, L502.0250 ####[facility] [address] [place], [place], [phone] Lymphocytes/100 WBC (Bld) 34.7 % Normal 19-41 [facility] Comment on above: Order Comment: LIVER COULDN'T BE ORDERED-TESTS OVERLAP-ORDERED DBILLIPID DUPLICATE W/ BOTH DRSLIVER LIPID-ROBERTSOTHER TESTS-ISAAC Performed By: #### L 100.0100, L3100.2300, L501.4700, L500.4050, L500.4100, L501.9985, L502.0250 ####[facility] [address] [place], [address] MCH (RBC) [Entitic mass] 29.9 pg Normal 27.0-32.0 [facility] Comment on above: Order Comment: LIVER COULDN'T BE ORDERED-TESTS OVERLAP-ORDERED DBILLIPID DUPLICATE W/ BOTH DRSLIVER LIPID-ROBERTSOTHER TESTS-ISAAC Performed By: #### L 100.0100, L3100.2300, L501.4700, L500.4050, L500.4100, L501.9985, L502.0250 ####[facility] [address] [place], [address] MCHC (RBC) [Mass/Vol] 33.0 g/dL Normal 32-36 [facility] Comment on above: Order Comment: LIVER COULDN'T BE ORDERED-TESTS OVERLAP-ORDERED DBILLIPID DUPLICATE W/ BOTH DRSLIVER LIPID-ROBERTSOTHER TESTS-ISAAC Performed By: #### L 100.0100, L3100.2300, L501.4700, L500.4050, L500.4100, L501.9985, L502.0250 ####[facility] [address] [place], [address] MCV (RBC) [Entitic vol] 90.4 fL Normal 81-99 [facility] Comment on above: Order Comment: LIVER COULDN'T BE ORDERED-TESTS OVERLAP-ORDERED DBILLIPID DUPLICATE W/ BOTH DRSLIVER LIPID-ROBERTSOTHER TESTS-ISAAC Performed By: #### L 100.0100, L3100.2300, L501.4700, L500.4050, L500.4100, L501.9985, L502.0250 ####[facility] [address] [place], [address] Monocytes/100 WBC (Bld) 11.9 % High 0-10 [facility] Comment on above: Order Comment: LIVER COULDN'T BE ORDERED-TESTS OVERLAP-ORDERED DBILLIPID DUPLICATE W/ BOTH DRSLIVER LIPID-ROBERTSOTHER TESTS-ISAAC Performed By: #### L 100.0100, L3100.2300, L501.4700, L500.4050, L500.4100, L501.9985, L502.0250 ####[facility] [address] [place], [address] Neutrophils/100 WBC (Bld) 49.2 % Normal 47-70 [facility] Comment on above: Order Comment: LIVER COULDN'T BE ORDERED-TESTS OVERLAP-ORDERED DBILLIPID DUPLICATE W/ BOTH DRSLIVER LIPID-ROBERTSOTHER TESTS-ISAAC Performed By: #### L 100.0100, L3100.2300, L501.4700, L500.4050, L500.4100, L501.9985, L502.0250 ####[facility] [address] [place], [address] Nucleated RBC (Bld) [#/Vol] 0 10*3/uL Normal 0-5 [facility] Comment on above: Order Comment: LIVER COULDN'T BE ORDERED-TESTS OVERLAP-ORDERED DBILLIPID DUPLICATE W/ BOTH DRSLIVER LIPID-ROBERTSOTHER TESTS-ISAAC Performed By: #### L 100.0100, L3100.2300, L501.4700, L500.4050, L500.4100, L501.9985, L502.0250 ####[facility] [address] [place], [address] Platelet mean volume (Bld) [Entitic vol] 10.1 fL Normal 6.2-12.0 [facility] Comment on above: Order Comment: LIVER COULDN'T BE ORDERED-TESTS OVERLAP-ORDERED DBILLIPID DUPLICATE W/ BOTH DRSLIVER LIPID-ROBERTSOTHER TESTS-ISAAC Performed By: #### L 100.0100, L3100.2300, L501.4700, L500.4050, L500.4100, L501.9985, L502.0250 ####[facility] [address] [place], [address] Platelets (Bld) [#/Vol] 293 10*3/uL Normal 150-450 [facility] Comment on above: Order Comment: LIVER COULDN'T BE ORDERED-TESTS OVERLAP-ORDERED DBILLIPID DUPLICATE W/ BOTH DRSLIVER LIPID-ROBERTSOTHER TESTS-ISAAC Performed By: #### L 100.0100, L3100.2300, L501.4700, L500.4050, L500.4100, L501.9985, L502.0250 ####[facility] [address] [place], [place], [phone] RBC (Bld) [#/Vol] 4.79 10*6/uL Normal 4.2-5.4 [facility] Comment on above: Order Comment: LIVER COULDN'T BE ORDERED-TESTS OVERLAP-ORDERED DBILLIPID DUPLICATE W/ BOTH DRSLIVER LIPID-ROBERTSOTHER TESTS-ISAAC Performed By: #### L 100.0100, L3100.2300, L501.4700, L500.4050, L500.4100, L501.9985, L502.0250 ####[facility] [address] [place], [place], [phone] RDW SD 40.6 fl Normal 35.1-43.9 [facility] Comment on above: Order Comment: LIVER COULDN'T BE ORDERED-TESTS OVERLAP-ORDERED DBILLIPID DUPLICATE W/ BOTH DRSLIVER LIPID-ROBERTSOTHER TESTS-ISAAC Performed By: #### L 100.0100, L3100.2300, L501.4700, L500.4050, L500.4100, L501.9985, L502.0250 ####[facility] [address] [place], [place], [phone] WBC (Bld) [#/Vol] 8.6 10*3/uL Normal 4.4-11.0 [facility] Comment on above: Order Comment: LIVER COULDN'T BE ORDERED-TESTS OVERLAP-ORDERED DBILLIPID DUPLICATE W/ BOTH DRSLIVER LIPID-ROBERTSOTHER TESTS-ISAAC Performed By: #### L 100.0100, L3100.2300, L501.4700, L500.4050, L500.4100, L501.9985, L502.0250 ####[facility] [address] [place], [address] Comprehensive Metabolic Prof ilon 12-11-2023 Albumin [Mass/Vol] 3.8 g/dL Normal 3.2-5.0 [facility] Comment on above: Order Comment: LIVER COULDN'T BE ORDERED-TESTS OVERLAP-ORDERED DBILLIPID DUPLICATE W/ BOTH DRSLIVER LIPID-ROBERTSOTHER TESTS-ISAAC Performed By: #### L 100.0100, L3100.2300, L501.4700, L500.4050, L500.4100, L501.9985, L502.0250 ####[facility] [address] [place], [place], [phone] Albumin/Globulin [Mass ratio] 0.9 {ratio} Normal 0.9-2.4 [facility] Comment on above: Order Comment: LIVER COULDN'T BE ORDERED-TESTS OVERLAP-ORDERED DBILLIPID DUPLICATE W/ BOTH DRSLIVER LIPID-ROBERTSOTHER TESTS-ISAAC Performed By: #### L 100.0100, L3100.2300, L501.4700, L500.4050, L500.4100, L501.9985, L502.0250 ####[facility] [address] [place], [address] ALK P 54 U/L Normal 45-117 [facility] Comment on above: Order Comment: LIVER COULDN'T BE ORDERED-TESTS OVERLAP-ORDERED DBILLIPID DUPLICATE W/ BOTH DRSLIVER LIPID-ROBERTSOTHER TESTS-ISAAC Performed By: #### L 100.0100, L3100.2300, L501.4700, L500.4050, L500.4100, L501.9985, L502.0250 ####[facility] [address] [place], [address] ALT [Catalytic activity/Vol] 51 U/L Normal 13-56 [facility] Comment on above: Order Comment: LIVER COULDN'T BE ORDERED-TESTS OVERLAP-ORDERED DBILLIPID DUPLICATE W/ BOTH DRSLIVER LIPID-ROBERTSOTHER TESTS-ISAAC Performed By: #### L 100.0100, L3100.2300, L501.4700, L500.4050, L500.4100, L501.9985, L502.0250 ####[facility] [address] [place], [place], [phone] AST [Catalytic activity/Vol] 48 U/L High 15-37 [facility] Comment on above: Order Comment: LIVER COULDN'T BE ORDERED-TESTS OVERLAP-ORDERED DBILLIPID DUPLICATE W/ BOTH DRSLIVER LIPID-ROBERTSOTHER TESTS-ISAAC Performed By: #### L 100.0100, L3100.2300, L501.4700, L500.4050, L500.4100, L501.9985, L502.0250 ####[facility] [address] [place], [place], [phone] Bilirubin [Mass/Vol] 0.50 mg/dL Normal 0.20-1.00 [facility] Comment on above: Order Comment: LIVER COULDN'T BE ORDERED-TESTS OVERLAP-ORDERED DBILLIPID DUPLICATE W/ BOTH DRSLIVER LIPID-ROBERTSOTHER TESTS-ISAAC Result Comment: For patients on eltrombopag therapy, use of Dimension [place] TBIL is not recommended. Performed By: #### L 100.0100, L3100.2300, L501.4700, L500.4050, L500.4100, L501.9985, L502.0250 ####[facility] [address] [place], [address] BUN/CRE 19.2 RATIO Normal 10-20 [facility] Comment on above: Order Comment: LIVER COULDN'T BE ORDERED-TESTS OVERLAP-ORDERED DBILLIPID DUPLICATE W/ BOTH DRSLIVER LIPID-ROBERTSOTHER TESTS-ISAAC Performed By: #### L 100.0100, L3100.2300, L501.4700, L500.4050, L500.4100, L501.9985, L502.0250 ####[facility] [address] [place], [address] CA,Total 10.0 mg/dL Normal 8.5-10.1 [facility] Comment on above: Order Comment: LIVER COULDN'T BE ORDERED-TESTS OVERLAP-ORDERED DBILLIPID DUPLICATE W/ BOTH DRSLIVER LIPID-ROBERTSOTHER TESTS-ISAAC Performed By: #### L 100.0100, L3100.2300, L501.4700, L500.4050, L500.4100, L501.9985, L502.0250 ####[facility] [address] [place], [address] Chloride [Moles/Vol] 94 mmol/L Low 98-107 [facility] Comment on above: Order Comment: LIVER COULDN'T BE ORDERED-TESTS OVERLAP-ORDERED DBILLIPID DUPLICATE W/ BOTH DRSLIVER LIPID-ROBERTSOTHER TESTS-ISAAC Performed By: #### L 100.0100, L3100.2300, L501.4700, L500.4050, L500.4100, L501.9985, L502.0250 ####[facility] [address] [place], [address] CO2 [Moles/Vol] 26.0 mmol/L Normal 21.0-32.0 [facility] Comment on above: Order Comment: LIVER COULDN'T BE ORDERED-TESTS OVERLAP-ORDERED DBILLIPID DUPLICATE W/ BOTH DRSLIVER LIPID-ROBERTSOTHER TESTS-ISAAC Performed By: #### L 100.0100, L3100.2300, L501.4700, L500.4050, L500.4100, L501.9985, L502.0250 ####[facility] [address] [place], [place], [phone] Creatinine [Mass/Vol] 0.73 mg/dL Normal 0.55-1.02 [facility] Comment on above: Order Comment: LIVER COULDN'T BE ORDERED-TESTS OVERLAP-ORDERED DBILLIPID DUPLICATE W/ BOTH DRSLIVER LIPID-ROBERTSOTHER TESTS-ISAAC Result Comment: The validity of the calculated GFR GFRAA in patients over 70 years has not been determined. Clinical correlation is essential. Performed By: #### L 100.0100, L3100.2300, L501.4700, L500.4050, L500.4100, L501.9985, L502.0250 ####[facility] [address] [place], [address] EST GFR - AA 100 mL/min Normal >60 [facility] Comment on above: Order Comment: LIVER COULDN'T BE ORDERED-TESTS OVERLAP-ORDERED DBILLIPID DUPLICATE W/ BOTH DRSLIVER LIPID-ROBERTSOTHER TESTS-ISAAC Result Comment: Afri can [place] GFR Calc Performed By: #### L 100.0100, L3100.2300, L501.4700, L500.4050, L500.4100, L501.9985, L502.0250 ####[facility] [address] [place], [place], [phone] GAP 10 Normal 5-15 [facility] Comment on above: Order Comment: LIVER COULDN'T BE ORDERED-TESTS OVERLAP-ORDERED DBILLIPID DUPLICATE W/ BOTH DRSLIVER LIPID-ROBERTSOTHER TESTS-ISAAC Performed By: #### L 100.0100, L3100.2300, L501.4700, L500.4050, L500.4100, L501.9985, L502.0250 ####[facility] [address] [place], [address] GFR/1.73 sq M.predicted among non-blacks MDRD (S/P/Bld) [Vol rate/Area] 82 mL/min/{1.73_m2} Normal >60 [facility] Comment on above: Order Comment: LIVER COULDN'T BE ORDERED-TESTS OVERLAP-ORDERED DBILLIPID DUPLICATE W/ BOTH DRSLIVER LIPID-ROBERTSOTHER TESTS-ISAAC Result Comment: Non- GFR Calc Performed By: #### L 100.0100, L3100.2300, L501.4700, L500.4050, L500.4100, L501.9985, L502.0250 ####[facility] [address] [place], [phone] Globulin (S) [Mass/Vol] 4.3 g/dL High 2.2-4.2 [facility] Comment on above: Order Comment: LIVER COULDN'T BE ORDERED-TESTS OVERLAP-ORDERED DBILLIPID DUPLICATE W/ BOTH DRSLIVER LIPID-ROBERTSOTHER TESTS-ISAAC Performed By: #### L 100.0100, L3100.2300, L501.4700, L500.4050, L500.4100, L501.9985, L502.0250 ####[facility] [address] [place], [place], [phone] Glucose [Mass/Vol] 200 mg/dL High 74-106 [facility] Comment on above: Order Comment: LIVER COULDN'T BE ORDERED-TESTS OVERLAP-ORDERED DBILLIPID DUPLICATE W/ BOTH DRSLIVER LIPID-ROBERTSOTHER TESTS-ISAAC Result Comment: Gluc ose result greater than or equal to 200 mg/dL suggests DIABETES MELLITUS per A.D.A. criteria. Performed By: #### L 100.0100, L3100.2300, L501.4700, L500.4050, L500.4100, L501.9985, L502.0250 ####[facility] [address] [place], [address] Potassium [Moles/Vol] 4.1 mmol/L Normal 3.5-5.1 [facility] Comment on above: Order Comment: LIVER COULDN'T BE ORDERED-TESTS OVERLAP-ORDERED DBILLIPID DUPLICATE W/ BOTH DRSLIVER LIPID-ROBERTSOTHER TESTS-ISAAC Performed By: #### L 100.0100, L3100.2300, L501.4700, L500.4050, L500.4100, L501.9985, L502.0250 ####[facility] [address] [place], [address] Sodium [Moles/Vol] 130 mmol/L Low 136-145 [facility] Comment on above: Order Comment: LIVER COULDN'T BE ORDERED-TESTS OVERLAP-ORDERED DBILLIPID DUPLICATE W/ BOTH DRSLIVER LIPID-ROBERTSOTHER TESTS-ISAAC Performed By: #### L 100.0100, L3100.2300, L501.4700, L500.4050, L500.4100, L501.9985, L502.0250 ####[facility] [id number] [place], [place], [id number] T PROT 8.1 g/dL Normal 6.4-8.2 [facility] Comment on above: Order Comment: LIVER COULDN'T BE ORDERED-TESTS OVERLAP-ORDERED DBILLIPID DUPLICATE W/ BOTH DRSLIVER LIPID-ROBERTSOTHER TESTS-ISAAC Performed By: #### L 100.0100, L3100.2300, L501.4700, L500.4050, L500.4100, L501.9985, L502.0250 ####[facility] [address] [place], [place], [id number] Urea nitrogen [Mass/Vol] 14 mg/dL Normal 7-18 [facility] Comment on above: Order Comment: LIVER COULDN'T BE ORDERED-TESTS OVERLAP-ORDERED DBILLIPID DUPLICATE W/ BOTH DRSLIVER LIPID-ROBERTSOTHER TESTS-ISAAC Performed By: #### L 100.0100, L3100.2300, L501.4700, L500.4050, L500.4100, L501.9985, L502.0250 ####[facility] [address] [place], [place], [id number] Hemoglobin A1con 12-11-2023 HbA1c (Bld) [Mass fraction] 8.0 % High 3.8-5.6 [facility] Comment on above: Order Comment: LIVER COULDN'T BE ORDERED-TESTS OVERLAP-ORDERED DBILLIPID DUPLICATE W/ BOTH DRSLIVER LIPID-ROBERTSOTHER TESTS-ISAAC Result Comment: Norm al < 5.7 % Prediabetic 5.7 - 6.4 % Diabetic >or= 6.5 % Please note range changes. Performed By: #### L 100.0100, L3100.2300, L501.4700, L500.4050, L500.4100, L501.9985, L502.0250 ####[facility] [address] [place], [place], [phone] Lipid Profileon 12-11-2023 Cholesterol [Mass/Vol] 149 mg/dL Normal 200 [facility] Comment on above: Order Comment: LIVER COULDN'T BE ORDERED-TESTS OVERLAP-ORDERED DBILLIPID DUPLICATE W/ BOTH DRSVER LIPID-ROBERTSOTHER TESTS-ISAAC Result Comment: <200 mg/dL Desirable 200-240 mg/dL Borderline >240 mg/dL High Risk Performed By: #### L 100.0100, L3100.2300, L501.4700, L500.4050, L500.4100, L501.9985, L502.0250 ####[facility] [address] [place], [place], [id number] Cholesterol in HDL [Mass/Vol] 51 mg/dL Normal [facility] Comment on above: Order Comment: LIVER COULDN'T BE ORDERED-TESTS OVERLAP-ORDERED DBILLIPID DUPLICATE W/ BOTH DRSLIVER LIPID-ROBERTSOTHER TESTS-ISAAC Result Comment: The drugs N-Acetylcysteine and Metamizole may falsely depress this assay. Reference Range HDL <40 mg/dL Low HDL Cholesterol HDL >or= 60 mg/dL High HDL Cholesterol Performed By: #### L 100.0100, L3100.2300, L501.4700, L500.4050, L500.4100, L501.9985, L502.0250 ####[facility] [address] [place], [address] Cholesterol in LDL [Mass/Vol] 67 mg/dL Normal 0-130 [facility] Comment on above: Order Comment: LIVER COULDN'T BE ORDERED-TESTS OVERLAP-ORDERED DBILLIPID DUPLICATE W/ BOTH DRSLIVER LIPID-ROBERTSOTHER TESTS-ISAAC Performed By: #### L 100.0100, L3100.2300, L501.4700, L500.4050, L500.4100, L501.9985, L502.0250 ####[facility] [address] [place], [address] Cholesterol in VLDL [Mass/Vol] 31 mg/dL Normal 5-40 [facility] Comment on above: Order Comment: LIVER COULDN'T BE ORDERED-TESTS OVERLAP-ORDERED DBILLIPID DUPLICATE W/ BOTH DRSLIVER LIPID-ROBERTSOTHER TESTS-ISAAC Performed By: #### L 100.0100, L3100.2300, L501.4700, L500.4050, L500.4100, L501.9985, L502.0250 ####[facility] [address] [place], [address] Triglyceride [Mass/Vol] 156 mg/dL Normal [facility] Comment on above: Order Comment: LIVER [...] 100.0100, L3100.2300, L501.4700, L500.4050, L500.4100, L501.9985, L502.0250 ####[facility] [address] [place], [place], [phone] Microalb:Creat Ratio,Random URon 12-11-2023 Creatinine [Mass/Vol] 100.00 mg/dL Normal NO RAN GE EST. [facility] Comment on above: Order Comment: LIVER COULDN'T BE ORDERED-TESTS OVERLAP-ORDERED DBILLIPID DUPLICATE W/ BOTH DRSLIVER LIPID-ROBERTSOTHER TESTS-ISAAC Performed By: #### L 100.0100, L3100.2300, L501.4700, L500.4050, L500.4100, L501.9985, L502.0250 ####[facility] [address] [place], [place], [id number] MALB:CRE 29.0 mg/g CRE Normal <30 mg/g CRE [facility] Comment on above: Order Comment: LIVER COULDN'T BE ORDERED-TESTS OVERLAP-ORDERED DBILLIPID DUPLICATE W/ BOTH DRSLIVER LIPID-ROBERTSOTHER TESTS-ISAAC Performed By: #### L 100.0100, L3100.2300, L501.4700, L500.4050, L500.4100, L501.9985, L502.0250 ####[facility] [address] [place], [place], [id number] MICROALBUMIN,UR 29.0 mg/L Normal NO RANGE EST. [facility] Comment on above: Order Comment: LIVER COULDN'T BE ORDERED-TESTS OVERLAP-ORDERED DBILLIPID DUPLICATE W/ BOTH DRSLIVER LIPID-ROBERTSOTHER TESTS-ISAAC Performed By: #### L 100.0100, L3100.2300, L501.4700, L500.4050, L500.4100, L501.9985, L502.0250 ####[facility] [address] [place], [place], [phone] Basophil percentageOrdered B y: Wale Champagne on 06-13-2023 Bilirubin [Mass/Vol] 0.60 mg/dL 0.20-1.00 [facility] Comment on above: For patients on eltr ombopag therapy, use of Dimension [place] TBIL is not recommended. Cholesterol [Mass/Vol] 180 mg/dL <200 [facility] Comment on above: <200 mg/dL Desirable 200-240 mg/dL Borderline >240 mg/dL High Risk Protein [Mass/Vol] 8.1 g/dL 6.4-8.2 [facility] Triglyceride [Mass/Vol] 157 mg/dL <199 [facility] Comment on above: The drugs N-Acetylcy steine and Metamizole may falsely depress this assay.Serum Triglycerides Reference Interval Normal <150 mg/dL Borderline high 150 - 199 mg/dL High 200 - 499 mg/dL Very High > or = 500 mg/dL Direct bilirubinOrdered By: Wale Champagne on 06-13-2023 Bilirubin.direct [Mass/Vol] 0.15 mg/dL 0.00-0.30 [facility] Laboratory - Chemistry and C hemistry - challengeOrdered By: Wale Champagne on 06-13-2023 ALP [Catalytic activity/Vol] 60 U/L 45-117 [facility] ALT [Catalytic activity/Vol] 44 U/L 13-56 [facility] Cholesterol in HDL [Mass/Vol] 53 mg/dL >40 [facility] Comment on above: The drugs N-Acetylcy steine and Metamizole may falsely depress this assay. Reference Range HDL <40 mg/dL Low HDL Cholesterol HDL >or= 60 mg/dL High HDL Cholesterol Cholesterol in LDL [Mass/Vol] 96 mg/dL 0-130 [facility] Globulin (S) [Mass/Vol] 4.3 g/dL 2.2-4.2 [facility] No Panel InformationOrdered By: Wale Champagne on 06-13-2023 VLDL Cholesterol 31 mg/dL 5-40 [facility] Serum or plasma carcinoembry onic antigen measurement (mass/volume)Ordered By: Wale Champagne on 06-13-2023 Carcinoembryonic Ag [Mass/Vol] 1.5 ng/mL 0.0-4.7 [facility] Comment on above: Nonsmokers <3.9 Smok ers <5.6[employer] Electrochemiluminescence Immunoassay(ECLIA)Values obtained with different assay methods or kitscannot be used interchangeably. Results cannot beinterpreted as absolute evidence of the presence orabsence of malignant disease.Performed at: [address] [id number] Director: Yong Fischer PhD, Phone: [phone] Thin prep Papanicolaou smear with manual screeningOrdered By: Wale Champagne on 06-13-2023 Thin prep Papanicolaou smear with manual screening 3.8 g/dL 3.2-5.0 [facility] Thin prep Papanicolaou smear with manual screening 49 U/L 1537 [facility] Whole blood hemoglobin A1c/t otal hemoglobin ratio (mass fraction)Ordered By: Wale Champagne on 06-13-2023 HbA1c (Bld) [Mass fraction] 7.4 % 3.8-5.6 [facility] Comment on above: Normal < 5.7 [...] M.D. Signed By: JOSSELIN FAUST M.D. Normal [facility] CREATININE W.B.on 07-05-2021 Creatinine [Mass/Vol] 0.6 mg/dL [facility] 0[facility] [facility] [address] [address] [facility] 07-05-2021 CT ABD/PELV W ORALANDIV CONTRAST [...] M.D. Signed By: GRACIA FIGUEROA M.D. Normal [facility] CEAon 06-16-2021 CEA 0.8 NG/ML Normal 0-2.5 [facility] Comment on above: Result Comment: NOTE NEW NORMAL RANGE DUE TO REAGENT CHANGE This is a new methodology for this marker. Tumor markers obtained from different assay methods cannot be used interchangeably. Expect results of this assay to run lower than the previous assay. It is recommended to re-baseline patients when changing to a new methodology. Performed By: #### L 500.38286 #### [facility] [address] [phone] .Auto Diffon 2019 Ammonia (P) [Mass/Vol] 1.20 10 3/mcL High 0.15-1.00 [facility] ([place]) Comment on above: Performed By: #### C BC, ADIFF, ANEU #### [place] [address] #### CMP, GFR, CEA #### [address] [address] Basophils (Bld) [#/Vol] 0.10 10 3/mcL Normal 0.00-0.19 [facility] ([place]) Comment on above: Performed By: #### C BC, ADIFF, ANEU #### [place] [address] #### CMP, GFR, CEA #### [address] [address] Basophils/100 WBC (Bld) 1.4 % Normal 0.0-2.5 [facility] ([place]) Comment on above: Performed By: #### C BC, ADIFF, ANEU #### [place] [address] #### CMP, GFR, CEA #### [address] [address] Eosinophils (Bld) [#/Vol] 0.30 10 3/mcL Normal 0.00-0.40 [facility] ([place]) Comment on above: Performed By: #### C BC, ADIFF, ANEU #### [place] [address] #### CMP, GFR, CEA #### [address] [address] Eosinophils/100 WBC (Bld) 2.6 % Normal 0.0-7.0 [facility] ([place]) Comment on above: Performed By: #### C BC, ADIFF, ANEU #### [place] [address] #### CMP, GFR, CEA #### [address] [address] Lymphocytes (Bld) [#/Vol] 3.10 10 3/mcL Normal 0.77-3.85 [facility] ([place]) Comment on above: Performed By: #### C BC, ADIFF, ANEU #### [address] [address] #### CMP, GFR, CEA #### [address] [address] Lymphocytes/100 WBC (Bld) 30.4 % Normal 10.0-50.0 [facility] ([place]) Comment on above: Performed By: #### C BC, ADIFF, ANEU #### [address] [address] #### CMP, GFR, CEA #### [address] [address] Monocytes/100 WBC (Bld) 11.3 % Normal 1.7-13.0 [facility] ([place]) Comment on above: Performed By: #### C BC, ADIFF, ANEU #### [address] [address] #### CMP, GFR, CEA #### [address] [address] Neutrophils/100 WBC (Bld) 54.3 % Normal 37.0-80.0 [facility] ([place]) Comment on above: Performed By: #### C BC, ADIFF, ANEU #### [address] [address] #### CMP, GFR, CEA #### [address] [address] .GFRon 2019 GFR Non- 72 ml/min/1.73sqm Normal [facility] ([place]) Comment on above: Result Comment: GFR [...] Performed By: #### C BCELSY, ANEU #### [address] [address] #### CMP, GFR, CEA #### [address] [address] GFR 87 ml/min/1.73sqm Normal [facility] ([place]) Comment on above: Result Comment: GFR Population [...] By: #### C ELSY FERGUSON, ANEU #### [address] [address] #### CMP, GFR, CEA #### [address] [address] .NEUABSon 2019 Neutrophils (Bld) [#/Vol] 5.60 10 3/mcL Normal 2.85-6.16 [facility] ([place]) Comment on above: Performed By: #### C ELSY FERGUSON, ANEU #### [address] [address] #### CMP, GFR, CEA #### [address] [address] A1Con 2019 HbA1c (Bld) [Mass fraction] 6.2 % Normal 4.5-6.2 [facility] ([place]) Comment on above: Performed By: #### C BC, ADIFF, ANEU #### [address] [address] #### CMP, GFR, CEA #### [address] [address] CBCon 2019 Erythrocyte distribution width (RBC) [Ratio] 14.8 % High 11.5-14.5 [facility] ([place]) Comment on above: Performed By: #### C BC, ADIFF, ANEU #### [place] [address] #### CMP, GFR, CEA #### [place] [address] Hematocrit (Bld) [Volume fraction] 40.3 % Normal 37.0-47.0 [facility] ([place]) Comment on above: Performed By: #### C BC, ADIFF, ANEU #### [place] [address] #### CMP, GFR, CEA #### [place] [address] Hemoglobin (Bld) [Mass/Vol] 13.7 G/dL Normal 12.0-16.0 [facility] ([place]) Comment on above: Performed By: #### C BC, ADIFF, ANEU #### [place] [address] #### CMP, GFR, CEA #### [place] [address] MCH (RBC) [Entitic mass] 29.4 pg Normal 27.0-31.2 [facility] ([place]) Comment on above: Performed By: #### C BC, ADIFF, ANEU #### [place] [address] #### CMP, GFR, CEA #### [place] [id number] MCHC (RBC) [Mass/Vol] 34.0 G/dL Normal 33.0-37.0 [facility] ([place]) Comment on above: Performed By: #### C BC, ADIFF, ANEU #### [address] [address] #### CMP, GFR, CEA #### [address] [address] MCV (RBC) [Entitic vol] 86.5 fL Normal 80.0-94.0 [facility] ([place]) Comment on above: Performed By: #### C BC, ADIFF, ANEU #### [address] [address] #### CMP, GFR, CEA #### [address] [address] Platelet mean volume (Bld) [Entitic vol] 8.0 fL Normal 7.4-10.4 [facility] ([place]) Comment on above: Performed By: #### C BC, ADIFF, ANEU #### [address] [address] #### CMP, GFR, CEA #### [address] [address] Platelets (Bld) [#/Vol] 282 10 3/mcL Normal 130-400 [facility] ([place]) Comment on above: Performed By: #### C BC, ADIFF, ANEU #### [address] [address] #### CMP, GFR, CEA #### [address] [address] RBC (Bld) [#/Vol] 4.66 10 6/mcL Normal 4.20-5.40 [facility] ([place]) Comment on above: Performed By: #### C BC, ADIFF, ANEU #### [address] [address] #### CMP, GFR, CEA #### [address] [address] WBC (Bld) [#/Vol] 10.30 10 3/mcL Normal 4.60-10.80 [facility] ([place]) Comment on above: Performed By: #### C BC, ADIFF, ANEU #### [place] [id number] #### CMP, GFR, CEA #### [address] [address] CEAon 2019 CEA 1.2 ng/mL Normal 0.0-3.0 [facility] ([place]) Comment on above: Result Comment: CEA Reference Range for SMOKERS: 0.0 - 5.0 ng/mL. Performed By: #### C BC, ADIFF, ANEU #### [place] [address] #### CMP, GFR, CEA #### [place] [address] CMPon 2019 Albumin [Mass/Vol] 4.0 G/dL Normal 3.4-4.8 [facility] ([place]) Comment on above: Performed By: #### C BC, ADIFF, ANEU #### [place] [address] #### CMP, GFR, CEA #### [place] [address] Albumin/Globulin [Mass ratio] 1.0 {ratio} Low 1.1-2.5 [facility] ([place]) Comment on above: Performed By: #### C BC, ADIFF, ANEU #### [place] [address] #### CMP, GFR, CEA #### [place] [address] ALP [Catalytic activity/Vol] 65 U/L Normal 40-135 [facility] ([place]) Comment on above: Performed By: #### C BC, ADIFF, ANEU #### [place] [address] #### CMP, GFR, CEA #### [place] [id number] ALT [Catalytic activity/Vol] 34 U/L Normal 10-35 [facility] ([place]) Comment on above: Performed By: #### C BC, ADIFF, ANEU #### [address] [address] #### CMP, GFR, CEA #### [address] [address] AST [Catalytic activity/Vol] 28 U/L Normal 10-40 [facility] ([place]) Comment on above: Performed By: #### C BC, ADIFF, ANEU #### [place] [address] #### CMP, GFR, CEA #### [address] [address] Bili Total 0.4 mg/dL Normal 0.2-1.0 [facility] ([place]) Comment on above: Performed By: #### C BC, ADIFF, ANEU #### [place] [address] #### CMP, GFR, CEA #### [address] [address] Calcium [Mass/Vol] 10.0 mg/dL Normal 8.4-10.2 [facility] ([place]) Comment on above: Performed By: #### C BC, ADIFF, ANEU #### [place] [address] #### CMP, GFR, CEA #### [address] [address] Chloride [Moles/Vol] 97 mmol/L Low 98-107 [facility] ([place]) Comment on above: Performed By: #### C BC, ADIFF, ANEU #### [place] [address] #### CMP, GFR, CEA #### [address] [address] CO2 [Moles/Vol] 28 mmol/L Normal 23-31 [facility] ([place]) Comment on above: Performed By: #### C BC, ADIFF, ANEU #### [place] [id number] #### CMP, GFR, CEA #### [address] [address] Creatinine [Mass/Vol] 0.79 mg/dL Normal 0.55-1.02 [facility] ([place]) Comment on above: Performed By: #### C BC, ADIFF, ANEU #### [address] [address] #### CMP, GFR, CEA #### [address] [address] Electrolyte Balance 11.0 mEq/L Normal [facility] ([place]) Comment on above: Performed By: #### C BC, ADIFF, ANEU #### [address] [address] #### CMP, GFR, CEA #### [address] [address] Globulin (S) [Mass/Vol] 3.9 G/dL Normal [facility] ([place]) Comment on above: Performed By: #### C BC, ADIFF, ANEU #### [place] [address] #### CMP, GFR, CEA #### [address] [address] Glucose [Mass/Vol] 134 mg/dL High 83-110 [facility] ([place]) Comment on above: Performed By: #### C BC, ADIFF, ANEU #### [address] [address] #### CMP, GFR, CEA #### [address] [address] Potassium [Moles/Vol] 4.4 mmol/L Normal 3.5-5.1 [facility] ([place]) Comment on above: Performed By: #### C BC, ADIFF, ANEU #### [address] [address] #### CMP, GFR, CEA #### [address] [address] Protein [Mass/Vol] 7.9 G/dL Normal 6.4-8.2 [facility] ([place]) Comment on above: Performed By: #### C BC, ADIFF, ANEU #### [address] [address] #### CMP, GFR, CEA #### [address] [address] Sodium [Moles/Vol] 136 mmol/L Normal 136-145 [facility] ([place]) Comment on above: Performed By: #### C BC, ADIFF, ANEU #### [address] [address] #### CMP, GFR, CEA #### [address] [address] Urea nitrogen [Mass/Vol] 14 mg/dL Normal 7-18 [facility] ([place]) Comment on above: Performed By: #### C BC, ADIFF, ANEU #### [address] [address] #### CMP, GFR, CEA #### [address] [address] Urea nitrogen/Creatinine [Mass ratio] 18 ratio Normal 09-22 [facility] ([place]) Comment on above: Performed By: #### C BC, ADIFF, ANEU #### [address] [address] #### CMP, GFR, CEA #### [address] [address] FT4on 2019 Free T4 [Mass/Vol] 1.05 ng/dL Normal 0.76-1.46 [facility] ([place]) Comment on above: Performed By: #### C BC, ADIFF, ANEU #### [address] [address] #### CMP, GFR, CEA #### [address] [address] LIPIDon 2019 Cholesterol [Mass/Vol] 157 mg/dL Normal 0-200 [facility] ([place]) Comment on above: Result Comment: Chol esterol Reference Interval: Less than 200 Desirable 200-239 Borderline high risk 240 and above High risk Performed By: #### C BC, ADIFF, ANEU #### [address] [address] #### CMP, GFR, CEA #### [address] [address] Cholesterol in HDL [Mass/Vol] 61 mg/dL High 40-60 [facility] ([place]) Comment on above: Performed By: #### C BC, ADIFF, ANEU #### [address] [address] #### CMP, GFR, CEA #### [address] [address] Cholesterol in LDL [Mass/Vol] 73 mg/dL Normal 0-130 [facility] ([place]) Comment on above: Performed By: #### C BC, ADIFF, ANEU #### [address] [address] #### CMP, GFR, CEA #### [address] [address] Triglyceride [Mass/Vol] 115 mg/dL Normal 0-150 [facility] ([place]) Comment on above: Result Comment: Trig lyceride Reference Interval: Less than 150 Normal 150-199 Borderline high risk 200-499 High risk 500 or higher Very high risk Performed By: #### C BC ADIFF, ANEU #### [address] [address] #### CMP, GFR, CEA #### [address] [address] MALBRon 2019 U Microalb 2535 mcg/dL Normal [facility] ([place]) Comment on above: Performed By: #### C BC, ADIFF, ANEU #### [address] [address] #### CMP, GFR, CEA #### [address] [address] U Ratio Alb/Cre 11.0 mcg/mg Normal 0.0-24.9 [facility] ([place]) Comment on above: Performed By: #### C BC, ADIFF, ANEU #### [address] [place] [address] #### CMP, GFR, CEA #### [address] [address] U Creatinine 231.0 mg/dL Normal [facility] ([place]) Comment on above: Performed By: #### C BC, ADIFF, ANEU #### [address] [address] #### CMP, GFR, CEA #### [address] [address] TSHon 2019 TSH Qn 3.04 mcIU/mL Normal 0.36-3.74 [facility] ([place]) Comment on above: Performed By: #### C BC, ADIFF, ANEU #### [address] [address] #### CMP, GFR, CEA #### [address] [address] US RENALon 11-05-2018 US RENAL ORIGINAL US [...] PM Sign Date: 11/05/2018 6:16:19 PM Normal [facility] ([place]) Final Surgical Pathology Rep garrett 10-08-2018 Final Surgical Pathology Report . Pathology Reports Accession: Collected Date/Time: Received Date/Time: Pathologist: [id number] 10/04/2018 09:43 EDT 10/05/2018 07:04 ROBLES TRIPATHI [...] Reports Accession: Collected Date/Time: Received Date/Time: Pathologist: [id number] 10/04/2018 09:43 EDT 10/05/2018 07:04 EDT ROBLES COTTO MD GROSS DESCRIPTION: 1 proximal (en face) and distal (inked perpendicular) margins 2 closest fatty radial margin 3 -5 entire biopsy site and adjacent sections 6 random unremarkable mucosa 7 -10 multiple lymph nodes Dictated by Serena VASQUEZ ([facility]) MICROSCOPIC DESCRIPTION: A&B) Slides reviewed. Electronically Signed by Pathology Report verified by [facility] Electronically signed by ROBLES COTTO Sign out Date: 10/08/2018 14:12 Performing Lab: [address] Normal [facility] ([place]) Comment on above: Performed By: #### C ELSY FERGUSON ANEU #### [place] [address] #### CMP, GFR, CEA #### [place] [address] .Auto Diffon 10-06-2018 Ammonia (P) [Mass/Vol] 1.20 10 3/mcL Normal 0.09-1.40 [facility] ([place]) Comment on above: Performed By: #### C BCELSY ANEU #### [place] [address] #### CMP, GFR, CEA #### [place] [address] Basophils (Bld) [#/Vol] 0.10 10 3/mcL Normal 0.00-0.27 [facility] ([place]) Comment on above: Performed By: #### C BCELSY ANEU #### [address] [address] #### CMP, GFR, CEA #### [address] [address] Basophils/100 WBC (Bld) 0.6 % Normal 0.0-2.5 [facility] ([place]) Comment on above: Performed By: #### C BC, ADIFF, ANEU #### [place] [address] #### CMP, GFR, CEA #### [address] [address] Eosinophils (Bld) [#/Vol] 0.10 10 3/mcL Normal 0.00-0.65 [facility] ([place]) Comment on above: Performed By: #### C BC, ADIFF, ANEU #### [place] [address] #### CMP, GFR, CEA #### [address] [address] Eosinophils/100 WBC (Bld) 0.4 % Normal 0.0-6.0 [facility] ([place]) Comment on above: Performed By: #### C BC, ADIFF, ANEU #### [place] [address] #### CMP, GFR, CEA #### [address] [address] Lymphocytes (Bld) [#/Vol] 3.00 10 3/mcL Normal 0.90-4.32 [facility] ([place]) Comment on above: Performed By: #### C BC, ADIFF, ANEU #### [place] [address] #### CMP, GFR, CEA #### [address] [address] Lymphocytes/100 WBC (Bld) 23.8 % Normal 20.0-40.0 [facility] ([place]) Comment on above: Performed By: #### C BC, ADIFF, ANEU #### [place] [address] #### CMP, GFR, CEA #### [address] [address] Monocytes/100 WBC (Bld) 9.6 % Normal 2.0-13.0 [facility] ([place]) Comment on above: Performed By: #### C BC, ADIFF, ANEU #### [address] [address] #### CMP, GFR, CEA #### [address] [address] Neutrophils/100 WBC (Bld) 65.6 % Normal 50.0-75.0 [facility] ([place]) Comment on above: Performed By: #### C BC, ADIFF, ANEU #### [address] [address] #### CMP, GFR, CEA #### [address] [address] .GFRon 10-06-2018 GFR Non- >60 Normal [facility] ([place]) Comment on above: Result Comment: GFR Population [...] By: #### C BC, ADIFF, ANEU #### [address] [address] #### CMP, GFR, CEA #### [address] [address] GFR >60 Normal [facility] ([place]) Comment on above: Result Comment: GFR Population [...] By: #### C ELSY FERGUSON ANEU #### [place] [address] #### CMP, GFR, CEA #### [place] [address] .NEUABSon 10-06-2018 Neutrophils (Bld) [#/Vol] 8.30 10 3/mcL High 2.25-8.10 [facility] ([place]) Comment on above: Performed By: #### C ELSY FERGUSON ANEU #### [place] [address] #### CMP, GFR, CEA #### [place] [address] BMPon 10-06-2018 Creatinine [Mass/Vol] 0.56 mg/dL Normal 0.50-1.20 [facility] ([place]) Comment on above: Performed By: #### ELSY JAY ANEU #### [place] [address] #### CMP, GFR, CEA #### [place] [address] Urea nitrogen/Creatinine [Mass ratio] 12.5 ratio Normal 10.0-22.0 [facility] ([place]) Comment on above: Performed By: #### ELSY JAY, ANEU #### [place] [address] #### CMP, GFR, CEA #### [place] [address] Calcium [Mass/Vol] 8.4 mg/dL Normal 8.4-10.1 [facility] ([place]) Comment on above: Performed By: #### C BC, ADIFF, ANEU #### [address] [id number] #### CMP, GFR, CEA #### [address] [address] Chloride [Moles/Vol] 103 mmol/L Normal 98-110 [facility] ([place]) Comment on above: Performed By: #### C BC, ADIFF, ANEU #### [address] [address] #### CMP, GFR, CEA #### [address] [address] CO2 [Moles/Vol] 25 mmol/L Normal 22-32 [facility] ([place]) Comment on above: Performed By: #### C BC, ADIFF, ANEU #### [address] [address] #### CMP, GFR, CEA #### [address] [address] Electrolyte Balance 6.0 mEq/L Normal 4.0-15.0 [facility] ([place]) Comment on above: Performed By: #### C BC, ADIFF, ANEU #### [address] [address] #### CMP, GFR, CEA #### [address] [address] Glucose [Mass/Vol] 179 mg/dL High 82-115 [facility] ([place]) Comment on above: Performed By: #### C BC, ADIFF, ANEU #### [address] [address] #### CMP, GFR, CEA #### [address] [address] Potassium [Moles/Vol] 4.6 mmol/L Normal 3.5-5.0 [facility] ([place]) Comment on above: Performed By: #### C BC, ADIFF, ANEU #### [address] [address] #### CMP, GFR, CEA #### [address] [address] Sodium [Moles/Vol] 134 mmol/L Low 136-145 [facility] ([place]) Comment on above: Performed By: #### C BC, ADIFF, ANEU #### [address] [address] #### CMP, GFR, CEA #### [address] [address] Urea nitrogen [Mass/Vol] 7.0 mg/dL Low 8.0-22.0 [facility] ([place]) Comment on above: Performed By: #### C BC, ADIFF, ANEU #### [place] [address] #### CMP, GFR, CEA #### [address] [address] CBCon 10-06-2018 Erythrocyte distribution width (RBC) [Ratio] 13.4 % Normal 11.5-15.5 [facility] ([place]) Comment on above: Performed By: #### C BC, ADIFF, ANEU #### [place] [address] #### CMP, GFR, CEA #### [address] [address] Hematocrit (Bld) [Volume fraction] 31.1 % Low 34.0-46.0 [facility] ([place]) Comment on above: Performed By: #### C BC, ADIFF, ANEU #### [address] [address] #### CMP, GFR, CEA #### [address] [address] Hemoglobin (Bld) [Mass/Vol] 10.7 G/dL Low 12.0-16.0 [facility] ([place]) Comment on above: Performed By: #### C BC, ADIFF, ANEU #### [place] [address] #### CMP, GFR, CEA #### [address] [address] MCH (RBC) [Entitic mass] 30.5 pg Normal 27.0-33.0 [facility] ([place]) Comment on above: Performed By: #### C BC, ADIFF, ANEU #### [address] [address] #### CMP, GFR, CEA #### [address] [address] MCHC (RBC) [Mass/Vol] 34.5 G/dL Normal 32.0-36.0 [facility] ([place]) Comment on above: Performed By: #### C BC, ADIFF, ANEU #### [place] [address] #### CMP, GFR, CEA #### [address] [address] MCV (RBC) [Entitic vol] 88.2 fL Normal 80.0-99.0 [facility] ([place]) Comment on above: Performed By: #### C BC, ADIFF, ANEU #### [place] [address] #### CMP, GFR, CEA #### [address] [address] Platelet mean volume (Bld) [Entitic vol] 8.1 fL Normal 6.6-10.5 [facility] ([place]) Comment on above: Performed By: #### C BC, ADIFF, ANEU #### [address] [address] #### CMP, GFR, CEA #### [address] [address] Platelets (Bld) [#/Vol] 208 10 3/mcL Normal 150-450 [facility] ([place]) Comment on above: Performed By: #### C BC, ADIFF, ANEU #### [address] [address] #### CMP, GFR, CEA #### [address] [address] RBC (Bld) [#/Vol] 3.53 10 6/mcL Low 4.10-5.30 [facility] ([place]) Comment on above: Performed By: #### C BC, ADIFF, ANEU #### [address] [address] #### CMP, GFR, CEA #### [address] [address] WBC (Bld) [#/Vol] 12.60 10 3/mcL High 4.50-10.80 [facility] ([place]) Comment on above: Performed By: #### C BC, ADIFF, ANEU #### [address] [address] #### CMP, GFR, CEA #### [place] [address] CURon 10-06-2018 CUR . MICRO - Microbiology [...] Locations *1: This test was performed at: [address], [address] [place] [address] ([place]) Comment on above: Performed By: #### C BC, ADIFF, ANEU #### [address] [address] #### CMP, GFR, CEA #### [place] [address] .Auto Diffon 08-09-2019 Ammonia (P) [Mass/Vol] 1.50 10 3/mcL High 0.09-1.40 [facility] ([place]) Comment on above: Performed By: #### C BC, ADIFF, ANEU, BMP, GFR #### [address] [address] Basophils (Bld) [#/Vol] 0.00 10 3/mcL Normal 0.00-0.27 [facility] ([place]) Comment on above: Performed By: #### C BC, ADIFF, ANEU, BMP, GFR #### [address] [address] Basophils/100 WBC (Bld) 0.2 % Normal 0.0-2.5 [facility] ([place]) Comment on above: Performed By: #### C BC, ADIFF, ANEU, BMP, GFR #### [address] [address] Eosinophils (Bld) [#/Vol] 0.00 10 3/mcL Normal 0.00-0.65 [facility] ([place]) Comment on above: Performed By: #### C BC, ADIFF, ANEU, BMP, GFR #### [address] [address] Eosinophils/100 WBC (Bld) 0.0 % Normal 0.0-6.0 [facility] ([place]) Comment on above: Performed By: #### C BC, ADIFF, ANEU, BMP, GFR #### [address] [address] Lymphocytes (Bld) [#/Vol] 1.70 10 3/mcL Normal 0.90-4.32 [facility] ([place]) Comment on above: Performed By: #### C BC, ADIFF, ANEU, BMP, GFR #### [address] [address] Lymphocytes/100 WBC (Bld) 9.9 % Low 20.0-40.0 [facility] ([place]) Comment on above: Performed By: #### C BC, ADIFF, ANEU, BMP, GFR #### [address] [address] Monocytes/100 WBC (Bld) 9.2 % Normal 2.0-13.0 [facility] ([place]) Comment on above: Performed By: #### C BC, ADIFF, ANEU, BMP, GFR #### [address] [address] Neutrophils/100 WBC (Bld) 80.7 % High 50.0-75.0 [facility] ([place]) Comment on above: Performed By: #### C BC, ADIFF, ANEU, BMP, GFR #### [address] [address] .GFRon 10-05-2018 GFR >60 Normal [facility] ([place]) Comment on above: Result Comment: GFR Population [...] By: #### C BC, ADIFF, ANEU #### [address] [address] #### CMP, GFR, CEA #### [address] [address] GFR Non- >60 Normal [facility] ([place]) Comment on above: Result Comment: GFR Population [...] Performed By: #### ELSY JAY ANEU #### [place] [address] #### CMP, GFR, CEA #### [place] [address] .NEUABSon 10-05-2018 Neutrophils (Bld) [#/Vol] 13.60 10 3/mcL High 2.25-8.10 [facility] ([place]) Comment on above: Performed By: #### ELSY JAY ANEU #### [place] [address] #### CMP, GFR, CEA #### [place] [address] BMPon 10-05-2018 Chloride [Moles/Vol] 98 mmol/L Normal 98-110 [facility] ([place]) Comment on above: Performed By: #### C ELSY FERGUSON, ANEU #### [place] [address] #### CMP, GFR, CEA #### [place] [address] Creatinine [Mass/Vol] 0.58 mg/dL Normal 0.50-1.20 [facility] ([place]) Comment on above: Performed By: #### ELSY JAY, ANEU #### [place] [address] #### CMP, GFR, CEA #### [place] [address] Electrolyte Balance 11.0 mEq/L Normal 4.0-15.0 [facility] ([place]) Comment on above: Performed By: #### ELSY JAY, ANEU #### [place] [address] #### CMP, GFR, CEA #### [place] [address] Glucose [Mass/Vol] 177 mg/dL High 82-115 [facility] ([place]) Comment on above: Performed By: #### C BC, ADIFF, ANEU #### [address] [address] #### CMP, GFR, CEA #### [address] [address] Potassium [Moles/Vol] 4.7 mmol/L Normal 3.5-5.0 [facility] ([place]) Comment on above: Performed By: #### C BC, ADIFF, ANEU #### [address] [address] #### CMP, GFR, CEA #### [address] [address] Sodium [Moles/Vol] 132 mmol/L Low 136-145 [facility] ([place]) Comment on above: Performed By: #### C BC ADIFF, ANEU #### [place] [address] #### CMP, GFR, CEA #### [address] [address] Urea nitrogen/Creatinine [Mass ratio] 8.6 ratio Low 10.0-22.0 [facility] ([place]) Comment on above: Performed By: #### C BC, ADIFF, ANEU #### [address] [address] #### CMP, GFR, CEA #### [address] [address] Calcium [Mass/Vol] 8.9 mg/dL Normal 8.4-10.1 [facility] ([place]) Comment on above: Performed By: #### C BC, ADIFF, ANEU #### [address] [address] #### CMP, GFR, CEA #### [address] [address] CO2 [Moles/Vol] 23 mmol/L Normal 22-32 [facility] ([place]) Comment on above: Performed By: #### C BC, ADIFF, ANEU #### [address] [address] #### CMP, GFR, CEA #### [place] [address] Urea nitrogen [Mass/Vol] 5.0 mg/dL Low 8.0-22.0 [facility] ([place]) Comment on above: Performed By: #### C BC, ADIFF, ANEU #### [place] [address] #### CMP, GFR, CEA #### [address] [address] CBCon 10-05-2018 Erythrocyte distribution width (RBC) [Ratio] 12.6 % Normal 11.5-15.5 [facility] ([place]) Comment on above: Performed By: #### C BC, ADIFF, ANEU, BMP, GFR #### [place] [address] Hematocrit (Bld) [Volume fraction] 35.5 % Normal 34.0-46.0 [facility] ([place]) Comment on above: Performed By: #### C BC, ADIFF, ANEU, BMP, GFR #### [place] [address] Hemoglobin (Bld) [Mass/Vol] 12.0 G/dL Normal 12.0-16.0 [facility] ([place]) Comment on above: Performed By: #### C BC, ADIFF, ANEU, BMP, GFR #### [place] [id number] MCH (RBC) [Entitic mass] 30.2 pg Normal 27.0-33.0 [facility] ([place]) Comment on above: Performed By: #### C BC, ADIFF, ANEU, BMP, GFR #### [place] [address] MCHC (RBC) [Mass/Vol] 33.8 G/dL Normal 32.0-36.0 [facility] ([place]) Comment on above: Performed By: #### C BC, ADIFF, ANEU, BMP, GFR #### [address] [address] MCV (RBC) [Entitic vol] 89.2 fL Normal 80.0-99.0 [facility] ([place]) Comment on above: Performed By: #### C BC, ADIFF, ANEU, BMP, GFR #### [address] [address] Platelet mean volume (Bld) [Entitic vol] 8.2 fL Normal 6.6-10.5 [facility] ([place]) Comment on above: Performed By: #### C BC, ADIFF, ANEU, BMP, GFR #### [address] [address] Platelets (Bld) [#/Vol] 246 10 3/mcL Normal 150-450 [facility] ([place]) Comment on above: Performed By: #### C BC, ADIFF, ANEU, BMP, GFR #### [address] [address] RBC (Bld) [#/Vol] 3.98 10 6/mcL Low 4.10-5.30 [facility] ([place]) Comment on above: Performed By: #### C BC, ADIFF, ANEU, BMP, GFR #### [address] [address] WBC (Bld) [#/Vol] 16.80 10 3/mcL High 4.50-10.80 [facility] ([place]) Comment on above: Performed By: #### C BC, ADIFF, ANEU, BMP, GFR #### [address] [address] [address] ABDOMEN/PELVIS W/CONTRAST on 09-21-2018 CT ABDOMEN/PELVIS [...] PM Sign Date: 09/21/2018 3:23:30 PM Normal [facility] ([place]) CEAon 09-19-2018 CEA 1.0 ng/mL Normal 0.0-3.0 [facility] ([place]) Comment on above: Result Comment: CEA Reference Range for SMOKERS: 0.0 - 5.0 ng/mL. Performed By: #### C BC, ADIFF, ANEU #### [address] [address] #### CMP, GFR, CEA #### [address] [address] .Auto Diffon 09-18-2018 Ammonia (P) [Mass/Vol] 0.90 10 3/mcL Normal 0.15-1.00 [facility] ([place]) Comment on above: Performed By: #### C BC, ADIFF, ANEU #### [address] [address] #### CMP, GFR, CEA #### [address] [address] Basophils (Bld) [#/Vol] 0.20 10 3/mcL High 0.00-0.19 [facility] ([place]) Comment on above: Performed By: #### C BC, ADIFF, ANEU #### [place] [address] #### CMP, GFR, CEA #### [address] [address] Basophils/100 WBC (Bld) 2.4 % Normal 0.0-2.5 [facility] ([place]) Comment on above: Performed By: #### C BC, ADIFF, ANEU #### [place] [address] #### CMP, GFR, CEA #### [address] [address] Eosinophils (Bld) [#/Vol] 0.20 10 3/mcL Normal 0.00-0.40 [facility] ([place]) Comment on above: Performed By: #### C BC, ADIFF, ANEU #### [place] [address] #### CMP, GFR, CEA #### [address] [address] Eosinophils/100 WBC (Bld) 1.8 % Normal 0.0-7.0 [facility] ([place]) Comment on above: Performed By: #### C BC, ADIFF, ANEU #### [place] [address] #### CMP, GFR, CEA #### [address] [address] Lymphocytes (Bld) [#/Vol] 2.50 10 3/mcL Normal 0.77-3.85 [facility] ([place]) Comment on above: Performed By: #### C BC, ADIFF, ANEU #### [address] [address] #### CMP, GFR, CEA #### [address] [address] Lymphocytes/100 WBC (Bld) 27.8 % Normal 10.0-50.0 [facility] ([place]) Comment on above: Performed By: #### C BC, ADIFF, ANEU #### [address] [address] #### CMP, GFR, CEA #### [address] [address] Monocytes/100 WBC (Bld) 9.7 % Normal 1.7-13.0 [facility] ([place]) Comment on above: Performed By: #### C BC, ADIFF, ANEU #### [address] [address] #### CMP, GFR, CEA #### [address] [address] Neutrophils/100 WBC (Bld) 58.3 % Normal 37.0-80.0 [facility] ([place]) Comment on above: Performed By: #### C BC, ADIFF, ANEU #### [address] [address] #### CMP, GFR, CEA #### [address] [address] .GFRon 09-18-2018 GFR 78 ml/min/1.73sqm Normal [facility] ([place]) Comment on above: Result Comment: GFR [...] By: #### C BC, ADIFF, ANEU #### [address] [address] #### CMP, GFR, CEA #### [address] [address] GFR Non- 64 ml/min/1.73sqm Normal [facility] ([place]) Comment on above: Result Comment: GFR Population [...] Performed By: #### C BCELSY, ANEU #### [address] [address] #### CMP, GFR, CEA #### [address] [address] .NEUABSon 09-18-2018 Neutrophils (Bld) [#/Vol] 5.20 10 3/mcL Normal 2.85-6.16 [facility] ([place]) Comment on above: Performed By: #### C BCSUZYIFF, ANEU #### [address] [address] #### CMP, GFR, CEA #### [address] [address] CBCon 09-18-2018 Erythrocyte distribution width (RBC) [Ratio] 13.2 % Normal 11.5-14.5 [facility] ([place]) Comment on above: Performed By: #### C BCELSY, ANEU #### [address] [address] #### CMP, GFR, CEA #### [address] [address] Hematocrit (Bld) [Volume fraction] 43.7 % Normal 37.0-47.0 [facility] ([place]) Comment on above: Performed By: #### C BC, ADIFF, ANEU #### [place] [address] #### CMP, GFR, CEA #### [place] [address] Hemoglobin (Bld) [Mass/Vol] 14.5 G/dL Normal 12.0-16.0 [facility] ([place]) Comment on above: Performed By: #### C BC, ADIFF, ANEU #### [place] [address] #### CMP, GFR, CEA #### [place] [address] MCH (RBC) [Entitic mass] 29.4 pg Normal 27.0-31.2 [facility] ([place]) Comment on above: Performed By: #### C BC, ADIFF, ANEU #### [place] [address] #### CMP, GFR, CEA #### [place] [address] MCHC (RBC) [Mass/Vol] 33.2 G/dL Normal 33.0-37.0 [facility] ([place]) Comment on above: Performed By: #### C BC, ADIFF, ANEU #### [place] [address] #### CMP, GFR, CEA #### [place] [id number] MCV (RBC) [Entitic vol] 88.8 fL Normal 80.0-94.0 [facility] ([place]) Comment on above: Performed By: #### C BC, ADIFF, ANEU #### [place] [address] #### CMP, GFR, CEA #### [address] [address] Platelet mean volume (Bld) [Entitic vol] 8.6 fL Normal 7.4-10.4 [facility] ([place]) Comment on above: Performed By: #### C BC, ADIFF, ANEU #### [place] [address] #### CMP, GFR, CEA #### [address] [address] Platelets (Bld) [#/Vol] 307 10 3/mcL Normal 130-400 [facility] ([place]) Comment on above: Performed By: #### C BC, ADIFF, ANEU #### [place] [address] #### CMP, GFR, CEA #### [place] [address] RBC (Bld) [#/Vol] 4.92 10 6/mcL Normal 4.20-5.40 [facility] ([place]) Comment on above: Performed By: #### C BC, ADIFF, ANEU #### [place] [address] #### CMP, GFR, CEA #### [address] [address] WBC (Bld) [#/Vol] 8.90 10 3/mcL Normal 4.60-10.80 [facility] ([place]) Comment on above: Performed By: #### C BC, ADIFF, ANEU #### [place] [address] #### CMP, GFR, CEA #### [address] [address] CMPon 09-18-2018 Albumin [Mass/Vol] 4.0 G/dL Normal 3.4-4.8 [facility] ([place]) Comment on above: Performed By: #### C BC, ADIFF, ANEU #### [place] [address] #### CMP, GFR, CEA #### [address] [address] Albumin/Globulin [Mass ratio] 1.1 {ratio} Normal 1.1-2.5 [facility] ([place]) Comment on above: Performed By: #### C BC, ADIFF, ANEU #### [address] [address] #### CMP, GFR, CEA #### [address] [address] ALP [Catalytic activity/Vol] 49 U/L Normal 40-135 [facility] ([place]) Comment on above: Performed By: #### C BC, ADIFF, ANEU #### [address] [address] #### CMP, GFR, CEA #### [address] [address] ALT [Catalytic activity/Vol] 41 U/L High 10-35 [facility] ([place]) Comment on above: Performed By: #### C BC, ADIFF, ANEU #### [address] [address] #### CMP, GFR, CEA #### [address] [address] AST [Catalytic activity/Vol] 51 U/L High 10-40 [facility] ([place]) Comment on above: Performed By: #### C BC, ADIFF, ANEU #### [address] [address] #### CMP, GFR, CEA #### [address] [address] Bili Total 0.4 mg/dL Normal 0.2-1.0 [facility] ([place]) Comment on above: Performed By: #### C BC, ADIFF, ANEU #### [address] [address] #### CMP, GFR, CEA #### [address] [address] Calcium [Mass/Vol] 10.2 mg/dL Normal 8.4-10.2 [facility] ([place]) Comment on above: Performed By: #### C BC, ADIFF, ANEU #### [address] [address] #### CMP, GFR, CEA #### [address] [address] Chloride [Moles/Vol] 97 mmol/L Low 98-107 [facility] ([place]) Comment on above: Performed By: #### C BC, ADIFF, ANEU #### [address] [address] #### CMP, GFR, CEA #### [address] [address] CO2 [Moles/Vol] 28 mmol/L Normal 23-31 [facility] ([place]) Comment on above: Performed By: #### C BC, ADIFF, ANEU #### [address] [address] #### CMP, GFR, CEA #### [address] [address] Creatinine [Mass/Vol] 0.87 mg/dL Normal 0.55-1.02 [facility] ([place]) Comment on above: Performed By: #### C BC, ADIFF, ANEU #### [address] [address] #### CMP, GFR, CEA #### [address] [address] Electrolyte Balance 9.0 mEq/L Normal [facility] ([place]) Comment on above: Performed By: #### C BC, ADIFF, ANEU #### [address] [address] #### CMP, GFR, CEA #### [address] [address] Globulin (S) [Mass/Vol] 3.7 G/dL Normal [facility] ([place]) Comment on above: Performed By: #### C BC, ADIFF, ANEU #### [address] [address] #### CMP, GFR, CEA #### [address] [address] Glucose [Mass/Vol] 203 mg/dL High 83-110 [facility] ([place]) Comment on above: Performed By: #### C BC, ADIFF, ANEU #### [address] [address] #### CMP, GFR, CEA #### [address] [address] Potassium [Moles/Vol] 4.1 mmol/L Normal 3.5-5.1 [facility] ([place]) Comment on above: Performed By: #### C BC, ADIFF, ANEU #### [address] [address] #### CMP, GFR, CEA #### [address] [address] Protein [Mass/Vol] 7.7 G/dL Normal 6.4-8.2 [facility] ([place]) Comment on above: Performed By: #### C BC, ADIFF, ANEU #### [address] [address] #### CMP, GFR, CEA #### [address] [address] Sodium [Moles/Vol] 134 mmol/L Low 136-145 [facility] ([place]) Comment on above: Performed By: #### C BC, ADIFF, ANEU #### [address] [address] #### CMP, GFR, CEA #### [address] [address] Urea nitrogen [Mass/Vol] 15 mg/dL Normal 7-18 [facility] ([place]) Comment on above: Performed By: #### C BC, ADIFF, ANEU #### [address] [address] #### CMP, GFR, CEA #### [address] [address] Urea nitrogen/Creatinine [Mass ratio] 17 ratio Normal 7-27 [facility] ([place]) Comment on above: Performed By: #### C BC, ADIFF, ANEU #### [place] [address] [place], [place] [address] #### CMP, GFR, CEA #### [address] [address] Final Surgical Pathology Rep [facility] 09-05-2018 Final Surgical Pathology Report . Pathology Reports Accession: Collected Date/Time: Received Date/Time: Pathologist: [id number] 09/03/2018 09:16 EDT 09/04/2018 08:29 EDT MD BENRIE FRANCISCO Final Surgical Pathology Report DIAGNOSIS: A) RIGHT COLON, BIOPSY: TUBULAR ADENOMA. B) RECTUM, BIOPSY: FRAGMENTS OF MODERATELY DIFFERENTIATED ADENOCARCINOMA, COLONIC TYPE. INVASION INTO AT LEAST THE SUBMUCOSA IS IDENTIFIED. ADENOCARCINOMA IS IDENTIFIED AT THE INKED AND CAUTERIZED EDGE OF MULTIPLE FRAGMENTS ALTHOUGH THE TRUE MARGINS CANNOT BE CONFIDENTLY IDENTIFIED. TN CLASSIFICATION pT=at least 1 pN=X COMMENT: [facility]# [id number] CLINICAL INFORMATION: Procedure: COLONOSCOPY WITH POLYP BIOPSY, [...] Electronically Signed by Pathology Report verified by [facility] Electronically signed by BERNIE FRANCISCO MD Sign out Date: 09/05/2018 12:01 Performing Lab: [facility], [address] [place] [id number] [facility] ([place]) Comment on above: Performed By: #### S PFR #### [address] [address] Office Visiton 10-04-2016 Documentation of current medications (procedure) Done Invalid Interpretation Code [facility] Work Phone: Fall risk assessment No [facility] Work Phone: [phone] Protein mass conc Done [facility] Work Phone: [phone] 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 Left ventricular Ejection fraction 50 % [facility] Work Phone: Chart Maintenanceon 07-29-19 17 HbA1c 7.6 % [facility] Work Phone: Office Visit: [facility] 03-29-19 17 Dietary management education, guidance, and counseling (procedure) yes Invalid Interpretation Code Late [facility] Work Phone: Documentation of current medications (procedure) Done Invalid Interpretation Code Late [facility] Work Phone: 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: 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 03-23-2016 Left ventricular Ejection fraction 50 % Invalid Interpretation Code [facility] Work Phone: Office Visiton 10-01-2015 Tobacco smoking status NHIS Never smoker [facility] Work Phone: Tobacco use [facility] Never smoker Invalid Interpretation Code Late [facility] Work Phone: 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 Bl [facility] Work Phone: Alkaline phosphatase (ALP) 51 U/L Invalid Interpretation Code [facility] Work Phone: ALP enzyme act/vol (Bld) 51 U/L [facility] Work Phone: [phone] Anion gap 7 mmol/L Invalid Interpretation Code [facility] Work Phone: [phone] Anion gap molar conc 7 mmol/L [facility] Work Phone: [phone] Aspartate aminotransferase (AST) 68 U/L High [facility] Work Phone: [phone] Bilirubin (total) 0.70 mg/dL [facility] Work Phone: [phone] BUN/Creatinine Ratio 20.9 mg/mg High [facility] Work Phone: [phone] Calcium 9.3 mg/dL [facility] Work Phone: [phone] Chloride 102 mmol/L [facility] Work Phone: [phone] Cholesterol 219 mg/dL High [facility] Work Phone: [phone] CO2 27.0 mmol/L Invalid Interpretation Code [facility] Work Phone: [phone] CO2 ppres (BldV) 27.0 mmol/L [facility] Work Phone: [phone] Creatinine 0.76 mg/dL [facility] Work Phone: [phone] eGFR (non-black) 97 mL/min/{1.73_m2} Invalid Interpretation Code [facility] Work Phone: [phone] eGFR (non-black) 80 mL/min/{1.73_m2} [facility] Work Phone: [phone] Erythrocyte distribution width Ratio (RBC) 13.2 % [facility] Work Phone: [phone] Erythrocytes (RBC) 5.01 10*6/uL Invalid Interpretation Code [facility] Work Phone: [phone] Globulin 4.3 g/dL High [facility] Work Phone: [phone] Globulin mass conc (S) 4.3 g/dL High [facility] Work Phone: [phone] Glomerular Filtration Rate 97 mL/min/1.73m2 [facility] Work Phone: [phone] Glucose 134 mg/dL High [facility] Work Phone: [phone] Glucose mass conc 134 mg/dL High [facility] Work Phone: [phone] HDL Cholesterol 58 mg/dL [facility] Work Phone: [phone] Hematocrit (HCT) 45.2 % Invalid Interpretation Code [facility] Work Phone: [phone] Hematocrit Volume Fraction (Bld) 45.2 % [facility] Work Phone: [phone] Hemoglobin (HGB) 15.2 g/dL High [facility] Work Phone: [phone] LDL Cholesterol 123 mg/dL [facility] Work Phone: [phone] MCH 30.3 pg Invalid Interpretation Code [facility] Work Phone: [phone] Entitic mass (RBC) 30.3 pg [facility] Work Phone: [phone] MCHC 33.6 g/dL Invalid Interpretation Code [facility] [employer] [facility] Work Phone: [phone] MCHC mass conc (RBC) 33.6 g/dL [facility] Work Phone: [phone] MCV 90.2 fL Invalid Interpretation Code [facility] [employer] [facility] Work Phone: [phone] MCV Entitic volume (RBC) 90.2 fL [facility] Work Phone: [phone] Platelet mean volume Entitic volume (Bld) 10.5 fL [facility] Work Phone: [phone] Platelets 248 10*3/mm3 Invalid Interpretation Code [facility] [employer] [facility] Work Phone: [phone] Platelets #/vol (Bld) 248 10*3/mm3 [facility] Work Phone: [phone] PMV by Peggy 10.5 fL Invalid Interpretation Code [facility] [employer] [facility] Work Phone: [phone] Potassium 3.7 mmol/L [facility] Work Phone: [phone] Protein 8.5 g/dL High [facility] Work Phone: [phone] RBC #/vol (Bld) 5.01 10*6/uL [employer] Work Phone: [phone] RDW-CA 13.2 % Invalid Interpretation Code [facility] Work Phone: [phone] Sodium 136 mmol/L [facility] [employer] [facility] Work Phone: [phone] Triglyceride 192 mg/dL [facility] [employer] [facility] Work Phone: [phone] Urea nitrogen 16 mg/dL [facility] [employer] [facility] Work Phone: [phone] very low density lipoproteins 38 mg/dL [facility] Work Phone: [phone] WBC #/vol (Bld) 8.4 10*3/uL [employer] Work Phone: [phone] WBC (Leukocytes) 8.4 10*3/uL Invalid Interpretation Code [facility] [employer] [facility] Work Phone: [phone] Lab Report: Basic Metabolic Profile (BMP)on 07-23-2014 eGFR (non-black) 76 mL/min/{1.73_m2} >60 [facility] [employer] [facility] Work Phone: [phone] eGFR (non-black) 92 mL/min/{1.73_m2} Invalid Interpretation Code >60 [facility] [employer] [facility] Work Phone: [phone] EST GFR - AA 92 mL/min >60 [employer] Work Phone: [phone] Lab Report: Liver Profileon 07-23-2014 Bilirubin (direct) 0.10 mg/dL 0.00-0.30 [facility] Work Phone: [phone] Globulin 3.8 g/dL Invalid Interpretation Code 2.7-4.2 [facility] [employer] [facility] Work Phone: [phone] Globulin mass conc (S) 3.8 g/dL 2.7-4.2 [employer] [facility] Work Phone: [phone] External Other: Preferred Me thod of Contacton 04-15-2014 methcontact phone [employer] Work Phone: [phone] Patient's prefered method of contact phone Invalid Interpretation Code [facility] [employer] [facility] Work Phone: Office Visit: [facility] 04-04-19 15 cardiac risk group C [facility] [employer] Work Phone: General cardiovascular disease 10Y risk [#] [place].Maciel'Percy N/A Wander (f. YongoPal)[facility] [employer] Work Phone: Tobacco smoking status NHIS Never [facility] Work Phone: Lab Report: LIVERon 01-05-20 14 ALK 53 U/L Normal 50-136 [employer] Work Phone: [phone] GE use only - for [employer] import when terms are not otherwise specified 53 U/L Normal 50-136 [facility] Work Phone: Replaced Document: Yancy Vigilon 04-09-2013 EKG QRS axis 28 deg [employer] [facility] Work Phone: [phone] electrocardiogram interpretation Sinus Bradycardia WITHIN NORMAL LIMITS Invalid Interpretation Code [facility] Work Phone: Interpretation Sinus Bradycardia WI THIN NORMAL LIMITS [employer] Work Phone: [phone] P [place] 20 deg [employer] Work Phone: [phone] P wave axis, electrocardiogram 20 deg Invalid Interpretation Code [facility] Work Phone: [place] Interval 148 ms [employer] Work Phone: [phone] [place] interval, electrocardiogram 148 ms Invalid Interpretation Code [facility] Work Phone: Pulse (Heart Rate) 401 ms Invalid Interpretation Code [facility] Work Phone: Pulse (Heart Rate) 59 /min Invalid Interpretation Code [facility] Work Phone: [phone] QRS axis, electrocardiogram 28 deg Invalid Interpretation Code [facility] Work Phone: [phone] QRS Duration 104 ms [employer] Work Phone: [phone] QRS duration, electrocardiogram 104 ms Invalid Interpretation Code [facility] Work Phone: [phone] QT Interval new path ms [employer] [facility] Work Phone: [phone] QT interval, electrocardiogram new path ms Invalid Interpretation Code [facility] [employer] [facility] Work Phone: T [place] 38 deg [facility] Work Phone: [phone] T wave axis, electrocardiogram 38 deg Invalid Interpretation Code [employer] [facility] Work Phone: Lab Report: MGon 05-13-2011 Magnesium 2.4 mg/dL High 1.5-2.2 [facility] [employer] [facility] Work Phone: Lab Report: PTon 05-13-2011 INR Coag RelTime (PPP) 1.0 {INR} Normal [facility] Work Phone: [phone] INR in blood by coagulation 1.0 {INR} Normal [facility] [employer] [facility] Work Phone: [phone] prothrombin time, actual/normal, ratio 12.8 SECONDS Normal 11.9-14.4 [facility] [employer] [facility] Work Phone: PTP 12.8 SECONDS Normal 11.9-14.4 [facility] Work Phone: [phone] Lab Report: PTTon 05-13-2011 aPTT 26.9 s Normal 24.1-36.2 [employer] [facility] Work Phone: Lab Report: TROPon 2 Troponin I ng/mL Normal <0.06 [employer] [facility] Work Phone: Office Visiton 2011 Alcoholism counseling (procedure) no Invalid Interpretation Code [employer] [facility] Work Phone: [phone] Protein mass conc no [facility] Work Phone: [phone] 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 Modesta Osborne DO Work Phone: [facility] 11-19-2024 11:03-0400 Body mass index (BMI) [Ratio] 29.1 kg/m2 Dr. Modesta Osborne DO Work Phone: [facility] 11-19-2024 11:03-0400 Body weight 79.[address] Modesta Osborne DO Work Phone: [facility] 11-19-2024 11:03-0400 Diastolic blood pressure 77 mm[Hg] Dr. Modesta Osborne DO Work Phone: [facility] 11-19-2024 11:03-0400 Heart rate 65 /min Dr. Modesta Osborne DO Work Phone: [facility] 11-19-2024 11:03-0400 Respiratory rate 16 /min Dr. Modesta Osborne DO Work Phone: [facility] 11-19-2024 11:03-0400 Systolic blood pressure 150 mm[Hg] Dr. Modesta Osborne DO Work Phone: [facility] 05-18-2024 15:56-0400 Body temperature 98.3 [degF] Dr. Modesta Osborne DO Work Phone: [facility] 05-18-2024 15:56-0400 Diastolic blood pressure 78 mm[Hg] Dr. Modesta Osborne DO Work Phone: [facility] 05-18-2024 15:56-0400 Heart rate 89 /min Dr. Modesta Osborne DO Work Phone: [facility] 05-18-2024 15:56-0400 Respiratory rate 18 /min Dr. Modesta Osborne DO Work Phone: [facility] 05-18-2024 15:56-0400 SaO2% (BldA) [Mass fraction] 98 % Dr. Modesta Osborne DO Work Phone: [facility] 05-18-2024 15:56-0400 Systolic blood pressure 130 mm[Hg] Dr. Modesta Osborne DO Work Phone: [facility] 05-18-2024 11:14-0400 Body height 165.[address] Modesta Osborne DO Work Phone: [facility] 05-18-2024 11:14-0400 Body mass index (BMI) [Ratio] 28.8 kg/m2 Dr. Modesta Osborne DO Work Phone: [facility] 05-18-2024 11:14-0400 Body weight 78.[address] Modesta Osborne DO Work Phone: [facility] 10-14-2021 10:19-0400 Body height 165.[address] Modesta Osborne Work Phone: [facility] Work Phone: 10-14-2021 10:19-0400 Diastolic blood pressure 60 mm[Hg] Dr. Modesta Osborne Work Phone: [facility] Work Phone: 10-14-2021 10:19-0400 Systolic blood pressure 124 mm[Hg] Dr. Modesta Osborne Work Phone: [facility] Work Phone: 10-14-2021 10:19-0400 Body mass index (BMI) [Ratio] 28.9 kg/m2 Dr. Modesta Osborne Work Phone: [facility] Work Phone: 10-14-2021 10:19-0400 Body weight 78.[address] Modesta Osborne Work Phone: [facility] Work Phone: 10-14-2021 10:19-0400 Heart rate 69 /min Dr. Modesta Osborne Work Phone: [facility] Work Phone: 10-14-2021 10:19-0400 Respiratory rate 18 /min Dr. Modesta Osborne Work Phone: [facility] Work Phone: 10-14-2021 10:19-0400 SaO2% (BldA) [Mass fraction] 96 % Dr. Modesta Osborne Work Phone: [facility] Work Phone: 10-04-2016 11:07-0400 BMI (Body [...] BMI (Body Mass Index) 29.1 kg/m2 [facility] [employer] [facility] Work Phone: 03-29-2016 13:04-0500 BP Diastolic 62 mm[Hg] [facility] [employer] [facility] Work Phone: 03-29-2016 13:04-0500 BP Systolic 140 mm[Hg] [facility] [employer] [facility] Work Phone: 03-29-2016 13:04-0500 BSA (Body Surface Area) 1.96 m2 [facility] [employer] [facility] Work Phone: 03-29-2016 13:04-0500 Pulse (Heart Rate) 64 /min [facility] Do[facility] [employer] [facility] Work Phone: 03-29-2016 13:04-0500 Respiratory Rate 20 /min [facility] Do[facility] [facility] [employer] [facility] Work Phone: 03-29-2016 13:04-0500 Weight 84.28 kg [facility] Doherty [employer] [facility] Work Phone: 10-01-2015 11:42-0400 Height 170.18 cm [facility] Doherty [employer] [facility] Work Phone: 04-09-2013 10:35-0500 Heart rate 59 /min [facility] Work Phone: 04-09-2013 10:35-0500 Heart rate 401 ms [facility] Work Phone: Encounters Encounter Date Encounter Type Care Provider Facility Start: 12-17-2024 ambulatory Pk Casey Facility:[facility] Start: 11-19-2024 End: 11-19-[address] Pk Casey MD -[facility] Work Phone: Start: 11-19-2024 End: 11-19-[address] [facility] Start: 11-12-2024 ambulatory Modesta Osborne Facility: [facility] Start: 06-05-2024 End: 06-05-2024 ambulatory [facility] Facility:[facility] Start: 05-23-2024 Non-patient / Non-visit Barbie Mcmillan -[facility] Work Phone: Start: 05-23-2024 ambulatory Modesta Osborne Facility: [facility] Start: 05-21-2024 End: 05-21-[address] Modesta Osborne DO Work Phone: [facility] Work Phone: Start: 05-21-2024 End: 05-21-[address] Modesta Osborne DO -[facility] Start: 05-21-2024 End: 05-21-2024 ambulatory Modesta Osborne Facility:[facility] Start: 05-18-2024 End: 05-22-2024 ambulatory Stacey Helton RN [facility] Start: 05-18-2024 End: 05-22-2024 Patient encounter procedure Stacey Helton RN [facility] Start: 05-18-2024 End: 05-18-2024 Emergency department patient visit Dr. Modesta Osborne DO Work Phone: -Emergency Department Work Phone: Start: 01-15-[address] YONG MORRELL MD Facility:[facility] Start: 12-11-2023 End: 12-11-2023 ambulatory [facility] Facility:[facility] Start: 06-13-2023 End: 06-13-2023 ambulatory [facility] Work Phone: Start: 06-13-2023 End: 06-13-2023 Patient encounter procedure [facility] Work Phone: Start: 12-01-2021 Non-patient / Non-visit Dr. Hugo Osborne Work Phone: [facility] Start: 12-01-2021 End: 12-01-[address] Modesta Osborne Work Phone: [facility] Work Phone: Start: 12-01-2021 End: 12-01-[address] Modesta Osborne Work Phone: [facility]-Cardiovascular Services Start: 11-17-2021 Non-patient / Non-visit Dr. Hugo Osborne Work Phone: [facility] Start: 11-17-2021 End: 11-17-[address] Modesta Osborne Work Phone: [facility] Work Phone: Start: 11-17-2021 End: 11-17-[address] Modesta Osborne Work Phone: [facility]-Cardi[facility] Services Start: 10-26-2021 End: 10-26-[address] Modesta Osborne Work Phone: [facility] Work Phone: Start: 10-26-2021 End: 10-26-[address] Modesta Osborne Work Phone: [facility]-Outpatient Bone Densitometry Start: 10-14-2021 End: 10-14-[address] Modesta Osborne Work Phone: [facility] Start: 07-05-2021 End: 07-05-2021 Subsequent [...] the presence orabsence of malignant disease.Performed at: [address] [id number] Director: Yong Fischer PhD, Phone: [phone] Start: 05-18-2024 Computed tomography of abdomen and [...] Dr. Pk Casey MD Comment on above: IMJ-VIP-Pyi-Distal RCA 12/04/2009; PCI-DE S-Prox-Mid LCx 12/15/2009; ZXI-NOO-VJP-Mid LCx w/ 3.0 x 16 mm Promus [...] PA-C Work Phone: Start: 04-04-2014 End: 04-04-2014 TRACK REPAIR SUPERVISOR Ina Limon PA-C Work Phone: Start: 04-04-2014 [...] of perfusion of myocardium under exercise stress [facility] Start: 05-18-2024 Referral to oncologist [facility] Start: 04-07-2017 End: 04-07-2017 Appointment [facility] Work Phone: Start: 10-04-2016 End: 10-04-2016 Appointment Appointment [facility] Work Phone: Start: 10-04-2016 End: 10-04-2016 Follow Up Appt 6 months Follow Up Appt 6 months [facility] Work Phone: Start: 10-04-2016 End: 10-04-2016 MMM MMMine[facility] Work Phone: Start: 03-29-2016 End: 03-29-2016 TRACK REPAIR SUPERVISOR TRACK REPAIR SUPERVISOR [facility] Work Phone: Start: 03-29-2016 End: 03-29-2016 Follow Up Appt 6 months Follow Up Appt 6 months [facility] Work Phone: Start: 10-01-2015 End: 10-01-2015 Follow Up Appt 6 months Follow Up Appt 6 months [facility] Work Phone: Start: 10-01-2015 End: 10-01-2015 MMM [employer] Work Phone: Start: 03-31-2015 End: 03-31-2015 TRACK REPAIR SUPERVISOR [facility] Work Phone: Start: 03-31-2015 End: 03-31-2015 Follow Up Appt 6 months Follow Up Appt 6 months [facility] Work Phone: Start: 01-23-2015 End: 03-21-2016 *Hepatic Function Panel *Hepatic Function Panel [employer] [facility] Work Phone: Start: 01-23-2015 End: 03-21-2016 Lipid panel [AGGREGATE] *Lipid Profile CC PCP [facility] Work Phone: Start: 10-02-2014 End: 10-02-2014 Follow Up Appt 6 months Follow Up Appt 6 months [facility] Work Phone: Start: 10-02-2014 End: 10-02-2014 MMM [facility] Work Phone: Start: 07-26-2014 End: 07-23-2014 *Hepatic Function Panel *Hepatic Function Panel [facility] Work Phone: Start: 07-26-2014 End: 07-23-2014 Lipid panel [AGGREGATE] *Lipid Profile CC PCP [facility] Work Phone: Start: 04-04-2014 End: 04-04-2014 [facility] Work Phone: Start: 04-04-2014 End: 04-04-2014 Follow Up Appt 6 months Follow Up Appt 6 months [facility] Work Phone: Start: 12-28-2013 End: 01-07-2014 *Hepatic Function Panel *Hepatic Function Panel [facility] Work Phone: Start: 12-28-2013 End: 01-07-2014 Lipid panel [AGGREGATE] *Lipid Profile CC PCP [facility] Work Phone: Start: 09-12-2013 End: 09-12-2013 Follow Up Appt 6 months Follow Up Appt 6 months [employer] [facility] Work Phone: Start: 09-12-2013 End: 09-12-2013 [facility] Work Phone: Start: 06-27-2013 End: 07-26-2013 *Hepatic Function Panel *Hepatic Function Panel [employer] [facility] Work Phone: Start: 06-27-2013 End: 07-26-2013 Lipid panel [AGGREGATE] *Lipid Profile CC PCP [facility] Work Phone: Start: 04-09-2013 End: 04-09-2013 Electrocardiogram, complete EKG (In office) [employer] [facility] Work Phone: Start: 04-09-2013 End: 04-09-2013 Follow Up Appt 6 weeks Follow Up Appt [address] [facility] [employer] [facility] Work Phone: Start: 04-09-2013 End: 04-09-2013 [facility] Work Phone: Start: 11-27-2012 End: 04-19-2013 *Hepatic Function Panel *Hepatic Function Panel [employer] [facility] Work Phone: Start: 11-27-2012 End: 04-19-2013 Lipid panel [AGGREGATE] *Lipid Profile [employer] [facility] Work Phone: Start: 10-24-2012 End: 03-29-2013 *Hepatic Function Panel *Hepatic Function Panel [employer] [facility] Work Phone: Start: 10-24-2012 End: 03-29-2013 Lipid panel [AGGREGATE] *Lipid Profile [employer] Work Phone: Start: 10-05-2012 End: 10-05-2012 Follow Up Appt 6 months Follow Up Appt 6 months [facility] Work Phone: Start: 10-05-2012 End: 10-05-2012 [facility] [employer] [facility] Work Phone: Start: 05-28-2012 End: 06-19-2012 *Hepatic Function Panel *Hepatic Function Panel [facility] Work Phone: Start: 05-28-2012 End: 06-19-2012 Lipid panel [AGGREGATE] *Lipid Profile [facility] Work Phone: Start: 04-05-2012 End: 04-05-2012 Follow Up Appt 6 months Follow Up Appt 6 months [facility] Work Phone: Start: 11-30-2011 End: 12-09-2011 *Hepatic Function Panel *Hepatic Function Panel [facility] Work Phone: Start: 11-30-2011 End: 12-09-2011 Lipid panel [AGGREGATE] *Lipid Profile [employer] Work Phone: Start: 09-26-2011 End: 09-26-2011 Follow Up Appt 6 months Follow Up Appt 6 months [employer] [facility] Work Phone: Start: 07-25-2011 End: 05-13-2011 *Hepatic Function Panel *Hepatic Function Panel [facility] Work Phone: Start: 07-25-2011 End: 05-13-2011 Lipid panel [AGGREGATE] *Lipid Profile [employer] Work Phone: Start: 06-13-2011 End: 06-13-2011 Follow Up Appt 3 months Follow Up Appt 3 months [employer] [facility] Work Phone: Start: 05-09-2011 End: 05-09-2011 Follow Up Appt 6 weeks Follow Up Appt 6 weeks [facility] [employer] [facility] Work Phone: Start: 05-09-2011 End: 05-09-2011 Nuclear stress test -adenosine Nuclear stress test -adenosine [employer] [facility] Work Phone: Start: 2011 End: 04-11-2011 *Hepatic Function Panel *Hepatic Function Panel [facility] Work Phone: Start: 2011 End: 2011 Card[facility] Work Phone: Start: 2011 End: 2011 Cardiovascular stress test using treadmill Treadmill stress test (no imaging) [facility] Work Phone: Start: 2011 End: 2011 Echocardiography Echocardiogram (complete) [facility] Work Phone: Start: 2011 End: 2011 Follow Up Appt 6 weeks Follow Up Appt 6 [facility] Work Phone: Start: 2011 End: 04-11-2011 Lipid panel [AGGREGATE] *Lipid Profile [facility] Work Phone: Lipid 1996 panel - S kamryn or Plasma [facility] Work Phone: Patient Education [facility] Work Phone: Patient referral [facility] Work Phone: Radionuclide imaging of perfusion of myocardium under exercise stress [facility] Work Phone: US Carotid arteries [facility] Work Phone: US Heart [facility] Payers Date Payer Category Payer Medicare [id number] 2023 Self-pay [id number] 1950 Unknown [id number] 2.16.8 [id number] Unknown [id number] 2.16.8 [id number] Unknown [id number] 2.16.8 [id number] Unknown [id number] 2.16.8 [id number] Unknown [id number] 2.16.8 [id number] Unknown [id number] 2.16.8 [id number] Unknown [id number] 2.16.8 [id number] Unknown [id number] 2.16.8 [id number] Unknown [id number] 2.16.8 [id number] Social History Date Type Detail Facility Start: 10-14-2021 End: 11-15-2022 Tobacco smoking status NHIS Tobacco smoking consumption unknown [facility] Start: 1950 Sex Assigned At Not on file [facility] Start: 01-02-2020 Occasional [facility] Start: 01-02-2020 None [facility] Start: 01-02-2020 Spouse/ Signif icant Other [facility] Start: 1950 Sex Assigned At Female W [facility] Start: 09-27-2021 End: 05-27-2024 Sex Female (finding) [facility] Gender identity Not on file [facility] Start: 05-18-2024 Tobacco smoking status NHIS Never smoked tobacco (finding) [facility] Clinical Notes 01-02-2020 to 11-19-2024 Note Date & Type Note Facility 11-19-2024 Progress note [facility] 05-18-2024 Discharge summary [facility] 05-18-2024 Discharge summary Note Date/Time May 18, 2024 3:55pm [facility] Medical Records Department [address] [place] [address] Emergency Department Summary 05/18/24 MR#: [id number] Acct: [id number] Name: CHARLA KOROMA Rep #:[id number] 74 From: Karin VASQUEZ PCP: [...] the same time 5 years ago at [facility] in [place] and at some point had follow-up testing which was normal. She never needed chemo or radiation. 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 Thepatient was traveling to [place] in the past but did not want [...] % (Auto) 59.5 Lymph % (Auto) 25.4 Ponce % (Auto) 12.0 H Eos % (Auto) [...] Clarity Clear Urine pH 7.0 Ur Specific Doddridge 1.005 Urine Protein 15 H Urine Glucose [...] with oncology for further evaluation. Reading Location: [facility] <Dr. Kevin Garibay MD - Last Filed: 05/18/24 14:27> [facility] Lab Data Labs: Laboratory Results - last 24 hr 05/18/24 05/18/24 11:38 12:39 WBC 10.5 RBC 4.64 Hgb 14.2 Hct 40.5 MCV 87.3 MCH 30.6 MCHC 35.1 RDW Std Deviation 38.9 RDW Coeff of Ashanti 12.3 Plt Count 318 MPV 9.5 Immature Gran % (Auto) 0.500 Neut % (Auto) 59.5 Lymph % (Auto) 25.4 Ponce % (Auto) 12.0 H Eos % (Auto) [...] Clarity Clear Urine pH 7.0 Ur Specific Doddridge 1.005 Urine Protein 15 H Urine Glucose [...] with oncology for further evaluation. Reading Location: [facility] Treatment and Re-Evaluation Comments:: I have personally [...] Fast Pass: Oncology Referral [facility] (Routine) Facility: [facility] - Location: [facility] Ordered By: Karin Carvalho Primary Care Provider: Modesta Osborne Referrals: Modesta Osborne DO [Primary Care Provider] - Activity Restrictions/Additional Instructions: Take 1 cap of MiraLAX twice a day to treat constipation. Your CT scan showed enlarged lymph nodes in your abdomen which needs follow-up with an oncologist. I sent a oncology referral to [facility] which should contact you on the next business day. Print Language: Japanese Disposition Disposition: Home, Self Care What to do if you have Problems For any increased pain, shortness of breath, bleeding, nausea or vomiting, chestpain, or any unexpected problems, contact your Primary Care Provider. Call [facility] ([phone]) or report to the closest Emergency Room. Call 911 if necessary. 05/18/24 1541 <Electronically signed by Karin VASQUEZ> Cosigner Signature (if applicable): 05/18/24 1555 <Electronically signed by Kevin Garibay MD> CC: Dr. Modesta Osborne, ~ Signed [facility] Work Phone: 1(438) 113-929903-22-2025 Radiology Diagnostic study note [facility] Imaging Services [address] [place], [place] [address] Abdomen/Pelvis W IV Cont ONLY MR#: [id number] Acct: [id number] Name: CHARLA KOROMA Rep #: [id number] : 1950 F 74 From: Ami Marr MD PCP: Dr. Modesta Osborne DO Status: REG ER Study:Abdomen/Pelvis W IV Cont ONLY Date of E xam: 05/18/24 Exam# [id number] Ordering Dr: Karin Wilson PROCEDURE: ABDOMEN/PELVIS W [...] with oncology for further evaluation. Reading Location: [id number] CC: Dr. Modesta Osborne, ; CHRISTINA Wick ~ Screw Machine Set Up Operator: Signed [facility]03-22-2025 Telephone encounter Note* Telephone Encounter - Stacey Helton RN - 05/18/2024 10:40 AM EDT S: Patient called the [facility] Nurse Advice line with complaint of persistent abdominal pain B: Persistent abdominal pain for the past two days, no bowel movement for at least a week A: Called with complaint of persistent abdominal pain, mild bloating , slight nausea and no bowel movement for one week R: She will go to [facility] for evaluation Patient instructed to call back with worsening symptoms, concerns or questions. [facility] ID: [id number] Reason for Disposition [1] Constant abdominal pain AND [2] present > 2 hours Protocols used: Laqyllekfebm-DOBXP-MA [id number] Miscellaneous Notes* Telephone Encounter - Stacey Helton RN - 05/18/2024 10:40 AM EDT S: Patient called the [facility] Nurse Advice line with complaint of persistent abdominal pain B: Persistent abdominal pain for the past two days, no bowel movement for at least a week A: Called with complaint of persistent abdominal pain, mild bloating , slight nausea and no bowel movement for one week R: She will go to [facility] for evaluation Patient instructed to call back with worsening symptoms, concerns or questions. [facility] ID: [id number] Reason for Disposition [1] Constant abdominal pain AND [2] present > 2 hours Protocols used: Qspvwsrmsycl-FSFGY-JT documented in this [facility]11-05-2020 Evaluation note* Diagnosis Onset Date Resolution Status Dizziness acute BONILLA (dyspnea on exertion) ac dawna Essential (primary) hypertension chronic History of coronary artery stent placement December chronic Hyperlipidemia chronic [facility] Work Phone: [phone]) 178-111611-05-2020 Evaluation note* Diagnosis Onset Date Resolution Status Admit Date Essential (primary) hypertension chronic November 19, 2024 11:01am History of coronary artery stent placement January 02, 2020 chronic October d, 2024 11:01am Hyperlipidemia chronic November 19, 2024 11:01am [facility] Work Phone: Evaluation noteNo assessment information available [facility] Work Phone: Hospital Discharge instructions Additional Instructions Take 1 cap of MiraLAX twice a day to treat constipation. Your CT scan showed enlarged lymph nodes in your abdomen which needs follow-up with an oncologist. I sent a oncology referral to [facility] which should contact you on the next business day.[facility] Work Phone: Progress note Author Pk Casey [facility] Note Date/Time November 19, 2024 11:17am [facility] [address] [place] [address] OFFICE VISIT Date of Service: 11/19/24 MR#: [id number] Acct: [id number] Name: CHARLA KOROMA Rep #: [id number] : 1950 Provider: Dr. 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 Modesta Osborne, DO ~ [facility] Work Phone: Reason for referral (narrative)No reason for referral information availableWTriHealth Work Phone: Summary Purpose Family History No [...] Will No January 01 3:28pm Power of Press Tool Maker No January 02, 2020 3:28pm Advance Directive Response Recorded Date/ Time Living Will No May 18, 2024 11:39am Do you have a Healthcare Power of Press Tool Maker? No May 18, 2024 11:39am Advance Directives [...] section and content) DATE CREATED AUTHOR 2019 [facility] ([place]) DATE CREATED AUTHOR AUTHOR'S ORGANIZ ATION 07/31/2021 [facility] DATE CREATED AUTHOR AUTHOR'S ORGANIZ ATION 01/16/2024 [facility] DATE CREATED AUTHOR AUTHOR'S ORGANIZ ATION 05/19/2024 [facility] DATE CREATED AUTHOR AUTHOR'S ORGANIZ ATION 12/04/2024 [facility] Source Comments (unrecognize d section and content) In the event this informatio n is protected by the Federal Confidentiality of Alcohol and Drug Abuse Patient Records regulations: The Federal rules restrict any use of the information to criminally investigate or prosecute any alcohol or drug abuse patient.[facility] the event this information is protected by the Federal Confidentiality of Alcohol and Drug Abuse Patient Records regulations: The Federal rules restrict any use of the information to criminally investigate or prosecute any alcohol or drug abuse patient.[facility] the event this information is protected by the Federal Confidentiality of Alcohol and Drug Abuse Patient Records regulations: The Federal rules restrict any use of the information to criminally investigate or prosecute any alcohol or drug abuse patient.[facility] Goals (unrecognized section and content) Goals may [...] Attending Provider, Referring Provider Active Wale Champagne ARC FURNACE 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 [facility]. provides no warranty or guarantee of the accuracy or completeness of information in this document.
--- NOTE | 2024-12-17 10:11 | STRESSREP ---
Stress Test Report Exercise myocardial perfusion stress test. 74-year-old lady with a history of coronary disease. Stress protocol: Resting EKG demonstrates normal sinus rhythm with a rate of 80 bpm resting blood pressure is 153/76 mmHg. The patient exercised according to the regular Tunde protocol for a total duration of 4 minutes attaining a maximum heart rate of 131 bpm which was 90% of maximum predicted heart rate; the maximum workload was 6.9 metabolic equivalents. At rest there were no ST or T wave changes noted to suggest ischemia and at peak exercise nonspecific and mildly horizontal ST changes only were noted which did not meet the criteria for ischemia. No clinical angina was noted the test was terminated due to the target heart rate being achieved/fatigue. There was some shortness of breath present at peak exercise as well. The peak blood pressure was 174/78 mmHg. Rate-pressure product was 21,000. Myocardial perfusion protocol. 11.4 mCi of technetium 99m sestamibi was injected at rest. The patient exercised according to regular Tunde protocol for total duration of 4 minutes and at peak exercise 36 mCi of technetium 99m sestamibi was injected stress images were obtained stress and rest images were reconstructed in comparing the short axis vertical long and horizontal long axis. Gated images were also obtained. Perfusion SPECT analysis: Review of the stress images demonstrate normal uptake of tracer noted in all areas of the myocardium. The resting images similarly demonstrate normal uptake of tracer noted in all areas of the myocardium. No areas of reversibility are noted to suggest ischemia no previous infarct was noted. There is some GI attenuation artifact noted Gated SPECT analysis: The gated ejection fraction is 72%. Conclusion: Normal exercise myocardial perfusion stress test at a preserved.
== END | disposition home or self-care (01) ==
LOC: CVS 07:15
PROVIDERS: PCP Family Medicine; Referring Provider Internal Medicine Cardiovascular Disease; Visit Provider Internal Medicine Cardiovascular Disease
DX: I25.10 Atherosclerotic heart disease of native coronary artery without angina pectoris (principal); Z95.5 Presence of coronary angioplasty implant and graft
CPT/HCPCS: 78452; 93017; 93306; A9500; Q9957; A4216; C8929

== ENCOUNTER → 2024-12-26 | Outpatient (CLI) | payer MEDICARE, SELFPAY ==
[2024-12-26 13:30] LABS: Hematocrit 40.5 % (37-47); Hemoglobin 13.9 g/dL (12.0-15.0); Immature Granulocytes Count 0.030 X10^3/uL (0.0-0.0); Mean Corp Hgb Conc 34.3 g/dL (32-36); Mean Corpuscular Volume 87.5 fL (81-99); Mean Platelet Vol. 9.7 fl (6.2-12.0); NRBC Flagged by Analyzer 0 % (0-5); Platelet Count 323 K/mm3 (150-450); RBC Distribution Width CV 12.6 % (11.6-14.6); RBC Distribution Width SD 39.8 fl (35.1-43.9); Red Blood Count 4.63 M/mm3 (4.2-5.4); White Blood Count 9.7 K/mm3 (4.4-11.0)
[2024-12-26 13:34] LABS: Creatinine, Urine (random) 98.00 mg/dL (28.00-217.00); Microalbumin,Random Urine 35.9 mg/L (<20 mg/L)
[2024-12-26 14:06] LABS: AST(SGOT) 32 U/L (<=31); Alanine Aminotransfer ALT/SGPT 28 U/L (<=34); Albumin, Serum 4.3 g/dL (3.4-4.8); Alkaline Phosphatase 47 U/L (35-104); Anion Gap 13 (5-15); BUN 12 mg/dL (4-19); BUN/Creat Ratio 19.3 RATIO (10-20); Bilirubin, Direct 0.16 mg/dL (0.00-0.30); Calcium,Total 10.2 mg/dL (7.6-11.0); Carbon Dioxide 25.1 mmol/L (21.0-32.0); Chloride 95 mmol/L (98-108); Cholesterol 149 mg/dL (<=200); Globulin 3.6 g/dL (2.2-4.2); Glucose 137 mg/dL (70-99); Low Density Lipoprotein Calc. 77 mg/dL; Potassium 3.9 mmol/L (3.3-5.1); Triglycerides 133 mg/dL; Very Low Density Lipoprotein 27 mg/dL (5-40); cholesterol:hdl ratio screen 3.05
[2024-12-27 08:08] LABS: Carcinoembryonic Antigen 1.2 ng/mL (0.0-4.7)
== END | disposition home or self-care (01) ==
LOC: LAB.FUTURE 10:33
PROVIDERS: Nurse Practitioner Gerontology; PCP Family Medicine; Referring Provider Family Medicine; Visit Provider Family Medicine
DX: E11.9 Type 2 diabetes mellitus without complications (principal); I25.10 Atherosclerotic heart disease of native coronary artery without angina pectoris; I10 Essential (primary) hypertension; E03.9 Hypothyroidism, unspecified; Z85.048 Personal history of other malignant neoplasm of rectum, rectosigmoid junction, and anus
CPT/HCPCS: 36415; 80053; 80061; 82043; 82248; 82378; 82570; 83036; 84443; 85025

== ENCOUNTER → 2025-01-07 | Outpatient (CLI) | payer MEDICARE, SELFPAY ==
--- NOTE | 2025-01-07 10:01 | CDU_ITS ---
Reason For Study Reason For Study: Bilateral Carotid Stenosis Rt. Velocities/BP Lt. Velocities/BP Prox CCA 105.0/11.2 cm/sec. Prox CCA 57.6/6.0 cm/sec. Mid CCA 74.3/8.4 cm/sec. Mid CCA 79.7/14.6 cm/sec. Dist CCA 58.8/8.3 cm/sec. Dist CCA 68.6/10.9 cm/sec. Prox ICA 113.3/21.1 cm/sec. Prox ICA 124.1/23.1 cm/sec. Mid ICA 89.1/16.7 cm/sec. Mid ICA 92.6/15.3 cm/sec. Dist ICA 56.0/11.8 cm/sec. Dist ICA 95.6/25.7 cm/sec. Rt. ICA/CCA = 1.5. Lt. ICA/CCA = 1.6. Prox ECA 94.1/3.2 cm/sec. Prox ECA 107.8/6.4 cm/sec. Rt. Vert. 49.0/11.2 cm/sec. Lt. Vert. 41.9/9.9 cm/sec. Right Extracranial There is intimal thickening but no significant atherosclerotic plaque noted in the right common carotid artery. There is heterogeneous, irregular atherosclerotic plaque noted in the right internal carotid artery. The distal right internal carotid artery is not well visualized. There is heterogeneous, irregular atherosclerotic plaque noted in the right external carotid artery. Antegrade flow is noted in the right vertebral artery. Left Extracranial There is heterogeneous, irregular atherosclerotic plaque noted in the left common carotid artery. There is heterogeneous, irregular atherosclerotic plaque noted in the left internal carotid artery. The atherosclerotic plaque causes acoustic shadowing. There is heterogeneous, irregular atherosclerotic plaque noted in the left external carotid artery. Antegrade flow is noted in the left vertebral artery. Procedure Carotid Duplex 74801. This is a Carotid Duplex examination using B-mode, color flow and specral Doppler. The exam was diagnostic. Exam performed in department. VL/Carotid Duplex Ultrasound Interpretation Summary Mild (<50%) stenosis right extracranial internal carotid. Mild (<50%) stenosis left extracranial internal carotid. Patent and antegrade vertebrals bilaterally. Limited due to calcific shadowing. Ordering Physician: Hiram Osborne Referring Physician: Hiram Osborne Performed By: Otto Parra RVT
== END | disposition home or self-care (01) ==
LOC: CVS 10:00
PROVIDERS: PCP Family Medicine; Referring Provider Family Medicine; Visit Provider Family Medicine
DX: I65.23 Occlusion and stenosis of bilateral carotid arteries (principal)
CPT/HCPCS: 93880